=== PATIENT | male | born 1970 | race African-American/Black ===

== ENCOUNTER 2016-08-03 14:41 | Outpatient (RCR) | payer MEDICAID ==
--- OUTSIDE RECORDS SUMMARY | 2016-05-16 13:10 | XMS REPORT | Continuity of Care Document ---
Author Author [facility] Organization [facility] Address Unknown Phone Unavailable Care Team Providers Care Biztalk Software Developer Name Role Phone Veronica Holloway PCP [phone] Source Comments Some departments are not documenting in the electronic medical record. If you do not see the information that you expected, contact Release of Information in the Health Information Management department at [phone] for further assistance in locating additional records.[facility] Active Allergies and Adverse Reactions Allergen Noted Date Severity Reactions Comments Demerol 01/28/2015 Low SEE COMMENTS Patient states make him see things. Current Medications Prescription Sig. Disp. Refills Start End Date Status Date hydrochlorothiazide Take 25 mg by mouth Active (HYDRODIURIL) 25 mg daily. tablet albuterol (VENTOLIN HFA, Inhale 2 Puffs by mouth Active PROAIR HFA) 90 every 6 hours as needed mcg/actuation inhaler for Wheezing. sertraline (ZOLOFT) 50 mg Take 100 mg by mouth Active tablet daily. CYPROHEPTADINE HCL Take by mouth. Patient Active (CYPROHEPTADINE PO) states taking 8 mg daily. divalproex (DEPAKOTE) 500 Take 1 Tab by mouth twice 60 Tab 5 04/01/20 Active mg tablet daily. 15 traZODone (DESYREL) 100 Take 100 mg by mouth at Active mg tablet bedtime daily. pregabalin (LYRICA) 75 mg Take 1 Cap by mouth twice 60 Cap 2 02/24/20 Active capsule daily. 16 Active Problems Problem Noted Date Headache(784.0) 04/01/2015 Bipolar affective disorder, currently depressed, moderate (HCC) 04/01/2015 Most Recent Encounters Date Type Specialty Providers Description 05/01/2016 Telephone Neurology Amy Pulido MD Other - Adama BUSH 04/14/2016 Telephone Neurology Amy Pulido MD Other - [facility] 02/23/2016 Telephone Neurology Amy Pulido MD Medication Update - Lyrica Social History Tobacco Use Types Packs/Day Years Used Date Current Every Day Smoker Smokeless Tobacco: Former User Alcohol Use Drinks/Week oz/Week Comments No Last Filed Vital Signs Vital Sign Reading Time Taken Blood Pressure 111/76 11/29/2015 4:10 PM CDT Pulse 62 11/29/2015 4:10 PM CDT Temperature 36.3 C (97.4 F) 11/29/2015 4:10 PM CDT Respiratory Rate - - Height 1.702 m (5' 7.01") 11/29/2015 4:10 PM CDT Weight 80.287 kg (177 lb) 11/29/2015 4:10 PM CDT Body Mass Index 27.72 11/29/2015 4:10 PM CDT Oxygen Saturation 98% 11/29/2015 4:10 PM CDT Plan of Care Health Maintenance Due Date Last Done Comments Physical (Comprehensive) 09/22/1975 Exam Pertussis Vaccine 09/22/1979 Tetanus Vaccine 1985 Influenza Vaccine 03/09/2016 Results from Last 3 Months Not on file
[~2016-08-03 14:41] MED LIST: ACHD5005 PO; ALBU0.632 IH; ALBU8.5H2 IH; AMLO10TA4 PO; CEPH500C PO; CYCL10TA9 PO; HYDR25TA4 PO; IBP800T PO; IBUP-1773 PO; KETO10TA PO; METH4TAB PO; SIMV10TA3 PO
== END 2016-08-03 16:26 | disposition home or self-care (01) ==
PROVIDERS: ATTEND Family Medicine
DX: M54.5 Low back pain (principal)

== ENCOUNTER 2016-09-23 20:57 | Outpatient (CLI) | payer MEDICAID ==
--- OUTSIDE RECORDS SUMMARY | 2016-09-23 21:00 | XMS REPORT | Continuity of Care Document ---
Author Author [facility] Organization [facility] Address Unknown Phone Unavailable Care Team Providers Care Supply Chain Development Manager Name Role Phone Veronica Holloway PCP [phone] Source Comments Some departments are not documenting in the electronic medical record. If you do not see the information that you expected, contact Release of Information in the Health Information Management department at [phone] for further assistance in locating additional records.[facility] Active Allergies and Adverse Reactions Allergen Noted [...] affective disorder, currently depressed, moderate (HCC) 04/01/2015 Social History Tobacco Use Types Packs/Day Years [...]
== END 2016-09-24 06:35 | disposition home or self-care (01) ==
LOC: SLEEP 20:57
PROVIDERS: ATTEND Family Medicine
DX: R06.83 Snoring (principal); F51.3 Sleepwalking [somnambulism]
CPT/HCPCS: 95810

== ENCOUNTER 2016-11-22 20:40 | Outpatient (CLI) | payer MEDICAID | END 2016-11-23 06:25 | disposition home or self-care (01) | LOC: SLEEP 20:40 | PROVIDERS: ATTEND Family Medicine | DX: G47.33 Obstructive sleep apnea (adult) (pediatric) (principal); I10 Essential (primary) hypertension | CPT/HCPCS: 95811 ==

== ENCOUNTER 2017-08-08 14:43 | Emergency (ER) | payer MEDICAID ==
[~2017-08-08] VITALS: Ht 170.2 cm; Wt 81.6 kg
--- OUTSIDE RECORDS SUMMARY | 2017-08-08 14:48 | XMS REPORT | Clinical Summary ---
Author Author [facility] Organization [facility] Address Unknown Phone Unavailable Care Team Providers Care Keno Writer Name Role Phone Veronica Holloway MD PCP Amy Pulido MD Unavailable Source Comments Some departments are not documenting in the electronic medical record. If you do not see the information that you expected, contact Release of Information in the Health Information Management department at [phone] for further assistance in locating additional records.[facility] Allergies Active Allergy Reactions Severity Noted Date Comments Meperidine SEE COMMENTS Low 01/28/2015 Patient states make him see things. Current [...] twice 60 Tab 5 04/01/20 Active mg tabletIndications: daily. 15 Seizure (HCC), Postconcussive syndrome, Headache(784.0), Bipolar affective disorder, currently depressed, moderate (HCC) traZODone (DESYREL) 100 Take 100 mg by [...] User Alcohol Use Drinks/Week oz/Week Comments No Sex Assigned at Date Recorded Not on file Last Filed Vital Signs Vital Sign Reading Time Taken Blood Pressure 111/76 11/29/2015 4:10 PM CDT Pulse 62 11/29/2015 4:10 PM CDT Temperature 36.3 C (97.4 F) 11/29/2015 4:10 PM CDT Respiratory Rate - - Oxygen Saturation 98% 11/29/2015 4:10 PM CDT Inhaled Oxygen - - Concentration Weight 80.3 kg (177 lb) 11/29/2015 4:10 PM CDT Height 170.2 cm (5' 7.01") 11/29/2015 4:10 PM CDT Body Mass Index 27.72 11/29/2015 4:10 PM CDT Plan of Treatment Health Maintenance Due Date Last Done Comments PHYSICAL (COMPREHENSIVE) 09/22/1975 EXAM PERTUSSIS VACCINE 09/22/1979 TETANUS VACCINE 1985 INFLUENZA VACCINE 02/06/2017 Results Not on filefrom Last 3 Months
--- OUTSIDE RECORDS SUMMARY | 2017-08-08 14:49 | XMS REPORT ---
Author Author MYRA HARRINGTON [facility] Address Unknown Phone Unavailable Care Team Providers Care Heel Breaster Name Role Phone MYRA HARRINGTON CP Unavailable Allergies No Known Allergies Problems Problem Type Condition Code Onset Dates Condition Status Problem Post-traumatic stress disorder F43.10 Active Problem Neurocognitive deficits R29.818 Active Problem Bipolar disorder, current episode mixed, moderate F31.62 Active Medications No Known Medications Vital Signs Date/Time: Apr 28, 2015 Blood Pressure Diastolic 88 mmHg Blood Pressure Systolic 132 mmHg Height 66 in Results No Known Results Summary Purpose eClinicalWorks Submission
--- OUTSIDE RECORDS SUMMARY | 2017-08-08 14:49 | XMS REPORT ---
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 Problem Intractable chronic post-traumatic headache G44.321 Active Problem Chest pain, unspecified chest pain type R07.9 Active Problem Bipolar disorder, current episode depressed, moderate F31.32 Active Problem Essential hypertension I10 Active Problem Bipolar disorder, current episode depressed, mild F31.31 Active Problem Cervicalgia M54.2 Active Problem Seizure disorder G40.909 Active Problem Bilateral low back pain, with sciatica presence unspecified M54.5 Active Problem Uncomplicated asthma, unspecified asthma severity J45.909 Active Assessment Bilateral low back pain, with sciatica presence unspecified M54.5 Active Assessment Uncomplicated asthma, unspecified asthma severity J45.909 Active Assessment Jock itch B35.6 Active Problem Post-traumatic stress disorder F43.10 Active Problem Bipolar disorder, current episode mixed, moderate F31.62 Active Problem Tarsal tunnel syndrome of right side G57.51 Active Problem Generalized anxiety disorder F41.1 Active Problem Neurocognitive deficits R29.818 Active Problem Major depressive disorder, recurrent episode, unspecified severity F33.9 Active Medications Medication Code System Code Instructions Start Date End Date Status Dosage Trazodone HCl [facility] [address]-07 100 MG Orally Once a day at bedtime Jun 1 tablet at bedtime as needed Depakote ER [facility] [address]-37 500 MG Orally Once a day 2 capsule Hydrochlorothiazide [facility] [address]-64 25 MG TAKE ONE TABLET BY MOUTH DAILY Atorvastatin Calcium [facility] [address]-75 20 mg Orally Once a day September 17, 2015 1 tablet Flovent Diskus [facility] [address]-62 50 MCG/BLIST Inhalation Twice a day October 26, 2015 1 puff Prazosin HCl [facility] [address]-82 2 MG Orally Once a day Apr 08, 2015 1 capsule at bedtime Nebulizer [facility] 0 nebulizer October 26, 2015 and supplies as directed Naproxen [facility] [address]-16 500 MG Orally every 12 hrs Jul 21, 2015 1 tablet as needed with food Cymbalta [facility] [address]-94 60 MG Orally Once a day Aug 26, 2015 1 capsule Omeprazole [facility] [id number] 40 MG TAKE 1 CAPSULE BY MOUTH DAILY Proventil HFA [facility] [address]-67 108 (90 Base) MCG/ACT Inhalation every 4 hrs September 07, 2015 2 puffs as needed Albuterol Sulfate [facility] [address]-78 (2.5 MG/3ML) 0.083% Inhalation every 4 hrs as needed (do not use with proventil) October 26, 2015 3 ml Procedures Procedure Coding System Code Date Office Visit, Est Pt., Level 3 CPT-4 04958 October 26, 2015 MEASURE BLOOD OXYGEN LEVEL CPT-4 13041 October 26, 2015 Vital Signs Date/Time: October 26, 2015 Temperature 98.3 F Weight 182.0 lbs Height 66 in Oximetry 95 % Blood Pressure Diastolic 78 mmHg Blood Pressure Systolic 128 mmHg Cardiac Monitoring Heart Rate 78 bpm BMI 29.37 Index Results No Known Results Summary Purpose eClinicalWorks Submission
--- OUTSIDE RECORDS SUMMARY | 2017-08-08 14:49 | XMS REPORT ---
Author Author JUANY MYRA [facility] Address [address] [place] [address] Care Team Providers Care Technical Training Coordinator Name Role Phone ANASTASIYA HARRINGTONHANY Unavailable PROBLEMS Type Condition ICD9-CM Code [id number] Code Onset Dates Condition Status SNOMED Code Problem Bipolar disorder, current episode depressed, moderate F31.32 Active 030927935 Problem Pure hypercholesterolemia E78.0 Active 272957762 Problem Bipolar disorder, current episode depressed, mild F31.31 Active 906123516 Problem Subacromial bursitis of left shoulder joint M75.52 Active 26154880 Problem Post-traumatic stress disorder F43.10 Active 28523036 Problem Urinary hesitancy R39.11 Active 4944838 Problem Neurocognitive deficits R29.818 Active 539503394 Problem Tarsal tunnel syndrome of right side G57.51 Active 34313871 Problem Chronic post-traumatic stress disorder (PTSD) F43.12 Active 978188973 Problem Moderate persistent asthma without complication J45.40 Active 204219703 Problem Sleep walking and eating F51.3 Active 11461219 Problem Drug-induced erectile dysfunction N52.2 Active 224246470 Problem Major depressive disorder, recurrent episode, unspecified severity F33.9 Active 39539555 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 13736615 Problem Bipolar disorder, current episode mixed, moderate F31.62 Active 627626076 Problem Generalized anxiety disorder F41.1 Active 160445299 Problem Seizure disorder G40.909 Active 214078328 Problem Cervicalgia M54.2 Active 5949758286512 Problem Chest pain, unspecified chest pain type R07.9 Active 85289308 Problem Bilateral low back pain, with sciatica presence unspecified M54.5 Active 715033161 Problem Type 2 diabetes mellitus with hyperglycemia, without long-term current use of insulin E11.65 Active 44591164 Problem Intractable chronic post-traumatic headache G44.321 Active 737613249 Problem Essential hypertension I10 Active 06939927 ALLERGIES Unknown Allergies SOCIAL HISTORY No smoking Hx information available PLAN OF CARE VITAL SIGNS MEDICATIONS Unknown Medications RESULTS Name Result Date Reference Range A1C (IN HOUSE) 2016-06-27 A1C IN HOUSE 6.8 4.3 - 5.6 % Previous A1c Lot [id number] Exp date 03/2018 UA W/CULTURE IF INDICATED (IN HOUSE) 2016-06-27 Lot # [id number] Exp date 05/2017 Clarity Clear Color Yellow Odor No GLU Negative MADHU Negative KET Negative SG 1.020 BLO Trace-Intact pH 6.5 Protein Negative URO 0.2 NIT Negative TERESITA Trace Lot # [id number] Exp date 02/2018 PROCEDURES Procedure Date Ordered Related Diagnosis Body Site GLYCATED HEMOGLOBIN TEST Jun 27, 2016 URINALYSIS, AUTO, W/O SCOPE Jun 27, 2016 IMMUNIZATIONS No Known Immunizations
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
--- OUTSIDE RECORDS SUMMARY | 2017-08-08 14:49 | XMS REPORT ---
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 Problem Major depressive disorder, recurrent episode, unspecified severity F33.9 Active Problem Bilateral low back pain, with sciatica presence unspecified M54.5 Active Problem Uncomplicated asthma, unspecified asthma severity J45.909 Active Problem Essential hypertension I10 Active Problem Intractable chronic post-traumatic headache G44.321 Active Problem Chest pain, unspecified chest pain type R07.9 Active Problem Cervicalgia M54.2 Active Problem Seizure disorder G40.909 Active Assessment Neurocognitive deficits R29.818 Active Assessment Bipolar disorder, current episode mixed, moderate F31.62 Active Problem Neurocognitive deficits R29.818 Active Assessment Generalized anxiety disorder F41.1 Active Problem Post-traumatic stress disorder F43.10 Active Assessment Post-traumatic stress disorder F43.10 Active Problem Bipolar disorder, current episode mixed, moderate F31.62 Active Medications Medication Code System Code Instructions Start Date End Date Status Dosage Proventil HFA [facility] N[facility] [id number] 108 (90 Base) MCG/ACT INHALE TWO PUFFS BY MOUTH EVERY 4 HOURS NEEDED FOR COUGH OR WHEEZNG Omeprazole [facility] NAMED [facility] [address]-91 40 MG Orally Once a day January 28, 2015 1 capsule Prazosin HCl [facility] [address]-50 2 MG Orally Once a day Apr 08, 2015 1 capsule at bedtime Sertraline HCl [facility] [address]-84 100 MG Orally TAke 1.5 tablets each morning January 28, 2015 1 tablet Depakote ER [facility] [address]-17 500 MG Orally Once a day 2 capsule Hydrochlorothiazide [facility] 74583568797 25 MG TAKE ONE TABLET BY MOUTH DAILY Ibuprofen [facility] [address]-57 600 MG Orally 4 times a day 1 tablet as needed Procedures Procedure Coding System Code Date Office Visit, Est Pt., Level 4 CPT-4 24757 May 20, 2015 Vital Signs Date/Time: May 20, 2015 Cardiac Monitoring Heart Rate 78 bpm Weight 176.1 lbs Height 66 in BMI 28.42 Index Blood Pressure Diastolic 78 mmHg Blood Pressure Systolic 132 mmHg Results No Known Results Summary Purpose eClinicalWorks Submission
--- OUTSIDE RECORDS SUMMARY | 2017-08-08 14:49 | XMS REPORT ---
Author Author JUANY MYRA [facility] Address [address] [place] [address] Care Team Providers Care Sign Painter Apprentice Name Role Phone ANASTASIYA HARRINGTONHANY Unavailable PROBLEMS Type Condition ICD9-CM Code [id number] Code Onset Dates Condition Status SNOMED Code Problem Bipolar disorder, current episode depressed, moderate F31.32 Active 353292788 Problem Pure hypercholesterolemia E78.0 Active 266647672 Problem Bipolar disorder, current episode depressed, mild F31.31 Active 106083650 Problem Subacromial bursitis of left shoulder joint M75.52 Active 60498604 Problem Post-traumatic stress disorder F43.10 Active 01490967 Problem Urinary hesitancy R39.11 Active 0764387 Problem Neurocognitive deficits R29.818 Active 104598248 Problem Tarsal tunnel syndrome of right side G57.51 Active 39465539 Problem Chronic post-traumatic stress disorder (PTSD) F43.12 Active 393417266 Problem Moderate persistent asthma without complication J45.40 Active 605037085 Problem Sleep walking and eating F51.3 Active 56302622 Problem Drug-induced erectile dysfunction N52.2 Active 540261414 Problem Major depressive disorder, recurrent episode, unspecified severity F33.9 Active 49127963 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 72258452 Problem Bipolar disorder, current episode mixed, moderate F31.62 Active 788264936 Problem Generalized anxiety disorder F41.1 Active 989237796 Problem Seizure disorder G40.909 Active 288866185 Problem Cervicalgia M54.2 Active 6851709724587 Problem Chest pain, unspecified chest pain type R07.9 Active 88981668 Problem Bilateral low back pain, with sciatica presence unspecified M54.5 Active 591695188 Problem Type 2 diabetes mellitus with hyperglycemia, without long-term current use of insulin E11.65 Active 64381347 Problem Intractable chronic post-traumatic headache G44.321 Active 394873717 Problem Essential hypertension I10 Active 51871004 ALLERGIES Unknown Allergies SOCIAL HISTORY No smoking Hx information available PLAN OF CARE VITAL SIGNS MEDICATIONS Unknown Medications RESULTS No Results PROCEDURES No Known procedures IMMUNIZATIONS No Known Immunizations
--- OUTSIDE RECORDS SUMMARY | 2017-08-08 14:49 | XMS REPORT ---
Author Author JUANY MYRA Organization [facility] Address [address] [place] [address] Care Team Providers Care Nursing Program Director Name Role Phone ANASTASIYA HARRINGTONHANY Unavailable PROBLEMS Type Condition ICD9-CM Code PHQ78-MO Code Onset Dates Condition Status SNOMED Code Problem Bipolar disorder, current episode depressed, moderate F31.32 Active 593074969 Problem Moderate persistent asthma without complication J45.40 Active 692478726 Problem Bipolar disorder, current episode depressed, mild F31.31 Active 829486519 Problem Subacromial bursitis of left shoulder joint M75.52 Active 17928724 Problem Neurocognitive deficits R29.818 Active 463592382 Problem Urinary hesitancy R39.11 Active 0637658 Problem Bipolar disorder, current episode mixed, moderate F31.62 Active 925305637 Problem Type 2 diabetes mellitus with hyperglycemia, without long-term current use of insulin E11.65 Active 53097486 Problem Chronic post-traumatic stress disorder (PTSD) F43.12 Active 476336697 Problem Pure hypercholesterolemia E78.0 Active 968903551 Problem Sleep walking and eating F51.3 Active 04293805 Problem Drug-induced erectile dysfunction N52.2 Active 226575660 Problem Major depressive disorder, recurrent episode, unspecified severity F33.9 Active 61302017 Problem Chest pain, unspecified chest pain type R07.9 Active 28443836 Problem Post-traumatic stress disorder F43.10 Active 00742316 Problem Intractable chronic post-traumatic headache G44.321 Active 318760896 Problem Generalized anxiety disorder F41.1 Active 506767746 

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
--- OUTSIDE RECORDS SUMMARY | 2017-08-08 14:50 | XMS REPORT ---
Author Author MYRA HARRINGTON [facility] eClinicalWorks Address Unknown Phone Unavailable Care Team Providers Care Silk Washing Machine Operator Name Role Phone MYRA HARRINGTON CP Unavailable Allergies No Known Allergies Problems Problem Type Condition Code Onset Dates Condition Status Problem Intractable chronic post-traumatic headache G44.321 Active Problem Cervicalgia M54.2 Active Problem Seizure disorder G40.909 Active Problem Pure hypercholesterolemia E78.0 Active Problem Bipolar disorder, current episode depressed, mild F31.31 Active Problem Moderate persistent asthma without complication J45.40 Active Problem Bilateral low back pain, with sciatica presence unspecified M54.5 Active Problem Uncomplicated asthma, unspecified asthma severity J45.909 Active Problem Bipolar disorder, current episode depressed, moderate F31.32 Active Problem Essential hypertension I10 Active Problem Tarsal tunnel syndrome of right side G57.51 Active Problem Neurocognitive deficits R29.818 Active Problem Generalized anxiety disorder F41.1 Active Problem Major depressive disorder, recurrent episode, unspecified severity F33.9 Active Problem Post-traumatic stress disorder F43.10 Active 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
--- OUTSIDE RECORDS SUMMARY | 2017-08-08 14:50 | XMS REPORT ---
Author Author MYRA HARRINGTON eClinicalWorks Address Unknown Phone Unavailable Care Team Providers Care Math Instructor Name Role Phone MYRA HARRINGTON CP Unavailable [...] asthma, unspecified asthma severity J45.909 Active Assessment Uncomplicated asthma, unspecified asthma severity J45.909 Active Problem Post-traumatic stress disorder F43.10 Active Problem Bipolar disorder, current episode mixed, moderate F31.62 Active Problem Tarsal tunnel syndrome of right side G57.51 Active Problem Generalized anxiety disorder F41.1 Active Problem Neurocognitive deficits R29.818 Active Problem Major depressive disorder, recurrent episode, unspecified severity F33.9 Active Medications No Known Medications Procedures Procedure Coding System Code Date SPRIOMETRY CHALLENGE CPT-4 15024 November 04, 2015 NEB/MDI DEMO CPT-4 34523 November 04, 2015 RESPIRATORY FLOW VOLUME LOOP CPT-4 21440 November 04, 2015 SPIROMETRY CPT-4 78355 November 04, 2015 Results No Known Results Summary Purpose eClinicalWorks Submission
--- OUTSIDE RECORDS SUMMARY | 2017-08-08 14:50 | XMS REPORT ---
Author Author JUANY MYRA Organization [facility] Address [address] [place] [address] Care Team Providers Care Jig Box Operator Name Role Phone ANASTASIYA HARRINGTONHANY Unavailable PROBLEMS Type Condition ICD9-CM Code [id number] Code Onset Dates Condition Status SNOMED Code Problem Bipolar disorder, current episode depressed, moderate F31.32 Active 210002150 Problem Moderate persistent asthma without complication J45.40 Active 192232826 Problem Bipolar disorder, current episode depressed, mild F31.31 Active 288040899 Problem Subacromial bursitis of left shoulder joint M75.52 Active 91900060 Problem Neurocognitive deficits R29.818 Active 828679128 Problem Urinary hesitancy R39.11 Active 4813494 Problem Bipolar disorder, current episode mixed, moderate F31.62 Active 493523524 Problem Type 2 diabetes mellitus with hyperglycemia, without long-term current use of insulin E11.65 Active 35348135 Problem Chronic post-traumatic stress disorder (PTSD) F43.12 Active 839828192 Problem Pure hypercholesterolemia E78.0 Active 641141780 Problem Sleep walking and eating F51.3 Active 71760101 Problem Drug-induced erectile dysfunction N52.2 Active 116700596 Problem Major depressive disorder, recurrent episode, unspecified severity F33.9 Active 78281794 Problem Chest pain, unspecified chest pain type R07.9 Active 37759820 Problem Post-traumatic stress disorder F43.10 Active 94563569 Problem Intractable chronic post-traumatic headache G44.321 Active 294241444 Problem Generalized anxiety disorder F41.1 Active 508388929 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 90645821 Problem Bilateral low back pain, with sciatica presence unspecified M54.5 Active 512670496 Problem Seizure disorder G40.909 Active 946811985 Problem Tarsal tunnel syndrome of right side G57.51 Active 06262499 Problem Cervicalgia M54.2 Active 0500148800092 Problem Essential hypertension I10 Active 37824780 ALLERGIES No Information SOCIAL HISTORY Never Assessed PLAN OF CARE VITAL SIGNS MEDICATIONS Medication Instructions Dosage Frequency Start Date End Date Duration Status Hydrochlorothiazide 25 MG 1 tablet Daily Oral 30 30 Active Terbinafine HCl 250 MG Orally Once a day 1 tablet 24h November, Dec, 14 days Active Prazosin HCl 2 MG TAKE 1 CAPSULE BY MOUTH AT BEDTIME 30 Active Atorvastatin Calcium 20 MG TAKE ONE (1) TABLET BY MOUTH DAILY 90 Active Finasteride 5 mg Orally Once a day 1 tablet 24h November, Feb, 30 day(s) Active Duloxetine HCl 60 mg Orally Once a day along with 30 mg 1 capsule Active Proventil HFA 108 (90 Base) MCG/ACT Inhalation every 4 hrs 2 puffs as needed 4h Active Zyprexa 5 mg Orally Once at bedtime 1 tablet Active Omeprazole 40 MG TAKE ONE (1) CAPSULE BY MOUTH DAILY 90 Active Indomethacin 25 MG Orally 2 times a day 1 capsule 12h Active ChlorproMAZINE HCl 25 MG Orally in am and 2 tablets at bedtime 1 tablet Sep, Active BusPIRone HCl 15 MG Orally Twice a day 1 tablet 12h Jun, Active Topiramate 200 MG Orally Twice a day 1 tablet 12h Active Duloxetine HCl 30 mg 1 capsule Once a day with Duloxetine 60mg (full dose is 90mg) Orally Active Depakote ER 500 mg Orally 1 tab qam and 2 tabs qhs Active RESULTS No Results PROCEDURES No Known [...]
--- OUTSIDE RECORDS SUMMARY | 2017-08-08 14:50 | XMS REPORT ---
Author Author JUANY MYRA Organization [facility] Address [address] [place] [address] Care Team Providers Care Forklift Operator Name Role Phone ANASTASIYA HARRINGTONHANY Unavailable PROBLEMS Type Condition ICD9-CM Code [id number] Code Onset Dates Condition Status SNOMED Code Problem Bipolar disorder, current episode depressed, moderate F31.32 Active 446608014 Problem Moderate persistent asthma without complication J45.40 Active 319099555 Problem Bipolar disorder, current episode depressed, mild F31.31 Active 228915149 Problem Subacromial bursitis of left shoulder joint M75.52 Active 18031203 Problem Neurocognitive deficits R29.818 Active 279472415 Problem Urinary hesitancy R39.11 Active 9240286 Problem Bipolar disorder, current episode mixed, moderate F31.62 Active 122353094 Problem Type 2 diabetes mellitus with hyperglycemia, without long-term current use of insulin E11.65 Active 29205455 Problem Chronic post-traumatic stress disorder (PTSD) F43.12 Active 399740141 Problem Pure hypercholesterolemia E78.0 Active 607156145 Problem Sleep walking and eating F51.3 Active 74768459 Problem Drug-induced erectile dysfunction N52.2 Active 163542989 Problem Major depressive disorder, recurrent episode, unspecified severity F33.9 Active 77022561 Problem Chest pain, unspecified chest pain type R07.9 Active 76721177 Problem Post-traumatic stress disorder F43.10 Active 41648161 Problem Intractable chronic post-traumatic headache G44.321 Active 429553745 Problem Generalized anxiety disorder F41.1 Active 287171196 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
--- OUTSIDE RECORDS SUMMARY | 2017-08-08 14:50 | XMS REPORT ---
Author Author MYRA HARRINGTON eClinicalWorks Address Unknown Phone Unavailable Care Team Providers Care Inside Phone Sales Name Role Phone MYRA HARRINGTON CP Unavailable Allergies No Known Allergies Problems Problem Type Condition Code Onset Dates Condition Status Problem Seizure disorder G40.909 Active Problem Uncomplicated asthma, unspecified asthma severity J45.909 Active Problem Cervicalgia M54.2 Active Problem Moderate persistent asthma without complication J45.40 Active Problem Pure hypercholesterolemia E78.0 Active Problem Drug-induced erectile dysfunction N52.2 Active Problem Essential hypertension I10 Active Problem Bilateral low back pain, with sciatica presence unspecified M54.5 Active Problem Bipolar disorder, current episode depressed, mild F31.31 Active Problem Bipolar disorder, current episode depressed, moderate F31.32 Active Problem Neurocognitive deficits R29.818 Active Problem Post-traumatic stress disorder F43.10 Active Problem Tarsal tunnel syndrome of right side G57.51 Active Problem Major depressive disorder, recurrent episode, unspecified severity F33.9 Active 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
--- OUTSIDE RECORDS SUMMARY | 2017-08-08 14:50 | XMS REPORT ---
Author Author KHADRA GUTIERRES Organization [facility] Address [address] [place] [address] Care Team Providers Care Distribution Accounting Clerk Name Role Phone PREM GUTIERRESA Unavailable PROBLEMS Type Condition ICD9-CM Code [id number] Code Onset Dates Condition Status SNOMED Code Problem Bipolar disorder, current episode depressed, moderate F31.32 Active 508026059 Problem Moderate persistent asthma without complication J45.40 Active 807360589 Problem Bipolar disorder, current episode depressed, mild F31.31 Active 971175678 Problem Subacromial bursitis of left shoulder joint M75.52 Active 40461645 Problem Neurocognitive deficits R29.818 Active 609332158 Problem Urinary hesitancy R39.11 Active 6181260 Problem Bipolar disorder, current episode mixed, moderate F31.62 Active 832987660 Problem Type 2 diabetes mellitus with hyperglycemia, without long-term current use of insulin E11.65 Active 04849036 Problem Chronic post-traumatic stress disorder (PTSD) F43.12 Active 650242817 Problem Pure hypercholesterolemia E78.0 Active 793212908 Problem Sleep walking and eating F51.3 Active 64528698 Problem Drug-induced erectile dysfunction N52.2 Active 920691039 Problem Major depressive disorder, recurrent episode, unspecified severity F33.9 Active 58178435 Problem Chest pain, unspecified chest pain type R07.9 Active 40202861 Problem Post-traumatic stress disorder F43.10 Active 46360512 Problem Intractable chronic post-traumatic headache G44.321 Active 746286411 Problem Generalized anxiety disorder F41.1 Active 359913485 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 87198163 Problem Bilateral low back pain, with sciatica presence unspecified M54.5 Active 386125245 Problem Seizure disorder G40.909 Active 568966309 Problem Tarsal tunnel syndrome of right side G57.51 Active 79419653 Problem Cervicalgia M54.2 Active 3813147224963 Problem Essential hypertension I10 Active 28430397 ALLERGIES Substance Reaction Event Type Date Status Demerol hallucinations Drug Allergy Jun, Active SOCIAL HISTORY No smoking Hx information available PLAN OF CARE Activity Details Follow Up 3 Months Reason: VITAL SIGNS Height 66 in 2016-06-27 Weight 203.7 lbs 2016-06-27 Heart Rate 92 bpm 2016-06-27 Respiratory Rate 20 2016-06-27 BMI 32.87 kg/m2 2016-06-27 Blood pressure systolic 141 mmHg 2016-06-27 Blood pressure diastolic 91 mmHg 2016-06-27 MEDICATIONS Medication Instructions Dosage Frequency Start Date End Date Duration Status Doxepin HCl 10 mg Orally at bedtime for sleep 1 capsule Active Omeprazole 40 mg TAKE 1 CAPSULE BY MOUTH DAILY Active BusPIRone HCl 15 MG Orally Twice a day 1 tablet 12h Jun, Active Zyprexa 5 mg Orally Once at bedtime 1 tablet Mar, Active Hydrochlorothiazide 25 MG Oral Daily 1 tablet 24h 30 Active Depakote ER 500 MG Orally 1 tab qam and 2 tabs qhs 2 capsule Active Atorvastatin Calcium 20 mg TAKE ONE TABLET BY MOUTH DAILY Active Lyrica 150 MG Orally Twice a day 1 capsule 12h Active Proventil HFA 108 (90 Base) MCG/ACT Inhalation every 4 hrs 2 puffs as needed 4h Sep, Active Flovent HFA 110 MCG/ACT Inhalation Twice a day 2 puffs 12h Feb, 30 days Active Prazosin HCl 2 MG TAKE 1 CAPSULE BY MOUTH AT BEDTIME Active Tegretol 200 MG Orally Twice a day 1 tablet 12h Active Albuterol Sulfate (2.5 MG/3ML) 0.083% Inhalation every 4 hrs as needed (do not use with proventil) 3 ml Oct, Active Duloxetine HCl 60 MG TAKE 1 CAPSULE BY MOUTH DAILY Active Ketoconazole 2 % Externally Once a day apply thin layer to anterior chest wall and behind ear 24h Mar, Active Duloxetine HCl 30 MG Orally Once a day with Duloxetine 60mg (full dose is 90mg ) 1 capsule Mar, Active Omeprazole 40 mg TAKE 1 CAPSULE BY MOUTH DAILY Active RESULTS No Results PROCEDURES Procedure Date Ordered Related Diagnosis Body Site Office Visit, Est Pt., Level 4 Jun 27, 2016 IMMUNIZATIONS No Known Immunizations
--- OUTSIDE RECORDS SUMMARY | 2017-08-08 14:50 | XMS REPORT ---
Author Author JESU SARAH [facility] eClinicalWorks Address Unknown Phone Unavailable Care Team Providers Care Wet Machine Operator Name Role Phone JESU SARAH CP Unavailable Allergies, Adverse Reactions, Alerts Substance Reaction Event Type Demerol hallucinations Drug Allergy Problems Problem Type Condition Code Onset Dates Condition Status Problem Cervicalgia 723.1 Active Problem Lumbago 724.2 Active Problem Asthma, unspecified, unspecified status 493.90 Active Assessment Depression 311 Active Assessment Anxiety 300.00 Active Problem Latent tuberculosis 795.51 Active Problem Depression 311 Active Problem Chest pain 786.50 Active Problem Chronic headache 784.0 Active Problem Essential hypertension, benign 401.1 Active Problem Anxiety 300.00 Active Problem Seizure disorder 345.90 Active Medications No Known Medications Procedures Procedure Coding System Code Date Psychotherapy, patient &/family, 45 minutes, established patient CPT-4 34708 May 10, 2015 Results No Known Results Summary Purpose eClinicalWorks Submission
--- OUTSIDE RECORDS SUMMARY | 2017-08-08 14:50 | XMS REPORT ---
Author Author MYRA HARRINGTON eClinicalWorks Address Unknown Phone Unavailable Care Team Providers Care Meat Carrier Name Role Phone MYRA HARRINGTON CP Unavailable Allergies, Adverse Reactions, Alerts Substance Reaction Event Type Demerol hallucinations Drug Allergy Problems Problem Type Condition Code Onset Dates Condition Status Problem Intractable chronic post-traumatic headache G44.321 Active Problem Cervicalgia M54.2 Active Problem Seizure disorder G40.909 Active Problem Pure hypercholesterolemia E78.0 Active Assessment Pure hypercholesterolemia E78.0 Active Problem Bipolar disorder, current episode depressed, mild F31.31 Active Assessment Auditory hallucinations R44.0 Active Problem Moderate persistent asthma without complication J45.40 Active Problem Bilateral low back pain, with sciatica presence unspecified M54.5 Active Problem Uncomplicated asthma, unspecified asthma severity J45.909 Active Problem Bipolar disorder, current episode depressed, moderate F31.32 Active Problem Essential hypertension I10 Active Problem Tarsal tunnel syndrome of right side G57.51 Active Problem Neurocognitive deficits R29.818 Active Assessment Moderate persistent asthma without complication J45.40 Active Assessment Essential hypertension I10 Active Problem Generalized anxiety disorder F41.1 Active Problem Major depressive disorder, recurrent episode, unspecified severity F33.9 Active Problem Post-traumatic stress disorder F43.10 Active 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 Problem Bipolar disorder, current episode mixed, moderate F31.62 Active Problem Chest pain, unspecified chest pain type R07.9 Active Medications Medication Code System Code Instructions Start Date End Date Status Dosage Omeprazole [facility] [id number] 40 MG TAKE 1 CAPSULE BY MOUTH DAILY Proventil HFA [facility] [address]-99 108 (90 Base) MCG/ACT Inhalation every 4 hrs September 07, 2015 2 puffs as needed Albuterol Sulfate [facility] [address]-25 (2.5 MG/3ML) 0.083% Inhalation every 4 hrs as needed (do not use with proventil) October 26, 2015 3 ml Prazosin HCl [facility] 57598876498 2 MG Orally Once a day 1 capsule at bedtime Flovent Diskus [facility] [address]-36 250 MCG/BLIST Inhalation Twice a day October 26, 2015 1 puff Hydrochlorothiazide [facility] 57568229429 25 MG Oral Daily 1 tablet Depakote ER [facility] [address]-82 500 MG Orally Once a day 2 capsule Lyrica [facility] [address]-18 150 MG Orally Twice a day 1 capsule Doxepin HCl [facility] [address]-60 10 mg Orally at bedtime for sleep November 30, 2015 1 capsule Cymbalta [facility] [address]-28 60 MG Orally Once a day Aug 26, 2015 1 capsule Atorvastatin Calcium [facility] 90011060748 20 MG TAKE ONE TABLET BY MOUTH DAILY NEED AN APPOINTMENT AND LABS FOR FURTHER REFILLS Duloxetine HCl [facility] 93688346360 60 MG TAKE 1 CAPSULE BY MOUTH DAILY Procedures Procedure Coding System Code Date Office Visit, Est Pt., Level 3 CPT-4 45738 February 03, 2016 Vital Signs Date/Time: February 03, 2016 Cardiac Monitoring Heart Rate 76 bpm Weight 175.4 lbs Height 66 in BMI 28.31 Index Blood Pressure Diastolic 80 mmHg Blood Pressure Systolic 132 mmHg Results No Known Results Summary Purpose eClinicalWorks Submission
--- OUTSIDE RECORDS SUMMARY | 2017-08-08 14:50 | XMS REPORT ---
Author Author NENITA KHADRA Organization [facility] Address [address] [place] [address] Care Team Providers Care Charge Entry Name Role Phone PREM GUTIERRESA Unavailable PROBLEMS Type Condition ICD9-CM Code [id number] Code Onset Dates Condition Status SNOMED Code Problem Bipolar disorder, current episode depressed, moderate F31.32 Active 162712349 Problem Moderate persistent asthma without complication J45.40 Active 715700285 Problem Bipolar disorder, current episode depressed, mild F31.31 Active 252533589 Problem Subacromial bursitis of left shoulder joint M75.52 Active 05693691 Problem Neurocognitive deficits R29.818 Active 919287169 Problem Urinary hesitancy R39.11 Active 8876807 Problem Bipolar disorder, current episode mixed, moderate F31.62 Active 809900851 Problem Type 2 diabetes mellitus with hyperglycemia, without long-term current use of insulin E11.65 Active 76976935 Problem Chronic post-traumatic stress disorder (PTSD) F43.12 Active 383085964 Problem Pure hypercholesterolemia E78.0 Active 007740828 Problem Sleep walking and eating F51.3 Active 87804042 Problem Drug-induced erectile dysfunction N52.2 Active 059363659 Problem Major depressive disorder, recurrent episode, unspecified severity F33.9 Active 11121800 Problem Chest pain, unspecified chest pain type R07.9 Active 38321410 Problem Post-traumatic stress disorder F43.10 Active 27816840 Problem Intractable chronic post-traumatic headache G44.321 Active 144585610 Problem Generalized anxiety disorder F41.1 Active 745076114 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
--- OUTSIDE RECORDS SUMMARY | 2017-08-08 14:51 | XMS REPORT ---
Author Author MYRA HARRINGTON [facility] eClinicalWorks Address Unknown Phone Unavailable Care Team Providers Care Due Diligence Coordinator Name Role Phone MYRA HARRINGTON CP Unavailable [...] Instructions Start Date End Date Status Dosage Atorvastatin Calcium [facility] [address]-19 20 mg TAKE ONE TABLET BY MOUTH DAILY Results No Known Results Summary Purpose eClinicalWorks Submission
--- OUTSIDE RECORDS SUMMARY | 2017-08-08 14:51 | XMS REPORT ---
Author Author KHADRA GUTIERRES eClinicalWorks Address Unknown Phone Unavailable Care Team Providers Care Petroleum Blending Plant Operator Name Role Phone KHADRA GUTIERRES CP Unavailable Allergies No Known Allergies Problems Problem Type Condition Code Onset Dates Condition Status Problem Cervicalgia 723.1 Active Problem Lumbago 724.2 Active Problem Asthma, unspecified, unspecified status 493.90 Active Problem Latent tuberculosis 795.51 Active Problem Depression 311 Active Problem Chest pain 786.50 Active Problem Chronic headache 784.0 Active Problem Essential hypertension, benign 401.1 Active Problem Anxiety 300.00 Active Problem Seizure disorder 345.90 Active Medications No Known Medications Results No Known Results Summary Purpose eClinicalWorks Submission
--- OUTSIDE RECORDS SUMMARY | 2017-08-08 14:51 | XMS REPORT ---
Author Author MYRA HARRINGTON [facility] eClinicalWorks Address Unknown Phone Unavailable Care Team Providers Care Manager Video Games Name Role Phone MYRA HARRINGTON CP Unavailable [...]
--- OUTSIDE RECORDS SUMMARY | 2017-08-08 14:51 | XMS REPORT ---
Author Author SYLVIA VIERA [facility] eClinicalWorks Address Unknown Phone Unavailable Care Team Providers Care Sharemilker Name Role Phone SYLVIA VIERA CP Unavailable Allergies No Known Allergies Problems [...] Active Problem Seizure disorder G40.909 Active Assessment Metacarpophalangeal joint sprain S63.659A Active Problem Neurocognitive deficits R29.818 Active Problem Post-traumatic stress disorder F43.10 Active Problem Bipolar disorder, current episode mixed, moderate F31.62 Active Medications No Known Medications Procedures Procedure Coding System Code Date Office Visit, Est Pt., Level 2 CPT-4 27649 Jul 29, 2015 X-RAY EXAM OF HAND CPT-4 69305 Jul 29, 2015 Vital Signs Date/Time: Jul 29, 2015 Blood Pressure Diastolic 78 mmHg Blood Pressure Systolic 118 mmHg Height 66 in Results No Known Results Summary Purpose eClinicalWorks Submission
--- OUTSIDE RECORDS SUMMARY | 2017-08-08 14:51 | XMS REPORT ---
Author Author JUANY MYRA Organization [facility] Address [address] [place] [address] Care Team Providers Care E Tailer Name Role Phone ANASTASIYA HARRINGTONHANY Unavailable PROBLEMS Type Condition ICD9-CM Code [id number] Code Onset Dates Condition Status SNOMED Code Problem Bipolar disorder, current episode depressed, moderate F31.32 Active 797042429 Problem Moderate persistent asthma without complication J45.40 Active 663228844 Problem Bipolar disorder, current episode depressed, mild F31.31 Active 199773239 Problem Subacromial bursitis of left shoulder joint M75.52 Active 17271379 Problem Neurocognitive deficits R29.818 Active 614131233 Problem Urinary hesitancy R39.11 Active 6030826 Problem Bipolar disorder, current episode mixed, moderate F31.62 Active 652766043 Problem Type 2 diabetes mellitus with hyperglycemia, without long-term current use of insulin E11.65 Active 84972052 Problem Chronic post-traumatic stress disorder (PTSD) F43.12 Active 383103905 Problem Pure hypercholesterolemia E78.0 Active 251199028 Problem Sleep walking and eating F51.3 Active 22942458 Problem Drug-induced erectile dysfunction N52.2 Active 735070019 Problem Major depressive disorder, recurrent episode, unspecified severity F33.9 Active 37124831 Problem Chest pain, unspecified chest pain type R07.9 Active 72651061 Problem Post-traumatic stress disorder F43.10 Active 23004744 Problem Intractable chronic post-traumatic headache G44.321 Active 616535061 Problem Generalized anxiety disorder F41.1 Active 175408594 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
--- OUTSIDE RECORDS SUMMARY | 2017-08-08 14:51 | XMS REPORT ---
Author Author SABAS ZELAYA Organization [facility] Address [address] [place] [address] Care Team Providers Care Flight Operations Manager Name Role Phone SABAS ZELAYA Unavailable PROBLEMS Type Condition ICD9-CM Code [id number] Code Onset Dates Condition Status SNOMED Code Problem Seizure disorder G40.909 Active 972908725 Problem Uncomplicated asthma, unspecified asthma severity J45.909 Active 611161424 Problem Cervicalgia M54.2 Active 1628633109380 Problem Moderate persistent asthma without complication J45.40 Active 564073224 Assessment Encounter for immunization Z23 Mar, Active 440292852 Problem Pure hypercholesterolemia E78.0 Active 344313154 Problem Essential hypertension I10 Active 03397090 Problem Bilateral low back pain, with sciatica presence unspecified M54.5 Active 047531847 Problem Bipolar disorder, current episode depressed, mild F31.31 Active 109364807 Problem Bipolar disorder, current episode depressed, moderate F31.32 Active 145584368 Problem Neurocognitive deficits R29.818 Active 162418450 Problem Post-traumatic stress disorder F43.10 Active 47061994 Assessment Tinea versicolor B36.0 Mar, Active 00849082 Problem Tarsal tunnel syndrome of right side G57.51 Active 41794857 Problem Major depressive disorder, recurrent episode, unspecified severity F33.9 Active 57548829 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 98405735 Problem Bipolar disorder, current episode mixed, moderate F31.62 Active 074183432 Problem Chest pain, unspecified chest pain type R07.9 Active 84792100 Problem Generalized anxiety disorder F41.1 Active 164256804 Problem Intractable chronic post-traumatic headache G44.321 Active 930094163 ALLERGIES Substance Reaction Event Type Date Status Demerol hallucinations Drug Allergy Mar, Active SOCIAL HISTORY No smoking Hx information available PLAN OF CARE VITAL SIGNS Height 66 in 2016-03-30 Weight 176.8 lbs 2016-03-30 Heart Rate 78 bpm 2016-03-30 Respiratory Rate 18 2016-03-30 BMI 28.53 kg/m2 2016-03-30 Blood pressure systolic 110 mmHg 2016-03-30 Blood pressure diastolic 76 mmHg 2016-03-30 MEDICATIONS Medication Instructions Dosage Frequency Start Date End Date Duration Status Albuterol Sulfate (2.5 MG/3ML) 0.083% Inhalation every 4 hrs as needed (do not use with proventil) 3 ml Oct, Active Duloxetine HCl 60 MG TAKE 1 CAPSULE BY MOUTH DAILY Active Omeprazole 40 mg TAKE 1 CAPSULE BY MOUTH DAILY Active Lyrica 150 MG Orally Twice a day 1 capsule 12h Active Hydrochlorothiazide 25 MG Oral Daily 1 tablet 24h 30 Active Doxepin HCl 10 mg Orally at bedtime for sleep 1 capsule November, Active Duloxetine HCl 30 MG Orally Once a day with Duloxetine 60mg (full dose is 90mg ) 1 capsule Mar, Active Proventil HFA 108 (90 Base) MCG/ACT Inhalation every 4 hrs 2 puffs as needed 4h Sep, Active Depakote ER 500 MG Orally Once a day 2 capsule 24h 60 Active Prazosin HCl 2 MG Orally Once a day 1 capsule at bedtime 24h Active Ketoconazole 2 % Externally Once a day apply thin layer to anterior chest wall and behind ear 24h Mar, Active Atorvastatin Calcium 20 mg TAKE ONE TABLET BY MOUTH DAILY Active Flovent HFA 110 MCG/ACT Inhalation Twice a day 2 puffs 12h Feb, 30 days Active Zyprexa 5 mg Orally Once at bedtime 1 tablet Mar, Active RESULTS No Results PROCEDURES Procedure Date Ordered Related Diagnosis Body Site Office Visit, Est Pt., Level 3 Mar 30, 2016 FLUARIX QUAD P-FREE 3 AND UP .50 2015Mar 30, 2016 SINGLE IMMUNIZATION ADMIN Mar 30, 2016 IMMUNIZATIONS Vaccine Route Administration Date Status FLUARIX QUAD P-FREE 3 AND UP .50 2015 IM Intramuscular Mar 30, 2016 Administered
--- OUTSIDE RECORDS SUMMARY | 2017-08-08 14:51 | XMS REPORT ---
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
--- OUTSIDE RECORDS SUMMARY | 2017-08-08 14:51 | XMS REPORT ---
Author Author MYRA HARRINGTON eClinicalWorks Address Unknown Phone Unavailable Care Team Providers Care Reading Teacher Name Role Phone MYRA HARRINGTON CP Unavailable [...] Active Problem Seizure disorder G40.909 Active Assessment Flat foot [pes planus] (acquired), right foot M21.41 Active Assessment Urinary hesitancy R39.11 Active Assessment Pes planus of left foot M21.42 Active Assessment Right hand pain M79.641 Active Problem Neurocognitive deficits R29.818 Active Assessment Right ankle pain M25.571 Active Problem Post-traumatic stress disorder F43.10 Active Assessment Right foot pain M79.671 Active Problem Bipolar disorder, current episode mixed, moderate F31.62 Active Medications Medication Code System Code Instructions Start Date End Date Status Dosage Proventil HFA [facility] 82627653412 108 (90 Base) MCG/ACT INHALE TWO PUFFS BY MOUTH EVERY 4 HOURS NEEDED FOR COUGH OR WHEEZNG Depakote ER [facility] [address]-34 500 MG Orally Once a day 2 capsule Prazosin HCl [facility] [address]-46 2 MG Orally Once a day Apr 08, 2015 1 capsule at bedtime Omeprazole [facility] 03570114983 40 MG Orally Once a day 1 capsule Hydrochlorothiazide [facility] 00557053720 25 MG TAKE ONE TABLET BY MOUTH DAILY Sertraline HCl [facility] 77102499357 100 MG Orally Once a day 1 tablet Ibuprofen [facility] [address]-32 600 MG Orally 4 times a day 1 tablet as needed Procedures Procedure Coding System Code Date Office Visit, Est Pt., Level 3 CPT-4 92672 Jun 18, 2015 X-RAY EXAM OF ANKLE CPT-4 19033 Jun 18, 2015 Vital Signs Date/Time: Jun 18, 2015 Temperature 98.0 F Weight 180.9 lbs Height 66 in BMI 29.19 Index Blood Pressure Diastolic 80 mmHg Blood Pressure Systolic 126 mmHg Cardiac Monitoring Heart Rate 78 bpm Results Name Result Date Reference Range Unit Abnormality Flag Xray : Ankle, Right 2 views (IN HOUSE) Summary Purpose eClinicalWorks Submission
--- OUTSIDE RECORDS SUMMARY | 2017-08-08 14:51 | XMS REPORT ---
Author Author JUANY MYRA Organization [facility] Address [address] [place] [address] Care Team Providers Care Mechanical Technologist Name Role Phone ANASTASIYA HARRINGTONHANY Unavailable PROBLEMS Type Condition ICD9-CM Code KBR24-GB Code Onset Dates Condition Status SNOMED Code Problem Bipolar disorder, current episode depressed, moderate F31.32 Active 086825701 Problem Moderate persistent asthma without complication J45.40 Active 564966549 Problem Bipolar disorder, current episode depressed, mild F31.31 Active 524979788 Problem Subacromial bursitis of left shoulder joint M75.52 Active 11089722 Problem Neurocognitive deficits R29.818 Active 243103399 Problem Urinary hesitancy R39.11 Active 0512965 Problem Bipolar disorder, current episode mixed, moderate F31.62 Active 272108769 Problem Type 2 diabetes mellitus with hyperglycemia, without long-term current use of insulin E11.65 Active 68194832 Problem Chronic post-traumatic stress disorder (PTSD) F43.12 Active 160609805 Problem Pure hypercholesterolemia E78.0 Active 121088971 Problem Sleep walking and eating F51.3 Active 33383151 Problem Drug-induced erectile dysfunction N52.2 Active 555925277 Problem Major depressive disorder, recurrent episode, unspecified severity F33.9 Active 94936734 Problem Chest pain, unspecified chest pain type R07.9 Active 66316115 Problem Post-traumatic stress disorder F43.10 Active 36580984 Problem Intractable chronic post-traumatic headache G44.321 Active 033111550 Problem Generalized anxiety disorder F41.1 Active 230676851 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
--- OUTSIDE RECORDS SUMMARY | 2017-08-08 14:51 | XMS REPORT ---
Author Author MYRA HARRINGTON eClinicalWorks Address Unknown Phone Unavailable Care Team Providers Care Grinding Machine Operator Name Role Phone MYRA HARRINGTON Unavailable Allergies [...] Date End Date Status Dosage Proventil HFA [facility] [address]-47 108 (90 Base) MCG/ACT Inhalation every 4 hrs September 07, 2015 2 puffs as needed Results No Known Results Summary Purpose eClinicalWorks Submission
--- OUTSIDE RECORDS SUMMARY | 2017-08-08 14:51 | XMS REPORT ---
Author Author JUANYMYRA Organization [facility] Address [address] [place] [address] Care Team Providers Care Plastics Production Machine Operator Name Role Phone MYRA HARRINGTON Unavailable PROBLEMS Type Condition ICD9-CM Code PVO52-PU Code Onset Dates Condition Status SNOMED Code Problem Cervicalgia M54.2 Active 3398318211526 Problem Bilateral low back pain, with sciatica presence unspecified M54.5 Active 838759075 Problem Uncomplicated asthma, unspecified asthma severity J45.909 Active 916850880 Problem Drug-induced erectile dysfunction N52.2 Active 864500787 Problem Moderate persistent asthma without complication J45.40 Active 103152700 Problem Bipolar disorder, current episode depressed, moderate F31.32 Active 746070353 Problem Essential hypertension I10 Active 95553237 Problem Pure hypercholesterolemia E78.0 Active 819676009 Problem Bipolar disorder, current episode depressed, mild F31.31 Active 742679939 Problem Post-traumatic stress disorder F43.10 Active 47674594 Problem Bipolar disorder, current episode mixed, moderate F31.62 Active 316482112 Problem Tarsal tunnel syndrome of right side G57.51 Active 76437580 Problem Neurocognitive deficits R29.818 Active 052047484 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
--- OUTSIDE RECORDS SUMMARY | 2017-08-08 14:52 | XMS REPORT ---
Author Author JUANY MYRA Organization [facility] Address [address] [place] [address] Care Team Providers Care Dovetail Machine Operator Name Role Phone ANASTASIYA HARRINGTONHANY Unavailable PROBLEMS Type Condition ICD9-CM Code KYL51-GM Code Onset Dates Condition Status SNOMED Code Problem Bipolar disorder, current episode depressed, moderate F31.32 Active 542917096 Problem Moderate persistent asthma without complication J45.40 Active 126410745 Problem Bipolar disorder, current episode depressed, mild F31.31 Active 827857845 Problem Subacromial bursitis of left shoulder joint M75.52 Active 75546813 Problem Neurocognitive deficits R29.818 Active 712009364 Problem Urinary hesitancy R39.11 Active 4667845 Problem Bipolar disorder, current episode mixed, moderate F31.62 Active 764905868 Problem Type 2 diabetes mellitus with hyperglycemia, without long-term current use of insulin E11.65 Active 53486027 Problem Chronic post-traumatic stress disorder (PTSD) F43.12 Active 751816509 Problem Pure hypercholesterolemia E78.0 Active 408429065 Problem Sleep walking and eating F51.3 Active 64452307 Problem Drug-induced erectile dysfunction N52.2 Active 966073428 Problem Major depressive disorder, recurrent episode, unspecified severity F33.9 Active 12355934 Problem Chest pain, unspecified chest pain type R07.9 Active 88918417 Problem Post-traumatic stress disorder F43.10 Active 86899119 Problem Intractable chronic post-traumatic headache G44.321 Active 761931463 Problem Generalized anxiety disorder F41.1 Active 370917626 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
--- OUTSIDE RECORDS SUMMARY | 2017-08-08 14:52 | XMS REPORT ---
Author Author MYRA HARRINGTON [facility] eClinicalWorks Address Unknown Phone Unavailable Care Team Providers Care Reliability Technicians Name Role Phone MYRA HARRINGTON CP Unavailable [...] Instructions Start Date End Date Status Dosage Flovent HFA [facility] [address]-37 110 MCG/ACT Inhalation Twice a day Mar 03, 2016 2 puffs Results No Known Results Summary Purpose eClinicalWorks Submission
--- OUTSIDE RECORDS SUMMARY | 2017-08-08 14:52 | XMS REPORT ---
Author Author MYRA HARRINGTON eClinicalWorks Address Unknown Phone Unavailable Care Team Providers Care Flooring Helper Name Role Phone MYRA HARRINGTON CP Unavailable [...] Active Problem Seizure disorder G40.909 Active Assessment Right hand pain M79.641 Active Problem Neurocognitive deficits R29.818 Active Problem Post-traumatic stress disorder F43.10 Active Assessment Essential hypertension I10 Active Problem Bipolar disorder, current episode mixed, moderate F31.62 Active Medications Medication Code System Code Instructions Start Date End Date Status Dosage Sertraline HCl [facility] [address]-55 100 MG Orally Once a day January 28, 2015 1 tablet Depakote ER [facility] [address]-85 500 MG Orally Once a day 2 capsule Proventil HFA [facility] 71174947052 108 (90 Base) MCG/ACT INHALE TWO PUFFS BY MOUTH EVERY 4 HOURS NEEDED FOR COUGH OR WHEEZNG Hydrochlorothiazide [facility] 77881329362 25 MG TAKE ONE TABLET BY MOUTH DAILY Omeprazole [facility] [address]-54 40 MG Orally Once a day January 28, 2015 [address] [facility] [address]-79 600 MG Orally 4 times a day 1 tablet as needed Cyproheptadine HCl [facility] [address]-43 4 MG Orally Take during the day for appetite Feb 16, 2015 1 tablet Prazosin HCl [facility] [address]-77 2 MG Orally Once a day Apr 08, 2015 1 capsule at bedtime Procedures Procedure Coding System Code Date Office Visit, Est Pt., Level 3 CPT-4 79675 May 20, 2015 X-RAY EXAM OF HAND CPT-4 02681 May 20, 2015 Vital Signs Date/Time: May 20, 2015 Temperature 98.6 F Weight 176.3 lbs Height 66 in BMI 28.45 Index Blood Pressure Diastolic 80 mmHg Blood Pressure Systolic 122 mmHg Cardiac Monitoring Heart Rate 88 bpm Results No Known Results Summary Purpose eClinicalWorks Submission
--- OUTSIDE RECORDS SUMMARY | 2017-08-08 14:52 | XMS REPORT ---
Author KHADRA Drake eClinicalWorks Address Unknown Phone Unavailable Care Team Providers Care Veneer Gluer Name Role Phone KHADRA GUTIERRES CP Unavailable [...] Instructions Start Date End Date Status Dosage Ibuprofen [facility] [address]-83 600 MG Orally 4 times a day 1 tablet as needed Hydrochlorothiazide [facility] 00172391380 25 MG TAKE ONE TABLET BY MOUTH DAILY Prazosin HCl [facility] [address]-40 2 MG Orally Once a day Apr 08, 2015 1 capsule at bedtime Trazodone HCl [facility] [address]-14 50 MG Orally Take 1/2 - 1 tab at bedtime for sleep Jun 24, 2015 1 tablet at bedtime as needed Sertraline HCl [facility] [address]-03 100 MG Orally Once a day 1 tablet Depakote ER [facility] [address]-31 500 MG Orally Once a day 2 capsule Omeprazole [facility] 62806366554 40 MG Orally Once a day 1 capsule Proventil HFA [facility] 79216350769 108 (90 Base) MCG/ACT INHALE TWO PUFFS BY MOUTH EVERY 4 HOURS NEEDED FOR COUGH OR WHEEZNG Procedures Procedure Coding System Code Date Office Visit, Est Pt., Level 4 CPT-4 42190 Jun 24, 2015 Vital Signs Date/Time: Jun 24, 2015 Cardiac Monitoring Heart Rate 76 bpm Weight 183.5 lbs Height 66 in BMI 29.61 Index Blood Pressure Diastolic 78 mmHg Blood Pressure Systolic 142 mmHg Results No Known Results Summary Purpose eClinicalWorks Submission
--- OUTSIDE RECORDS SUMMARY | 2017-08-08 14:52 | XMS REPORT ---
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
--- OUTSIDE RECORDS SUMMARY | 2017-08-08 14:52 | XMS REPORT ---
Author Author NENITA KHADRA Organization [facility] Address [address] [place] [address] Care Team Providers Care Inking Machine Tender Name Role Phone PREM GUTIERRESA Unavailable PROBLEMS Type Condition ICD9-CM Code EED88-DE Code Onset Dates Condition Status SNOMED Code Problem Bipolar disorder, current episode depressed, moderate F31.32 Active 220752434 Problem Moderate persistent asthma without complication J45.40 Active 904858673 Problem Bipolar disorder, current episode depressed, mild F31.31 Active 115790036 Problem Subacromial bursitis of left shoulder joint M75.52 Active 31574322 Problem Neurocognitive deficits R29.818 Active 357368537 Problem Urinary hesitancy R39.11 Active 7813639 Problem Bipolar disorder, current episode mixed, moderate F31.62 Active 307032858 Problem Type 2 diabetes mellitus with hyperglycemia, without long-term current use of insulin E11.65 Active 17465362 Problem Chronic post-traumatic stress disorder (PTSD) F43.12 Active 589201965 Problem Pure hypercholesterolemia E78.0 Active 430620140 Problem Sleep walking and eating F51.3 Active 90636678 Problem Drug-induced erectile dysfunction N52.2 Active 389263562 Problem Major depressive disorder, recurrent episode, unspecified severity F33.9 Active 99580363 Problem Chest pain, unspecified chest pain type R07.9 Active 19282292 Problem Post-traumatic stress disorder F43.10 Active 28520206 Problem Intractable chronic post-traumatic headache G44.321 Active 651667542 Problem Generalized anxiety disorder F41.1 Active 065798085 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
--- OUTSIDE RECORDS SUMMARY | 2017-08-08 14:52 | XMS REPORT ---
Author Author MYRA HARRINGTON eClinicalWorks Address Unknown Phone Unavailable Care Team Providers Care Supervisor Stave Cutting Name Role Phone MYRA HARRINGTON CP Unavailable [...] Active Problem Neurocognitive deficits R29.818 Active Assessment Urinary hesitancy R39.11 Active Problem Post-traumatic stress disorder F43.10 Active Assessment Right foot pain M79.671 Active Problem Bipolar disorder, current episode mixed, moderate F31.62 Active Medications Medication Code System Code Instructions Start Date End Date Status Dosage Prazosin HCl [facility] [address]-34 2 MG Orally Once a day Apr 08, 2015 1 capsule at bedtime Omeprazole [facility] 34186962669 40 MG Orally Once a day 1 capsule Mobic [facility] [address]-25 15 MG Orally Once a day as needed for pain Jun 29, 2015 1 tablet Trazodone HCl [facility] [address]-25 50 MG Orally Take 1/2 - 1 tab at bedtime for sleep Jun 24, 2015 1 tablet at bedtime as needed Sertraline HCl [facility] [address]-45 100 MG Orally Once a day 1 tablet Proventil HFA [facility] 53718282840 108 (90 Base) MCG/ACT INHALE TWO PUFFS BY MOUTH EVERY 4 HOURS NEEDED FOR COUGH OR WHEEZNG Depakote ER [facility] [address]-02 500 MG Orally Once a day 2 capsule Hydrochlorothiazide [facility] 29950961324 25 MG TAKE ONE TABLET BY MOUTH DAILY Procedures Procedure Coding System Code Date Office Visit, Est Pt., Level 3 CPT-4 03147 Jun 29, 2015 Vital Signs Date/Time: Jun 29, 2015 Temperature 97.5 F Weight 181.5 lbs Height 66 in BMI 29.29 Index Blood Pressure Diastolic 88 mmHg Blood Pressure Systolic 130 mmHg Cardiac Monitoring Heart Rate 80 bpm Results No Known Results Summary Purpose eClinicalWorks Submission
--- OUTSIDE RECORDS SUMMARY | 2017-08-08 14:52 | XMS REPORT ---
Author Author JUANY MYRA Organization [facility] Address [address] [place] [address] Care Team Providers Care Outside Machinist Name Role Phone ANASTASIYA HARRINGTONHANY Unavailable PROBLEMS Type Condition ICD9-CM Code DUE73-IL Code Onset Dates Condition Status SNOMED Code Problem Bipolar disorder, current episode depressed, moderate F31.32 Active 384248294 Problem Moderate persistent asthma without complication J45.40 Active 405788253 Problem Bipolar disorder, current episode depressed, mild F31.31 Active 514748110 Problem Subacromial bursitis of left shoulder joint M75.52 Active 76287778 Problem Neurocognitive deficits R29.818 Active 138947591 Problem Urinary hesitancy R39.11 Active 0119999 Problem Bipolar disorder, current episode mixed, moderate F31.62 Active 434139454 Problem Type 2 diabetes mellitus with hyperglycemia, without long-term current use of insulin E11.65 Active 53388644 Problem Chronic post-traumatic stress disorder (PTSD) F43.12 Active 056466656 Problem Pure hypercholesterolemia E78.0 Active 963347362 Problem Sleep walking and eating F51.3 Active 96734899 Problem Drug-induced erectile dysfunction N52.2 Active 740696371 Problem Major depressive disorder, recurrent episode, unspecified severity F33.9 Active 78510240 Problem Chest pain, unspecified chest pain type R07.9 Active 16863715 Problem Post-traumatic stress disorder F43.10 Active 23417709 Problem Intractable chronic post-traumatic headache G44.321 Active 255614021 Problem Generalized anxiety disorder F41.1 Active 936719746 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
--- OUTSIDE RECORDS SUMMARY | 2017-08-08 14:52 | XMS REPORT ---
Author Author JUANY MYRA Organization [facility] Address [address] [place] [address] Care Team Providers Care Mechanical Cad Designer Name Role Phone ANASTASIYA HARRINGTONHANY Unavailable PROBLEMS Type Condition ICD9-CM Code AEO90-VN Code Onset Dates Condition Status SNOMED Code Problem Bipolar disorder, current episode depressed, moderate F31.32 Active 665507643 Problem Moderate persistent asthma without complication J45.40 Active 084477716 Problem Bipolar disorder, current episode depressed, mild F31.31 Active 646327756 Problem Subacromial bursitis of left shoulder joint M75.52 Active 86172251 Problem Neurocognitive deficits R29.818 Active 905410681 Problem Urinary hesitancy R39.11 Active 3706459 Problem Bipolar disorder, current episode mixed, moderate F31.62 Active 762636982 Problem Type 2 diabetes mellitus with hyperglycemia, without long-term current use of insulin E11.65 Active 99443363 Problem Chronic post-traumatic stress disorder (PTSD) F43.12 Active 418694742 Problem Pure hypercholesterolemia E78.0 Active 855786363 Problem Sleep walking and eating F51.3 Active 69805778 Problem Drug-induced erectile dysfunction N52.2 Active 179802088 Problem Major depressive disorder, recurrent episode, unspecified severity F33.9 Active 66876396 Problem Chest pain, unspecified chest pain type R07.9 Active 32008624 Problem Post-traumatic stress disorder F43.10 Active 10958774 Problem Intractable chronic post-traumatic headache G44.321 Active 371733771 Problem Generalized anxiety disorder F41.1 Active 707055825 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 35854232 Problem Bilateral low back pain, with sciatica presence unspecified M54.5 Active 386631528 Problem Seizure disorder G40.909 Active 272529580 Problem Tarsal tunnel syndrome of right side G57.51 Active 03522571 Problem Cervicalgia M54.2 Active 4356709993257 Problem Essential hypertension I10 Active 34111312 ALLERGIES Substance Reaction Event Type Date Status Demerol hallucinations Drug Allergy Jul, Active SOCIAL HISTORY No smoking Hx information available PLAN OF CARE Activity Details Follow Up 3 Months Reason:DMII VITAL SIGNS Height 66 in 2016-07-11 Weight 211.4 lbs 2016-07-11 Temperature 98.0 degrees Fahrenheit 2016-07-11 Heart Rate 77 bpm 2016-07-11 Respiratory Rate 18 2016-07-11 BMI 34.12 kg/m2 2016-07-11 Blood pressure systolic 124 mmHg 2016-07-11 Blood pressure diastolic 83 mmHg 2016-07-11 MEDICATIONS Medication Instructions Dosage Frequency Start Date End Date Duration Status Hydrochlorothiazide 25 MG Oral Daily 1 tablet 24h 30 Active Depakote ER 500 MG Orally 1 tab qam and 2 tabs qhs Active Albuterol Sulfate (2.5 MG/3ML) 0.083% Inhalation every 4 hrs as needed (do not use with proventil) 3 ml Oct, Active Omeprazole 40 mg TAKE 1 CAPSULE BY MOUTH DAILY Active Atorvastatin Calcium 20 mg TAKE ONE TABLET BY MOUTH DAILY Active Indomethacin 25 MG Orally for migraines 1 capsule as needed Active Prazosin HCl 2 MG TAKE 1 CAPSULE BY MOUTH AT BEDTIME Active Doxepin HCl 10 mg Orally at bedtime for sleep 1 capsule Active Ketoconazole 2 % Externally Once a day 1 application to affected area 24h Mar, Jul, 14 days Active Duloxetine HCl 30 MG Orally Once a day with Duloxetine 60mg (full dose is 90mg ) 1 capsule Mar, Active Duloxetine HCl 60 MG TAKE 1 CAPSULE BY MOUTH DAILY Active Lyrica 75 MG Orally Twice a day 1 capsule 12h Active Proventil HFA 108 (90 Base) MCG/ACT Inhalation every 4 hrs 2 puffs as needed 4h Sep, Active BusPIRone HCl 15 MG Orally Twice a day 1 tablet 12h Jun, Active Zyprexa 5 mg Orally Once at bedtime 1 tablet Mar, Active RESULTS Name Result Date Reference Range MICROALBUMIN, URINE (IN HOUSE) 2016-07-11 MICROALBUMIN Normal Lot # [id number] Exp date 05/2017 Clarity clear Color yellow ALB 10mg/L CRE 100mg/dL A:C (IN HOUSE) <30 mg/g Control + Control Lot # Exp date UA W/ MICROSCOPY 2016-07-11 Specific Snover 1.014 1.005-1.030 pH 7.0 5.0-7.5 Urine-Color Yellow Yellow Appearance Clear Clear WBC Esterase Negative Negative Protein Negative Negative/Trace Glucose Negative Negative Ketones Negative Negative Occult Blood Negative Negative Bilirubin Negative Negative Urobilinogen,Semi-Qn 0.2 0.2-1.0 Nitrite, Urine Negative Negative Microscopic Examination Microscopic Examination See below: WBC 0-5 0 - 5 RBC 0-2 0 - 2 Epithelial Cells (non renal) 0-10 0 - 10 Epithelial Cells (renal) Casts Cast Type Crystals Crystal Type Mucus Threads Present Not Estab. Bacteria Few None seen/Few Yeast Trichomonas Comment PROCEDURES Procedure Date Ordered Related Diagnosis Body Site [facility] 2016-07-11 Mild [facility] NOT BILLED BY [facility] Jul 11, 2016 Office Visit, Est Pt., Level 3 Jul 11, 2016 MICROALBUMIN, SEMIQUANT Jul 11, 2016 IMMUNIZATIONS No Known Immunizations
--- OUTSIDE RECORDS SUMMARY | 2017-08-08 14:52 | XMS REPORT ---
Author Author MYRA HARRINGTON eClinicalWorks Address Unknown Phone Unavailable Care Team Providers Care Dryerman/Woman Name Role Phone MYRA HARRINGTON CP Unavailable [...]
--- OUTSIDE RECORDS SUMMARY | 2017-08-08 14:53 | XMS REPORT ---
Author KHADRA Drake eClinicalWorks Address Unknown Phone Unavailable Care Team Providers Care Senior Information Security Analyst Name Role Phone KHADRA GUTIERRES CP Unavailable Allergies, Adverse Reactions, Alerts Substance Reaction Event Type Demerol hallucinations Drug Allergy Problems Problem Type Condition Code Onset Dates Condition Status Problem Intractable chronic post-traumatic headache G44.321 Active Problem Cervicalgia M54.2 Active Problem Seizure disorder G40.909 Active Problem Pure hypercholesterolemia E78.0 Active Assessment Generalized anxiety disorder F41.1 Active Problem Bipolar disorder, current episode depressed, mild F31.31 Active Assessment Neurocognitive deficits R29.818 Active Problem Moderate persistent asthma without complication J45.40 Active Problem Bilateral low back pain, with sciatica presence unspecified M54.5 Active Problem Uncomplicated asthma, unspecified asthma severity J45.909 Active Problem Bipolar disorder, current episode depressed, moderate F31.32 Active Problem Essential hypertension I10 Active Problem Tarsal tunnel syndrome of right side G57.51 Active Problem Neurocognitive deficits R29.818 Active Assessment Post-traumatic stress disorder F43.10 Active Assessment Bipolar 1 disorder, depressed, severe F31.4 Active Problem Generalized anxiety disorder F41.1 Active Problem Major depressive disorder, recurrent episode, unspecified severity F33.9 Active Problem Post-traumatic stress disorder F43.10 Active 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 86776028547 60 MG TAKE 1 CAPSULE BY MOUTH DAILY Prazosin HCl [facility] 40187303331 2 MG Orally Once a day 1 capsule at bedtime Omeprazole [facility] [address]-35 40 mg TAKE 1 CAPSULE BY MOUTH DAILY Duloxetine HCl [facility] [address]-13 30 MG Orally Once a day with Duloxetine 60mg (full dose is 90mg) Mar 30, 2016 1 capsule Flovent HFA [facility] [address]-23 110 MCG/ACT Inhalation Twice a day Mar 03, 2016 2 puffs Depakote ER [facility] 57567214403 500 MG Orally Once a day 2 capsule Zyprexa [facility] [address]-15 5 mg Orally Once at bedtime Mar 30, 2016 1 tablet Hydrochlorothiazide [facility] 54665505382 25 MG Oral Daily 1 tablet Albuterol Sulfate [facility] [address]-76 (2.5 MG/3ML) 0.083% Inhalation every 4 hrs as needed (do not use with proventil) October 26, 2015 3 ml Atorvastatin Calcium [facility] [address]-16 20 mg TAKE ONE TABLET BY MOUTH DAILY Lyrica [facility] [address]-27 150 MG Orally Twice a day 1 capsule Doxepin HCl [facility] [address]-00 10 mg Orally at bedtime for sleep November 30, 2015 1 capsule Proventil HFA [facility] [address]-11 108 (90 Base) MCG/ACT Inhalation every 4 hrs September 07, 2015 2 puffs as needed Procedures Procedure Coding System Code Date Office Visit, Est Pt., Level 4 CPT-4 54644 Mar 30, 2016 Vital Signs Date/Time: Mar 30, 2016 Cardiac Monitoring Heart Rate 72 bpm Weight 177.5 lbs Height 66 in BMI 28.65 Index Blood Pressure Diastolic 69 mmHg Blood Pressure Systolic 109 mmHg Results No Known Results Summary Purpose eClinicalWorks Submission
--- OUTSIDE RECORDS SUMMARY | 2017-08-08 14:53 | XMS REPORT ---
Author Author NENITA KHADRA Organization [facility] Address [address] [place] [address] Care Team Providers Care Tire Regrooving Machine Operator Name Role Phone PREM GUTIERRESA Unavailable PROBLEMS Type Condition ICD9-CM Code XMC86-QM Code Onset Dates Condition Status SNOMED Code Problem Bipolar disorder, current episode depressed, moderate F31.32 Active 586850603 Problem Moderate persistent asthma without complication J45.40 Active 848062012 Problem Bipolar disorder, current episode depressed, mild F31.31 Active 336370762 Problem Subacromial bursitis of left shoulder joint M75.52 Active 39478427 Problem Neurocognitive deficits R29.818 Active 377079252 Problem Urinary hesitancy R39.11 Active 4501857 Problem Bipolar disorder, current episode mixed, moderate F31.62 Active 875064865 Problem Type 2 diabetes mellitus with hyperglycemia, without long-term current use of insulin E11.65 Active 16653421 Problem Chronic post-traumatic stress disorder (PTSD) F43.12 Active 504786671 Problem Pure hypercholesterolemia E78.0 Active 585411256 Problem Sleep walking and eating F51.3 Active 34454014 Problem Drug-induced erectile dysfunction N52.2 Active 416368993 Problem Major depressive disorder, recurrent episode, unspecified severity F33.9 Active 49642010 Problem Chest pain, unspecified chest pain type R07.9 Active 56653230 Problem Post-traumatic stress disorder F43.10 Active 15547443 Problem Intractable chronic post-traumatic headache G44.321 Active 370187181 Problem Generalized anxiety disorder F41.1 Active 050696224 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
--- OUTSIDE RECORDS SUMMARY | 2017-08-08 14:53 | XMS REPORT ---
Author Author JUANY MYRA Organization [facility] Address [address] [place] [address] Care Team Providers Care Mill Set Up Name Role Phone ANASTASIYA HARRINGTONHANY Unavailable PROBLEMS Type Condition ICD9-CM Code KNT74-DG Code Onset Dates Condition Status SNOMED Code Problem Bipolar disorder, current episode depressed, moderate F31.32 Active 342275140 Problem Moderate persistent asthma without complication J45.40 Active 565594825 Problem Bipolar disorder, current episode depressed, mild F31.31 Active 186476686 Problem Subacromial bursitis of left shoulder joint M75.52 Active 09397661 Problem Neurocognitive deficits R29.818 Active 362194410 Problem Urinary hesitancy R39.11 Active 6805655 Problem Bipolar disorder, current episode mixed, moderate F31.62 Active 673419693 Problem Type 2 diabetes mellitus with hyperglycemia, without long-term current use of insulin E11.65 Active 98014321 Problem Chronic post-traumatic stress disorder (PTSD) F43.12 Active 842782614 Problem Pure hypercholesterolemia E78.0 Active 458866001 Problem Sleep walking and eating F51.3 Active 70736169 Problem Drug-induced erectile dysfunction N52.2 Active 053842003 Problem Major depressive disorder, recurrent episode, unspecified severity F33.9 Active 13044489 Problem Chest pain, unspecified chest pain type R07.9 Active 43823770 Problem Post-traumatic stress disorder F43.10 Active 73007508 Problem Intractable chronic post-traumatic headache G44.321 Active 460764856 Problem Generalized anxiety disorder F41.1 Active 070077241 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
--- OUTSIDE RECORDS SUMMARY | 2017-08-08 14:53 | XMS REPORT ---
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 Problem Depression 311 Active Problem Chest pain 786.50 Active Problem Chronic headache 784.0 Active Problem Essential hypertension, benign 401.1 Active Problem Anxiety 300.00 Active Problem Seizure disorder 345.90 Active Medications Medication Code System Code Instructions Start Date End Date Status Dosage Ibuprofen [facility] [address]-93 600 MG Orally 4 times a day 1 tablet as needed Hydrochlorothiazide [facility] [address]-40 25 MG Orally Once a day 1 tablet Sertraline HCl [facility] [address]-77 100 MG Orally Once a day January 28, 2015 1 tablet Omeprazole [facility] [address]-74 40 MG Orally Once a day January 28, 2015 1 capsule Cyproheptadine HCl [facility] [address]-36 4 MG Orally Once at bedtime for nightmares Feb 16, 2015 1 tablet Proventil HFA [facility] [address]-01 108 (90 Base) MCG/ACT Inhalation every 4 hrs 2 puffs as needed Depakote ER [facility] [address]-47 500 MG Orally Once a day 1 capsule Procedures Procedure Coding System Code Date Office Visit, Est Pt., Level 3 CPT-4 55977 Feb 25, 2015 Vital Signs Date/Time: Feb 25, 2015 Temperature 97.0 F Weight 150.1 lbs Height 66 in BMI 24.22 Index Blood Pressure Diastolic 72 mmHg Blood Pressure Systolic 114 mmHg Cardiac Monitoring Heart Rate 76 bpm Results No Known Results Summary Purpose eClinicalWorks Submission
--- OUTSIDE RECORDS SUMMARY | 2017-08-08 14:53 | XMS REPORT ---
Author Author JUANY MYRA Organization [facility] Address [address] [place] [address] Care Team Providers Care Youth Pastor Name Role Phone ANASTASIYA HARRINGTONHANY Unavailable PROBLEMS Type Condition ICD9-CM Code VOP77-GJ Code Onset Dates Condition Status SNOMED Code Problem Bipolar disorder, current episode depressed, moderate F31.32 Active 321050754 Problem Moderate persistent asthma without complication J45.40 Active 878763901 Problem Bipolar disorder, current episode depressed, mild F31.31 Active 815848064 Problem Subacromial bursitis of left shoulder joint M75.52 Active 08055982 Problem Neurocognitive deficits R29.818 Active 720665322 Problem Urinary hesitancy R39.11 Active 3787295 Problem Bipolar disorder, current episode mixed, moderate F31.62 Active 998126148 Problem Type 2 diabetes mellitus with hyperglycemia, without long-term current use of insulin E11.65 Active 01890554 Problem Chronic post-traumatic stress disorder (PTSD) F43.12 Active 275920564 Problem Pure hypercholesterolemia E78.0 Active 055415173 Problem Sleep walking and eating F51.3 Active 37879838 Problem Drug-induced erectile dysfunction N52.2 Active 491382239 Problem Major depressive disorder, recurrent episode, unspecified severity F33.9 Active 83745012 Problem Chest pain, unspecified chest pain type R07.9 Active 49579121 Problem Post-traumatic stress disorder F43.10 Active 46941031 Problem Intractable chronic post-traumatic headache G44.321 Active 318030058 Problem Generalized anxiety disorder F41.1 Active 445826329 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 66682756 Problem Bilateral low back pain, with sciatica presence unspecified M54.5 Active 137528327 Problem Seizure disorder G40.909 Active 519249556 Problem Tarsal tunnel syndrome of right side G57.51 Active 44130434 Problem Cervicalgia M54.2 Active 7057975346624 Problem Essential hypertension I10 Active 20257945 ALLERGIES Unknown Allergies SOCIAL HISTORY No smoking Hx information available PLAN OF CARE VITAL SIGNS MEDICATIONS Medication Instructions Dosage Frequency Start Date End Date Duration Status Glucometer as directed Jul, Active Test strips as directed Jul, Active RESULTS No Results PROCEDURES No Known procedures IMMUNIZATIONS No Known Immunizations
--- OUTSIDE RECORDS SUMMARY | 2017-08-08 14:53 | XMS REPORT ---
Author FEMI Hernandez [employer] Address Unknown Phone Unavailable Care Team Providers Care Supervisor Wet End Name Role Phone FEMI BERGERON CP Unavailable Allergies, Adverse Reactions, Alerts Substance [...] Start Date End Date Status Dosage Ibuprofen NDC 0 not defined Depakote ER [facility] [address]-22 500 MG Orally Once a day 2 capsule Sertraline HCl [facility] [address]-31 100 MG Orally Once a day 1 tablet Hydrochlorothiazide [facility] 02864285682 25 MG TAKE ONE TABLET BY MOUTH DAILY Naproxen [facility] [address]-74 500 MG Orally every 12 hrs Jul 21, 2015 September 19, 2015 1 tablet as needed with food Omeprazole [facility] 11443857761 40 MG Orally Once a day 1 capsule Prazosin HCl [facility] [address]-92 2 MG Orally Once a day Apr 08, 2015 1 capsule at bedtime Proventil HFA [facility] 38109784575 108 (90 Base) MCG/ACT INHALE TWO PUFFS BY MOUTH EVERY 4 HOURS NEEDED FOR COUGH OR WHEEZNG Trazodone HCl [facility] [address]-02 50 MG Orally Take 1/2 - 1 tab at bedtime for sleep Jun 24, 2015 1 tablet at bedtime as needed Procedures Procedure Coding System Code Date Office Visit, Est Pt., Level 3 CPT-4 39607 Jul 21, 2015 Vital Signs Date/Time: Jul 21, 2015 Temperature 99.8 F Weight 185 lbs Height 66 in BMI 29.86 Index Blood Pressure Diastolic 92 mmHg Blood Pressure Systolic 132 mmHg Cardiac Monitoring Heart Rate 84 bpm Results No Known Results Summary Purpose [employer]ClinicalWorks Submission
--- OUTSIDE RECORDS SUMMARY | 2017-08-08 14:54 | XMS REPORT | Continuity of Care Document ---
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 W/MICROSCOPY 02/05/2014 30157 XRAY CHEST 2 VIEW 02/06/2014 19933 EEG 02/10/2014 23666 US SOFT TISSUE (SPECIFY LOCATION) 03/04/2014 31524 EXERCISE STRESS TEST 06/18/2014 CARDIOLOG ANNE-MARIE MADRID 06/18/2014 53908 XRAY CERVICAL SPINE, 2 OR 3 VIEWS 07/24/2014 Results Test Result Range Complete blood count (CBC) with automated white blood cell (WBC) differential - 05/15/16 14:05 Blood leukocytes automated count (number/volume) 6.0 10*3/uL 4.3-11.0 Blood erythrocytes automated count (number/volume) 4.48 10*6/uL 4.35-5.85 Venous blood hemoglobin measurement (mass/volume) 13.7 g/dL 13.3-17.7 Blood hematocrit (volume fraction) 40 % 40-54 Automated erythrocyte mean corpuscular volume 89 [foz_us] 80-99 Automated erythrocyte mean corpuscular hemoglobin (mass per erythrocyte) 31 pg 25-34 Automated erythrocyte mean corpuscular hemoglobin concentration measurement ( mass/volume) 34 g/dL 32-36 Automated erythrocyte distribution width ratio 13.3 % 10.0-14.5 Automated blood platelet count (count/volume) 190 10*3/uL 130-400 Automated blood platelet mean volume measurement 10.9 [foz_us] 7.4-10.4 Automated blood neutrophils/100 leukocytes 43 % 42-75 Automated blood lymphocytes/100 leukocytes 44 % 12-44 Blood monocytes/100 leukocytes 7 % 0-12 Automated blood eosinophils/100 leukocytes 5 % 0-10 Automated blood basophils/100 leukocytes 0 % 0-10 Blood neutrophils automated count (number/volume) 2.6 10*3 1.8-7.8 Blood lymphocytes automated count (number/volume) 2.7 10*3 1.0-4.0 Blood monocytes automated count (number/volume) 0.4 10*3 0.0-1.0 Automated eosinophil count 0.3 10*3/uL 0.0-0.3 Automated blood basophil count (count/volume) 0.0 10*3/uL 0.0-0.1 PT panel in platelet poor plasma by coagulation assay - 05/15/16 14:05 Prothrombin time (PT) in platelet poor plasma by coagulation assay 11.5 s 12.2-14.7 INR in platelet poor plasma or blood by coagulation assay 0.9 0.8-1.4 Activated partial thromboplastin time (aPTT) in platelet poor plasma bycoagulation assay - 05/15/16 14:05 Activated partial thromboplastin time (aPTT) in platelet poor plasma bycoagulation assay 28 s 24-35 Comprehensive metabolic panel - 05/15/16 14:05 Serum or plasma sodium measurement (moles/volume) 145 mmol/L 135-145 Serum or plasma potassium measurement (moles/volume) 4.1 mmol/L 3.6-5.0 Serum or plasma chloride measurement (moles/volume) 107 mmol/L 98-107 Carbon dioxide 31 mmol/L 21-32 Serum or plasma anion gap determination (moles/volume) 7 mmol/L 5-14 Serum or plasma urea nitrogen measurement (mass/volume) 16 mg/dL 7-18 Serum or plasma creatinine measurement (mass/volume) 0.97 mg/dL 0.60-1.30 Serum or plasma urea nitrogen/creatinine mass ratio 16 NRG Serum or plasma creatinine measurement with calculation of estimated glomerular filtration rate > NRG Serum or plasma glucose measurement (mass/volume) 131 mg/dL 70-105 Serum or plasma calcium measurement (mass/volume) 9.7 mg/dL 8.5-10.1 Serum or plasma total bilirubin measurement (mass/volume) 0.3 mg/dL 0.1-1.0 Serum or plasma alkaline phosphatase measurement (enzymatic activity/volume) 78 U/L 40-136 Serum or plasma aspartate aminotransferase measurement (enzymatic activity/ volume) 22 U/L 5-34 Serum or plasma alanine aminotransferase measurement (enzymatic activity/volume ) 31 U/L 0-55 Serum or plasma protein measurement (mass/volume) 6.7 g/dL 6.4-8.2 Serum or plasma albumin measurement (mass/volume) 3.8 g/dL 3.2-4.5 Magnesium - 05/15/16 14:05 Magnesium 2.2 mg/dL 1.8-2.4 Serum or plasma troponin i.cardiac measurement (mass/volume) - 05/15/16 14:05 Serum or plasma troponin i.cardiac measurement (mass/volume) < ng/ mL <0.30 Myoglobin, serum - 05/15/16 14:05 Myoglobin, serum 33.3 ng/mL 10.0-92.0 Serum or plasma troponin i.cardiac measurement (mass/volume) - 05/15/16 15:30 Serum or plasma troponin i.cardiac measurement (mass/volume) < ng/ mL <0.30 Automated blood complete blood count (hemogram) panel - 06/14/16 12:21 Blood leukocytes automated count (number/volume) 5.2 10*3/uL 4.3-11.0 Blood erythrocytes automated count (number/volume) 4.49 10*6/uL 4.35-5.85 Venous blood hemoglobin measurement (mass/volume) 13.8 g/dL 13.3-17.7 Blood hematocrit (volume fraction) 40 % 40-54 Automated erythrocyte mean corpuscular volume 90 [foz_us] 80-99 Automated erythrocyte mean corpuscular hemoglobin (mass per erythrocyte) 31 pg 25-34 Automated erythrocyte mean corpuscular hemoglobin concentration measurement ( mass/volume) 34 g/dL 32-36 Automated erythrocyte distribution width ratio 13.6 % 10.0-14.5 Automated blood platelet count (count/volume) 167 10*3/uL 130-400 Automated blood platelet mean volume measurement 10.5 [foz_us] 7.4-10.4 Erythrocyte sedimentation rate by westergren method - 06/14/16 12:21 Erythrocyte sedimentation rate by westergren method 7 mm 0-15 Whole blood basic metabolic panel - 06/14/16 12:21 Serum or plasma sodium measurement (moles/volume) 143 mmol/L 135-145 Serum or plasma potassium measurement (moles/volume) 3.7 mmol/L 3.6-5.0 Serum or plasma chloride measurement (moles/volume) 105 mmol/L 98-107 Carbon dioxide 31 mmol/L 21-32 Serum or plasma anion gap determination (moles/volume) 7 mmol/L 5-14 Serum or plasma urea nitrogen measurement (mass/volume) 15 mg/dL 7-18 Serum or plasma creatinine measurement (mass/volume) 1.01 mg/dL 0.60-1.30 Serum or plasma urea nitrogen/creatinine mass ratio 15 NRG Serum or plasma creatinine measurement with calculation of estimated glomerular filtration rate > NRG Serum or plasma glucose measurement (mass/volume) 131 mg/dL 70-105 Serum or plasma calcium measurement (mass/volume) 9.0 mg/dL 8.5-10.1 Valproic acid - 06/14/16 12:21 Valproic acid 80.0 ug/mL 50.0-100.0 Encounters ACCT No. Visit Date/Time Discharge Status Pt. Type Provider Facility Loc./Unit Complaint [id number] 07/24/2014 13:52:00 07/24/2014 23:59:59 CLS Outpatient MYRA HARRINGTON MD [id number] 06/18/2014 08:41:00 06/18/2014 23:59:59 CLS Outpatient MYRA HARRINGTON MD [id number] 03/04/2014 16:21:00 03/04/2014 23:59:59 CLS Outpatient MYRA HARRINGTON MD [id number] 02/10/2014 15:18:00 02/10/2014 23:59:59 CLS Outpatient ART PETERSEN APRN [id number] 02/05/2014 13:45:00 02/05/2014 23:59:59 CLS Outpatient MYRA HARRINGTON MD [id number] 09/04/2013 08:22:00 09/04/2013 23:59:59 CLS Outpatient LULA MANNING MD [id number] 08/19/2013 14:53:00 08/19/2013 23:59:59 CLS Outpatient LULA MANNING MD [id number] 09/23/2012 11:00:00 09/23/2012 23:59:59 CLS Outpatient [id number] 08/21/2012 13:42:00 08/21/2012 23:59:59 CLS Outpatient [id number] 07/22/2012 10:10:00 07/22/2012 23:59:59 CLS Outpatient [id number] 07/10/2012 10:58:00 07/10/2012 23:59:59 CLS Outpatient DAVON RESENDEZ MD [id number] 06/28/2012 11:35:00 06/28/2012 23:59:59 CLS Outpatient DAVON RESENDEZ MD [id number] 10/09/2012 00:00:00 Document Registration [id number] 05/08/2017 13:00:00 05/08/2017 23:59:59 CLS Outpatient MYRA HARRINGTON MD [facility] RAD RT SIDED WEAKNESS R53.1 [id number] 11/22/2016 20:40:00 11/23/2016 06:25:00 DIS Outpatient MYRA HARRINGTON MD [facility] SLEEP LILLY,SNORING,HTN,MOOD DISORDER [id number] 09/23/2016 20:57:00 09/24/2016 06:35:00 DIS Outpatient MYRA HARRINGTON MD [facility] SLEEP OBSTRUCTIVE SLEEP APNEA [id number] 08/03/2016 14:41:00 08/03/2016 16:26:00 DIS Outpatient MYRA HARRINGTON MD [facility] REHAB LBP AND HIP PAIN [id number] 06/14/2016 12:11:00 06/14/2016 23:59:59 CLS Outpatient LATONYA KAT MD [facility] LAB HEADACHE [id number] 05/15/2016 13:46:00 05/15/2016 16:50:00 DIS Emergency FLY VILLAFANA MD [facility] ER CHEST PAIN [id number] 12/17/2014 09:47:00 12/17/2014 23:59:59 CLS Outpatient MYRA HARRINGTON MD [facility] RAD CERVICALGIA,LUMBAGO [id number] 07/09/2014 18:30:00 07/10/2014 18:45:00 DIS Inpatient MYRA HARRINGTON MD [facility] CSD CHEST PAIN [id number] 06/23/2014 10:25:00 06/23/2014 23:59:59 CLS Outpatient MYRA HARRINGTON MD [facility] CARD INTERMITTENT CHEST PAIN WITH HTN [id number] 03/12/2014 09:55:00 03/12/2014 23:59:59 CLS Outpatient MYRA HARRINGTON MD [facility] RAD SWELLING, NO PALPABLE MASS [id number] 02/16/2014 08:00:00 02/16/2014 23:59:59 CLS Outpatient ART PETERSEN APRN [facility] RT ALTERATION OF CONSCIENCE [id number] 12/30/2013 13:27:00 12/30/2013 23:59:59 CLS Outpatient ALLIE STONE MD [facility] RAD POST CONCUSSION SYNDROME [id number] 11/25/2013 14:15:00 12/04/2013 16:00:00 DIS Outpatient ALLIE STONE MD [facility] REHAB POST CONCUSSION SYNDROME [id number] 07/29/2013 17:38:00 07/29/2013 23:59:59 CLS Outpatient KEVON GARCIA DO [facility] RAD HEAD INJURY [id number] 07/26/2013 20:21:00 07/26/2013 21:10:00 DIS Emergency MONICA REES MD [facility] ER FACE LAC;WORK COMP [id number] 05/21/2012 07:56:00 Document Registration [id number] 04/18/2012 10:34:00 Document Registration [id number] 04/04/2012 12:56:00 Document Registration [id number] 03/24/2012 14:12:00 Document Registration [id number] 03/23/2012 19:37:00 Document Registration [id number] 01/23/2012 13:59:00 Document Registration
[2017-08-08] MEDS ORDERED: ASPIRIN 81 MG CHEW (CHILDREN'S ASA) PO STA (15:52)
[2017-08-08] MEDS ORDERED: NS IV 1000 ML 1,000 ML IV ONE (15:52)
[2017-08-08] MEDS ORDERED: HYDROcodone/APAP 5 MG/325 MG (LORTAB) TAB PO STA (15:52)
[2017-08-08] MEDS ORDERED: KETOROLAC 30 MG/ML VIAL IVP STA (15:52)
--- NOTE | 2017-08-08 16:35 | ED General ---
General Chief Complaint: General Problems/Pain Stated Complaint: ON GOING CHEST PAIN KNOT ON HEAD/NECK HEADACHE Nursing Triage Note: Pt c/o "knots" on head x2 days getting bigger in size and more painful. pt also reports feeling dizzy. Pt also c/o "burning" feeling across L chest x several months but stating pain continues to get worse. Nursing Sepsis Screen: No Definite Risk Source of Information: Patient Exam Limitations: No Limitations History of Present Illness Date Seen by Provider: Aug 08, 2017 Time Seen by Provider: 15:45 Initial Comments Here with report of knots on his head on the right side that are at the top and then a few more posterior on the right. States that these are getting bigger and more painful. Also reports a burning feeling in his chest on the left side that has been going on for several months but has been persistent since this morning at about 8 o'clock. Denies shortness of breath, nausea, weakness or sweating. Timing/Duration: 12 Hours Severity: Moderate Associated Systoms: Chest Pain, No Cough, Fever/Chills, No Nausea/Vomiting, No Shortness of Air, No Weakness Allergies and Home Medications Allergies Coded Allergies: meperidine HCl (Verified Adverse Reaction, Intermediate, PSYCH , 01/23/12) Home Medications Albuterol Sulfate 8.5 Gm Aer.w.adap, 2 PUFF IH Q4H PRN for SHORTNESS OF BREATH, (Reported) Hydrochlorothiazide 25 Mg Tablet, 25 MG PO DAILY, (Reported) Ibuprofen 800 Mg Tab, 800 MG PO TID PRN for PAIN, #90 Ref 0 Prescribed by: MYRA HARRINGTON on 07/10/14 1709 Ketorolac Tromethamine 10 Mg Tablet, 10 MG PO Q6H, #20 Prescribed by: FLY VILLAFANA MD on 05/15/16 1638 Simvastatin 10 Mg Tablet, 10 MG PO HS, #30 Ref 0 Prescribed by: MYRA HARRINGTON on 07/10/14 1709 Constitutional: see HPI, chills, fever EENTM: no symptoms reported Respiratory: no symptoms reported Cardiovascular: see HPI, chest pain, No edema, No palpitations Gastrointestinal: No abdominal pain, No nausea, No vomiting Genitourinary: no symptoms reported Musculoskeletal: no symptoms reported Skin: change in color, lesions, lumps Psychiatric/Neurological: No Symptoms Reported All Other Systems Reviewed Negative Unless Noted: Yes Past Nqmmzvu-Cnrerg-Fxkybv Hx Patient Social History Alcohol Use: Denies Use Recreational Drug Use: No Smoking Status: Former Smoker Recent Foreign Travel: No Contact w/Someone Who Travel: No Recent Infectious Disease Expo: No Recent Hopitalizations: No Immunizations Up To Date Tetanus Booster (TDap): Less than 5yrs Date of Influenza Vaccine: Jul 10, 2014 Seasonal Allergies Seasonal Allergies: No Surgeries History of Surgeries: No Respiratory History of Respiratory Disorde: Yes Respiratory Disorders: Tuberculosis Cardiovascular History of Cardiac Disorders: Yes Cardiac Disorders: Hypertension Neurological History of Neurological Disord: No Reproductive System Hx Reproductive Disorders: No Sexually Transmitted Disease: No HIV/AIDS: No Gastrointestinal History of Gastrointestinal Di: Yes Gastrointestinal Disorders: Gastroesophageal Reflux Reviewed Nursing Assessment Reviewed/Agree w Nursing PMH: Yes Family Medical History Significant Family History: No Pertinent Family Hx Physical Exam Vital Signs Vital Sign - Last 12Hours 08/08/17 15:26 Temp 99.0 Pulse 65 Resp 18 B/P (MAP) 147/100 (116) Pulse Ox 95 O2 Delivery Room Air Capillary Refill : Less Than 3 Seconds General Appearance: No Apparent Distress, WD/WN HEENT: PERRL/EOMI, Pharynx Normal Neck: Non Tender, Supple Respiratory: Lungs Clear, Normal Breath Sounds, Other (reproducible left anterior chest wall pain) Cardiovascular: Regular Rate, Rhythm, No Murmur Gastrointestinal: Non Tender, Soft Back: Normal Inspection, No CVA Tenderness, No Vertebral Tenderness Extremity: Normal Range of Motion, Non Tender Neurologic/Psychiatric: Alert, Oriented x3 Skin: Warm/Dry, Other (multiple small red nodules to the scalp on the right side that travels down the right behind the ear. Positive lymphadenopathy posterior scalp on the right. 2 small reddened areas on the left. Appears to be follicular type swelling.) Progress/Results/Core Measures Suspected Sepsis Recent Fever Within 48 Hours: No Infection Criteria Present: None New/Unexplained Altered Menta: No Sepsis Screen: No Definite Risk Sepsis Diagnosis: SIRS Temperature:99.0 Pulse: 65 Respiratory Rate: 18 Laboratory Tests 08/08/17 16:35: White Blood Count 6.8 Blood Pressure 147 /100 Mean: 116 Laboratory Tests 08/08/17 16:35: Creatinine 0.91, Platelet Count 206, Total Bilirubin 0.3 Results/Orders Lab Results Laboratory Tests Test 08/08/17 16:35 Range/Units White Blood Count 6.8 4.3-11.0 10^3/uL Red Blood Count 4.73 4.35-5.85 10^6/uL Hemoglobin 14.1 13.3-17.7 G/DL Hematocrit 40 40-54 % Mean Corpuscular Volume 85 80-99 FL Mean Corpuscular Hemoglobin 30 25-34 PG Mean Corpuscular Hemoglobin Concent 35 32-36 G/DL Red Cell Distribution Width 13.4 10.0-14.5 % Platelet Count 206 130-400 10^3/uL Mean Platelet Volume 10.2 7.4-10.4 FL Neutrophils (%) (Auto) 44 42-75 % Lymphocytes (%) (Auto) 43 12-44 % Monocytes (%) (Auto) 8 0-12 % Eosinophils (%) (Auto) 6 0-10 % Basophils (%) (Auto) 0 0-10 % Neutrophils # (Auto) 3.0 1.8-7.8 X 10^3 Lymphocytes # (Auto) 2.9 1.0-4.0 X 10^3 Monocytes # (Auto) 0.5 0.0-1.0 X 10^3 Eosinophils # (Auto) 0.4 H 0.0-0.3 10^3/uL Basophils # (Auto) 0.0 0.0-0.1 10^3/uL Sodium Level 142 135-145 MMOL/L Potassium Level 4.2 3.6-5.0 MMOL/L Chloride Level 105 98-107 MMOL/L Carbon Dioxide Level 27 21-32 MMOL/L Anion Gap 10 5-14 MMOL/L Blood Urea Nitrogen 11 7-18 MG/DL Creatinine 0.91 0.60-1.30 MG/DL Estimat Glomerular Filtration Rate > 60 BUN/Creatinine Ratio 12 Glucose Level 87 70-105 MG/DL Calcium Level 9.3 8.5-10.1 MG/DL Magnesium Level 2.4 1.8-2.4 MG/DL Total Bilirubin 0.3 0.1-1.0 MG/DL Aspartate Amino Transf (AST/SGOT) 15 5-34 U/L Alanine Aminotransferase (ALT/SGPT) 30 0-55 U/L Alkaline Phosphatase 89 40-136 U/L Troponin I < 0.30 <0.30 NG/ML C-Reactive Protein High Sensitivity 0.21 0.00-0.50 MG/DL Total Protein 7.2 6.4-8.2 GM/DL Albumin 3.9 3.2-4.5 GM/DL My Orders Orders - KUNAL ARGUETA MD Ekg Tracing (08/08/17 15:41) Cbc With Automated Diff (08/08/17 15:52) Comprehensive Metabolic Panel (08/08/17 15:52) Hs C Reactive Protein (08/08/17 15:52) Magnesium (08/08/17 15:52) Troponin I (08/08/17 15:52) Saline Lock/Iv-Start (08/08/17 15:52) Ns Iv 1000 Ml (Sodium Chloride 0.9%) (08/08/17 15:52) Chest 1 View, Ap/Pa Only (08/08/17 15:52) Aspirin Chewable Tablet (Baby Aspirin Ch (08/08/17 15:52) Hydrocodone/Apap 5/325 Tablet (Lortab 5 (08/08/17 15:52) Ketorolac Injection (Toradol Injection) (08/08/17 15:52) Bactrim Ds Po (08/08/17 18:27) Medications Given in ED Current Medications Medications Dose Ordered Sig/Rema Route Start Time Stop Time Status Last Admin Dose Admin Sodium Chloride 1,000 ml @ 0 mls/hr Q0M ONCE IV 08/08/17 15:52 08/08/17 15:59 DC 08/08/17 16:55 0 MLS/HR Vital Signs/I&O Vital Sign - Last 12Hours 08/08/17 08/08/17 08/08/17 08/08/17 15:26 16:25 16:26 16:27 Temp 99.0 99.0 99.0 99.0 Pulse 65 Resp 18 B/P (MAP) 147/100 (116) Pulse Ox 95 O2 Delivery Room Air Capillary Refill : Less Than 3 Seconds Blood Pressure Mean: 116 Progress Note : Progress Note Seen and evaluated. IV, labs, EKG and chest x-ray ordered. Toradol 30 mg IV and aspirin 324 mg by mouth ordered. Monitor patient. Hydrocodone 5/325 one tab by mouth given. 1820: Overall much improved. No significant findings on evaluation. EKG and chest x-ray are fine. Discussed with patient. Instructed to follow-up with his primary care doctor as well as cardiology for further evaluation for which he verbalized understanding. Discharged home with return precautions. Patient verbalize understanding instructions and agreement with plan. ECG Initial ECG Impression Date: Aug 08, 2017 Initial ECG Impression Time: 15:46 Initial ECG Rate: 55 Initial ECG Rhythm: Normal Sinus Comment Sinus rhythm with normal axis. No evidence of ST elevation [place]. Overall similar appearance to 15 May 2016. Interpreted by me. Diagnostic Imaging Diagonstic Imaging: Xray Plain Films/CT/US/NM/MRI: chest Comments NAME: ISRA [facility] REC#: [id number] PT STATUS: REG ER : 1970 PHYSICIAN: KUNAL ARGUETA MD ADMIT DATE: 08/08/17/ER Signed Date of Exam: 08/08/17 CHEST 1 VIEW, AP/PA ONLY INDICATION: Dizziness, burning across chest, and chest pain. TECHNIQUE: A PA chest was obtained at 4:48 PM. FINDINGS: The heart and mediastinal silhouette are normal in appearance. The lungs are clear. There is no pneumothorax or pleural fluid. IMPRESSION: Negative chest. Dictated by: Dictated on workstation # [id number] Dict: 08/08/17 1654 Trans: 08/08/171728 Interpreted by: JESU SANCHEZ MD Electronically signed by: JESU SANCHEZ MD 08/08/171728 Departure Impression Impression: Primary Impression: Folliculitis Additional Impression: Chest pain Qualified Codes: R07.9 - Chest pain, unspecified Disposition: HOME, SELF-CARE Condition: Improved Departure-Patient Inst. Decision time for Depature: 18:27 Referrals: MYRA HARRINGTON MD (PCP/Family) Primary Care Physician Adia OLIVAS MD Patient Instructions: Cellulitis (Skin Infection), Adult (DC), Chest Pain (DC) , Folliculitis (DC) Add. Discharge Instructions: All discharge instructions reviewed with patient and/or family. Voiced understanding. Take medications as directed. Follow-up with your DrEdwige in one to 2 days for recheck. Follow-up with a fruit harvester machine operator listed as one of your choice within the next week for recheck and further evaluation. Return for worse pain, fever, vomiting, weakness, breathing problems or other concerns as needed. Scripts Hydrocodone Bit/Acetaminophen (Hydrocodone/Acetaminophen 5/325mg Tablet) 1 Tab Tab 1 EACH PO Q6H Y for PAIN-MODERATE, #5 TAB 0 Refills Prov: KUNAL ARGUETA MD 08/08/17 Sulfamethoxazole/Trimethoprim (Sulfamethoxazole-Tmp Ds Tablet) 1 Each Tablet 1 EACH PO BID, #14 TAB 0 Refills Prov: KUNAL ARGUETA MD 08/08/17 KUNAL ARGUETA MD Aug 08, 2017 16:35
[2017-08-08 16:42] LABS: BASOPHILS % (AUTO) 0 % (0-10); EOSINOPHILS # (AUTO) 0.4 10^3/uL (0.0-0.3); EOSINOPHILS % (AUTO) 6 % (0-10); HEMATOCRIT 40 % (40-54); HEMOGLOBIN 14.1 G/DL (13.3-17.7); LYMPHOCYTES # (AUTO) 2.9 X 10^3 (1.0-4.0); LYMPHOCYTES % (AUTO) 43 % (12-44); MEAN CORPUSCULAR HEMOGLOBIN 30 PG (25-34); MEAN CORPUSCULAR HGB CONC 35 G/DL (32-36); MEAN CORPUSCULAR VOLUME 85 FL (80-99); MEAN PLATELET VOLUME 10.2 FL (7.4-10.4); MONOCYTES # (AUTO) 0.5 X 10^3 (0.0-1.0); MONOCYTES % (AUTO) 8 % (0-12); NEUTROPHILS % (AUTO) 44 % (42-75); PLATELET COUNT 206 10^3/uL (130-400); RED BLOOD COUNT 4.73 10^6/uL (4.35-5.85); RED CELL DISTRIBUTION WIDTH 13.4 % (10.0-14.5); WHITE BLOOD COUNT 6.8 10^3/uL (4.3-11.0)
--- NOTE | 2017-08-08 16:56 | Diagnostic Imaging Report ---
INDICATION: Dizziness, burning across chest, and chest pain. TECHNIQUE: A PA chest was obtained at 4:48 PM. FINDINGS: The heart and mediastinal silhouette are normal in appearance. The lungs are clear. There is no pneumothorax or pleural fluid. IMPRESSION: Negative chest. Dictated by: Dictated on workstation # [id number]
[2017-08-08 17:03] LABS: ALANINE AMINOTRANSFERASE 30 U/L (0-55); ALBUMIN 3.9 GM/DL (3.2-4.5); ALKALINE PHOSPHATASE 89 U/L (40-136); BILIRUBIN,TOTAL 0.3 MG/DL (0.1-1.0); BUN/CREATININE RATIO 12; CALCIUM 9.3 MG/DL (8.5-10.1); CARBON DIOXIDE 27 MMOL/L (21-32); CHLORIDE 105 MMOL/L (98-107); CREATININE SERUM 0.91 MG/DL (0.60-1.30); GFR ESTIMATED > 60; GLUCOSE 87 MG/DL (70-105); MAGNESIUM 2.4 MG/DL (1.8-2.4); POTASSIUM 4.2 MMOL/L (3.6-5.0); SODIUM 142 MMOL/L (135-145); TOTAL PROTEIN 7.2 GM/DL (6.4-8.2)
[2017-08-08] MEDS ORDERED: TRIM/SULFAMETH 160/800 (SEPTRA DS) TAB PO STA (18:27)
[2017-08-08] MEDS ORDERED: SULF-222 PO (18:32)
[2017-08-08] MEDS ORDERED: ACHD5005 PO (18:32)
[2017-08-08 18:40] VITALS: BP 138/92
== END 2017-08-08 18:40 | disposition home or self-care (01) ==
LOC: EDUNIT# 14:43 → ER 14:45
DX: L73.9 Follicular disorder, unspecified (principal); R07.9 Chest pain, unspecified; K21.9 Gastro-esophageal reflux disease without esophagitis; I10 Essential (primary) hypertension; Z87.891 Personal history of nicotine dependence
CPT/HCPCS: 36415; 71045; 80053; 83735; 84484; 85025; 86141; 93005; 96361; 96374

== ENCOUNTER 2019-05-06 18:51 | Emergency (ER) | payer MEDICARE, MEDICAID ==
[~2019-05-06] VITALS: Ht 170 cm; Wt 72.7 kg
[~2019-05-06 18:51] MED LIST changes: +SULF-222 PO
[2019-05-06] MEDS ORDERED: METF-397 (19:10)
[2019-05-06] MEDS ORDERED: LURA40TA3 (19:10)
[2019-05-06] MEDS ORDERED: HYDR25TA4 (19:10)
[2019-05-06] MEDS ORDERED: PREG225C (19:10)
[2019-05-06] MEDS ORDERED: ARIP2TAB11 (19:10)
--- NOTE | 2019-05-06 19:23 | Diagnostic Imaging Report ---
INDICATION: Injury to the right thumb. TIME OF EXAM: 7:16 p.m. Three views of the right thumb were obtained. FINDINGS: Alignment is normal. The first metacarpal is intact. The phalanges appear to be intact. No fractures are seen. The soft tissues are unremarkable. IMPRESSION: No acute bony abnormality is detected. Dictated by: Dictated on workstation # [id number]
--- NOTE | 2019-05-06 19:29 | ED Upper Extremity ---
General Chief Complaint: Upper Extremity Stated Complaint: R THUMB INJ Nursing Triage Note: right thumb pain after playing with dog 05/05/19 Nursing Sepsis Screen: No Definite Risk Source: patient Exam Limitations: no limitations History of Present Illness Date Seen by Provider: May 06, 2019 Time Seen by Provider: 19:00 Initial Comments 48-year-old male who presents to the emergency room with complaints of right miguel mb pain after playing with his dog yesterday. He reports that he had a jamming sensation of the thumb. No swelling or deformity noted. Onset: just prior to arrival Pain/Injury Location: right thumb Method of Injury: direct blow Allergies and Home Medications Allergies Coded Allergies: meperidine HCl (Verified Adverse Reaction, Intermediate, PSYCH , 01/23/12) Home Medications Albuterol Sulfate 8.5 Gm Aer.w.adap, 2 PUFF IH Q4H PRN for SHORTNESS OF BREATH, (Reported) Hydrochlorothiazide 25 Mg Tablet, 25 MG PO DAILY, (Reported) Simvastatin 10 Mg Tablet, 10 MG PO HS Prescribed by: MYRA HARRINGTON on 07/10/14 0096 Patient Home Medication List Home Medication List Reviewed: Yes Review of Systems Constitutional: see HPI; No chills, No fever Musculoskeletal: see HPI, joint pain (right thumb pain) All Other Systems Reviewed Negative Unless Noted: Yes Past Phfnldu-Bqxszz-Atqfjg Hx Past Med/Social Hx: Reviewed Nursing Past Med/Soc Hx Patient Social History Alcohol Use: Denies Use Recreational Drug Use: No Smoking Status: Current Everyday Smoker Type Used: Cigarettes 2nd Hand Smoke Exposure: Yes Recent Foreign Travel: No Contact w/Someone Who Travel: No Recent Infectious Disease Expo: No Recent Hopitalizations: No Physical Abuse: No Sexual Abuse: No Mistreated: No Immunizations Up To Date Tetanus Booster (TDap): Less than 5yrs Date of Influenza Vaccine: Jul 10, 2014 Seasonal Allergies Seasonal Allergies: No Past Medical History Surgeries: No Respiratory: Yes Asthma Cardiac: Yes High Cholesterol, Hypertension Neurological: No Reproductive Disorders: No Sexually Transmitted Disease: No HIV/AIDS: No Genitourinary: No Gastrointestinal: Yes Gastroesophageal Reflux Musculoskeletal: No Endocrine: No HEENT: No Cancer: No Psychosocial: No Integumentary: No Blood Disorders: No Family Medical History Reviewed Nursing Family Hx No Pertinent Family Hx Physical Exam Vital Signs Vital Signs - First Documented 05/06/19 19:00 Temp 35.9 Pulse 90 Resp 18 B/P (MAP) 119/92 (101) Pulse Ox 98 O2 Delivery Room Air Capillary Refill : Less Than 3 Seconds Height, Weight, BMI Height: 5'7.00" Weight: 180lbs. oz. 81.903645vo; 25.00 BMI Method:Stated General Appearance: WD/WN, no apparent distress Cardiovascular: normal peripheral pulses, regular rate, rhythm, no edema, no gallop, no JVD, no murmur Respiratory: chest non-tender, lungs clear, normal breath sounds, no respiratory distress, no accessory muscle use Hand: Right, soft tissue tenderness (tissue tenderness at the PIP joint. No swelling or deformity noted. Normal capillary refill.) Neurologic/Psychiatric: alert, normal mood/affect, oriented x 3 Skin: normal color, warm/dry Progress/Results/Core Measures Results/Orders My Orders Orders - CASSIDY GAYTAN(S) (05/06/19 19:07) Vital Signs/I&O 05/06/19 19:00 Temp 35.9 Pulse 90 Resp 18 B/P (MAP) 119/92 (101) Pulse Ox 98 O2 Delivery Room Air Blood Pressure Mean: 101 POS Departure Impression Primary Impression: Injury of right thumb Disposition: 01 HOME, SELF-CARE Condition: Stable/Unchanged Departure-Patient Inst. Decision time for Depature: 19:28 Referrals: [facility] (PCP/Family) Primary Care Physician Patient Instructions: Sanjay Green (DC) Add. Discharge Instructions: Ice to the sore areas at 20 minute intervals. Tylenol Motrin as needed for pain relief. Return back to the emergency room for worsening symptoms or concerns as needed. All discharge instructions reviewed with patient and/or family. Voiced understanding. CASSIDY GAYTAN May 06, 2019 19:28 POS
[2019-05-06 19:30] VITALS: BP 119/92
== END 2019-05-06 19:32 | disposition home or self-care (01) ==
LOC: EDUNIT# 18:51 → ER 18:52
DX: S69.91XA Unspecified injury of right wrist, hand and finger(s), initial encounter (principal); I10 Essential (primary) hypertension; E78.00 Pure hypercholesterolemia, unspecified; J45.909 Unspecified asthma, uncomplicated; K21.9 Gastro-esophageal reflux disease without esophagitis; F17.210 Nicotine dependence, cigarettes, uncomplicated; Z88.5 Allergy status to narcotic agent; X58.XXXA Exposure to other specified factors, initial encounter
CPT/HCPCS: 73140

== ENCOUNTER 2020-02-07 16:39 | Emergency (ER) | payer MEDICARE, MEDICAID ==
[~2020-02-07] VITALS: Ht 170 cm; Wt 79.3 kg
[~2020-02-07 16:39] MED LIST changes: +ARIP2TAB20; +HYDR25TA4; +LURA40TA3; +METF-397; +PREG225C
--- OUTSIDE RECORDS SUMMARY | 2020-02-07 16:48 | XMS REPORT | Clinical Summary ---
Author Author [facility] Organization [facility] Address Unknown Phone Unavailable Care Team Providers Care Absorption Operator Name Role Phone Veronica Holloway MD PCP Amy Pulido MD Unavailable Unavailable Source Comments Some departments are not documenting in the electronic medical record. If you d o not see the information that you expected, contact Release of Information in [facility] Information Management department at [phone] for further assistan ce in locating additional records.[facility] Allergies Comments Active Allergy Reactions Severity Noted Date Patient states make him see things. Meperidine SEE COMMENTS Low 01/28/2015 Medications End Date Status Medication Sig Dispensed Refills Start Date Active hydrochlorothiazide Take 25 mg by 0 (HYDRODIURIL) 25 mg mouth daily. tablet Active albuterol (VENTOLIN HFA, Inhale 2 0 PROAIR HFA) 90 Puffs by mcg/actuation inhaler mouth every 6 hours as needed for Wheezing. Active sertraline (ZOLOFT) 50 mg Take 100 mg 0 tablet by mouth daily. Active CYPROHEPTADINE HCL Take by 0 (CYPROHEPTADINE PO) mouth. Patient states taking 8 mg daily. Active divalproex (DEPAKOTE) 500 Take 1 Tab by 60 Tab 5 mg tabletIndications: mouth twice 5 Seizure (HCC), daily. Postconcussive syndrome, Headache(784.0), Bipolar affective disorder, currently depressed, moderate (HCC) Active traZODone (DESYREL) 100 Take 100 mg 0 mg tablet by mouth at bedtime daily. Active pregabalin (LYRICA) 75 mg Take 1 Cap by 60 Cap 2 capsule mouth twice 6 daily. Active Problems Problem Noted Date Headache(784.0) 04/01/2015 Bipolar affective disorder, currently depressed, mode rate 04/01/2015 Social History Date Tobacco Use Types Packs/Day Years Used Current Every Day Smoker Smokeless Tobacco: Former User Drinks/Week oz/Week Comments Alcohol Use No Sex Assigned at Date Recorded Not on file Industry Job Start Date Occupation Not on file Not on file Not on file Travel End Travel History Travel Start No recent travel history available. Last Filed Vital Signs Reading Time Taken Comments Vital Sign 111/76 11/29/2015 4:10 PM CDT Blood Pressure 62 11/29/2015 4:10 PM CDT Pulse 36.3 C (97.4 F) 11/29/2015 4:10 PM CDT Temperature - - Respiratory Rate 98% 11/29/2015 4:10 PM CDT Oxygen Saturation - - Inhaled Oxygen Concentration 80.3 kg (177 lb) 11/29/2015 4:10 PM CDT Weight 170.2 cm (5' 7.01") 11/29/2015 4:10 PM CDT Height 27.72 11/29/2015 4:10 PM CDT Body Mass Index Plan of Treatment Health Maintenance Due Date Last Done Comments HIV SCREENING 09/22/1983 DTAP/TDAP VACCINES (1 - 1986 Tdap) HEPATITIS C SCREENING 1986 PHYSICAL (COMPREHENSIVE) 1986 EXAM COLORECTAL CANCER 2018 SCREENING SHINGLES RECOMBINANT 2018 VACCINE (1 of 2) INFLUENZA VACCINE 04/08/2020 Results Not on filefrom Last 3 Months Insurance Type Payer Benefit Subscriber ID Effective Phone Address Plan / Dates Group [place] [employer] xxxxxxxxxxx 2010- STATE Present HEALTH [id number] Advance Directives Patient Press Secretary Explanation Type Date Recorded Advance 12/11/2014 8:56 AM Directive/DPOA
--- OUTSIDE RECORDS SUMMARY | 2020-02-07 16:49 | XMS REPORT ---
Author Author Dilan Mejía Doctor Organization [facility] Address Unknown Phone Unavailable Care Team Providers Care Clinical Scientist Name Role Phone Migration, Doctor Unavailable Unavailable PROBLEMS Type Condition ICD9-CM Code ZFD19-UG Code Onset Dates Condition S tatus SNOMED Code Problem Bilateral low back pain, with sciatica presence unspecifie d M54.5 Active 197416895 Problem Essential hypertension I10 Active 99780233 Problem Seizure disorder G40.909 Active 128 851023 Problem Generalized anxiety disorder F41.1 A ctive 092496298 Problem Cervicalgia M54.2 Active 98872027 66264 Problem Bipolar disorder, current episode depressed, mild F31.31 Active 071369357 Problem Bipolar disorder, current episode depressed, moderate F31.32 Active 458561231 Problem Post-traumatic stress disorder, unspecified F43.10 Active 45293950 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 02689826 Problem Major depressive disorder, recurrent sev ere without psychotic features F33.2 Active 97570401 Problem Intractable chronic post-traumatic headache G44.32 1 Active 224979630 Problem Chest pain, unspecified chest pain type R07.9 Active 75469530 Problem Major depressive disorder, recurrent episode, un specified severity F33.9 Active 42270449 Problem Sleep walking and eating F51.3 Activ e 38424475 Problem Drug-induced erectile dysfunction N52.2 Active 479942219 Problem Subacromial bursitis of left shoulder joint M75.52 Active 66761048 Problem Tarsal tunnel syndrome of right side G57.51 Active 71330407 Problem Urinary hesitancy R39.11 Active 59 91796 Problem Diabetic polyneuropathy associated with type 2 d iabetes mellitus E11.42 Active 66874718 Problem Bipolar disorder, current episode mixed, moderate F31.62 Active 383830705 Problem Obstructive sleep apnea syndrome G47.33 Active 36193300 Problem Type 2 diabetes mellitus wit h hyperglycemia, without long-term current use of insulin E11.65 Active 25295486 Problem Mixed hyperlipidemia E78.2 Active 356235327 Problem Post-traumatic stress disorder F43.10 Active 29871460 Problem Tarsal tunnel syndrome of both lower extremities G 57.53 Active 70461371322407739 Problem Neurocognitive deficits R29.818 Active 472237435 Problem Bipolar disorder, current ep isode depressed, severe, without psychotic features F31.4 Active 68740290 Problem Post traumatic stress disorder (PTSD) F43.10 Active 31549309 Problem Twitching R25.3 Active 649248095 Problem Cocaine use disorder, severe, dependence F14.20 Active 10205335 Problem Pure hypercholesterolemia E78.0 Acti ve 702146136 Problem Subacromial bursitis of right shoulder joint M75.5 1 Active 0461578305209813 Problem Moderate persistent asthma without complication J4 5.40 Active 334933516 Problem Chronic post-traumatic stress disorder (PTSD) F43. 12 Active 126873965 Problem Bipolar disorder F31.9 Active 137 66086 Problem Cocaine abuse F14.10 Active 613563 03 Problem Bipolar 1 disorder, depressed, severe F31.4 Active 549015961110 Problem Bursitis of left shoulder M75.52 Acti ve [id number] ALLERGIES No Information ENCOUNTERS Encounter Location Date Diagnosis [facility] [address] [facility] [id number] [address] [place] [address] Feb, [facility] [address] [facility] [id number] [address] [place] [address] Jan, [facility] [address] [facility] [id number] [address] [place] [phone] Dec, [facility] [address] [facility] [id number] [address] [place] [address] Dec, [facility] [address] [facility] [id number] [address] [place] [address] 04 Dec, 2019 [facility] [address] [facility] [id number] [place] [address] Dec, Cocaine use disorder, severe, dependence F14.20 [facility] [address] [facility] [id number] [address] [place] [address] 02 Dec, 2019 Bipolar disorder F31.9 ; [address] pain, unspecified chest pain type R07.9 and Cocaine abuse F14.10 [facility] [address] [facility] [id number] [address] [place] [address] Dec, Neuropathic pain M79.2 [facility] [address] [facility] [id number] [place] [address] 29 Nov, 2019 Cocaine use disorder, severe, dependence F14.20 [facility] [address] [facility] [id number] [place] [address] 27 Nov, 2019 Cocaine use disorder, severe, dependence F14.20 [facility] [address] [facility] [id number] [place] [address] November, Cocaine use disorder, severe, dependence F14.20 [facility] [address] [facility] [id number] [address] [place] [address] November, [facility] [address] [place] [id number] [place] [address] November, Cocaine use disorder, severe, dependence F14.20 [facility] [address] [id number] [place] [address] November, Cocaine use disorder, severe, dependence F14.20 [facility] [address] [place] [id number] [address] [place] [address] 15 Nov, 2019 [facility] [address] [id number] [place] [address] 15 Nov, 2019 Cocaine use disorder, severe, dependence F14.20 [facility] [address] [id number] [place] [address] 13 Nov, 2019 Cocaine use disorder, severe, dependence F14.20 [facility] [address] [id number] [place] [address] 11 Nov, 2019 Cocaine use disorder, severe, dependence F14.20 [facility] [address] [facility] [id number] [address] [place] [address] 06 Nov, 2019 Cocaine use disorder, severe , dependence F14.20 and Bipolar disorder F31.9 [facility] [address] [id number] [place] [address] November, Cocaine use disorder, severe, dependence F14.20 [facility] [address] [facility] [id number] [place] [address] November, Cocaine use disorder, severe, dependence F14.20 [facility] [address] [facility] [id number] [place] [address] November, Cocaine use disorder, severe, dependence F14.20 [facility] [address] [facility] [id number] [place] [address] Oct, Cocaine use disorder, severe, dependence F14.20 [facility] [address] [facility] [id number] [address] [place] [address] Oct, [facility] [address] [place] [id number] [address] [place] [address] Oct, [facility] [address] [place] [id number] [place] [address] Oct, [facility] [address] [place] [id number] [address] [place] [address] Sep, Neuropathic pain M79.2 [facility] [address] [place] [id number] [place] [address] Sep, Neuropathic pain M79.2 [facility] [address] [place] [id number] [address] [place] [address] Aug, Diabetic polyneuropathy asso ciated with type 2 diabetes mellitus E11.42 ; Subacromial bursitis of left shoulder joint M75.52 ; Subacromial bursitis of right shoulder joint M75.51 ; Type 2 diabetes mellitus with hyperglycemia, without long-term current use of insulin E11.65 and Encounter for immunization Z23 [facility] [address] [place] [id number] [address] [place] [address] Aug, [facility] [address] [place] [id number] [address] [place] [address] Aug, [facility] [address] [place] [id number] [address] [place] [address] Aug, Neuropathic pain M79.2 [facility] [address] [id number] [address] [place] [address] Jul, Neuropathic pain M79.2 [facility] [address] [id number] [address] [place] [address] Jun, Neuropathic pain M79.2 [facility] [address] [id number] [address] [place] [address] May, [facility] [address] [id number] [address] [place] [address] May, [facility] [address] [id number] [address] [place] [address] May, Neuropathic pain M79.2 [facility] [address] [id number] [address] [place] [address] Apr, [facility] [address] [id number] [address] [place] [address] Apr, Neuropathic pain M79.2 [facility] [address] [id number] [address] [place] [address] Apr, [facility] [address] [id number] [address] [place] [address] Apr, [facility] [address] [id number] [address] [place] [phone] Mar, [facility] [address] [id number] [address] [place] [address] Mar, [facility] [address] [id number] [address] [place] [address] Mar, Neuropathic pain M79.2 [facility] [address] [id number] [address] [place] [address] Mar, Bipolar 1 disorder, depresse d, severe F31.4 and Cocaine use disorder, severe, dependence F14.20 [facility] [address] [id number] [address] [place] [address] 24 Mar, 2019 Neuropathic pain M79.2 [facility] [address] [id number] [address] [place] [address] 18 Mar, 2019 Neuropathic pain M79.2 [facility] [address] [id number] [address] [place] [address] 17 Mar, 2019 [facility] [address] [id number] [address] [place] [address] 16 Mar, 2019 [facility] [address] [id number] [address] [place] [address] Feb, Bipolar 1 disorder, depresse d, severe F31.4 [place] [address] [facility] [id number] [address] [place] [address] Feb, [facility] [address] [facility] [id number] [address] [place] [address] Feb, [facility] [address] [id number] [address] [place] [address] Feb, Type 2 diabetes mellitus wit h hyperglycemia, without long-term current use of insulin E11.65 ; Bursitis of right shoulder M75.51 and Bursitis of left shoulder M75.52 [place] [address] [facility] [id number] [address] [place] [address] Feb, Subacromial bursitis of left shoulder joint M75.52 ; Tarsal tunnel syndrome of both lower extremities G57.53 and Subacromial bursitis of right shoulder joint M75.51 [place] [address] [facility] [id number] [address] [place] [address] Feb, Diabetic polyneuropathy asso ciated with type 2 diabetes mellitus E11.42 ; Mixed hyperlipidemia E78.2 ; Cocaine abuse F14.10 ; Subacromial bursitis of left shoulder joint M75.52 ; Acute pain of right shoulder M25.511 ; Moderate persistent asthma without complication J45.40 and Bipolar 1 disorder, depressed, severe F31.4 [place] [address] [facility] [id number] [address] [place] [address] Jan, [facility] [address] [facility] [id number] [address] [place] [address] Jan, Essential hypertension I10 ; Type 2 diabetes mellitus with hyperglycemia, without long-term current use of insulin E11.65 and Diabetic polyneuropathy associated with type 2 diabetes mellitus E11.42 [facility] [address] [facility] [id number] [address] [place] [address] Jan, [facility] [address] [facility] [id number] [address] [place] [address] Dec, Bipolar disorder, current ep isode mixed, moderate F31.62 ; Diabetic polyneuropathy associated with type 2 diabetes mellitus E11.42 ; Cocaine abuse F14.10 and Major depressive disorder, recurrent severe without psychotic features F33.2 [facility] [address] [facility] [id number] [address] [place] [address] Dec, Diabetic polyneuropathy asso ciated with type 2 diabetes mellitus E11.42 [facility] [address] [facility] [id number] [address] [place] [address] Dec, [id number] [place] [address] Dec, [facility] [address] [facility] [id number] [address] [place] [address] Dec, Major depressive disorder, r ecurrent severe without psychotic features F33.2 ; Diabetic polyneuropathy associated with type 2 diabetes mellitus E11.42 and Cocaine abuse F14.10 [facility] [address] [facility] [id number] [address] [place] [address] Dec, [place] [address] [facility] [id number] [address] [place] [address] November, Post-traumatic stress disord er F43.10 ; Bipolar disorder, current episode mixed, moderate F31.62 ; Cocaine abuse F14.10 ; Generalized anxiety disorder F41.1 and Neurocognitive deficits R29.818 [facility] [address] [facility] [id number] [address] [place] [address] November, Pure hypercholesterolemia E7 8.0 [facility] [address] [facility] [id number] [address] [place] [address] November, [facility] [address] [facility] [id number] [address] [place] [address] November, Type 2 diabetes mellitus wit h hyperglycemia, without long-term current use of insulin E11.65 ; Seizure disorder G40.909 ; Major depressive disorder, recurrent severe without psychotic features F33.2 and Cocaine abuse F14.10 [facility] [address] [facility] [id number] [address] [place] [address] Oct, Type 2 diabetes mellitus wit h hyperglycemia, without long-term current use of insulin E11.65 [place] [address] [facility] [id number] [address] [place] [address] Oct, Post-traumatic stress disord er F43.10 and Bipolar disorder F31.9 [facility] [address] [facility] [id number] [address] [place] [address] Oct, Subacromial bursitis of left shoulder joint M75.52 and Homicidal ideation R45.850 [facility] [address] [facility] [id number] [place] [address] Oct, [facility] [address] [facility] [id number] [address] [place] [address] Oct, [facility] [address] [facility] [id number] [address] [place] [address] Sep, Diabetic polyneuropathy asso ciated with type 2 diabetes mellitus E11.42 [facility] [address] [facility] [id number] [address] [place] [address] Aug, Type 2 diabetes mellitus wit h hyperglycemia, without long-term current use of insulin E11.65 [facility] [address] [facility] [id number] [address] [place] [address] Aug, Twitching R25.3 ; Pain of le ft foot M79.672 and Pain in right foot M79.671 [place] [address] [address] Aug, Diabetic polyneuropathy asso ciated with type 2 diabetes mellitus E11.42 and Essential hypertension I10 [address] [address] Aug, Type 2 diabetes mellitus wit h hyperglycemia, without long-term current use of insulin E11.65 ; Post-traumatic stress disorder F43.10 ; Bipolar disorder, current episode mixed, moderate F31.62 and Neurocognitive deficits R29.818 [place] [address] [address] Jul, Bipolar disorder, current ep isode depressed, severe, without psychotic features F31.4 and Post traumatic stress disorder (PTSD) F43.10 [place] [address] [address] Jul, Bipolar disorder, current ep isode depressed, severe, without psychotic features F31.4 and Post traumatic stress disorder (PTSD) F43.10 [place] [address] [address] Jul, [place] [address] [address] Jun, [place] [address] [address] Jun, Tarsal tunnel syndrome of kaly[place] th lower extremities G57.53 and Diabetic polyneuropathy associated with type 2 diabetes mellitus E11.42 [place] [address] [address] May, Bipolar disorder, current ep isode mixed, moderate F31.62 ; Generalized anxiety disorder F41.1 ; Post-traumatic stress disorder F43.10 and Neurocognitive deficits R29.818 [place] [address] [place] [address] May, [facility] [address] [place] [id number] [place] [address] May, Bipolar disorder, current ep isode depressed, severe, without psychotic features F31.4 and Post traumatic stress disorder (PTSD) F43.10 [place] [address] [address] May, Subacromial bursitis of left shoulder joint M75.52 [place] [address] [place] [id number] [address] [place] [address] May, Diabetic polyneuropathy asso ciated with type 2 diabetes mellitus E11.42 [place] [address] [address] May, [place] [address] [address] May, Medicare annual wellness vis it, initial Z00.00 ; Encounter for immunization Z23 ; Major depressive disorder, recurrent severe without psychotic features F33.2 ; Essential hypertension I10 ; Seizure disorder G40.909 ; Generalized anxiety disorder F41.1 ; Type 2 diabetes mellitus with hyperglycemia, without long-term current use of insulin E11.65 ; Diabetic polyneuropathy associated with type 2 diabetes mellitus E11.42 and Mixed hyperlipidemia E78.2 [place] [address] [address] May, [place] [address] [place] [id number] [address] [place] [address] May, Exercise counseling Z71.82 [place] [address] [place] [id number] [place] [address] May, Subacromial bursitis of left shoulder joint M75.52 [place] [address] [place] [id number] [address] [place] [address] May, [place] [address] [place] [id number] [place] [address] May, [place] [address] [facility] [id number] [address] [place] [address] Apr, [place] [address] [facility] [id number] [address] [place] [address] Apr, Diabetic polyneuropathy asso ciated with type 2 diabetes mellitus E11.42 [place] [address] [place] [id number] [address] [place] [address] Apr, Tarsal tunnel syndrome of kaly[place] th lower extremities G57.53 and Diabetic polyneuropathy associated with type 2 diabetes mellitus E11.42 [place] [address] [place] [id number] [address] [place] [address] Apr, [place] [address] [place] [id number] [address] [place] [address] Apr, Subacromial bursitis of left shoulder joint M75.52 [place] [address] [place] [id number] [address] [place] [address] Mar, Type 2 diabetes mellitus wit h hyperglycemia, without long-term current use of insulin E11.65 ; Diabetic polyneuropathy associated with type 2 diabetes mellitus E11.42 ; Bilateral low back pain, with sciatica presence unspecified M54.5 ; Tarsal tunnel syndrome of both lower extremities G57.53 ; Jock itch L29.8 ; Encounter for immunization Z23 and Weight gain R63.5 [place] [address] [place] [id number] [address] [place] [address] Mar, Jock itch L29.8 [place] [address] [facility] [id number] [address] [place] [address] Mar, Plantar fasciitis, bilateral M72.2 ; Tarsal tunnel syndrome of both lower extremities G57.53 ; Posterior tibial tendinitis of right lower extremity M76.821 and Posterior tibial tendinitis of left lower extremity M76.822 [place] [address] [place] [id number] [address] [place] [address] 17 Mar, 2018 Diabetic polyneuropathy asso ciated with type 2 diabetes mellitus E11.42 [facility] [address] [id number] [address] [place] [address] Mar, Subacromial bursitis of left shoulder joint M75.52 [facility] [address] [id number] [address] [place] [address] Jan, [facility] [address] [id number] [address] [place] [address] Jan, [facility] [address] [id number] [address] [place] [address] Jan, [facility] [address] [id number] [address] [place] [address] Jan, [facility] [address] [facility] [id number] [address] [place] [address] Jan, Drug-induced erectile dysfun ction N52.2 [facility] [address] [facility] [id number] [address] [place] [address] Dec, Subacromial bursitis of left shoulder joint M75.52 [facility] [address] [facility] [id number] [address] [place] [address] Dec, Type 2 diabetes mellitus wit h hyperglycemia, without long-term current use of insulin E11.65 ; Essential hypertension I10 ; Bilateral low back pain, with sciatica presence unspecified M54.5 ; Seizure disorder G40.909 ; Intractable chronic post-traumatic headache G44.321 ; Chest pain, unspecified chest pain type R07.9 ; Major depressive disorder, recurrent episode, unspecified severity F33.9 ; Drug-induced erectile dysfunction N52.2 ; Tarsal tunnel syndrome of right side G57.51 ; Diabetic polyneuropathy associated with type 2 diabetes mellitus E11.42 and Other infective acute otitis externa of righ t ear H60.391 [facility] [address] [id number] [address] [place] [address] November, [facility] [address] [facility] [id number] [address] [place] [address] November, Type 2 diabetes mellitus wit h hyperglycemia, without long-term current use of insulin E11.65 [place] [address] [address] November, Subacromial bursitis of left shoulder joint M75.52 [place] [address] [address] November, Bilateral low back pain, wit h sciatica presence unspecified M54.5 [place] [address] [address] Oct, Essential hypertension I10 ; Pure hypercholesterolemia E78.0 and At risk for cardiovascular event Z91.89 [place] [address] [address] Oct, Bilateral low back pain, wit h sciatica presence unspecified M54.5 and Subacromial bursitis of left shoulder joint M75.52 [place] [address] [address] Sep, Subacromial bursitis of left shoulder joint M75.52 [place] [address] [address] Aug, Subacromial bursitis of left shoulder joint M75.52 [place] [address] [address] [address] Aug, Essential hypertension I10 [place] [address] [address] Jul, Pure hypercholesterolemia E7 8.0 and Jock itch L29.8 [place] [address] [address] Jul, Type 2 diabetes mellitus wit h hyperglycemia, without long-term current use of insulin E11.65 [place] [address] [address] [place] [id number] [address] [place] [address] Jul, [place] [id number] [place] [address] Jul, [facility] [address] [facility] [id number] [address] [place] [address] Jul, [facility] [address] [facility] [id number] [address] [place] [address] Jun, Moderate persistent asthma w ithout complication J45.40 ; Subacromial bursitis of left shoulder joint M75.52 ; Episode of altered consciousness R40.4 and Obstructive sleep apnea syndrome G47.33 [facility] [address] [place] [id number] [address] [place] [address] Jun, Subacromial bursitis of left shoulder joint M75.52 [facility] [address] [place] [id number] [address] [place] [address] May, [place] [address] [address] [place] [id number] [address] [place] [address] May, [facility] [address] [place] [id number] [address] [place] [address] May, Subacromial bursitis of left shoulder joint M75.52 [place] [address] [address] [place] [id number] [address] [place] [address] May, [facility] [address] [place] [id number] [address] [place] [address] Apr, Subacromial bursitis of left shoulder joint M75.52 [facility] [address] [place] [id number] [address] [place] [address] Apr, Pure hypercholesterolemia E7 8.0 ; Right sided weakness R53.1 ; Episode of altered consciousness R40.4 ; Seizure disorder G40.909 ; Essential hypertension I10 and At risk for cardiovascular event Z91.89 [facility] [address] [place] [id number] [address] [place] [address] Apr, [facility] [address] [place] [id number] [address] [place] [address] Apr, [place] [address] [id number] [address] [place] [address] 14 Mar, 2017 [place] [address] [id number] [address] [place] [address] 14 Mar, 2017 [place] [address] [facility] [id number] [address] [place] [address] 13 Mar, 2017 Type 2 diabetes mellitus wit h hyperglycemia, without long-term current use of insulin E11.65 ; Encounter for immunization Z23 and Subacromial bursitis of left shoulder joint M75.52 [place] [address] [id number] [address] [place] [address] Feb, Subacromial bursitis of left shoulder joint M75.52 [place] [address] [address] [facility] [id number] [address] [place] [address] 18 Jan, 2017 Moderate persistent asthma w ithout complication J45.40 [place] [address] [address] [facility] [id number] [address] [place] [address] Jan, Bipolar disorder, current ep isode depressed, mild F31.31 ; Chronic post-traumatic stress disorder (PTSD) F43.12 and Generalized anxiety disorder F41.1 [place] [address] [address] [facility] [id number] [address] [place] [address] Dec, Type 2 diabetes mellitus wit h hyperglycemia, without long-term current use of insulin E11.65 [place] [address] [address] [facility] [id number] [address] [place] [address] November, [place] [address] [id number] [address] [place] [address] November, Bipolar disorder, current ep isode depressed, mild F31.31 ; Chronic post-traumatic stress disorder (PTSD) F43.12 and Generalized anxiety disorder F41.1 [place] [address] [address] [facility] [id number] [address] [place] [address] November, Type 2 diabetes mellitus wit h hyperglycemia, without long-term current use of insulin E11.65 ; Subacromial bursitis of left shoulder joint M75.52 ; Urinary hesitancy R39.11 ; Tinea cruris B35.6 ; Tinea pedis of both feet B35.3 and Moderate persistent asthma without complication J45.40 [facility] [address] [place] [id number] [address] [place] [address] November, [facility] [address] [place] [id number] [address] [place] [address] November, [facility] [address] [place] [id number] [address] [place] [address] Oct, [facility] [address] [place] [id number] [place] [address] Oct, [facility] [address] [place] [id number] [place] [address] Sep, [facility] [address] [place] [id number] [address] [place] [address] Sep, [facility] [address] [place] [id number] [address] [place] [address] Sep, [facility] [address] [address] Sep, Bipolar disorder, current ep isode mixed, moderate F31.62 ; Generalized anxiety disorder F41.1 and Chronic post-traumatic stress disorder (PTSD) F43.12 [place] [address] [address] [place] [id number] [address] [place] [address] Sep, Type 2 diabetes mellitus wit h hyperglycemia, without long-term current use of insulin E11.65 [place] [address] [address] [place] [id number] [address] [place] [address] Sep, [place] [address] [address] Aug, Moderate persistent asthma w ithout complication J45.40 [facility] [address] [place] [id number] [address] [place] [address] Aug, [place] [address] [address] Jul, [place] [address] [address] Jul, Type 2 diabetes mellitus wit h hyperglycemia, without long-term current use of insulin E11.65 [place] [address] [address] Jul, [place] [address] [address] Jul, [place] [address] [address] Jul, [place] [address] [address] Jul, Type 2 diabetes mellitus wit h hyperglycemia, without long-term current use of insulin E11.65 ; Hematuria R31.9 ; Snoring R06.83 ; Sleep walking and eating F51.3 ; Jock itch L29.8 ; Costochondritis M94.0 and Cervicalgia M54.[address] [address] Jun, Urinary hesitancy R39.[address] [address] Jun, Elevated serum glucose R73.9 and Urinary hesitancy R39.11 [place] [address] [address]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
--- OUTSIDE RECORDS SUMMARY | 2020-02-07 16:49 | XMS REPORT ---
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 HDL 38 mg/dL Low >40 mg/dL [Mass/Vol] Cholesterol in LDL 159 mg/dL High mg/dL [Mass/Vol] (calc) Cholesterol non HDL 187 mg/dL High <130 mg/dL [Mass/Vol] (calc) Cholesterol.total/Ch 5.9 {ratio} High <5.0 olesterol in HDL (calc) [Mass ratio] CO2 [Moles/Vol] 30 mmol/L Normal 20-31 Not mmol/L [facility] () Creatinine 1.08 mg/dL Normal 0.60-1.35 Not [Mass/Vol] mg/dL [facility] (87303) Eosinophils (Bld) 0.448 10*3/uL Normal 15-500 Not [#/Vol] cells/uL [facility] (80710) Eosinophils/100 WBC 6.4 % Normal % Not (Bld) [facility] (76997) Erythrocyte 13.7 % Normal 11.0-15.0 Not distribution width % Availab (RBC) [Ratio] le () GFR/1.73 sq 94 mL/min/{1.73_m2} Normal > OR = 60 Not M.predicted among mL/min/1.7 Availab blacks MDRD 3m2 le (S/P/Bld) [Vol (93237) rate/Area] GFR/1.73 sq 81 mL/min/{1.73_m2} Normal > OR = 60 Not M.predicted MDRD mL/min/1.7 Availab (S/P/Bld) [Vol 3m2 le rate/Area] (28138) Globulin (S) 2.9 g/dL Normal 1.9-3.7 Not [Mass/Vol] g/dL Avail[facility] (calc) le (36210) Glucose [Mass/Vol] 107 mg/dL High 65-99 Not mg/dL [facility] (98806) Hematocrit (Bld) 44.3 % Normal 38.5-50.0 Not [Volume fraction] % [facility] (46581) Hemoglobin (Bld) 14.6 g/dL Normal 13.2-17.1 Not [Mass/Vol] g/dL [facility] (61128) Lymphocytes (Bld) 3.269 10*3/uL Normal 850-3900 Not [#/Vol] cells/uL [facility] (33424) Lymphocytes/100 WBC 46.7 % Normal % Not (Bld) [facility] (64941) MCH (RBC) [Entitic 29.3 pg Normal 27.0-33.0 Not mass] pg [facility] (23647) MCHC (RBC) 33.0 g/dL Normal 32.0-36.0 Not [Mass/Vol] g/dL [facility] (54055) MCV (RBC) [Entitic 88.8 fL Normal 80.0-100.0 Not vol] fL [facility] (03590) Monocytes (Bld) 0.336 10*3/uL Normal 200-950 Not [#/Vol] cells/uL [facility] (07181) Monocytes/100 WBC 4.8 % Normal % Not (Bld) [facility] (77298) Neutrophils (Bld) 2.919 10*3/uL Normal 2618-1056 Not [#/Vol] cells/uL [facility] (98015) Neutrophils/100 WBC 41.7 % Normal % Not (Bld) [facility] (25926) Platelet mean volume 10.5 fL Normal 7.5-12.5 Not (Bld) [Entitic vol] fL [facility]ail[facility] le () Platelets (Bld) 227 10*3/uL Normal 140-400 Not [#/Vol] Thousand/u Availab L le () Potassium 3.9 mmol/L Normal 3.5-5.3 Not [Moles/Vol] mmol/L [facility] le () Protein [Mass/Vol] 7.0 g/dL Normal 6.1-8.1 Not g/dL [facility] () RBC (Bld) [#/Vol] 4.99 10*6/uL Normal 4.20-5.80 Not Million/uL [facility]ail[facility] le () Sodium [Moles/Vol] 143 mmol/L Normal 135-146 Not mmol/L [facility]ail[facility] le () Triglyceride 152 mg/dL High <150 mg/dL [Mass/Vol] Urea nitrogen 10 mg/dL Normal 7-25 mg/dL Not [Mass/Vol] Avail[facility] le () Urea NOT APPLICABLE Invalid 6- Not nitrogen/Creatinine Interpreta (calc) Availab [Mass ratio] tion Code le () WBC (Bld) [#/Vol] 7.0 10*3/uL Normal 3.8-10.8 Not Thousand/u Availab L le () laboratory on 2016-07-12 Appearance (U) Clear Invalid Clear Not Interpreta Availab 017 tion Code le 07:35-0 (38037) 500 Bacteria LM.HPF Few Invalid None Not (Urine sed) [#/Area] Interpreta seen/Few Avail[facility] 017 tion Code le 14:20-0 (84514) 500 Bilirubin Ql (U) Negative Invalid Negative Not Interpreta Availab 017 tion Code le 07:35-0 (28504) 500 Color (U) Yellow Invalid Yellow Not Interpreta Availab 017 tion Code le 07:35-0 (49488) 500 Epithelial cells 0-10 Invalid 0 - 10 Not LM.HPF (Urine sed) Interpreta /hpf Availab 017 [#/Area] tion Code le 14:20-0 (80439) 500 Glucose Ql (U) Negative Invalid Negative Not Interpreta Availab 017 tion Code le 07:35-0 (69599) 500 Hemoglobin Ql (U) Negative Invalid Negative Not 07-12 Interpreta Availab 017 tion Code le 07:35-0 (55151) 500 Ketones Ql (U) Negative Invalid Negative Not Interpreta Availab 017 tion Code le 07:35-0 (30947) 500 Leukocyte esterase Negative Invalid Negative Not 2 Test strip Ql (U) Interpreta Availab 017 tion Code le 07:35-0 (20537) 500 Microscopic Comment Invalid Not observation LM Nom Interpreta Availab 017 (Urine sed) tion Code le 07:35-0 (40711) 500 Microscopic See below: Invalid Not observation LM Nom Interpreta Availab 017 (Urine sed) tion Code le 07:35-0 (11633) 500 Mucus Ql (Urine sed) Present Invalid Not Estab. Not 0 Interpreta Availab 017 tion Code le 14:20-0 (01182) 500 Nitrite Ql (U) Negative Invalid Negative Not Interpreta Availab 017 tion Code le 07:35-0 (91187) 500 pH (U) 7.0 [pH] Invalid 5.0-7.5 Not Interpreta Availab 017 tion Code le 07:35-0 (70899) 500 Protein Ql (U) Negative Invalid Negative/T Not Interpreta race Availab 017 tion Code le 07:35-0 (79602) 500 RBC LM.HPF (Urine 0-2 Invalid 0 - 2 /hpf Not -2 sed) [#/Area] Interpreta Availab 017 tion Code le 14:20-0 (41474) 500 Specific gravity (U) 1.014 Invalid 1.005-1.03 Not 0 [Rel density] Interpreta 0 Availab 017 tion Code le 07:35-0 (76533) 500 Urobilinogen (U) 0.2 mg/dL Invalid 0.2-1.0 Not [Mass/Vol] Interpreta mg/dL Availab 017 tion Code le 07:35-0 (14054) 500 WBC LM.HPF (Urine 0-5 Invalid 0 - 5 /hpf Not 01-0 4-2 sed) [#/Area] Interpreta Availab 017 tion Code le 14:20-0 (64733) 500 Social History Date Type Detail Facility Start: Tobacco smoking status NHIS Smokes tobacco tito ly [facility] 05-06-2019 (finding) [facility] (04472) Start: No [facility] 05-06-2019 [facility] (02311) Start: Denies [facility] 05-06-2019 [facility] (31314) Start: Current Everyday Smoker [facility] 05-06-2019 [facility] (99342) Start: Cigarettes [facility] 05-06-2019 [facility] (68032) Start: Denies Use [facility] 07-09-2014 [facility] (46459) Start: N - SMOKES 1/2 PPD [facility] 07-09-2014 [facility] (89436) Start: Sex Assigned At Male [facility] 1970 [facility] (05923) Vital Signs Date Time Vital Sign Value Performing Clinician Facil ity 06-04-2018 Body height 167.64 cm [facility] 14:00-0500 Other Phone: [facility] [place] (85159) 06-04-2018 Body mass index 29.61 kg/m2 [facility] 14:00-0500 (BMI) [Ratio] Other Phone: [facility] [place] (65450) 06-04-2018 Body temperature 98 [degF] [facility] 14:00-0500 Other Phone: [facility] [place] (20701) 06-04-2018 Body weight 83.24 kg [facility] 14:000500 Other Phone: [facility] [place] (34298) 05-28-2018 Body height 167.64 cm [facility] 11:000500 Other Phone: [facility] [place] (33170) 05-28-2018 Body mass index 29.55 kg/m2 [facility] 11:00-0500 (BMI) [Ratio] Other Phone: [facility] [place] (70734) 05-28-2018 Body temperature 98.3 [degF] [facility]:000[facility] Other Phone: [facility] [place] (87698) 05-28-2018 [facility]:000500 Other Phone: [facility] [phone] [place] [address] ([id number]) 04-26-2018 Body height 167.64 cm [facility] 10:30-0400 Other Phone: [facility] [phone] [place] [address] (03545) 04-04-2018 Body height 167.64 cm [facility] 12:20-0400 Other Phone: [facility] [place] (36279) 04-04-2018 Body mass index 30.05 kg/m2 [facility] 12:20-0400 (BMI) [Ratio] Other Phone: [facility] [place] (50428) 04-04-2018 Body temperature 97.2 [degF] [facility] 12:20-0400 Other Phone: [facility] [place] (80648) 04-04-2018 [facility] 84.46 [facility] 12:20-0400 Other Phone: [facility] [phone] [place] [address] (83124) 03-29-2018 Body height 167.64 cm [facility] 11:000400 Other Phone: [facility] [place] (60784) 02-05-2014 Body height 167.64 cm [facility] 14:45-0400 Other Phone: [facility] [place] (20184) 02-05-2014 Body temperature 97.1 [degF] [facility] 14:45-0400 Other Phone: [facility] [place] (00210) 02-05-2014 Body weight 64.18 kg [facility] 14:39-7719 Other Phone: [facility] [place] (16843) Functional Status The data below is from unstructured sources Query Response Date Scar rded Comprehension Ability Understands Co ncepts July 10, 2014 8:00am Mental Status The data below is from unstructured sourcesNo Mental Status Information Available Evaluation note Note Date & Note Facility Type Evaluation No Assessments Information Available [facility] (85069) History general Narrative - Reported Note Date & Note Facility Type History [facility] Narrative - [place] ([id number]) Reported Summary Purpose eClinicalWorks SubmissioneClinicalWorks SubmissioneClinicalWorks SubmissioneClinicalWorks SubmissioneClinicalWorks SubmissioneClinicalWorks SubmissioneClinicalWorks SubmissioneClinicalWorks SubmissioneClinicalWorks SubmissioneClinicalWorks SubmissioneClinicalWorks SubmissioneClinicalWorks SubmissioneClinicalWorks SubmissioneClinicalWorks SubmissioneClinicalWorks SubmissioneClinicalWorks SubmissioneClinicalWorks SubmissioneClinicalWorks Submission Advance Directives Directive Response Recor ded Date/Time Advance Directives No 2:15pm Health Care Power of Promotional Marketing Agent No 05/15/16 2:15pm Organ Donor No 05/15/16 2:15pm Resuscitation Status Full Code 05/15/16 2:15pm Directive Response Recor ded Date/Time Advance Directives No 2:15pm Health Care Power of Promotional Marketing Agent No 05/15/16 2:15pm Organ Donor No 05/15/16 2:15pm Directive Response Recor ded Date/Time Advance Directives No 8:48pm Health Care Power of Promotional Marketing Agent No 07/09/14 8:48pm Organ Donor No 07/09/14 8:48pm Resuscitation Status Full Code 07/09/14 8:48pm Advance Directive Response Recorded Date/Time Advance Directives No Oc 2018 7:00pm Health Care Power of Promotional Marketing Agent No May 06, 2019 7:00pm Organ Donor No April 092018 7:00pm Resuscitation Status Full Code May 06, 2019 7:00pm Discharge Instructions No hospital discharge instructions.No hospital discharge instructions.No hospital discharge instruction information available. Patient Instructions Physician Instructions New, Converted or Re-Newed RX: Call to Patients Pharmacy Patient Instructions Start simvastatin for cholesterol. Do not take more than 800 mg of ibuprofen at one time. Goal/Follow Up Appt: Follow up with Dr. Harrington within 2 weeks of discharge from the hospital. Return to The Hospital For: Fever, shortness of breath, uncontrolled pain Discharge Diet: Regular Diet Chief Complaint and Reason for Visit Chief Complaint Upper Extremity Reason for Visit [id number] Additional Source Comments This clinical document has been generated using [employer] software that has been certified by the Office of the National Coordinator for Health Information Technology (ONC 15.99.04.3023.Diam.31.00.0.680564) and the National Committee for Washer [employer] (NCQA, as an eMeasure certified technology). FOR RECORDS PERTAINING TO PATIENTS WHO ARE OR HAVE BEEN ENROLLED IN A CHEMICAL D EPENDENCY/SUBSTANCE ABUSE PROGRAM, SOME INFORMATION MAY BE OMITTED. This clinica l summary was aggregated from multiple sources. Caution should be exercised in using it in the provision of clinical care. This summary normalizes information from multiple sources, and as a consequence, information in this document may ma terially change the coding, format and clinical context of patient data. In dayton tion, data may be omitted in some cases. CLINICAL DECISIONS SHOULD BE BASED ON T HE PRIMARY CLINICAL RECORDS. [employer] provides no warranty or guara ntee of the accuracy or completeness of information in this document.The jozef warner information is based on time limited clinical information UNRECOGNIZED CONTENT PROVIDED BELOW FOR UNRECOGNIZED SECTION REASON FOR VISIT Injection-shoulder injection-AHarrymanRNDiabetes--tcuppettRN, Having lower back pain and also bilateral feet pain. Having difficulty walking due to pain, -Needi ng to discuss depakote dosageMedication questionMedication refill requestRx PT f /uPT follow-upDiabetes--tcuppettRN, --Needing a note for HUD stating that he nee ds an apartment on bottom floor due to having difficulty walking up stairs becau se of pain, --Wanting to see if he can see our corporate wellness coordinator for training , --Pt is requesting oral antifungal for jock itch, --Having severe bilateral fo ot pain continued foot pain (last seen 09/24/15) - Leticia Kuhn Refill RequestT ransportationReferral continued foot pain (last seen 09/24/15) - Everton Kuhn t lossFYI onlyMedicare AWV , Requesting shoulder injectionControlled Med RefillS houlder injection, left., Consent signed.-awoods intakeTransportation EMR-MigE [id number] Medication RefillNew Refill RequestNew Refill Request
--- OUTSIDE RECORDS SUMMARY | 2020-02-07 16:50 | XMS REPORT ---
Author Author JUANY Dilan MYRA Organization [facility] Address [address] [place] [address] Care Team Providers Care Plant Pathology Teacher Name Role Phone JUANYMYRA RAO Unavailable PROBLEMS Type Condition ICD9-CM Code NRN85-FQ Code Onset Dates Condition S tatus SNOMED Code Problem Bilateral low back pain, with sciatica presence unspecifie d M54.5 Active 990920375 Problem Essential hypertension I10 Active 75804400 Problem Seizure disorder G40.909 Active 128 552110 Problem Generalized anxiety disorder F41.1 A ctive 027941592 Problem Cervicalgia M54.2 Active 97692437 41568 Problem Bipolar disorder, current episode depressed, mild F31.31 Active 279505383 Problem Bipolar disorder, current episode depressed, moderate F31.32 Active 020640635 Problem Post-traumatic stress disorder, unspecified F43.10 Active 95949579 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 39354691 Problem Major depressive disorder, recurrent sev ere without psychotic features F33.2 Active 70927836 Problem Intractable chronic post-traumatic headache G44.32 1 Active 241810215 Problem Chest pain, unspecified chest pain type R07.9 Active 23582089 Problem Major depressive disorder, recurrent episode, un specified severity F33.9 Active 45121816 Problem Sleep walking and eating F51.3 Activ e 65978089 Problem Drug-induced erectile dysfunction N52.2 Active 553498787 Problem Subacromial bursitis of left shoulder joint M75.52 Active 56458094 Problem Tarsal tunnel syndrome of right side G57.51 Active 10387546 Problem Urinary hesitancy R39.11 Active 59 46073 Problem Diabetic polyneuropathy associated with type 2 d iabetes mellitus E11.42 Active 82617147 Problem Bipolar disorder, current episode mixed, moderate F31.62 Active 267921528 Problem Obstructive sleep apnea syndrome G47.33 Active 07394975 Problem Type 2 diabetes mellitus wit h hyperglycemia, without long-term current use of insulin E11.65 Active 31808961 Problem Mixed hyperlipidemia E78.2 Active 032995856 Problem Post-traumatic stress disorder F43.10 Active 08561015 Problem Tarsal tunnel syndrome of both lower extremities G 57.53 Active 81290777985194000 Problem Neurocognitive deficits R29.818 Active 511831199 Problem Bipolar disorder, current ep isode depressed, severe, without psychotic features F31.4 Active 22722712 Problem Post traumatic stress disorder (PTSD) F43.10 Active 22570671 Problem Twitching R25.3 Active 256008284 Problem Cocaine use disorder, severe, dependence F14.20 Active 52760232 Problem Pure hypercholesterolemia E78.0 Acti ve 310703879 Problem Subacromial bursitis of right shoulder joint M75.5 1 Active 6953129296431833 Problem Moderate persistent asthma without complication J4 5.40 Active 500299271 Problem Chronic post-traumatic stress disorder (PTSD) F43. 12 Active 983506916 Problem Bipolar disorder F31.9 Active 137 42354 Problem Cocaine abuse F14.10 Active 664360 03 Problem Bipolar 1 disorder, depressed, severe F31.4 Active 558745877604 Problem Bursitis of left shoulder M75.52 Acti ve [id number] ALLERGIES No Information ENCOUNTERS Encounter Location Date Diagnosis [facility] [address] [facility] [id number] [place] [address] 29 Nov, 2019 [facility] [address] [place] [id number] [place] [address] 27 Nov, 2019 [facility] [address] [facility] [id number] [place] [address] November, [facility] [address] [facility] [id number] [place] [address] 18 Nov, 2019 [facility] [place] [facility] [address] [facility] [id number] 100KS [place] [address] November, [facility] [address] [facility] [id number] [place] [address] 15 Nov, 2019 [facility] [address] [facility] [id number] [place] [address] 13 Nov, 2019 [facility] [address] [facility] [id number] [place] [address] November, Cocaine use disorder, severe, dependence F14.20 [facility] [address] [place] [id number] [address] [place] [address] November, Cocaine use disorder, severe , dependence F14.20 and Bipolar disorder F31.9 [facility] [address] [facility] [id number] [place] [address] November, Cocaine use disorder, severe, dependence F14.20 [facility] [address] [facility] [id number] [place] [address] November, [facility] [address] [facility] [id number] [place] [address] November, [facility] [address] [facility] [id number] [place] [address] Oct, [facility] [address] [place] [id number] [address] [place] [address] Oct, [facility] [address] [id number] [address] [place] [address] Oct, [facility] [address] [place] [id number] [address] [place] [address] Oct, [facility] [address] [id number] [address] [place] [address] Sep, Neuropathic pain M79.2 [facility] [address] [place] [id number] [address] [place] [address] 09 Sep, 2019 Neuropathic pain M79.2 [facility] [address] [place] [id number] [address] [place] [address] 13 Aug, 2019 Diabetic polyneuropathy asso ciated with type 2 diabetes mellitus E11.42 ; Subacromial bursitis of left shoulder joint M75.52 ; Subacromial bursitis of right shoulder joint M75.51 ; Type 2 diabetes mellitus with hyperglycemia, without long-term current use of insulin E11.65 and Encounter for immunization Z23 [facility] [address] [id number] [address] [place] [address] Aug, [facility] [address] [id number] [address] [place] [address] Aug, [facility] [address] [id number] [address] [place] [address] Aug, Neuropathic pain M79.2 [facility] [address] [id number] [address] [place] [address] Jul, Neuropathic pain M79.2 [facility] [address] [id number] [address] [place] [address] Jun, Neuropathic pain M79.2 [facility] [address] [id number] [address] [place] [address] May, [facility] [address] [id number] [address] [place] [address] May, Neuropathic pain M79.2 [facility] [address] [id number] [address] [place] [address] May, [facility] [address] [id number] [address] [place] [address] Apr, [facility] [address] [id number] [address] [place] [address] Apr, Neuropathic pain M79.2 [facility] [address] [id number] [address] [place] [address] Apr, [facility] [address] [id number] [address] [place] [address] Apr, [facility] [address] [id number] [address] [place] [address] Mar, [facility] [address] [id number] [address] [place] [address] Mar, [facility] [address] [id number] [address] [place] [address] Mar, Neuropathic pain M79.2 [facility] [address] [id number] [address] [place] [address] 26 Mar, 2019 Bipolar 1 disorder, depresse d, severe F31.4 and Cocaine use disorder, severe, dependence F14.20 [facility] [address] [id number] [address] [place] [address] 24 Mar, 2019 Neuropathic pain M79.2 [facility] [address] [id number] [address] [place] [address] 18 Mar, 2019 Neuropathic pain M79.2 [facility] [address] [id number] [address] [place] [address] 17 Mar, 2019 [facility] [address] [id number] [address] [place] [address] 16 Mar, 2019 [facility] [address] [facility] [id number] [address] [place] [address] Feb, Bipolar 1 disorder, depresse d, severe F31.4 [facility] [address] [id number] [address] [place] [address] Feb, [facility] [address] [id number] [address] [place] [address] Feb, [facility] [address] [id number] [address] [place] [address] Feb, Type 2 diabetes mellitus wit h hyperglycemia, without long-term current use of insulin E11.65 ; Bursitis of right shoulder M75.51 and Bursitis of left shoulder M75.52 [facility] [address] [id number] [address] [place] [address] Feb, Subacromial bursitis of left shoulder joint M75.52 ; Tarsal tunnel syndrome of both lower extremities G57.53 and Subacromial bursitis of right shoulder joint M75.51 [facility] [address] [facility] [id number] [address] [place] [address] 14 Feb, 2019 Diabetic polyneuropathy asso ciated with type 2 diabetes mellitus E11.42 ; Mixed hyperlipidemia E78.2 ; Cocaine abuse F14.10 ; Subacromial bursitis of left shoulder joint M75.52 ; Acute pain of right shoulder M25.511 ; Moderate persistent asthma without complication J45.40 and Bipolar 1 disorder, depressed, severe F31.4 [facility] [address] [id number] [address] [place] [address] Jan, [facility] [address] [facility] [id number] [address] [place] [address] Jan, Essential hypertension I10 ; Type 2 diabetes mellitus with hyperglycemia, without long-term current use of insulin E11.65 and Diabetic polyneuropathy associated with type 2 diabetes mellitus E11.42 [facility] [address] [facility] [id number] [address] [place] [address] Jan, [facility] [address] [facility] [id number] [address] [place] [address] Dec, Bipolar disorder, current ep isode mixed, moderate F31.62 ; Diabetic polyneuropathy associated with type 2 diabetes mellitus E11.42 ; Cocaine abuse F14.10 and Major depressive disorder, recurrent severe without psychotic features F33.2 [facility] [address] [facility] [id number] [address] [place] [address] Dec, Diabetic polyneuropathy asso ciated with type 2 diabetes mellitus E11.42 [facility] [address] [facility] [id number] [address] [place] [address] Dec, [id number] [place] [address] Dec, [facility] [address] [facility] [id number] [address] [place] [address] Dec, Major depressive disorder, r ecurrent severe without psychotic features F33.2 ; Diabetic polyneuropathy associated with type 2 diabetes mellitus E11.42 and Cocaine abuse F14.10 [facility] [address] [facility] [id number] [address] [place] [address] Dec, [facility] [address] [facility] [id number] [address] [place] [address] November, Post-traumatic stress disord er F43.10 ; Bipolar disorder, current episode mixed, moderate F31.62 ; Cocaine abuse F14.10 ; Generalized anxiety disorder F41.1 and Neurocognitive deficits R29.818 [facility] [address] [facility] [id number] [address] [place] [address] November, Pure hypercholesterolemia E7 8.0 [facility] [address] [facility] [id number] [address] [place] [address] November, [place] [address] [facility] [id number] [address] [place] [address] November, Type 2 diabetes mellitus wit h hyperglycemia, without long-term current use of insulin E11.65 ; Seizure disorder G40.909 ; Major depressive disorder, recurrent severe without psychotic features F33.2 and Cocaine abuse F14.10 [place] [address] [facility] [id number] [address] [place] [address] Oct, Type 2 diabetes mellitus wit h hyperglycemia, without long-term current use of insulin E11.65 [place] [address] [facility] [id number] [address] [place] [address] Oct, Post-traumatic stress disord er F43.10 and Bipolar disorder F31.[address] [id number] [address] [place] [address] Oct, Subacromial bursitis of left shoulder joint M75.52 and Homicidal ideation R45.850 [facility] [address] [facility] [id number] [address] Oct, [facility] [address] [facility] [id number] [address] [place] [address] Oct, [place] [address] [facility] [id number] [address] [place] [address] Sep, Diabetic polyneuropathy asso ciated with type 2 diabetes mellitus E11.42 [facility] [address] [facility] [id number] [address] [place] [address] Aug, Type 2 diabetes mellitus wit h hyperglycemia, without long-term current use of insulin E11.65 [place] [address] [address] 13 Aug, 2018 Twitching R25.3 ; Pain of le ft foot M79.672 and Pain in right foot M79.[address] [address] Aug, Diabetic polyneuropathy asso ciated with type 2 diabetes mellitus E11.42 and Essential hypertension I10 [address] [address] Aug, Type 2 diabetes mellitus wit h hyperglycemia, without long-term current use of insulin E11.65 ; Post-traumatic stress disorder F43.10 ; Bipolar disorder, current episode mixed, moderate F31.62 and Neurocognitive deficits R29.[address] [address] Jul, Bipolar disorder, current ep isode depressed, severe, without psychotic features F31.4 and Post traumatic stress disorder (PTSD) F43.[address] [address] Jul, Bipolar disorder, current ep isode depressed, severe, without psychotic features F31.4 and Post traumatic stress disorder (PTSD) F43.10 [place] [address] [address] Jul, [place] [address] [address] Jun, [place] [address] [address] Jun, Tarsal tunnel syndrome of kalyan th lower extremities G57.53 and Diabetic polyneuropathy associated with type 2 diabetes mellitus E11.[address] [address] May, Bipolar disorder, current ep isode mixed, moderate F31.62 ; Generalized anxiety disorder F41.1 ; Post-traumatic stress disorder F43.10 and Neurocognitive deficits R29.818 [place] [address] [facility] [id number] [address] [place] [address] May, [place] [address] [facility] [id number] [address] [place] [address] May, Bipolar disorder, current ep isode depressed, severe, without psychotic features F31.4 and Post traumatic stress disorder (PTSD) F43.10 [place] [address] [facility] [id number] [address] [place] [address] May, Subacromial bursitis of left shoulder joint M75.52 [place] [address] [facility] [id number] [address] [place] [address] May, Diabetic polyneuropathy asso ciated with type 2 diabetes mellitus E11.42 [place] [address] [facility] [id number] [address] [place] [address] May, [place] [address] [place] [id number] [address] [place] [address] May, Medicare annual wellness vis it, initial [...] diabetes mellitus E11.42 and Mixed hyperlipidemia E78.2 [place] [address] [facility] [id number] [address] [place] [address] May, [address] [id number] [address] [place] [address] May, Exercise counseling Z71.82 [place] [address] [place] [id number] [address] [place] [address] May, Subacromial bursitis of left shoulder joint M75.52 [facility] [address] [facility] [id number] [address] [place] [address] May, [facility] [address] [facility] [id number] [address] [place] [address] May, [facility] [address] [facility] [id number] [address] [place] [address] Apr, [facility] [address] [facility] [id number] [address] [place] [address] Apr, Diabetic polyneuropathy asso ciated with type 2 diabetes mellitus E11.42 [facility] [address] [facility] [id number] [address] [place] [address] Apr, Tarsal tunnel syndrome of kalyan th lower extremities G57.53 and Diabetic polyneuropathy associated with type 2 diabetes mellitus E11.42 [facility] [address] [facility] [id number] [address] [place] [address] Apr, [facility] [address] [facility] [id number] [address] [place] [address] Apr, Subacromial bursitis of left shoulder joint M75.52 [facility] [address] [facility] [id number] [address] [place] [address] Mar, Type 2 diabetes mellitus wit h hyperglycemia, without long-term current use of insulin E11.65 ; Diabetic polyneuropathy associated with type 2 diabetes mellitus E11.42 ; Bilateral low back pain, with sciatica presence unspecified M54.5 ; Tarsal tunnel syndrome of both lower extremities G57.53 ; Jock itch L29.8 ; Encounter for immunization Z23 and Weight gain R63.5 [facility] [address] [facility] [id number] [address] [place] [address] Mar, Jock itch L29.8 [facility] [address] [facility] [id number] [address] [place] [address] Mar, Plantar fasciitis, bilateral M72.2 ; Tarsal tunnel syndrome of both lower extremities G57.53 ; Posterior tibial tendinitis of right lower extremity M76.821 and Posterior tibial tendinitis of left lower extremity M76.822 [facility] [address] [id number] [address] [place] [address] 17 Mar, 2018 Diabetic polyneuropathy asso ciated with type 2 diabetes mellitus E11.42 [facility] [address] [id number] [address] [place] [address] Mar, Subacromial bursitis of left shoulder joint M75.52 [facility] [address] [id number] [address] [place] [address] Jan, [facility] [address] [id number] [address] [place] [address] Jan, [facility] [address] [id number] [address] [place] [address] Jan, [facility] [address] [facility] [id number] [address] [place] [address] Jan, [facility] [address] [id number] [address] [place] [address] Jan, Drug-induced erectile dysfun ction N52.2 [facility] [address] [id number] [address] [place] [address] Dec, Subacromial bursitis of left shoulder joint M75.52 [facility] [address] [facility] [id number] [address] [place] [address] Dec, Type 2 diabetes mellitus wit h [...] otitis externa of righ t ear H60.391 [place] [address] [place] [id number] [address] [place] [address] November, [place] [address] [address] November, Type 2 diabetes mellitus wit h hyperglycemia, without long-term current use of insulin E11.65 [place] [address] [address] November, Subacromial bursitis of left shoulder joint M75.52 [place] [address] [address] November, Bilateral low back pain, wit h sciatica presence unspecified M54.5 [place] [address] [address] Oct, Essential hypertension I10 ; Pure hypercholesterolemia E78.0 and At risk for cardiovascular event Z91.89 [place] [address] [address] Oct, Bilateral low back pain, wit h sciatica presence unspecified M54.5 and Subacromial bursitis of left shoulder joint M75.52 [place] [address] [address] Sep, Subacromial bursitis of left shoulder joint M75.52 [place] [address] [address] Aug, Subacromial bursitis of left shoulder joint M75.52 [place] [address] [address] Aug, Essential hypertension I10 [place] [address] [address] Jul, Pure hypercholesterolemia E7 8.0 and Jock itch L29.8 [place] [address] [address] Jul, Type 2 diabetes mellitus wit h hyperglycemia, without long-term current use of insulin E11.65 [facility] [address] [facility] [id number] [address] [place] [address] Jul, [facility] [address] [facility] [id number] [address] [place] [address] Jul, [facility] [address] [place] [id number] [address] [place] [address] Jul, [place] [address] [place] [id number] [address] [place] [address] Jun, Moderate persistent asthma w ithout complication J45.40 ; Subacromial bursitis of left shoulder joint M75.52 ; Episode of altered consciousness R40.4 and Obstructive sleep apnea syndrome G47.33 [place] [address] [address] [place] [id number] [address] [place] [id number] Jun, Subacromial bursitis of left shoulder joint M75.52 [place] [address] [address] [place] [id number] [address] [place] [id number] May, [place] [address] [address] [facility] [id number] [address] [place] [id number] May, [place] [address] [address] [place] [id number] [address] [place] [phone] May, Subacromial bursitis of left shoulder joint M75.52 [place] [address] [address] [place] [id number] [address] [place] [id number] May, [place] [address] [address] [facility] [id number] [address] [place] [phone] Apr, Subacromial bursitis of left shoulder joint M75.52 [place] [address] [address] [facility] [id number] [address] [place] [id number] Apr, Pure hypercholesterolemia E7 8.0 ; Right sided weakness R53.1 ; Episode of altered consciousness R40.4 ; Seizure disorder G40.909 ; Essential hypertension I10 and At risk for cardiovascular event Z91.89 [place] [address] [id number] [address] [place] [address] Apr, [place] [address] [id number] [address] [place] [id number] 18 Apr, 2017 [place] [address] [id number] [address] [place] [id number] 14 Mar, 2017 [place] [address] [address] [facility] [id number] [address] [place] [address] 14 Mar, 2017 [place] [address] [id number] [address] [place] [id number] 13 Mar, 2017 Type 2 diabetes mellitus wit h hyperglycemia, without long-term current use of insulin E11.65 ; Encounter for immunization Z23 and Subacromial bursitis of left shoulder joint M75.52 [place] [address] [address] [facility] [id number] [address] [place] [id number] 16 Feb, 2017 Subacromial bursitis of left shoulder joint M75.52 [place] [address] [address] [facility] [id number] [address] [place] [address] 18 Jan, 2017 [facility] J[facility].40 [place] [address] [address] [facility] [id number] [address] [place] [address] Jan, Bipolar disorder, current ep isode depressed, mild F31.31 ; Chronic post-traumatic stress disorder (PTSD) F43.12 and Generalized anxiety disorder F41.1 [place] [address] [address] [facility] [id number] [address] [place] [address] Dec, Type 2 diabetes mellitus wit h hyperglycemia, without long-term current use of insulin E11.65 [place] [address] [address] [facility] [id number] [address] [place] [id number] November, [place] [address] [address] [facility] [id number] [address] [place] [address] November, Bipolar disorder, current ep isode depressed, mild F31.31 ; Chronic post-traumatic stress disorder (PTSD) F43.12 and Generalized anxiety disorder F41.1 [facility] [address] [facility] [id number] [address] [place] [address] November, Type 2 diabetes mellitus wit h hyperglycemia, without long-term current use of insulin E11.65 ; Subacromial bursitis of left shoulder joint M75.52 ; Urinary hesitancy R39.11 ; Tinea cruris B35.6 ; Tinea pedis of both feet B35.3 and Moderate persistent asthma without complication J45.40 [place] [address] [id number] [address] [place] [address] November, [facility] [address] [id number] [address] [place] [address] November, [place] [address] [address] [place] [id number] [address] [place] [address] Oct, [place] [address] [place] [id number] [address] [place] [address] Oct, [facility] [address] [place] [id number] [address] [place] [address] Sep, [place] [address] [place] [id number] [address] [place] [address] Sep, [facility] [address] [place] [id number] [address] [place] [address] Sep, [place] [address] [place] [id number] [address] [place] [address] Sep, Bipolar disorder, current ep isode mixed, moderate F31.62 ; Generalized anxiety disorder F41.1 and Chronic post-traumatic stress disorder (PTSD) F43.12 [place] [address] [address] [place] [id number] [address] [place] [address] Sep, Type 2 diabetes mellitus wit h hyperglycemia, without long-term current use of insulin E11.65 [place] [address] [address] [place] [id number] [address] [place] [address] Sep, [facility] [address] [address] Aug, Moderate persistent asthma w [place] complication J45.40 [place] [address] [address] Aug, [facility] [address] [address] Jul, [place] [address] [address] Jul, Type 2 diabetes mellitus wit h hyperglycemia, without long-term current use of insulin E11.65 [place] [address] [address] Jul, [place] [address] [address] Jul, [place] [address] [address] Jul, [place] [address] [address] Jul, Type 2 diabetes mellitus wit h hyperglycemia, without long-term current use of insulin E11.65 ; Hematuria R31.9 ; Snoring R06.83 ; Sleep walking and eating F51.3 ; Jock itch L29.8 ; Costochondritis M94.0 and Cervicalgia M54.[address] [address] Jun, Urinary hesitancy R39.11 [place] [address] [address] Jun, Elevated serum glucose R73.9 and Urinary hesitancy R39.11 [place] [address] [address] Jun, Bipolar disorder, current ep isode depressed, mild F31.31 ; Generalized anxiety disorder F41.1 ; Neurocognitive deficits R29.818 and Chronic post-traumatic stress disorder (PTSD) F43.12 [facility] [address] [id number] [address] [place] [address] Jun, Elevated serum glucose R73.9 [facility] [address] [facility] [id number] [address] [place] [address] Jun, [facility] [address] [facility] [id number] [address] [place] [address] Apr, [facility] [address] [id number] [address] [place] [address] Apr, [facility] [address] [facility] [id number] [address] [place] [address] Apr, Drug-induced erectile dysfun ction N52.2 and Bilateral low back pain, with sciatica presence unspecified M54.5 [facility] [address] [facility] [id number] [address] [place] [address] Mar, Tinea versicolor B36.0 and E ncounter for immunization Z23 [facility] [address] [facility] [id number] [address] [place] [address] Mar, Bipolar 1 disorder, depresse d, severe F31.4 ; Post-traumatic stress disorder F43.10 ; Generalized anxiety disorder F41.1 and Neurocognitive deficits R29.818 [facility] [address] [facility] [id number] [address] [place] [address] Feb, [facility] [address] [facility] [id number] [address] [place] [address] Feb, [facility] [address] [facility] [id number] [address] [place] [address] Feb, [facility] [address] [facility] [id number] [address] [place] [address] Feb, Hyperlipidemia E78.5 [facility] [address] [facility] [id number] [address] [place] [address] Feb, [facility] [address] [facility] [id number] [address] [place] [address] Jan, Essential hypertension I10 ; Moderate persistent asthma without complication J45.40 ; Pure hypercholesterolemia E78.0 and Auditory hallucinations R44.0 [place] [address] [address] [place] [id number] [address] [place] [address] Jan, [facility] [address] [place] [id number] [address] [place] [address] Dec, [place] [address] [place] [address] Dec, [place] [address] [place] [id number] [address] [place] [address] November, Bipolar disorder, current ep isode mixed, moderate F31.62 ; Post- traumatic stress disorder F43.10 and Generalized anxiety disorder F41.1 [facility] [address] [place] [id number] [address] [place] [id number]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
--- OUTSIDE RECORDS SUMMARY | 2020-02-07 16:50 | XMS REPORT ---
Author Author JUANY Dilan MYRA Organization [facility] Address [address] [place] [address] Care Team Providers Care Document Processor Name Role Phone JUANYMYRA RAO Unavailable PROBLEMS Type Condition ICD9-CM Code SST64-JK Code Onset Dates Condition S tatus SNOMED Code Problem Bilateral low back pain, with sciatica presence unspecifie d M54.5 Active 363578268 Problem Essential hypertension I10 Active 02077890 Problem Seizure disorder G40.909 Active 128 702275 Problem Generalized anxiety disorder F41.1 A ctive 428338751 Problem Cervicalgia M54.2 Active 13236494 63848 Problem Bipolar disorder, current episode depressed, mild F31.31 Active 587137794 Problem Bipolar disorder, current episode depressed, moderate F31.32 Active 161817195 Problem Post-traumatic stress disorder, unspecified F43.10 Active 72648447 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 86640002 Problem Major depressive disorder, recurrent sev ere without psychotic features F33.2 Active 40022572 Problem Intractable chronic post-traumatic headache G44.32 1 Active 288122855 Problem Chest pain, unspecified chest pain type R07.9 Active 87499573 Problem Major depressive disorder, recurrent episode, un specified severity F33.9 Active 68703832 Problem Sleep walking and eating F51.3 Activ e 13188653 Problem Drug-induced erectile dysfunction N52.2 Active 946495492 Problem Subacromial bursitis of left shoulder joint M75.52 Active 40708401 Problem Tarsal tunnel syndrome of right side G57.51 Active 54872746 Problem Urinary hesitancy R39.11 Active 59 48112 Problem Diabetic polyneuropathy associated with type 2 d iabetes mellitus E11.42 Active 70329883 Problem Bipolar disorder, current episode mixed, moderate F31.62 Active 201710381 Problem Obstructive sleep apnea syndrome G47.33 Active 24482167 Problem Type 2 diabetes mellitus wit h hyperglycemia, without long-term current use of insulin E11.65 Active 58349620 Problem Mixed hyperlipidemia E78.2 Active 454566813 Problem Post-traumatic stress disorder F43.10 Active 48655654 Problem Tarsal tunnel syndrome of both lower extremities G 57.53 Active 39051120534674396 Problem Neurocognitive deficits R29.818 Active 488302377 Problem Bipolar disorder, current ep isode depressed, severe, without psychotic features F31.4 Active 29841925 Problem Post traumatic stress disorder (PTSD) F43.10 Active 10581336 Problem Twitching R25.3 Active 873408883 Problem Cocaine use disorder, severe, dependence F14.20 Active 30010747 Problem Pure hypercholesterolemia E78.0 Acti ve 785328944 Problem Subacromial bursitis of right shoulder joint M75.5 1 Active 3762704427919684 Problem Moderate persistent asthma without complication J4 5.40 Active 474156165 Problem Chronic post-traumatic stress disorder (PTSD) F43. 12 Active 561847928 Problem Bipolar disorder F31.9 Active 137 38033 Problem Cocaine abuse F14.10 Active 346010 03 Problem Bipolar 1 disorder, depressed, severe F31.4 Active 688518174153 Problem Bursitis of left shoulder M75.52 Acti ve [id number] ALLERGIES No Information ENCOUNTERS Encounter Location Date Diagnosis [facility] [address] [facility] [id number] [place] [address] 15 Nov, 2019 [facility] [address] [place] [id number] [place] [address] 13 Nov, 2019 [facility] [address] [id number] [place] [address] November, [facility] [address] [id number] [place] [address] November, [facility] [place] [facility] [address] [facility] [id number] 100[address] [place] [address] November, [facility] [address] [facility] [id number] [place] [address] November, [facility] [address] [facility] [id number] [place] [address] November, [facility] [address] [facility] [id number] [place] [address] Oct, [facility] [address] [facility] [id number] [address] [place] [address] Oct, [facility] [address] [facility] [id number] [address] [place] [address] Oct, [facility] [address] [facility] [id number] [address] [place] [address] Oct, [facility] [address] [facility] [id number] [address] [place] [address] Sep, Neuropathic pain M79.2 [facility] [address] [facility] [id number] [address] [place] [address] Sep, Neuropathic pain M79.2 [facility] [address] [facility] [id number] [address] [place] [address] Aug, Diabetic polyneuropathy asso ciated with type 2 diabetes mellitus E11.42 ; Subacromial bursitis of left shoulder joint M75.52 ; Subacromial bursitis of right shoulder joint M75.51 ; Type 2 diabetes mellitus with hyperglycemia, without long-term current use of insulin E11.65 and Encounter for immunization Z23 [facility] [address] [facility] [id number] [address] [place] [address] Aug, [facility] [address] [facility] [id number] [address] [place] [address] Aug, [facility] [address] [facility] [id number] [address] [place] [address] Aug, Neuropathic pain M79.2 [facility] [address] [facility] [id number] [address] [place] [address] Jul, Neuropathic pain M79.2 [facility] [address] [facility] [id number] [address] [place] [address] Jun, Neuropathic pain M79.2 [facility] [address] [facility] [id number] [address] [place] [address] May, [facility] [address] [id number] [address] [place] [address] May, [facility] [address] [id number] [address] [place] [address] May, Neuropathic pain M79.2 [facility] [address] [id number] [address] [place] [address] Apr, [facility] [address] [id number] [address] [place] [address] Apr, Neuropathic pain M79.2 [facility] [address] [id number] [address] [place] [address] Apr, [facility] [address] [id number] [address] [place] [address] Apr, [facility] [address] [id number] [address] [place] [address] 27 Mar, 2019 [facility] [address] [id number] [address] [place] [address] Mar, [facility] [address] [id number] [address] [place] [address] 26 Mar, 2019 Neuropathic pain M79.2 [facility] [address] [id number] [address] [place] [address] 26 Mar, 2019 Bipolar 1 disorder, depresse d, severe F31.4 and Cocaine use disorder, severe, dependence F14.20 [facility] [address] [id number] [address] [place] [address] 24 Mar, 2019 Neuropathic pain M79.2 [facility] [address] [id number] [address] [place] [address] 18 Mar, 2019 Neuropathic pain M79.2 [facility] [address] [id number] [address] [place] [address] 17 Mar, 2019 [facility] [address] [id number] [address] [place] [address] Mar, [facility] [address] [facility] [id number] [address] [place] [address] Feb, Bipolar 1 disorder, depresse d, severe F31.4 [facility] [address] [facility] [id number] [address] [place] [address] Feb, [facility] [address] [facility] [id number] [address] [place] [address] Feb, [place] [address] [facility] [id number] [address] [place] [address] Feb, Type 2 diabetes mellitus wit h hyperglycemia, without long-term current use of insulin E11.65 ; Bursitis of right shoulder M75.51 and Bursitis of left shoulder M75.52 [place] [address] [facility] [id number] [address] [place] [address] Feb, Subacromial bursitis of left shoulder joint M75.52 ; Tarsal tunnel syndrome of both lower extremities G57.53 and Subacromial bursitis of right shoulder joint M75.51 [place] [address] [facility] [id number] [address] [place] [address] Feb, Diabetic polyneuropathy asso ciated with type 2 diabetes mellitus E11.42 ; Mixed hyperlipidemia E78.2 ; Cocaine abuse F14.10 ; Subacromial bursitis of left shoulder joint M75.52 ; Acute pain of right shoulder M25.511 ; Moderate persistent asthma without complication J45.40 and Bipolar 1 disorder, depressed, severe F31.4 [facility] [address] [facility] [id number] [address] [place] [address] Jan, [place] [address] [facility] [id number] [address] [place] [address] Jan, Essential hypertension I10 ; Type 2 diabetes mellitus with hyperglycemia, without long-term current use of insulin E11.65 and Diabetic polyneuropathy associated with type 2 diabetes mellitus E11.42 [facility] [address] [facility] [id number] [address] [place] [address] Jan, [place] [address] [facility] [id number] [address] [place] [address] Dec, Bipolar disorder, current ep isode mixed, moderate F31.62 ; Diabetic polyneuropathy associated with type 2 diabetes mellitus E11.42 ; Cocaine abuse F14.10 and Major depressive disorder, recurrent severe without psychotic features F33.2 [facility] [address] [facility] [id number] [address] [place] [address] Dec, Diabetic polyneuropathy asso ciated with type 2 diabetes mellitus E11.42 [facility] [address] [facility] [id number] [address] [place] [address] Dec, [address] [place] [address] Dec, [facility] [address] [facility] [id number] [address] [place] [address] Dec, Major depressive disorder, r ecurrent severe without psychotic features F33.2 ; Diabetic polyneuropathy associated with type 2 diabetes mellitus E11.42 and Cocaine abuse F14.10 [facility] [address] [facility] [id number] [address] [place] [address] Dec, [facility] [address] [facility] [id number] [address] [place] [address] November, Post-traumatic stress disord er F43.10 ; Bipolar disorder, current episode mixed, moderate F31.62 ; Cocaine abuse F14.10 ; Generalized anxiety disorder F41.1 and Neurocognitive deficits R29.818 [facility] [address] [facility] [id number] [address] [place] [address] November, Pure hypercholesterolemia E7 8.0 [facility] [address] [facility] [id number] [address] [place] [address] November, [facility] [address] [facility] [id number] [address] [place] [address] November, Type 2 diabetes mellitus wit h hyperglycemia, without long-term current use of insulin E11.65 ; Seizure disorder G40.909 ; Major depressive disorder, recurrent severe without psychotic features F33.2 and Cocaine abuse F14.10 [facility] [address] [facility] [id number] [address] [place] [address] Oct, Type 2 diabetes mellitus wit h hyperglycemia, without long-term current use of insulin E11.65 [facility] [address] [facility] [id number] [address] [place] [address] Oct, Subacromial bursitis of left shoulder joint M75.52 and Homicidal ideation R45.850 [facility] [address] [facility] [id number] [address] [place] [address] Oct, Post-traumatic stress disord er F43.10 and Bipolar disorder F31.9 [facility] [address] [facility] [id number] [place] [address] Oct, [place] [address] [facility] [id number] [address] [place] [address] Oct, [place] [address] [facility] [id number] [address] [place] [address] Sep, Diabetic polyneuropathy asso ciated with type 2 diabetes mellitus E11.42 [place] [address] [facility] [id number] [address] [place] [address] Aug, Type 2 diabetes mellitus wit h hyperglycemia, without long-term current use of insulin E11.65 [place] [address] [facility] [id number] [address] [place] [address] Aug, Twitching R25.3 ; Pain of le ft foot M79.672 and Pain in right foot M79.671 [place] [address] [facility] [id number] [address] [place] [address] Aug, Diabetic polyneuropathy asso ciated with type 2 diabetes mellitus E11.42 and Essential hypertension I10 [place] [address] [facility] [id number] [address] [place] [address] Aug, Type 2 diabetes mellitus wit h hyperglycemia, without long-term current use of insulin E11.65 ; Post-traumatic stress disorder F43.10 ; Bipolar disorder, current episode mixed, moderate F31.62 and Neurocognitive deficits R29.818 [facility] [address] [id number] [address] [place] [address] Jul, Bipolar disorder, current ep isode depressed, severe, without psychotic features F31.4 and Post traumatic stress disorder (PTSD) F43.10 [place] [address] [id number] [address] [place] [address] Jul, Bipolar disorder, current ep isode depressed, severe, without psychotic features F31.4 and Post traumatic stress disorder (PTSD) F43.10 [place] [address] [id number] [address] [place], [place] [address] Jul, [place] [address] [id number] [address] [place] [address] Jun, [place] [address] [facility] [id number] [address] [place] [address] Jun, Tarsal tunnel syndrome of kaly[place] th lower extremities G57.53 and Diabetic polyneuropathy associated with type 2 diabetes mellitus E11.42 [place] [address] [id number] [address] [place] [address] May, Bipolar disorder, current ep isode mixed, moderate F31.62 ; Generalized anxiety disorder F41.1 ; Post-traumatic stress disorder F43.10 and Neurocognitive deficits R29.818 [place] [address] [id number] [address] [place] [address] May, [place] [address] [id number] [address] [place] [address] May, Bipolar disorder, current ep isode depressed, severe, without psychotic features F31.4 and Post traumatic stress disorder (PTSD) F43.10 [place] [address] [id number] [address] [place] [address] May, Subacromial bursitis of left shoulder joint M75.52 [facility] [address] [facility] [id number] [address] [place] [address] May, Diabetic polyneuropathy asso ciated with type 2 diabetes mellitus E11.42 [facility] [address] [facility] [id number] [address] [place] [address] May, [place] [address] [facility] [id number] [address] [place] [address] May, Medicare annual wellness vis it, initial [...] diabetes mellitus E11.42 and Mixed hyperlipidemia E78.2 [place] [address] [facility] [id number] [address] [place] [address] 18 May, 2018 [place] [address] [facility] [id number] [address] [place] [address] 14 May, 2018 Exercise counseling Z71.82 [place] [address] [facility] [id number] [address] [place] [address] 14 May, 2018 Subacromial bursitis of left shoulder joint M75.52 [place] [address] [facility] [id number] [address] [place] [address] 06 May, 2018 [place] [address] [facility] [id number] [address] [place] [address] May, [place] [address] [id number] [address] [place] [address] Apr, [place] [address] [facility] [id number] [address] [place] [address] Apr, Diabetic polyneuropathy asso ciated with type 2 diabetes mellitus E11.42 [place] [address] [facility] [id number] [address] [place] [address] Apr, Tarsal tunnel syndrome of kaly[place] th lower extremities G57.53 and Diabetic polyneuropathy associated with type 2 diabetes mellitus E11.42 [facility] [address] [facility] [id number] [address] [place] [address] Apr, [place] [address] [facility] [id number] [address] [place] [address] Apr, Subacromial bursitis of left shoulder joint M75.52 [place] [address] [place] [id number] [address] [place] [address] Mar, Type 2 diabetes mellitus wit h hyperglycemia, without long-term current use of insulin E11.65 ; Diabetic polyneuropathy associated with type 2 diabetes mellitus E11.42 ; Bilateral low back pain, with sciatica presence unspecified M54.5 ; Tarsal tunnel syndrome of both lower extremities G57.53 ; Jock itch L29.8 ; Encounter for immunization Z23 and Weight gain R63.5 [place] [address] [place] [id number] [address] [place] [address] Mar, Jock itch L29.8 [place] [address] [facility] [id number] [address] [place] [address] Mar, Plantar fasciitis, bilateral M72.2 ; Tarsal tunnel syndrome of both lower extremities G57.53 ; Posterior tibial tendinitis of right lower extremity M76.821 and Posterior tibial tendinitis of left lower extremity M76.822 [place] [address] [place] [id number] [address] [place] [address] Mar, Diabetic polyneuropathy asso ciated with type 2 diabetes mellitus E11.42 [facility] [address] [facility] [id number] [address] [place] [address] Mar, Subacromial bursitis of left shoulder joint M75.52 [place] [address] [facility] [id number] [address] [place] [address] Jan, [place] [address] [place] [id number] [address] [place] [address] Jan, [place] [address] [place] [id number] [address] [place] [address] Jan, [facility] [address] [id number] [address] [place] [address] Jan, [place] [address] [facility] [id number] [address] [place] [address] Jan, Drug-induced erectile dysfun ction N52.2 [facility] [address] [facility] [id number] [address] [place] [address] Dec, Subacromial bursitis of left shoulder joint M75.52 [place] [address] [id number] [address] [place] [address] Dec, Type 2 diabetes mellitus wit h [...] otitis externa of righ t ear H60.391 [place] [address] [facility] [id number] [address] [place] [address] November, [place] [address] [facility] [id number] [address] [place] [address] November, Type 2 diabetes mellitus wit h hyperglycemia, without long-term current use of insulin E11.65 [place] [address] [id number] [address] [place] [address] November, Subacromial bursitis of left shoulder joint M75.52 [place] [address] [facility] [id number] [address] [place] [address] November, Bilateral low back pain, wit h sciatica presence unspecified M54.5 [place] [address] [address] Oct, Essential hypertension I10 ; Pure hypercholesterolemia E78.0 and At risk for cardiovascular event Z91.89 [place] [address] [address] Oct, Bilateral low back pain, wit h sciatica presence unspecified M54.5 and Subacromial bursitis of left shoulder joint M75.52 [place] [address] [address] Sep, Subacromial bursitis of left shoulder joint M75.52 [place] [address] [address] Aug, Subacromial bursitis of left shoulder joint M75.52 [place] [address] [address] Aug, Essential hypertension I10 [place] [address] [address] Jul, Pure hypercholesterolemia E7 8.0 and Jock itch L29.8 [place] [address] [address] Jul, Type 2 diabetes mellitus wit h hyperglycemia, without long-term current use of insulin E11.65 [place] [address] [address] Jul, [place] [address] [address] Jul, [place] [address] [address] Jul, [place] [address] [address] Jun, Moderate persistent asthma w ithout complication J45.40 ; Subacromial bursitis of left shoulder joint M75.52 ; Episode of altered consciousness R40.4 and Obstructive sleep apnea syndrome G47.33 [place] [address] [facility] [id number] [address] [place] [address] Jun, Subacromial bursitis of left shoulder joint M75.52 [facility] [address] [facility] [id number] [address] [place] [address] May, [facility] [address] [facility] [id number] [address] [place] [address] May, [facility] [address] [facility] [id number] [address] [place] [address] May, Subacromial bursitis of left shoulder joint M75.52 [facility] [address] [facility] [id number] [address] [place] [phone] May, [facility] [address] [place] [id number] [address] [place] [phone] Apr, Subacromial bursitis of left shoulder joint M75.52 [facility] [address] [place] [id number] [address] [place] [phone] Apr, Pure hypercholesterolemia E7 8.0 ; Right sided weakness R53.1 ; Episode of altered consciousness R40.4 ; Seizure disorder G40.909 ; Essential hypertension I10 and At risk for cardiovascular event Z91.89 [facility] [address] [place] [id number] [address] [place] [id number] Apr, [facility] [address] [place] [id number] [address] [place] [phone] 18 Apr, 2017 [facility] [address] [facility] [id number] [address] [place] [address] 14 Mar, 2017 [facility] [address] [place] [id number] [address] [place] [address] Mar, [facility] [address] [place] [id number] [address] [place] [address] 13 Mar, 2017 Type 2 diabetes mellitus wit h hyperglycemia, without long-term current use of insulin E11.65 ; Encounter for immunization Z23 and Subacromial bursitis of left shoulder joint M75.52 [place] [address] [facility] [id number] [address] [place] [address] Feb, Subacromial bursitis of left shoulder joint M75.52 [place] [address] [place] [id number] [address] [place] [address] Jan, Moderate persistent asthma w [facility] complication J45.40 [place] [address] [place] [id number] [place] [address] Jan, Bipolar disorder, current ep isode depressed, mild F31.31 ; Chronic post-traumatic stress disorder (PTSD) F43.12 and Generalized anxiety disorder F41.1 [place] [address] [place] [id number] [place] [address] Dec, Type 2 diabetes mellitus wit h hyperglycemia, without long-term current use of insulin E11.65 [place] [address] [address] November, [place] [address] [place] [id number] [place] [address] November, Bipolar disorder, current ep isode depressed, mild F31.31 ; Chronic post-traumatic stress disorder (PTSD) F43.12 and Generalized anxiety disorder F41.1 [place] [address] [address] November, Type 2 diabetes mellitus wit h hyperglycemia, without long-term current use of insulin E11.65 ; Subacromial bursitis of left shoulder joint M75.52 ; Urinary hesitancy R39.11 ; Tinea cruris B35.6 ; Tinea pedis of both feet B35.3 and Moderate persistent asthma without complication J45.40 [place] [address] [place] [id number] [address] [place] [address] November, [place] [address] [address] November, [place] [address] [address] Oct, [facility] [address] [id number] [address] [place] [address] Oct, [facility] [address] [facility] [id number] [address] [place] [address] Sep, [facility] [address] [facility] [id number] [address] [place] [address] Sep, [facility] [address] [facility] [id number] [address] [place] [address] Sep, [facility] [address] [facility] [id number] [address] [place] [address] Sep, Bipolar disorder, current ep isode mixed, moderate F31.62 ; Generalized anxiety disorder F41.1 and Chronic post-traumatic stress disorder (PTSD) F43.12 [place] [address] [place] [id number] [address] [place] [address] Sep, Type 2 diabetes mellitus wit h hyperglycemia, without long-term current use of insulin E11.65 [facility] [address] [facility] [id number] [address] [place] [address] Sep, [facility] [address] [facility] [id number] [address] [place] [address] Aug, Moderate persistent asthma w ithout complication J45.40 [facility] [address] [facility] [id number] [address] [place] [address] Aug, [facility] [address] [facility] [id number] [address] [place] [address] Jul, [facility] [address] [facility] [id number] [address] [place] [address] Jul, Type 2 diabetes mellitus wit h hyperglycemia, without long-term current use of insulin E11.65 [facility] [address] [facility] [id number] [address] [place] [address] Jul, [facility] [address] [address] Jul, [place] [address] [address] Jul, [place] [address] [address] Jul, Type 2 diabetes mellitus wit h hyperglycemia, without long-term current use of insulin E11.65 ; Hematuria R31.9 ; Snoring R06.83 ; Sleep walking and eating F51.3 ; Jock itch L29.8 ; Costochondritis M94.0 and Cervicalgia M54.2 [place] [address] [address] Jun, Urinary hesitancy R39.11 [place] [address] [address] Jun, Elevated serum glucose R73.9 and Urinary hesitancy R39.11 [place] [address] [address] Jun, Bipolar disorder, current ep isode depressed, mild F31.31 ; Generalized anxiety disorder F41.1 ; Neurocognitive deficits R29.818 and Chronic post-traumatic stress disorder (PTSD) F43.12 [place] [address] [address] Jun, Elevated serum glucose R73.9 [place] [address] [address] Jun, [place] [address] [address] Apr, [place] [address] [address] Apr, [place] [address] [address] Apr, Drug-induced erectile dysfun ction N52.2 and Bilateral low back pain, with sciatica presence unspecified M54.5 [facility] [address] [id number] [address] [place] [address] Mar, Tinea versicolor B36.0 and E ncounter for immunization Z23 [facility] [address] [facility] [id number] [address] [place] [address] Mar, Bipolar 1 disorder, depresse d, severe F31.4 ; Post-traumatic stress disorder F43.10 ; Generalized anxiety disorder F41.1 and Neurocognitive deficits R29.818 [facility] [address] [id number] [address] [place] [address] Feb, [facility] [address] [facility] [id number] [address] [place] [address] Feb, [facility] [address] [facility] [id number] [address] [place] [address] Feb, [facility] [address] [facility] [id number] [address] [place] [address] Feb, Hyperlipidemia E78.5 [facility] [address] [facility] [id number] [address] [place] [address] Feb, [facility] [address] [facility] [id number] [address] [place] [address] Jan, Essential hypertension I10 ; Moderate persistent asthma without complication J45.40 ; Pure hypercholesterolemia E78.0 and Auditory hallucinations R44.0 [facility] [address] [facility] [id number] [address] [place] [address] Jan, [facility] [address] [facility] [id number] [address] [place] [address] Dec, [facility] [address] [facility] [id number] [address] [place] [address] Dec, [facility] [address] [facility] [id number] [address] [place] [address] November, Bipolar disorder, current ep isode mixed, moderate F31.62 ; Post- traumatic stress disorder F43.10 and Generalized anxiety disorder F41.1 [facility] [address] [id number] [address] [place] [id number] November, Visit for dental examination Z01.20 [facility] [address] [facility] [id number] [address] [place] [address] Oct, Uncomplicated asthma, unspec ified asthma severity J45.909 [facility] [address] [facility] [id number] [address] [place] [address] Oct, Uncomplicated asthma, unspec ified asthma severity J45.909 ; Bilateral low back pain, with sciatica presence unspecified M54.5 and Jock itch B35.6 [facility] [address] [facility] [id number] [address] [place] [address] Oct, [facility] [address] [facility] [id number] [address] [place] [address] Sep, Post-traumatic stress disord er F43.10 ; Generalized anxiety disorder F41.1 ; Neurocognitive deficits R29.818 and Bipolar disorder, current episode depressed, mild F31.31 [facility] [address] [facility] [id number] [address] [place] [address] Sep, Plantar fasciitis M72.2 [facility] [address] [facility] [id number] [address] [place] [address] Sep, Hyperlipidemia E78.5 [facility] [address] [facility] [id number] [address] [place] [address] Sep, [facility] [address] [facility] [id number] [address] [place] [address] Sep, [facility] [address] [facility] [id number] [address] [place] [address] Sep, Essential hypertension I10 a nd Urinary hesitancy R39.11 [facility] [address] [facility] [id number] [address] [place] [address] Sep, [facility] [address] [address] 18 Aug, 2015 [place] [address] [address] Aug, Skin nodule R22.9 [place] [address] [address] 12 Aug, 2015 Plantar fasciitis M72.2 ; On ychomycosis B35.1 and Tinea pedis B35.3 [place] [address] [address] 09 Aug, 2015 Post-traumatic stress disord er F43.10 ; Generalized anxiety disorder F41.1 ; Neurocognitive deficits R29.818 and Bipolar disorder, current episode depressed, moderate F31.32 [place] [address] [address] Jul, Metacarpophalangeal joint sp rain S63.659A [facility] [address] [address] Jul, Right hand pain M79.641 [place] [address] [address] Jun, Right hand pain M79.641 ; Ri ght foot pain M79.671 and Urinary hesitancy R39.11 [place] [address] [address] Jun, Bipolar disorder, current ep isode mixed, moderate F31.62 ; Post- traumatic stress disorder F43.10 ; Generalized anxiety disorder F41.1 and Neurocognitive deficits R29.818 [place] [address] [address] Jun, Right hand pain M79.641 ; Ri ght foot pain M79.671 ; Right ankle pain M25.571 ; Urinary hesitancy R39.11 ; Flat foot [pes planus] (acquired), right foot M21.41 and Pes planus of left foot M21.42 [facility] [address] [facility] [id number] [address] [place] [address] May, Bipolar disorder, current ep isode mixed, moderate F31.62 ; Post- traumatic stress disorder F43.10 ; Generalized anxiety disorder F41.1 and Neurocognitive deficits R29.818 [facility] [address] [facility] [id number] [address] [place] [address] May, Right hand pain M79.641 and Essential hypertension I10 [facility] [address] [facility] [id number] [address] [place] [address] May, Anxiety 300.00 and Depressio n 311 [facility] [address] [facility] [id number] [address] [place] [address] Apr, [facility] [address] [place] [id number] [place] [address] Apr, [facility] [address] [place] [id number] [address] [place] [address] Apr, [facility] [address] [facility] [id number] [address] [place] [address] Apr, [facility] [address] [place] [id number] [address] [place] [address] Apr, Bipolar 1 disorder, mixed, m oderate F31.62 ; PTSD (post-traumatic stress disorder) F43.10 ; ROBERT (generalized anxiety disorder) F41.1 and Neurocognitive deficits R29.818 [facility] [address] [facility] [id number] [address] [place] [address] Apr, Anxiety, generalized F41.1 a nd Major depression, recurrent F33.9 [facility] [address] [facility] [id number] [address] [place] [address] Mar, Influenza vaccine administer ed V04.81 [facility] [address] [id number] [address] [place] [id number] 16 Mar, 2015 Dental examination V72.2 [place] [address] [address] Feb, [address] [address] Feb, Chronic headache 784.0 and N ightmares 307.[address] [address] Feb, [address] [address] Feb, Bipolar 1 disorder, depresse d, moderate 296.52 ; PTSD (post- traumatic stress disorder) 309.81 and ROBERT (generalized anxiety disorder) 300.02 [place] 6[address]052[address] Jan, Acid reflux 530.81 ; Depress ion 311 ; Anxiety 300.00 and Tinnitus 388.[address] [address] Jan, Major depression, recurrent 296.30 ; Social phobia 300.23 ; Anxiety, generalized 300.02 ; No condition on Orestes II V71.09 ; Post-concussional syndrome 310.2 and Memory difficulties 780.[address] [address] Dec, Essential hypertension, gio gn 401.[address] [address] Dec, Essential hypertension, gio gn 401.[address] [address] Dec, Cervicalgia 723.[address] [address] Dec, Essential hypertension, gio gn 401.1 ; Cervicalgia 723.1 ; Lumbago 724.2 ; Seizure disorder 345.90 ; Chronic headache 784.0 ; Tinnitus 388.30 and Anxiety 300.00 [facility] [address] [id number] [address] [place] [address], [place] [address] Dec, [facility] [address] [id number] [address] [place] [address], [place] [address] 14 Oct, 2014 [facility] [address] [id number] [address] [place] [address], [place] [address] Oct, [facility] [address] [id number] [address] [place] [address], [place] [address] Sep, [facility] [address] [id number] [address] [place] [address], [place] [address] Sep, [facility] [address] [id number] [address] [place] [address], [place] [address] Jul, [facility] [address] [id number] [address] [place] [address], [place] [address] Jul, [facility] [address] [id number] [address] [place] [address], [place] [address] Jul, [facility] [address] [id number] [address] [place] [address], [place] [address] Jul, [facility] [address] [id number] [address] [place] [address], [place] [address] Jul, [facility] [address] [id number] [address] [place] [address], [place] [address] Jul, [facility] [address] [id number] [address] [place] [address], [place] [address] Jun, [facility] [address] [id number] [address] [place] [address], [place] [address] Jun, [facility] [address] [id number] [address] [place] [address], [place] [address] Jun, [facility] [address] [id number] [address] [place] [address], [place] [address] Jun, [facility] [address] [id number] [address] [place] [address], [place] [address] Jun, [facility] [address] [id number] [address] [place] [address], [place] [address] Jun, [facility] [address] [id number] [address] [place] [address], [place] [address] Jun, [facility] [address] [id number] [address] [place] [address], [place] [address] Jun, [facility] [address] [id number] [address] [place] [address], [place] [address] Apr, [facility] [address] [id number] [address] [place] [address], [place] [address] Apr, [facility] [address] [id number] [address] [place] [address], [place] [address] Apr, [facility] [address] [id number] [address] [place] [address], [place] [address] Apr, [facility] [address] [id number] [address] [place] [address], [place] [address] Mar, [facility] [address] [id number] [address] [place] [address], [place] [address] Mar, [facility] [address] [id number] [address] [place] [address], [place] [address] Feb, [facility] [address] [id number] [address] [place] [address], [place] [address] Feb, [facility] [address] [id number] [address] [place] [address], [place] [address] Feb, [facility] [address] [id number] [address] [place] [address], [place] [address] Feb, [facility] [address] [id number] [address] [place] [address], [place] [address] Feb, [facility] [address] [id number] [address] [place] [address], [place] [address] Feb, [facility] [address] [id number] [address] [place] [address], [place] [address] Feb, [facility] [address] [id number] [address] [place] [address], [place] [address] Feb, [facility] [address] [id number] [address] [place] [address], [place] [address] Feb, [facility] [address] [id number] [address] [place] [address], [place] [address] Feb, [facility] [address] [id number] [address] [place] [address], [place] [address] Jan, [facility] [address] [id number] [address] [place] [address], [place] [address] Jan, [facility] [place] [address] [place] [address] Jan, [facility] [address] [id number] [address] [place] [address], [place] [address] Jan, [facility] [address] [id number] [address] [place] [address], [place] [address] Dec, [facility] [address] [id number] [address] [place] [address], [place] [address] Dec, [facility] [address] [id number] [address] [place] [address], [place] [address] Dec, [facility] [address] [id number] [address] [place] [address], [place] [address] Dec, [facility] [address] [id number] [address] [place] [address], [place] [address] Oct, [facility] [address] [id number] [address] [place] [address], [place] [address] Oct, [facility] [address] [id number] [address] [place] [address], [place] [address] Sep, [facility] [address] [id number] [address] [place] [address], [place] [address] Sep, [facility] [address] [id number] [address] [place] [address], [place] [address] Aug, [facility] [address] [id number] [address] [place] [address], [place] [address] Aug, [facility] [address] [id number] [address] [place] [address], [place] [address] Aug, [facility] [address] [id number] [address] [place] [address], [place] [address] Aug, [facility] [address] [id number] [address] [place] [address], [place] [address] Aug, [facility] [address] [id number] [address] [place] [address], [place] [address] Aug, [facility] [address] [id number] [address] [place] [address], [place] [address] Feb, [facility] [address] [id number] [address] [place] [address], [place] [address] Sep, [facility] [address] [id number] [address] [place] [address], [place] [address] Sep, [facility] [address] [id number] [address] [place] [address], [place] [address] Aug, [facility] [address] [id number] [address] [place] [address], [place] [address] Jul, [facility] [address] [id number] [address] [place] [address], [place] [address] Jul, [facility] [address] [id number] [address] [place] [address], [place] [address] Jul, [facility] [address] [id number] [address] [place] [address], [place] [address] Jun, [facility] [address] [id number] [address] [place] [address], [place] [address] Jun, [facility] [address] [id number] [address] [place] [id number] Jun, [facility] [address] [id number] [address] [place] [id number] Jun, [facility] [address] [id number] [address] [place] [id number] Jun, [facility] [address] [id number] [address] [place] [id number] Jun, [facility] [address] [id number] [address] [place] [id number] Jun, [facility] [address] [id number] [address] [place] [id number] Apr, [facility] [address] [id number] [address] [place] [id number] Apr, [facility] [address] [id number] [address] [place] [id number] Apr, [facility] [address] [id number] [address] [place] [id number] Apr, [facility] [address] [id number] [address] [place] [id number] Apr, [facility] [address] [id number] [address] [place] [id number] Apr, IMMUNIZATIONS No Known Immunizations SOCIAL HISTORY [...] Hospitalization History [facility] Hospitalization History [facility] ization
--- OUTSIDE RECORDS SUMMARY | 2020-02-07 16:50 | XMS REPORT ---
Author Author JUANY Dilan MYRA Organization [facility] Address [address] [place] [address] Care Team Providers Care Pipe Stem Aligner Name Role Phone JUANYMYRA RAO Unavailable PROBLEMS Type Condition ICD9-CM Code HDI36-BD Code Onset Dates Condition S tatus SNOMED Code Problem Bilateral low back pain, with sciatica presence unspecifie d M54.5 Active 895982019 Problem Essential hypertension I10 Active 33664807 Problem Seizure disorder G40.909 Active 128 353844 Problem Generalized anxiety disorder F41.1 A ctive 263201839 Problem Cervicalgia M54.2 Active 17309776 63594 Problem Bipolar disorder, current episode depressed, mild F31.31 Active 228560536 Problem Bipolar disorder, current episode depressed, moderate F31.32 Active 545914408 Problem Post-traumatic stress disorder, unspecified F43.10 Active 80863945 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 40932011 Problem Major depressive disorder, recurrent sev ere without psychotic features F33.2 Active 52277239 Problem Intractable chronic post-traumatic headache G44.32 1 Active 502368980 Problem Chest pain, unspecified chest pain type R07.9 Active 83934491 Problem Major depressive disorder, recurrent episode, un specified severity F33.9 Active 40676292 Problem Sleep walking and eating F51.3 Activ e 16152831 Problem Drug-induced erectile dysfunction N52.2 Active 775636898 Problem Subacromial bursitis of left shoulder joint M75.52 Active 44642489 Problem Tarsal tunnel syndrome of right side G57.51 Active 58153258 Problem Urinary hesitancy R39.11 Active 59 83578 Problem Diabetic polyneuropathy associated with type 2 d iabetes mellitus E11.42 Active 55432593 Problem Bipolar disorder, current episode mixed, moderate F31.62 Active 986728342 Problem Obstructive sleep apnea syndrome G47.33 Active 00722351 Problem Type 2 diabetes mellitus wit h hyperglycemia, without long-term current use of insulin E11.65 Active 94689078 Problem Mixed hyperlipidemia E78.2 Active 162110893 Problem Post-traumatic stress disorder F43.10 Active 74318998 Problem Tarsal tunnel syndrome of both lower extremities G 57.53 Active 17845720663866823 Problem Neurocognitive deficits R29.818 Active 020417164 Problem Bipolar disorder, current ep isode depressed, severe, without psychotic features F31.4 Active 24442031 Problem Post traumatic stress disorder (PTSD) F43.10 Active 52313384 Problem Twitching R25.3 Active 722483496 Problem Cocaine use disorder, severe, dependence F14.20 Active 93148292 Problem Pure hypercholesterolemia E78.0 Acti ve 100172518 Problem Subacromial bursitis of right shoulder joint M75.5 1 Active 2568423435116256 Problem Moderate persistent asthma without complication J4 5.40 Active 099388450 Problem Chronic post-traumatic stress disorder (PTSD) F43. 12 Active 138275865 Problem Bipolar disorder F31.9 Active 137 12643 Problem Cocaine abuse F14.10 Active 513350 03 Problem Bipolar 1 disorder, depressed, severe F31.4 Active 089194486071 Problem Bursitis of left shoulder M75.52 Acti ve [id number] ALLERGIES No Information ENCOUNTERS Encounter Location Date Diagnosis [facility] [address] [facility] [id number] [place] [address] 15 Nov, 2019 [facility] [address] [id number] [place] [address] 13 Nov, 2019 [facility] [address] [id number] [place] [address] November, [facility] [address] [id number] [place] [address] November, [facility] [place] [facility] [address] [facility] [id number] 100[address] [place] [address] November, [facility] [address] [facility] [id number] [place] [address] November, [facility] [address] [facility] [id number] [place] [address] November, [facility] [address] [facility] [id number] [place] [address] Oct, [facility] [address] [facility] [id number] [address] [place] [address] Oct, [facility] [address] [facility] [id number] [address] [place] [address] Oct, [facility] [address] [facility] [id number] [address] [place] [address] Oct, [facility] [address] [facility] [id number] [address] [place] [address] Sep, Neuropathic pain M79.2 [facility] [address] [facility] [id number] [address] [place] [address] Sep, Neuropathic pain M79.2 [facility] [address] [facility] [id number] [address] [place] [address] Aug, Diabetic polyneuropathy asso ciated with type 2 diabetes mellitus E11.42 ; Subacromial bursitis of left shoulder joint M75.52 ; Subacromial bursitis of right shoulder joint M75.51 ; Type 2 diabetes mellitus with hyperglycemia, without long-term current use of insulin E11.65 and Encounter for immunization Z23 [facility] [address] [facility] [id number] [address] [place] [address] Aug, [facility] [address] [facility] [id number] [address] [place] [address] Aug, [facility] [address] [facility] [id number] [address] [place] [address] Aug, Neuropathic pain M79.2 [facility] [address] [facility] [id number] [address] [place] [address] Jul, Neuropathic pain M79.2 [facility] [address] [facility] [id number] [address] [place] [address] Jun, Neuropathic pain M79.2 [facility] [address] [facility] [id number] [address] [place] [address] May, [facility] [address] [id number] [address] [place] [address] May, Neuropathic pain M79.2 [facility] [address] [id number] [address] [place] [address] May, [facility] [address] [id number] [address] [place] [address] Apr, [facility] [address] [id number] [address] [place] [address] Apr, Neuropathic pain M79.2 [facility] [address] [id number] [address] [place] [address] Apr, [facility] [address] [id number] [address] [place] [address] Apr, [facility] [address] [id number] [address] [place] [address] 27 Mar, 2019 [facility] [address] [id number] [address] [place] [address] Mar, [facility] [address] [id number] [address] [place] [address] 26 Mar, 2019 Neuropathic pain M79.2 [facility] [address] [id number] [address] [place] [address] 26 Mar, 2019 Bipolar 1 disorder, depresse d, severe F31.4 and Cocaine use disorder, severe, dependence F14.20 [facility] [address] [id number] [address] [place] [address] 24 Mar, 2019 Neuropathic pain M79.2 [facility] [address] [id number] [address] [place] [address] 18 Mar, 2019 Neuropathic pain M79.2 [facility] [address] [id number] [address] [place] [address] 17 Mar, 2019 [facility] [address] [id number] [address] [place] [phone] Mar, [facility] [address] [facility] [id number] [address] [place] [address] Feb, Bipolar 1 disorder, depresse d, severe F31.4 [facility] [address] [facility] [id number] [address] [place] [address] Feb, [facility] [address] [facility] [id number] [address] [place] [address] Feb, [place] [address] [facility] [id number] [address] [place] [address] Feb, Type 2 diabetes mellitus wit h hyperglycemia, without long-term current use of insulin E11.65 ; Bursitis of right shoulder M75.51 and Bursitis of left shoulder M75.52 [place] [address] [facility] [id number] [address] [place] [address] Feb, Subacromial bursitis of left shoulder joint M75.52 ; Tarsal tunnel syndrome of both lower extremities G57.53 and Subacromial bursitis of right shoulder joint M75.51 [place] [address] [facility] [id number] [address] [place] [address] Feb, Diabetic polyneuropathy asso ciated with type 2 diabetes mellitus E11.42 ; Mixed hyperlipidemia E78.2 ; Cocaine abuse F14.10 ; Subacromial bursitis of left shoulder joint M75.52 ; Acute pain of right shoulder M25.511 ; Moderate persistent asthma without complication J45.40 and Bipolar 1 disorder, depressed, severe F31.4 [facility] [address] [facility] [id number] [address] [place] [address] Jan, [place] [address] [facility] [id number] [address] [place] [address] Jan, Essential hypertension I10 ; Type 2 diabetes mellitus with hyperglycemia, without long-term current use of insulin E11.65 and Diabetic polyneuropathy associated with type 2 diabetes mellitus E11.42 [facility] [address] [facility] [id number] [address] [place] [address] Jan, [place] [address] [facility] [id number] [address] [place] [address] Dec, Bipolar disorder, current ep isode mixed, moderate F31.62 ; Diabetic polyneuropathy associated with type 2 diabetes mellitus E11.42 ; Cocaine abuse F14.10 and Major depressive disorder, recurrent severe without psychotic features F33.2 [facility] [address] [facility] [id number] [address] [place] [address] Dec, Diabetic polyneuropathy asso ciated with type 2 diabetes mellitus E11.42 [facility] [address] [facility] [id number] [address] [place] [address] Dec, [address] [id number] [address] Dec, [facility] [address] [facility] [id number] [address] [place] [address] Dec, Major depressive disorder, r ecurrent severe without psychotic features F33.2 ; Diabetic polyneuropathy associated with type 2 diabetes mellitus E11.42 and Cocaine abuse F14.10 [facility] [address] [facility] [id number] [address] [place] [address] Dec, [facility] [address] [facility] [id number] [address] [place] [address] November, Post-traumatic stress disord er F43.10 ; Bipolar disorder, current episode mixed, moderate F31.62 ; Cocaine abuse F14.10 ; Generalized anxiety disorder F41.1 and Neurocognitive deficits R29.818 [facility] [address] [facility] [id number] [address] [place] [address] November, Pure hypercholesterolemia E7 8.0 [facility] [address] [facility] [id number] [address] [place] [address] November, [facility] [address] [facility] [id number] [address] [place] [address] November, Type 2 diabetes mellitus wit h hyperglycemia, without long-term current use of insulin E11.65 ; Seizure disorder G40.909 ; Major depressive disorder, recurrent severe without psychotic features F33.2 and Cocaine abuse F14.10 [facility] [address] [facility] [id number] [address] [place] [address] Oct, Type 2 diabetes mellitus wit h hyperglycemia, without long-term current use of insulin E11.65 [place] [address] [facility] [id number] [address] [place] [address] Oct, Post-traumatic stress disord er F43.10 and Bipolar disorder F31.9 [place] [address] [facility] [id number] [address] [place] [address] Oct, Subacromial bursitis of left shoulder joint M75.52 and Homicidal ideation R45.850 [facility] [address] [facility] [id number] [place] [address] Oct, [address] [id number] [address] [place] [address] Oct, [place] [address] [facility] [id number] [address] [place] [address] Sep, Diabetic polyneuropathy asso ciated with type 2 diabetes mellitus E11.[address] [id number] [address] [place] [address] Aug, Type 2 diabetes mellitus wit h hyperglycemia, without long-term current use of insulin E11.65 [place] [address] [facility] [id number] [address] [place] [address] Aug, Twitching R25.3 ; Pain of le ft foot M79.672 and Pain in right foot M79.671 [place] [address] [facility] [id number] [address] [place] [address] Aug, Diabetic polyneuropathy asso ciated with type 2 diabetes mellitus E11.42 and Essential hypertension I10 [place] [address] [facility] [id number] [address] [place] [address] Aug, Type 2 diabetes mellitus wit h hyperglycemia, without long-term current use of insulin E11.65 ; Post-traumatic stress disorder F43.10 ; Bipolar disorder, current episode mixed, moderate F31.62 and Neurocognitive deficits R29.818 [facility] [address] [id number] [address] [place] [address] Jul, Bipolar disorder, current ep isode depressed, severe, without psychotic features F31.4 and Post traumatic stress disorder (PTSD) F43.10 [place] [address] [id number] [address] [place] [address] Jul, Bipolar disorder, current ep isode depressed, severe, without psychotic features F31.4 and Post traumatic stress disorder (PTSD) F43.10 [place] [address] [id number] [address] [place], [place] [address] Jul, [place] [address] [id number] [address] [place] [address] Jun, [place] [address] [facility] [id number] [address] [place] [address] Jun, Tarsal tunnel syndrome of [place] th lower extremities G57.53 and Diabetic polyneuropathy associated with type 2 diabetes mellitus E11.42 [place] [address] [id number] [address] [place] [address] May, Bipolar disorder, current ep isode mixed, moderate F31.62 ; Generalized anxiety disorder F41.1 ; Post-traumatic stress disorder F43.10 and Neurocognitive deficits R29.818 [place] [address] [id number] [address] [place] [address] May, [place] [address] [id number] [address] [place] [address] May, Bipolar disorder, current ep isode depressed, severe, without psychotic features F31.4 and Post traumatic stress disorder (PTSD) F43.10 [place] [address] [id number] [address] [place] [address] May, Subacromial bursitis of left shoulder joint M75.52 [facility] [address] [facility] [id number] [address] [place] [address] May, Diabetic polyneuropathy asso ciated with type 2 diabetes mellitus E11.42 [facility] [address] [facility] [id number] [address] [place] [address] May, [place] [address] [facility] [id number] [address] [place] [address] May, Medicare annual wellness vis it, initial [...] diabetes mellitus E11.42 and Mixed hyperlipidemia E78.2 [place] [address] [facility] [id number] [address] [place] [address] 18 May, 2018 [place] [address] [facility] [id number] [address] [place] [address] 14 May, 2018 Exercise counseling Z71.82 [place] [address] [facility] [id number] [address] [place] [address] 14 May, 2018 Subacromial bursitis of left shoulder joint M75.52 [place] [address] [facility] [id number] [address] [place] [address] 06 May, 2018 [place] [address] [facility] [id number] [address] [place] [address] May, [place] [address] [id number] [address] [place] [address] Apr, [place] [address] [facility] [id number] [address] [place] [address] Apr, Diabetic polyneuropathy asso ciated with type 2 diabetes mellitus E11.42 [place] [address] [facility] [id number] [address] [place] [address] Apr, Tarsal tunnel syndrome of [place] th lower extremities G57.53 and Diabetic polyneuropathy associated with type 2 diabetes mellitus E11.42 [facility] [address] [facility] [id number] [address] [place] [address] Apr, [place] [address] [facility] [id number] [address] [place] [address] Apr, Subacromial bursitis of left shoulder joint M75.52 [place] [address] [place] [id number] [address] [place] [address] Mar, Type 2 diabetes mellitus wit h hyperglycemia, without long-term current use of insulin E11.65 ; Diabetic polyneuropathy associated with type 2 diabetes mellitus E11.42 ; Bilateral low back pain, with sciatica presence unspecified M54.5 ; Tarsal tunnel syndrome of both lower extremities G57.53 ; Jock itch L29.8 ; Encounter for immunization Z23 and Weight gain R63.5 [place] [address] [place] [id number] [address] [place] [address] Mar, Jock itch L29.8 [place] [address] [facility] [id number] [address] [place] [address] Mar, Plantar fasciitis, bilateral M72.2 ; Tarsal tunnel syndrome of both lower extremities G57.53 ; Posterior tibial tendinitis of right lower extremity M76.821 and Posterior tibial tendinitis of left lower extremity M76.822 [place] [address] [place] [id number] [address] [place] [address] Mar, Diabetic polyneuropathy asso ciated with type 2 diabetes mellitus E11.42 [facility] [address] [facility] [id number] [address] [place] [address] Mar, Subacromial bursitis of left shoulder joint M75.52 [place] [address] [facility] [id number] [address] [place] [address] Jan, [place] [address] [place] [id number] [address] [place] [address] Jan, [place] [address] [place] [id number] [address] [place] [address] Jan, [facility] [address] [id number] [address] [place] [address] Jan, [place] [address] [facility] [id number] [address] [place] [address] Jan, Drug-induced erectile dysfun ction N52.2 [facility] [address] [facility] [id number] [address] [place] [address] Dec, Subacromial bursitis of left shoulder joint M75.52 [place] [address] [id number] [address] [place] [address] Dec, Type 2 diabetes mellitus wit h [...] otitis externa of righ t ear H60.391 [place] [address] [facility] [id number] [address] [place] [address] November, [place] [address] [facility] [id number] [address] [place] [address] November, Type 2 diabetes mellitus wit h hyperglycemia, without long-term current use of insulin E11.65 [place] [address] [id number] [address] [place] [address] November, Subacromial bursitis of left shoulder joint M75.52 [place] [address] [facility] [id number] [address] [place] [address] November, Bilateral low back pain, wit h sciatica presence unspecified M54.5 [place] [address] [address] Oct, Essential hypertension I10 ; Pure hypercholesterolemia E78.0 and At risk for cardiovascular event Z91.89 [place] [address] [address] Oct, Bilateral low back pain, wit h sciatica presence unspecified M54.5 and Subacromial bursitis of left shoulder joint M75.52 [place] [address] [address] Sep, Subacromial bursitis of left shoulder joint M75.52 [place] [address] [address] Aug, Subacromial bursitis of left shoulder joint M75.52 [place] [address] [address] Aug, Essential hypertension I10 [place] [address] [address] Jul, Pure hypercholesterolemia E7 8.0 and Jock itch L29.8 [place] [address] [address] Jul, Type 2 diabetes mellitus wit h hyperglycemia, without long-term current use of insulin E11.65 [place] [address] [address] Jul, [place] [address] [address] Jul, [place] [address] [address] Jul, [place] [address] [address] Jun, Moderate persistent asthma w ithout complication J45.40 ; Subacromial bursitis of left shoulder joint M75.52 ; Episode of altered consciousness R40.4 and Obstructive sleep apnea syndrome G47.33 [place] [address] [facility] [id number] [address] [place] [address] Jun, Subacromial bursitis of left shoulder joint M75.52 [facility] [address] [facility] [id number] [address] [place] [address] May, [facility] [address] [facility] [id number] [address] [place] [address] May, [facility] [address] [facility] [id number] [address] [place] [address] May, Subacromial bursitis of left shoulder joint M75.52 [facility] [address] [facility] [id number] [address] [place] [address] May, [facility] [address] [place] [id number] [address] [place] [address] Apr, Subacromial bursitis of left shoulder joint M75.52 [facility] [address] [place] [id number] [address] [place] [address] Apr, Pure hypercholesterolemia E7 8.0 ; Right sided weakness R53.1 ; Episode of altered consciousness R40.4 ; Seizure disorder G40.909 ; Essential hypertension I10 and At risk for cardiovascular event Z91.89 [facility] [id number] [place] [id number] Apr, [facility] [id number] [place] [phone] 18 Apr, 2017 [facility] [address] [facility] [id number] [address] [place] [id number] 14 Mar, 2017 [facility] [id number] [place] [phone] Mar, [facility] [id number] [place] [id number] 13 Mar, 2017 Type 2 diabetes mellitus wit h hyperglycemia, without long-term current use of insulin E11.65 ; Encounter for immunization Z23 and Subacromial bursitis of left shoulder joint M75.52 [place] [id number] [facility] [id number] [address] [place] [id number] Feb, Subacromial bursitis of left shoulder joint M75.52 [place] [address] [place] [address] [id number] [place] [phone] Jan, Moderate persistent asthma w [facility] complication J45.40 [place] [address] [place] [address] [id number] [place] [id number] Jan, Bipolar disorder, current ep isode depressed, mild F31.31 ; Chronic post-traumatic stress disorder (PTSD) F43.12 and Generalized anxiety disorder F41.1 [place] [address] [place] [id number] [place] [address] Dec, Type 2 diabetes mellitus wit h hyperglycemia, without long-term current use of insulin E11.65 [place] [address] [address] November, [place] [address] [place] [id number] [place] [address] November, Bipolar disorder, current ep isode depressed, mild F31.31 ; Chronic post-traumatic stress disorder (PTSD) F43.12 and Generalized anxiety disorder F41.1 [place] [address] [address] November, Type 2 diabetes mellitus wit h hyperglycemia, without long-term current use of insulin E11.65 ; Subacromial bursitis of left shoulder joint M75.52 ; Urinary hesitancy R39.11 ; Tinea cruris B35.6 ; Tinea pedis of both feet B35.3 and Moderate persistent asthma without complication J45.40 [place] [address] [place] [id number] [address] [place] [address] November, [place] [address] [address] November, [place] [address] [address] Oct, [facility] [address] [id number] [address] [place] [address] Oct, [facility] [address] [facility] [id number] [address] [place] [address] Sep, [facility] [address] [facility] [id number] [address] [place] [address] Sep, [facility] [address] [facility] [id number] [address] [place] [address] Sep, [facility] [address] [facility] [id number] [address] [place] [address] Sep, Bipolar disorder, current ep isode mixed, moderate F31.62 ; Generalized anxiety disorder F41.1 and Chronic post-traumatic stress disorder (PTSD) F43.12 [place] [address] [place] [id number] [address] [place] [address] Sep, Type 2 diabetes mellitus wit h hyperglycemia, without long-term current use of insulin E11.65 [facility] [address] [facility] [id number] [address] [place] [address] Sep, [facility] [address] [facility] [id number] [address] [place] [address] Aug, Moderate persistent asthma w ithout complication J45.40 [facility] [address] [facility] [id number] [address] [place] [address] Aug, [facility] [address] [facility] [id number] [address] [place] [address] Jul, [facility] [address] [facility] [id number] [address] [place] [address] Jul, Type 2 diabetes mellitus wit h hyperglycemia, without long-term current use of insulin E11.65 [facility] [address] [facility] [id number] [address] [place] [address] Jul, [facility] [address] [address] Jul, [place] [address] [address] Jul, [place] [address] [address] Jul, Type 2 diabetes mellitus wit h hyperglycemia, without long-term current use of insulin E11.65 ; Hematuria R31.9 ; Snoring R06.83 ; Sleep walking and eating F51.3 ; Jock itch L29.8 ; Costochondritis M94.0 and Cervicalgia M54.2 [place] [address] [address] Jun, Urinary hesitancy R39.11 [place] [address] [address] Jun, Elevated serum glucose R73.9 and Urinary hesitancy R39.11 [place] [address] [address] Jun, Bipolar disorder, current ep isode depressed, mild F31.31 ; Generalized anxiety disorder F41.1 ; Neurocognitive deficits R29.818 and Chronic post-traumatic stress disorder (PTSD) F43.12 [place] [address] [address] Jun, Elevated serum glucose R73.9 [place] [address] [address] Jun, [place] [address] [address] Apr, [place] [address] [address] Apr, [place] [address] [address] Apr, Drug-induced erectile dysfun ction N52.2 and Bilateral low back pain, with sciatica presence unspecified M54.5 [facility] [address] [id number] [address] [place] [address] Mar, Tinea versicolor B36.0 and E ncounter for immunization Z23 [facility] [address] [facility] [id number] [address] [place] [address] Mar, Bipolar 1 disorder, depresse d, severe F31.4 ; Post-traumatic stress disorder F43.10 ; Generalized anxiety disorder F41.1 and Neurocognitive deficits R29.818 [facility] [address] [id number] [address] [place] [address] Feb, [facility] [address] [facility] [id number] [address] [place] [address] Feb, [facility] [address] [facility] [id number] [address] [place] [address] Feb, [facility] [address] [facility] [id number] [address] [place] [address] Feb, Hyperlipidemia E78.5 [facility] [address] [facility] [id number] [address] [place] [address] Feb, [facility] [address] [facility] [id number] [address] [place] [address] Jan, Essential hypertension I10 ; Moderate persistent asthma without complication J45.40 ; Pure hypercholesterolemia E78.0 and Auditory hallucinations R44.0 [facility] [address] [facility] [id number] [address] [place] [address] Jan, [facility] [address] [facility] [id number] [address] [place] [address] Dec, [facility] [address] [facility] [id number] [address] [place] [address] Dec, [facility] [address] [facility] [id number] [address] [place] [address] November, Bipolar disorder, current ep isode mixed, moderate F31.62 ; Post- traumatic stress disorder F43.10 and Generalized anxiety disorder F41.1 [facility] [address] [id number] [address] [place] [id number] November, Visit for dental examination Z01.20 [facility] [address] [facility] [id number] [address] [place] [address] Oct, Uncomplicated asthma, unspec ified asthma severity J45.909 [facility] [address] [facility] [id number] [address] [place] [address] Oct, Uncomplicated asthma, unspec ified asthma severity J45.909 ; Bilateral low back pain, with sciatica presence unspecified M54.5 and Jock itch B35.6 [facility] [address] [facility] [id number] [address] [place] [address] Oct, [facility] [address] [facility] [id number] [address] [place] [address] Sep, Post-traumatic stress disord er F43.10 ; Generalized anxiety disorder F41.1 ; Neurocognitive deficits R29.818 and Bipolar disorder, current episode depressed, mild F31.31 [facility] [address] [facility] [id number] [address] [place] [address] Sep, Plantar fasciitis M72.2 [facility] [address] [facility] [id number] [address] [place] [address] Sep, Hyperlipidemia E78.5 [facility] [address] [facility] [id number] [address] [place] [address] Sep, [facility] [address] [facility] [id number] [address] [place] [address] Sep, [facility] [address] [facility] [id number] [address] [place] [address] Sep, Essential hypertension I10 a nd Urinary hesitancy R39.11 [facility] [address] [facility] [id number] [address] [place] [address] Sep, [facility] [address] [id number] 18 Aug, 2015 [place] [address] [address] Aug, Skin nodule R22.9 [place] [address] [address] 12 Aug, 2015 Plantar fasciitis M72.2 ; On ychomycosis B35.1 and Tinea pedis B35.3 [place] [address] [address] 09 Aug, 2015 Post-traumatic stress disord er F43.10 ; Generalized anxiety disorder F41.1 ; Neurocognitive deficits R29.818 and Bipolar disorder, current episode depressed, moderate F31.32 [place] [address] [address] Jul, Metacarpophalangeal joint sp rain S63.659A [facility] [address] [address] Jul, Right hand pain M79.641 [place] [address] [address] Jun, Right hand pain M79.641 ; Ri ght foot pain M79.671 and Urinary hesitancy R39.11 [place] [address] [address] Jun, Bipolar disorder, current ep isode mixed, moderate F31.62 ; Post- traumatic stress disorder F43.10 ; Generalized anxiety disorder F41.1 and Neurocognitive deficits R29.818 [place] [address] [address] Jun, Right hand pain M79.641 ; Ri ght foot pain M79.671 ; Right ankle pain M25.571 ; Urinary hesitancy R39.11 ; Flat foot [pes planus] (acquired), right foot M21.41 and Pes planus of left foot M21.42 [facility] [address] [facility] [id number] [address] [place] [address] May, Bipolar disorder, current ep isode mixed, moderate F31.62 ; Post- traumatic stress disorder F43.10 ; Generalized anxiety disorder F41.1 and Neurocognitive deficits R29.818 [facility] [address] [facility] [id number] [address] [place] [address] May, Right hand pain M79.641 and Essential hypertension I10 [facility] [address] [facility] [id number] [address] [place] [address] May, Anxiety 300.00 and Depressio n 311 [facility] [address] [facility] [id number] [address] [place] [address] Apr, [facility] [address] [place] [id number] [place] [address] Apr, [facility] [address] [place] [id number] [address] [place] [address] Apr, [facility] [address] [facility] [id number] [address] [place] [address] Apr, [facility] [address] [place] [id number] [address] [place] [address] Apr, Bipolar 1 disorder, mixed, m oderate F31.62 ; PTSD (post-traumatic stress disorder) F43.10 ; ROBERT (generalized anxiety disorder) F41.1 and Neurocognitive deficits R29.818 [facility] [address] [facility] [id number] [address] [place] [address] Apr, Anxiety, generalized F41.1 a nd Major depression, recurrent F33.9 [facility] [address] [facility] [id number] [address] [place] [address] Mar, Influenza vaccine administer ed V04.81 [facility] [address] [id number] [address] [place] [id number] Mar, 2015 Dental examination V72.2 [place] [address] [address] Feb, [address] [address] Feb, Chronic headache 784.0 and N ightmares 307.[address] [address] Feb, [address] [address] Feb, Bipolar 1 disorder, depresse d, moderate 296.52 ; PTSD (post- traumatic stress disorder) 309.81 and ROBERT (generalized anxiety disorder) 300.02 [place] 8[address]252[address] Jan, Acid reflux 530.81 ; Depress ion 311 ; Anxiety 300.00 and Tinnitus 388.[address] [address] Jan, Major depression, recurrent 296.30 ; Social phobia 300.23 ; Anxiety, generalized 300.02 ; No condition on [place] V71.09 ; Post-concussional syndrome 310.2 and Memory difficulties 780.[address] [address] Dec, Essential hypertension, gio gn 401.[address] [address] Dec, Essential hypertension, gio gn 401.[address] [address] Dec, Cervicalgia 723.[address] [address] Dec, Essential hypertension, gio gn 401.1 ; Cervicalgia 723.1 ; Lumbago 724.2 ; Seizure disorder 345.90 ; Chronic headache 784.0 ; Tinnitus 388.30 and Anxiety 300.00 [facility] [address] [id number] [address] [place] [address], [place] [address] Dec, [facility] [address] [id number] [address] [place] [address], [place] [address] 14 Oct, [address] [facility] [address] [id number] [address] [place] [address], [place] [address] Oct, [facility] [address] [id number] [address] [place] [address], [place] [address] Sep, [facility] [address] [id number] [address] [place] [address], [place] [address] Sep, [facility] [address] [id number] [address] [place] [address], [place] [address] Jul, [facility] [address] [id number] [address] [place] [address], [place] [address] Jul, [facility] [address] [id number] [address] [place] [address], [place] [address] Jul, [facility] [address] [id number] [address] [place] [address], [place] [address] Jul, [facility] [address] [id number] [address] [place] [address], [place] [address] Jul, [facility] [address] [id number] [address] [place] [address], [place] [address] Jul, [facility] [address] [id number] [address] [place] [address], [place] [address] Jun, [facility] [address] [id number] [address] [place] [address], [place] [address] Jun, [facility] [address] [id number] [address] [place] [address], [place] [address] Jun, [facility] [address] [id number] [address] [place] [address], [place] [address] Jun, [facility] [address] [id number] [address] [place] [address], [place] [address] Jun, [facility] [address] [id number] [address] [place] [address], [place] [address] Jun, [facility] [address] [id number] [address] [place] [address], [place] [address] Jun, [facility] [address] [id number] [address] [place] [address], [place] [address] Jun, [facility] [address] [id number] [address] [place] [address], [place] [address] Apr, [facility] [address] [id number] [address] [place] [address], [place] [address] Apr, [facility] [address] [id number] [address] [place] [address], [place] [address] Apr, [facility] [address] [id number] [address] [place] [address], [place] [address] Apr, [facility] [address] [id number] [address] [place] [address], [place] [address] Mar, [facility] [address] [id number] [address] [place] [address], [place] [address] Mar, [facility] [address] [id number] [address] [place] [address], [place] [address] Feb, [facility] [address] [id number] [address] [place] [address], [place] [address] Feb, [facility] [address] [id number] [address] [place] [address], [place] [address] Feb, [facility] [address] [id number] [address] [place] [address], [place] [address] Feb, [facility] [address] [id number] [address] [place] [address], [place] [address] Feb, [facility] [address] [id number] [address] [place] [address], [place] [address] Feb, [facility] [address] [id number] [address] [place] [address], [place] [address] Feb, [facility] [address] [id number] [address] [place] [address], [place] [address] Feb, [facility] [address] [id number] [address] [place] [address], [place] [address] Feb, [facility] [address] [id number] [address] [place] [address], [place] [address] Feb, [facility] [address] [id number] [address] [place] [address], [place] [address] Jan, [facility] [address] [id number] [address] [place] [address], [place] [address] Jan, [facility] [address] [place] [address] Jan, [facility] [address] [id number] [address] [place] [address], [place] [address] Jan, [facility] [address] [id number] [address] [place] [address], [place] [address] Dec, [facility] [address] [id number] [address] [place] [address], [place] [address] Dec, [facility] [address] [id number] [address] [place] [address], [place] [address] Dec, [facility] [address] [id number] [address] [place] [address], [place] [address] Dec, [facility] [address] [id number] [address] [place] [address], [place] [address] Oct, [facility] [address] [id number] [address] [place] [address], [place] [address] Oct, [facility] [address] [id number] [address] [place] [address], [place] [address] Sep, [facility] [address] [id number] [address] [place] [address], [place] [address] Sep, [facility] [address] [id number] [address] [place] [address], [place] [address] Aug, [facility] [address] [id number] [address] [place] [address], [place] [address] Aug, [facility] [address] [id number] [address] [place] [address], [place] [address] Aug, [facility] [address] [id number] [address] [place] [address], [place] [address] Aug, [facility] [address] [id number] [address] [place] [address], [place] [address] Aug, [facility] [address] [id number] [address] [place] [address], [place] [address] Aug, [facility] [address] [id number] [address] [place] [address], [place] [address] Feb, [facility] [address] [id number] [address] [place] [address], [place] [address] Sep, [facility] [address] [id number] [address] [place] [address], [place] [address] Sep, [facility] [address] [id number] [address] [place] [address], [place] [address] Aug, [facility] [address] [id number] [address] [place] [address], [place] [address] Jul, [facility] [address] [id number] [address] [place] [address], [place] [address] Jul, [facility] [address] [id number] [address] [place] [address], [place] [address] Jul, [facility] [address] [id number] [address] [place] [address], [place] [address] Jun, [facility] [address] [id number] [address] [place] [address], [place] [address] Jun, [facility] [address] [id number] [address] [place] [address] Jun, [facility] [address] [id number] [address] [place] [address] Jun, [facility] [address] [id number] [address] [place] [address] Jun, [facility] [address] [id number] [address] [place] [address] Jun, [facility] [address] [id number] [address] [place] [address] Jun, [facility] [address] [id number] [address] [place] [address] Apr, [facility] [address] [id number] [address] [place] [address] Apr, [facility] [address] [id number] [address] [place] [address] Apr, [facility] [address] [id number] [address] [place] [address] Apr, [facility] [address] [id number] [address] [place] [phone] Apr, [facility] [address] [id number] [address] [place] [phone] Apr, IMMUNIZATIONS No Known Immunizations SOCIAL HISTORY Never Assessed REASON FOR VISIT PLAN OF CARE VITAL SIGNS Height 66 in 2014-06-18 Weight 150.39 lbs 2014-06-18 Temperature 97.5 degrees Fahrenheit 2014-06-18 Heart Rate 86 bpm 2014-06-18 Respiratory Rate 16 2014-06-18 Blood pressure systolic 124 mmHg 2014-06-18 Blood pressure diastolic 84 mmHg 2014-06-18 MEDICATIONS Unknown Medications RESULTS No Results PROCEDURES Procedure Date Ordered Result Body Site CARDIOVASCULAR STRESS TEST Jun 18, 2014 INSTRUCTIONS MEDICATIONS ADMINISTERED No Known Medications MEDICAL [...] Hospitalization History [facility] Hospitalization History [facility]
--- OUTSIDE RECORDS SUMMARY | 2020-02-07 16:51 | XMS REPORT ---
Author Author JUANY Dilan MYRA Organization [facility] Address [address] [place] [address] Care Team Providers Care A P Supervisor Name Role Phone JUANYMYRA RAO Unavailable PROBLEMS Type Condition ICD9-CM Code OKT85-EM Code Onset Dates Condition S tatus SNOMED Code Problem Bilateral low back pain, with sciatica presence unspecifie d M54.5 Active 571887629 Problem Essential hypertension I10 Active 92640037 Problem Seizure disorder G40.909 Active 128 357422 Problem Generalized anxiety disorder F41.1 A ctive 304841468 Problem Cervicalgia M54.2 Active 83553363 01417 Problem Bipolar disorder, current episode depressed, mild F31.31 Active 996181485 Problem Bipolar disorder, current episode depressed, moderate F31.32 Active 647818969 Problem Post-traumatic stress disorder, unspecified F43.10 Active 36253307 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 48184593 Problem Major depressive disorder, recurrent sev ere without psychotic features F33.2 Active 56950472 Problem Intractable chronic post-traumatic headache G44.32 1 Active 039885867 Problem Chest pain, unspecified chest pain type R07.9 Active 21290641 Problem Major depressive disorder, recurrent episode, un specified severity F33.9 Active 00816983 Problem Sleep walking and eating F51.3 Activ e 21709364 Problem Drug-induced erectile dysfunction N52.2 Active 371519082 Problem Subacromial bursitis of left shoulder joint M75.52 Active 03580927 Problem Tarsal tunnel syndrome of right side G57.51 Active 45914570 Problem Urinary hesitancy R39.11 Active 59 46868 Problem Diabetic polyneuropathy associated with type 2 d iabetes mellitus E11.42 Active 68563726 Problem Bipolar disorder, current episode mixed, moderate F31.62 Active 364812662 Problem Obstructive sleep apnea syndrome G47.33 Active 31171139 Problem Type 2 diabetes mellitus wit h hyperglycemia, without long-term current use of insulin E11.65 Active 51569839 Problem Mixed hyperlipidemia E78.2 Active 108927253 Problem Post-traumatic stress disorder F43.10 Active 57514152 Problem Tarsal tunnel syndrome of both lower extremities G 57.53 Active 99510711197214416 Problem Neurocognitive deficits R29.818 Active 953903563 Problem Bipolar disorder, current ep isode depressed, severe, without psychotic features F31.4 Active 44711420 Problem Post traumatic stress disorder (PTSD) F43.10 Active 75092590 Problem Twitching R25.3 Active 080812211 Problem Cocaine use disorder, severe, dependence F14.20 Active 13613234 Problem Pure hypercholesterolemia E78.0 Acti ve 456486174 Problem Subacromial bursitis of right shoulder joint M75.5 1 Active 0236944244998897 Problem Moderate persistent asthma without complication J4 5.40 Active 054097639 Problem Chronic post-traumatic stress disorder (PTSD) F43. 12 Active 105558577 Problem Bipolar disorder F31.9 Active 137 92108 Problem Cocaine abuse F14.10 Active 235333 03 Problem Bipolar 1 disorder, depressed, severe F31.4 Active 166779701904 Problem Bursitis of left shoulder M75.52 Acti ve [id number] ALLERGIES No Information ENCOUNTERS Encounter Location Date Diagnosis [facility] [address] [facility] [id number] [address] [place] [phone] 06 Nov, 2019 [facility] [address] [facility] [id number] [address] [place] [address] 14 Oct, 2019 [facility] [address] [facility] [id number] [address] [place] [address] 12 Sep, 2019 Neuropathic pain M79.2 [facility] [address] [facility] [id number] [address] [place] [address] 09 Sep, 2019 Neuropathic pain M79.2 [facility] [address] [facility] [id number] [address] [place] [address] 13 Aug, 2019 Diabetic polyneuropathy asso ciated with type 2 diabetes mellitus E11.42 ; Subacromial bursitis of left shoulder joint M75.52 ; Subacromial bursitis of right shoulder joint M75.51 ; Type 2 diabetes mellitus with hyperglycemia, without long-term current use of insulin E11.65 and Encounter for immunization Z23 [facility] [address] [id number] [address] [place] [address] Aug, [facility] [address] [id number] [address] [place] [address] Aug, [facility] [address] [id number] [address] [place] [address] Aug, Neuropathic pain M79.2 [facility] [address] [id number] [address] [place] [phone] Jul, Neuropathic pain M79.2 [facility] [address] [id number] [address] [place] [address] Jun, Neuropathic pain M79.2 [facility] [address] [id number] [address] [place] [phone] May, [facility] [address] [id number] [address] [place] [address] May, Neuropathic pain M79.2 [facility] [address] [id number] [address] [place] [address] May, [facility] [address] [id number] [address] [place] [address] Apr, [facility] [address] [id number] [address] [place] [address] Apr, Neuropathic pain M79.2 [facility] [address] [id number] [address] [place] [address] Apr, [facility] [address] [id number] [address] [place] [address] Apr, [facility] [address] [id number] [address] [place] [address] Mar, [facility] [address] [facility] [id number] [address] [place] [phone] Mar, [facility] [address] [id number] [address] [place] [address] Mar, Neuropathic pain M79.2 [facility] [address] [id number] [address] [place] [address] Mar, Bipolar 1 disorder, depresse d, severe F31.4 and Cocaine use disorder, severe, dependence F14.20 [facility] [address] [id number] [address] [place] [address] 24 Mar, 2019 Neuropathic pain M79.2 [facility] [address] [id number] [address] [place] [address] 18 Mar, 2019 Neuropathic pain M79.2 [facility] [address] [id number] [address] [place] [address] 17 Mar, 2019 [facility] [address] [id number] [address] [place] [address] Mar, [facility] [address] [id number] [address] [place] [address] Feb, Bipolar 1 disorder, depresse d, severe F31.4 [facility] [address] [id number] [address] [place] [phone] Feb, [facility] [address] [id number] [address] [place] [address] Feb, [facility] [address] [id number] [address] [place] [address] Feb, Type 2 diabetes mellitus wit h hyperglycemia, without long-term current use of insulin E11.65 ; Bursitis of right shoulder M75.51 and Bursitis of left shoulder M75.52 [facility] [address] [id number] [address] [place] [address] Feb, Subacromial bursitis of left shoulder joint M75.52 ; Tarsal tunnel syndrome of both lower extremities G57.53 and Subacromial bursitis of right shoulder joint M75.51 [facility] [address] [id number] [address] [place] [address] Feb, Diabetic polyneuropathy asso ciated with type 2 diabetes mellitus E11.42 ; Mixed hyperlipidemia E78.2 ; Cocaine abuse F14.10 ; Subacromial bursitis of left shoulder joint M75.52 ; Acute pain of right shoulder M25.511 ; Moderate persistent asthma without complication J45.40 and Bipolar 1 disorder, depressed, severe F31.4 [place] [address] [place] [id number] [address] [place] [address] Jan, [place] [address] [place] [id number] [address] [place] [address] Jan, Essential hypertension I10 ; Type 2 diabetes mellitus with hyperglycemia, without long-term current use of insulin E11.65 and Diabetic polyneuropathy associated with type 2 diabetes mellitus E11.42 [place] [address] [place] [id number] [address] [place] [address] Jan, [place] [address] [place] [id number] [address] [place] [address] Dec, Bipolar disorder, current ep isode mixed, moderate F31.62 ; Diabetic polyneuropathy associated with type 2 diabetes mellitus E11.42 ; Cocaine abuse F14.10 and Major depressive disorder, recurrent severe without psychotic features F33.2 [place] [address] [place] [id number] [address] [place] [address] Dec, Diabetic polyneuropathy asso ciated with type 2 diabetes mellitus E11.42 [place] [address] [facility] [id number] [address] [place] [address] Dec, [id number] [place] [phone] Dec, [place] [address] [place] [id number] [address] [place] [address] Dec, Major depressive disorder, r ecurrent severe without psychotic features F33.2 ; Diabetic polyneuropathy associated with type 2 diabetes mellitus E11.42 and Cocaine abuse F14.10 [place] [address] [place] [id number] [address] [place] [address] Dec, [place] [address] [facility] [id number] [address] [place] [address] November, Post-traumatic stress disord er F43.10 ; Bipolar disorder, current episode mixed, moderate F31.62 ; Cocaine abuse F14.10 ; Generalized anxiety disorder F41.1 and Neurocognitive deficits R29.818 [place] [address] [place] [id number] [address] [place] [address] November, Pure hypercholesterolemia E7 8.0 [place] [address] [facility] [id number] [address] [place] [address] November, [place] [address] [facility] [id number] [address] [place] [address] November, Type 2 diabetes mellitus wit h hyperglycemia, without long-term current use of insulin E11.65 ; Seizure disorder G40.909 ; Major depressive disorder, recurrent severe without psychotic features F33.2 and Cocaine abuse F14.10 [place] [address] [facility] [id number] [address] [place] [address] Oct, Type 2 diabetes mellitus wit h hyperglycemia, without long-term current use of insulin E11.65 [place] [address] [facility] [id number] [address] [place] [address] Oct, Post-traumatic stress disord er F43.10 and Bipolar disorder F31.[address] [id number] [address] [place] [phone] Oct, Subacromial bursitis of left shoulder joint M75.52 and Homicidal ideation R45.850 [place] [address] [facility] [id number] [address] Oct, [facility] [address] [facility] [id number] [address] [place] [address] Oct, [place] [address] [facility] [id number] [address] [place] [address] Sep, Diabetic polyneuropathy asso ciated with type 2 diabetes mellitus E11.42 [facility] [address] [facility] [id number] [address] [place] [address] Aug, Type 2 diabetes mellitus wit h hyperglycemia, without long-term current use of insulin E11.65 [facility] [address] [facility] [id number] [address] [place] [address] 13 Aug, 2018 Twitching R25.3 ; Pain of le ft foot M79.672 and Pain in right foot M79.671 [facility] [address] [facility] [id number] [address] [place] [phone] Aug, Diabetic polyneuropathy asso ciated with type 2 diabetes mellitus E11.42 and Essential hypertension I10 [place] [address] [facility] [id number] [address] [place] [address] Aug, Type 2 diabetes mellitus wit h hyperglycemia, without long-term current use of insulin E11.65 ; Post-traumatic stress disorder F43.10 ; Bipolar disorder, current episode mixed, moderate F31.62 and Neurocognitive deficits R29.818 [place] [address] [facility] [id number] [address] [place] [address] Jul, Bipolar disorder, current ep isode depressed, severe, without psychotic features F31.4 and Post traumatic stress disorder (PTSD) F43.10 [place] [address] [place] [id number] [address] [place] [address] Jul, Bipolar disorder, current ep isode depressed, severe, without psychotic features F31.4 and Post traumatic stress disorder (PTSD) F43.10 [place] [address] [facility] [id number] [address] [place] [address] Jul, [place] [address] [facility] [id number] [address] [place] [address] Jun, [place] [address] [facility] [id number] [address] [place] [address] Jun, Tarsal tunnel syndrome of [place] th lower extremities G57.53 and Diabetic polyneuropathy associated with type 2 diabetes mellitus E11.42 [place] [address] [place] [id number] [address] [place] [address] May, Bipolar disorder, current ep isode mixed, moderate F31.62 ; Generalized anxiety disorder F41.1 ; Post-traumatic stress disorder F43.10 and Neurocognitive deficits R29.818 [place] [address] [place] [id number] [address] [place] [address] May, [place] [address] [address] May, Bipolar disorder, current ep isode depressed, severe, without psychotic features F31.4 and Post traumatic stress disorder (PTSD) F43.10 [place] [address] [address] May, Subacromial bursitis of left shoulder joint M75.52 [place] [address] [address] May, Diabetic polyneuropathy asso ciated with type 2 diabetes mellitus E11.42 [place] [address] [address] May, [place] [address] [address] May, Medicare annual wellness vis it, initial [...] diabetes mellitus E11.42 and Mixed hyperlipidemia E78.2 [place] [address] [place] [id number] [address] [place] [address] 18 May, 2018 [place] [address] [place] [id number] [address] [place] [address] May, Exercise counseling Z71.82 [place] [id number] [address] [place] [address] 14 May, 2018 Subacromial bursitis of left shoulder joint M75.52 [facility] [address] [facility] [id number] [address] [place] [address] May, [facility] [address] [facility] [id number] [address] [place] [address] May, [facility] [address] [facility] [id number] [address] [place] [address] Apr, [facility] [address] [facility] [id number] [address] [place] [address] Apr, Diabetic polyneuropathy asso ciated with type 2 diabetes mellitus E11.42 [facility] [address] [facility] [id number] [address] [place] [address] Apr, Tarsal tunnel syndrome of kaly[place] th lower extremities G57.53 and Diabetic polyneuropathy associated with type 2 diabetes mellitus E11.42 [facility] [address] [facility] [id number] [address] [place] [address] Apr, [facility] [address] [facility] [id number] [address] [place] [address] Apr, Subacromial bursitis of left shoulder joint M75.52 [facility] [address] [facility] [id number] [address] [place] [address] 27 Mar, 2018 Type 2 diabetes mellitus wit h hyperglycemia, without long-term current use of insulin E11.65 ; Diabetic polyneuropathy associated with type 2 diabetes mellitus E11.42 ; Bilateral low back pain, with sciatica presence unspecified M54.5 ; Tarsal tunnel syndrome of both lower extremities G57.53 ; Jock itch L29.8 ; Encounter for immunization Z23 and Weight gain R63.5 [facility] [address] [facility] [id number] [address] [place] [address] Mar, Jock itch L29.8 [facility] [address] [facility] [id number] [address] [place] [address] Mar, Plantar fasciitis, bilateral M72.2 ; Tarsal tunnel syndrome of both lower extremities G57.53 ; Posterior tibial tendinitis of right lower extremity M76.821 and Posterior tibial tendinitis of left lower extremity M76.822 [facility] [address] [id number] [address] [place] [address] 17 Mar, 2018 Diabetic polyneuropathy asso ciated with type 2 diabetes mellitus E11.42 [facility] [address] [id number] [address] [place] [address] Mar, Subacromial bursitis of left shoulder joint M75.52 [facility] [address] [id number] [address] [place] [address] Jan, [facility] [address] [id number] [address] [place] [address] Jan, [facility] [address] [id number] [address] [place] [phone] Jan, [facility] [address] [id number] [address] [place] [address] Jan, [facility] [address] [id number] [address] [place] [address] Jan, Drug-induced erectile dysfun ction N52.2 [facility] [address] [id number] [address] [place] [address] Dec, Subacromial bursitis of left shoulder joint M75.52 [facility] [address] [id number] [address] [place] [address] 13 Dec, 2017 Type 2 diabetes mellitus wit h [...] otitis externa of righ t ear H60.391 [place] [address] [place] [id number] [address] [place] [address] November, [place] [address] [place] [id number] [address] [place] [address] November, Type 2 diabetes mellitus wit h hyperglycemia, without long-term current use of insulin E11.65 [place] [address] [place] [id number] [address] [place] [address] November, Subacromial bursitis of left shoulder joint M75.52 [place] [address] [address] November, Bilateral low back pain, wit h sciatica presence unspecified M54.5 [place] [address] [address] Oct, Essential hypertension I10 ; Pure hypercholesterolemia E78.0 and At risk for cardiovascular event Z91.89 [place] [address] [address] Oct, Bilateral low back pain, wit h sciatica presence unspecified M54.5 and Subacromial bursitis of left shoulder joint M75.52 [place] [address] [place] [id number] [address] [place] [address] Sep, Subacromial bursitis of left shoulder joint M75.52 [place] [address] [place] [id number] [address] [place] [address] Aug, Subacromial bursitis of left shoulder joint M75.52 [place] [address] [place] [id number] [address] [place] [address] Aug, Essential hypertension I10 [place] [address] [place] [id number] [address] [place] [address] Jul, Pure hypercholesterolemia E7 8.0 and Jock itch L29.8 [facility] [address] [facility] [id number] [address] [place] [address] Jul, Type 2 diabetes mellitus wit h hyperglycemia, without long-term current use of insulin E11.65 [facility] [address] [facility] [id number] [address] [place] [address] Jul, [facility] [address] [facility] [id number] [address] [place] [address] Jul, [facility] [address] [facility] [id number] [address] [place] [address] Jul, [facility] [address] [place] [id number] [address] [place] [address] Jun, Moderate persistent asthma w ithout complication J45.40 ; Subacromial bursitis of left shoulder joint M75.52 ; Episode of altered consciousness R40.4 and Obstructive sleep apnea syndrome G47.33 [place] [address] [place] [id number] [address] [place] [address] Jun, Subacromial bursitis of left shoulder joint M75.52 [facility] [address] [facility] [id number] [address] [place] [address] May, [facility] [address] [place] [id number] [address] [place] [address] May, [facility] [address] [facility] [id number] [address] [place] [address] May, Subacromial bursitis of left shoulder joint M75.52 [facility] [address] [facility] [id number] [address] [place] [address] May, [facility] [address] [place] [id number] [address] [place] [address] Apr, Subacromial bursitis of left shoulder joint M75.52 [facility] [address] [facility] [id number] [address] [place] [address] Apr, Pure hypercholesterolemia E7 8.0 ; Right sided weakness R53.1 ; Episode of altered consciousness R40.4 ; Seizure disorder G40.909 ; Essential hypertension I10 and At risk for cardiovascular event Z91.89 [place] [address] [place] [id number] [place] [id number] Apr, [place] [address] [address] [facility] [id number] [address] [place] [phone] Apr, [place] [address] [place] [id number] [place] [phone] Mar, [place] [address] [address] [place] [id number] [address] [place] [id number] 14 Mar, 2017 [place] [address] [place] [id number] [place] [phone] 13 Mar, 2017 Type 2 diabetes mellitus wit h hyperglycemia, without long-term current use of insulin E11.65 ; Encounter for immunization Z23 and Subacromial bursitis of left shoulder joint M75.52 [place] [address] [id number] Feb, Subacromial bursitis of left shoulder joint M75.52 [place] [address] [id number] Jan, Moderate persistent asthma w [facility] complication J45.40 [place] [id number] [place] [phone] Jan, Bipolar disorder, current ep isode depressed, mild F31.31 ; Chronic post-traumatic stress disorder (PTSD) F43.12 and Generalized anxiety disorder F41.1 [place] [address] [address] [place] [id number] [address] [place] [address] Dec, Type 2 diabetes mellitus wit h hyperglycemia, without long-term current use of insulin E11.65 [place] [address] [place] [id number] [address] [place] [address] November, [place] [address] [place] [id number] [place] [address] November, Bipolar disorder, current ep isode depressed, mild F31.31 ; Chronic post-traumatic stress disorder (PTSD) F43.12 and Generalized anxiety disorder F41.1 [facility] [address] [id number] [address] [place] [address] November, Type 2 diabetes mellitus wit h hyperglycemia, without long-term current use of insulin E11.65 ; Subacromial bursitis of left shoulder joint M75.52 ; Urinary hesitancy R39.11 ; Tinea cruris B35.6 ; Tinea pedis of both feet B35.3 and Moderate persistent asthma without complication J45.40 [facility] [address] [id number] [address] [place] [address] November, [place] [address] [id number] [address] [place] [address] November, [facility] [address] [place] [id number] [address] [place] [address] Oct, [facility] [address] [id number] [address] [place] [address] Oct, [facility] [address] [facility] [id number] [address] [place] [address] Sep, [facility] [address] [id number] [address] [place] [address] Sep, [place] [address] [facility] [id number] [address] [place] [address] Sep, [facility] [address] [id number] [address] [place] [address] Sep, Bipolar disorder, current ep isode mixed, moderate F31.62 ; Generalized anxiety disorder F41.1 and Chronic post-traumatic stress disorder (PTSD) F43.12 [facility] [address] [id number] [address] [place] [address] Sep, Type 2 diabetes mellitus wit h hyperglycemia, without long-term current use of insulin E11.65 [facility] [address] [address] Sep, [place] [address] [address] Aug, Moderate persistent asthma w [facility] complication J45.40 [place] [address] [address] Aug, [place] [address] [address] Jul, [place] [address] [address] Jul, Type 2 diabetes mellitus wit h hyperglycemia, without long-term current use of insulin E11.65 [place] [address] [address] Jul, [place] [address] [address] Jul, [place] [address] [address] Jul, [place] [address] [address] Jul, Type 2 diabetes mellitus wit h hyperglycemia, without long-term current use of insulin E11.65 ; Hematuria R31.9 ; Snoring R06.83 ; Sleep walking and eating F51.3 ; Jock itch L29.8 ; Costochondritis M94.0 and Cervicalgia M54.2 [place] [address] [address] Jun, Urinary hesitancy R39.[address] [address] Jun, Elevated serum glucose R73.9 and Urinary hesitancy R39.11 [place] [address] [address] Jun, Bipolar disorder, current ep isode depressed, mild F31.31 ; Generalized anxiety disorder F41.1 ; Neurocognitive deficits R29.818 and Chronic post-traumatic stress disorder (PTSD) F43.12 [facility] [address] [place] [id number] [address] [place] [address] Jun, Elevated serum glucose R73.9 [facility] [address] [place] [id number] [address] [place] [address] Jun, [facility] [address] [place] [id number] [address] [place] [address] Apr, [facility] [address] [place] [id number] [address] [place] [address] Apr, [place] [address] [place] [id number] [address] [place] [address] Apr, Drug-induced erectile dysfun ction N52.2 and Bilateral low back pain, with sciatica presence unspecified M54.5 [place] [address] [place] [id number] [address] [place] [address] Mar, Tinea versicolor B36.0 and E ncounter for immunization Z23 [place] [address] [place] [id number] [place] [address] Mar, Bipolar 1 disorder, depresse d, severe F31.4 ; Post-traumatic stress disorder F43.10 ; Generalized anxiety disorder F41.1 and Neurocognitive deficits R29.818 [facility] [address] [place] [id number] [address] [place] [address] Feb, [facility] [address] [place] [id number] [address] [place] [address] Feb, [facility] [address] [place] [id number] [address] [place] [address] Feb, [facility] [address] [place] [id number] [address] [place] [address] Feb, Hyperlipidemia E78.5 [facility] [address] [place] [id number] [address] [place] [address] Feb, [facility] [address] [place] [id number] [place] [address] Jan, Essential hypertension I10 ; Moderate persistent asthma without complication J45.40 ; Pure hypercholesterolemia E78.0 and Auditory hallucinations R44.0 [place] [address] [address] Jan, [place] [address] [address] Dec, [place] [address] [place] [id number] [place] [address] Dec, [place] [address] [address] November, Bipolar disorder, current ep isode mixed, moderate F31.62 ; Post- traumatic stress disorder F43.10 and Generalized anxiety disorder F41.1 [facility] [address] [place] [id number] [address] [place] [id number] November, Visit for dental examination Z01.20 [place] [address] [address] Oct, Uncomplicated asthma, unspec ified asthma severity J45.909 [place] [address] [address] Oct, Uncomplicated asthma, unspec ified asthma severity J45.909 ; Bilateral low back pain, with sciatica presence unspecified M54.5 and Jock itch B35.6 [place] [address] [address] Oct, [place] [address] [address] Sep, Post-traumatic stress disord er F43.10 ; Generalized anxiety disorder F41.1 ; Neurocognitive deficits R29.818 and Bipolar disorder, current episode depressed, mild F31.31 [place] [address] [address] Sep, Plantar fasciitis M72.2 [facility] [address] [address] Sep, Hyperlipidemia E78.5 [facility] [address] [place] [id number] [address] [place] [address] Sep, [facility] [address] [address] Sep, [facility] [address] [address] Sep, Essential hypertension I10 a nd Urinary hesitancy R39.11 [facility] [address] [address] Sep, [place] [address] [address] Aug, [facility] [address] [address] Aug, Skin nodule R22.9 [facility] [address] [address] Aug, Plantar fasciitis M72.2 ; On ychomycosis B35.1 and Tinea pedis B35.3 [place] [address] [address] Aug, Post-traumatic stress disord er F43.10 ; Generalized anxiety disorder F41.1 ; Neurocognitive deficits R29.818 and Bipolar disorder, current episode depressed, moderate F31.32 [place] [address] [address] Jul, Metacarpophalangeal joint sp rain S63.659A [facility] [address] [place] [id number] [address] [place] [address] Jul, Right hand pain M79.641 [facility] [address] [facility] [id number] [address] [place] [address] Jun, Right hand pain M79.641 ; Ri ght foot pain M79.671 and Urinary hesitancy R39.11 [place] [address] [facility] [id number] [address] [place] [address] 17 Jun, 2015 Bipolar disorder, current ep isode mixed, moderate F31.62 ; Post- traumatic stress disorder F43.10 ; Generalized anxiety disorder F41.1 and Neurocognitive deficits R29.818 [place] [address] [facility] [id number] [address] [place] [address] Jun, Right hand pain M79.641 ; Ri ght foot pain M79.671 ; Right ankle pain M25.571 ; Urinary hesitancy R39.11 ; Flat foot [pes planus] (acquired), right foot M21.41 and Pes planus of left foot M21.42 [place] [address] [place] [id number] [address] [place] [address] May, Bipolar disorder, current ep isode mixed, moderate F31.62 ; Post- traumatic stress disorder F43.10 ; Generalized anxiety disorder F41.1 and Neurocognitive deficits R29.818 [place] [address] [facility] [id number] [address] [place] [address] May, Right hand pain M79.641 and Essential hypertension I10 [place] [address] [facility] [id number] [address] [place] [address] May, Anxiety 300.00 and Depressio n 311 [place] [address] [facility] [id number] [address] [place] [address] Apr, [place] [address] [place] [id number] [address] [place] [address] Apr, [place] [address] [place] [id number] [address] [place] [address] Apr, [place] [address] [place] [id number] [address] [place] [address] Apr, [facility] [address] [address] Apr, Bipolar 1 disorder, mixed, m oderate F31.62 ; PTSD (post-traumatic stress disorder) F43.10 ; ROBERT (generalized anxiety disorder) F41.1 and Neurocognitive deficits R29.818 [place] [address] [address] Apr, Anxiety, generalized F41.1 a nd Major depression, recurrent F33.9 [place] [address] [address] Mar, Influenza vaccine administer ed V04.81 [facility] [address] [place] [id number] [address] [place] [id number] Mar, Dental examination V72.2 [place] [address] [address] Feb, [place] [address] [address] Feb, Chronic headache 784.0 and N ightmares 307.47 [place] [address] [address] Feb, [place] [address] [address] Feb, Bipolar 1 disorder, depresse d, moderate 296.52 ; PTSD (post- traumatic stress disorder) 309.81 and ROBERT (generalized anxiety disorder) 300.02 [place] [address] [address] Jan, Acid reflux 530.81 ; Depress ion 311 ; Anxiety 300.00 and Tinnitus 388.30 [place] [address] [address] Jan, Major depression, recurrent 296.30 ; Social phobia 300.23 ; Anxiety, generalized 300.02 ; No condition on [place] V71.09 ; Post-concussional syndrome 310.2 and Memory difficulties 780.93 [facility] [address] [address] Dec, Essential hypertension, gio gn 401.1 [facility] [address] [address] Dec, Essential hypertension, gio gn 401.1 [facility] [address] [address] Dec, Cervicalgia 723.1 [facility] [address] [address] Dec, Essential hypertension, gio gn 401.1 ; Cervicalgia 723.1 ; Lumbago 724.2 ; Seizure disorder 345.90 ; Chronic headache 784.0 ; Tinnitus 388.30 and Anxiety 300.00 [facility] [address] [address] Dec, [facility] [address] [address] Oct, [facility] [address] [address] Oct, [facility] [address] [address] Sep, [facility] [address] [place] [id number] [address] [place] [address] Sep, [facility] [address] [place] [id number] [address] [place] [address] Jul, [facility] [address] [place] [id number] [place] [address] Jul, [facility] [address] [place] [id number] [address] [place] [address] Jul, [facility] [address] [address] Jul, [facility] [address] [id number] [address] [place] [address], [place] [address] Jul, [facility] [address] [id number] [address] [place] [address], [place] [address] Jul, [facility] [address] [id number] [address] [place] [address], [place] [address] Jun, [facility] [address] [id number] [address] [place] [address], [place] [address] Jun, [facility] [address] [id number] [address] [place] [address], [place] [address] Jun, [facility] [address] [id number] [address] [place] [address], [place] [address] Jun, [facility] [address] [id number] [address] [place] [address], [place] [address] Jun, [facility] [address] [id number] [address] [place] [address], [place] [address] Jun, [facility] [address] [id number] [address] [place] [address], [place] [address] Jun, [facility] [address] [id number] [address] [place] [address], [place] [address] Jun, [facility] [address] [id number] [address] [place] [address], [place] [address] Apr, [facility] [address] [id number] [address] [place] [address], [place] [address] Apr, [facility] [address] [id number] [address] [place] [address], [place] [address] Apr, [facility] [address] [id number] [address] [place] [address], [place] [address] Apr, [facility] [address] [id number] [address] [place] [address], [place] [address] Mar, [facility] [address] [id number] [address] [place] [address], [place] [address] Mar, [facility] [address] [id number] [address] [place] [address], [place] [address] Feb, [facility] [address] [id number] [address] [place] [address], [place] [address] Feb, [facility] [address] [id number] [address] [place] [address], [place] [address] Feb, [facility] [address] [id number] [address] [place] [address], [place] [address] Feb, [facility] [address] [id number] [address] [place] [address], [place] [address] Feb, [facility] [address] [id number] [address] [place] [address], [place] [address] Feb, [facility] [address] [id number] [address] [place] [address], [place] [address] Feb, [facility] [address] [id number] [address] [place] [address], [place] [address] Feb, [facility] [address] [id number] [address] [place] [address], [place] [address] Feb, [facility] [address] [id number] [address] [place] [address], [place] [address] Feb, [facility] [address] [id number] [address] [place] [address], [place] [address] Jan, [facility] [address] [id number] [address] [place] [address], [place] [address] Jan, [facility] [place] [address] [place] [address] Jan, [facility] [address] [id number] [address] [place] [address], [place] [address] Jan, [facility] [address] [id number] [address] [place] [address], [place] [address] Dec, [facility] [address] [id number] [address] [place] [address], [place] [address] Dec, [facility] [address] [id number] [address] [place] [address], [place] [address] Dec, [facility] [address] [id number] [address] [place] [address], [place] [address] Dec, [facility] [address] [id number] [address] [place] [address], [place] [address] Oct, [facility] [address] [id number] [address] [place] [address], [place] [address] Oct, [facility] [address] [id number] [address] [place] [address], [place] [address] Sep, [facility] [address] [id number] [address] [place] [address], [place] [address] Sep, [facility] [address] [id number] [address] [place] [address], [place] [address] Aug, [facility] [address] [id number] [address] [place] [address], [place] [address] Aug, [facility] [address] [id number] [address] [place] [address], [place] [address] Aug, [facility] [address] [id number] [address] [place] [address], [place] [address] Aug, [facility] [address] [id number] [address] [place] [address], [place] [address] Aug, [facility] [address] [id number] [address] [place] [address], [place] [address] Aug, [facility] [address] [id number] [address] [place] [address], [place] [address] Feb, [facility] [address] [id number] [address] [place] [address], [place] [address] Sep, [facility] [address] [id number] [address] [place] [address], [place] [address] Sep, [facility] [address] [id number] [address] [place] [address], [place] [address] 08 Aug, 2012 [facility] [address] [id number] [address] [place] [address], [place] [address] Jul, [facility] [address] [id number] [address] [place] [address], [place] [address] Jul, [facility] [address] [id number] [address] [place] [address], [place] [address] Jul, [facility] [address] [id number] [address] [place] [address], [place] [address] Jun, [facility] [address] [id number] [address] [place] [address], [place] [address] Jun, [facility] [address] [id number] [address] [place] [address], [place] [address] Jun, [facility] [address] [id number] [address] [place] [address], [place] [address] Jun, [facility] [address] [id number] [address] [place] [address], [place] [address] Jun, [facility] [address] [id number] [address] [place] [address], [place] [address] Jun, [facility] [address] [id number] [address] [place] [address], [place] [address] Jun, [facility] [address] [id number] [address] [place] [address], [place] [address] Apr, [facility] [address] [id number] [address] [place] [address], [place] [address] Apr, [facility] [address] [id number] [address] [place] [address], [place] [address] 22 Apr, 2012 [facility] [address] [id number] [address] [place] [address], [place] [address] Apr, [facility] [address] [facility] [id number] [address] [place] [id number] Apr, [facility] [address] [facility] [id number] [address] [place] [id number] Apr, IMMUNIZATIONS No Known Immunizations SOCIAL HISTORY [...] Hospitalization History [facility] psychiatric hospitalization Hospitalization History [facility] ization
--- OUTSIDE RECORDS SUMMARY | 2020-02-07 16:51 | XMS REPORT ---
Author Author JUANY Dilan MYRA Organization [facility] Address [address] [place] [address] Care Team Providers Care Die Maintenance Name Role Phone JUANYMYRA RAO Unavailable PROBLEMS Type Condition ICD9-CM Code UKZ74-KG Code Onset Dates Condition S tatus SNOMED Code Problem Bilateral low back pain, with sciatica presence unspecifie d M54.5 Active 655195626 Problem Essential hypertension I10 Active 78433837 Problem Seizure disorder G40.909 Active 128 871215 Problem Generalized anxiety disorder F41.1 A ctive 382050530 Problem Cervicalgia M54.2 Active 74942149 88413 Problem Bipolar disorder, current episode depressed, mild F31.31 Active 177148928 Problem Bipolar disorder, current episode depressed, moderate F31.32 Active 930168025 Problem Post-traumatic stress disorder, unspecified F43.10 Active 28960387 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 11515396 Problem Major depressive disorder, recurrent sev ere without psychotic features F33.2 Active 33163321 Problem Intractable chronic post-traumatic headache G44.32 1 Active 266868655 Problem Chest pain, unspecified chest pain type R07.9 Active 30544839 Problem Major depressive disorder, recurrent episode, un specified severity F33.9 Active 59125856 Problem Sleep walking and eating F51.3 Activ e 68963159 Problem Drug-induced erectile dysfunction N52.2 Active 904908275 Problem Subacromial bursitis of left shoulder joint M75.52 Active 87404924 Problem Tarsal tunnel syndrome of right side G57.51 Active 67294118 Problem Urinary hesitancy R39.11 Active 59 94672 Problem Diabetic polyneuropathy associated with type 2 d iabetes mellitus E11.42 Active 41293561 Problem Bipolar disorder, current episode mixed, moderate F31.62 Active 111354488 Problem Obstructive sleep apnea syndrome G47.33 Active 39095548 Problem Type 2 diabetes mellitus wit h hyperglycemia, without long-term current use of insulin E11.65 Active 09271518 Problem Mixed hyperlipidemia E78.2 Active 535887996 Problem Post-traumatic stress disorder F43.10 Active 78678322 Problem Tarsal tunnel syndrome of both lower extremities G 57.53 Active 51651940504047964 Problem Neurocognitive deficits R29.818 Active 102298747 Problem Bipolar disorder, current ep isode depressed, severe, without psychotic features F31.4 Active 40651407 Problem Post traumatic stress disorder (PTSD) F43.10 Active 33573713 Problem Twitching R25.3 Active 393682928 Problem Cocaine use disorder, severe, dependence F14.20 Active 39685987 Problem Pure hypercholesterolemia E78.0 Acti ve 649568045 Problem Subacromial bursitis of right shoulder joint M75.5 1 Active 6376526721318309 Problem Moderate persistent asthma without complication J4 5.40 Active 056516309 Problem Chronic post-traumatic stress disorder (PTSD) F43. 12 Active 952186278 Problem Bipolar disorder F31.9 Active 137 53122 Problem Cocaine abuse F14.10 Active 250135 03 Problem Bipolar 1 disorder, depressed, severe F31.4 Active 876086827790 Problem Bursitis of left shoulder M75.52 Acti ve [id number] ALLERGIES No Information ENCOUNTERS Encounter Location Date Diagnosis [place] [address] [place] [id number] [place] [address] 12 Sep, 2019 Neuropathic pain M79.2 [place] [address] [place] [id number] [place] [id number] 09 Sep, 2019 Neuropathic pain M79.2 [facility] [address] [place] [id number] [place] [address] 13 Aug, 2019 Diabetic polyneuropathy asso ciated with type 2 diabetes mellitus E11.42 ; Subacromial bursitis of left shoulder joint M75.52 ; Subacromial bursitis of right shoulder joint M75.51 ; Type 2 diabetes mellitus with hyperglycemia, without long-term current use of insulin E11.65 and Encounter for immunization Z23 [facility] [address] [place] [id number] [place] [phone] 10 Aug, 2019 [place] [address] [place] [id number] [place] [address] Aug, [facility] [address] [id number] [address] [place] [address] Aug, Neuropathic pain M79.2 [facility] [address] [id number] [address] [place] [address] Jul, Neuropathic pain M79.2 [facility] [address] [id number] [address] [place] [address] Jun, Neuropathic pain M79.2 [facility] [address] [id number] [address] [place] [address] May, [facility] [address] [id number] [address] [place] [id number] May, Neuropathic pain M79.2 [facility] [address] [id number] [address] [place] [address] May, [facility] [address] [id number] [address] [place] [address] Apr, [facility] [address] [id number] [address] [place] [address] Apr, Neuropathic pain M79.2 [facility] [address] [id number] [address] [place] [phone] Apr, [facility] [address] [id number] [address] [place] [phone] Apr, [facility] [address] [id number] [address] [place] [address] Mar, [facility] [address] [id number] [address] [place] [address] Mar, [facility] [address] [id number] [address] [place] [address] Mar, Neuropathic pain M79.2 [facility] [address] [id number] [address] [place] [address] Mar, Bipolar 1 disorder, depresse d, severe F31.4 and Cocaine use disorder, severe, dependence F14.20 [facility] [address] [id number] [address] [place] [address] 24 Mar, 2019 Neuropathic pain M79.2 [facility] [address] [id number] [address] [place] [id number] 18 Mar, 2019 Neuropathic pain M79.2 [facility] [address] [id number] [address] [place] [id number] 17 Mar, 2019 [facility] [address] [id number] [address] [place] [address] Mar, [facility] [address] [facility] [id number] [address] [place] [address] Feb, Bipolar 1 disorder, depresse d, severe F31.4 [facility] [address] [facility] [id number] [address] [place] [id number] Feb, [facility] [address] [id number] [address] [place] [address] Feb, [facility] [address] [facility] [id number] [address] [place] [address] Feb, Type 2 diabetes mellitus wit h hyperglycemia, without long-term current use of insulin E11.65 ; Bursitis of right shoulder M75.51 and Bursitis of left shoulder M75.52 [facility] [address] [facility] [id number] [address] [place] [address] Feb, Subacromial bursitis of left shoulder joint M75.52 ; Tarsal tunnel syndrome of both lower extremities G57.53 and Subacromial bursitis of right shoulder joint M75.51 [facility] [address] [facility] [id number] [address] [place] [address] Feb, Diabetic polyneuropathy asso ciated with type 2 diabetes mellitus E11.42 ; Mixed hyperlipidemia E78.2 ; Cocaine abuse F14.10 ; Subacromial bursitis of left shoulder joint M75.52 ; Acute pain of right shoulder M25.511 ; Moderate persistent asthma without complication J45.40 and Bipolar 1 disorder, depressed, severe F31.4 [facility] [address] [facility] [id number] [address] [place] [address] Jan, [facility] [address] [facility] [id number] [address] [place] [address] Jan, Essential hypertension I10 ; Type 2 diabetes mellitus with hyperglycemia, without long-term current use of insulin E11.65 and Diabetic polyneuropathy associated with type 2 diabetes mellitus E11.42 [facility] [address] [facility] [id number] [address] [place] [address] Jan, [facility] [address] [facility] [id number] [address] [place] [address] Dec, Bipolar disorder, current ep isode mixed, moderate F31.62 ; Diabetic polyneuropathy associated with type 2 diabetes mellitus E11.42 ; Cocaine abuse F14.10 and Major depressive disorder, recurrent severe without psychotic features F33.2 [facility] [address] [facility] [id number] [address] [place] [address] Dec, Diabetic polyneuropathy asso ciated with type 2 diabetes mellitus E11.42 [facility] [address] [facility] [id number] [address] [place] [address] Dec, [id number] [place] [id number] Dec, [facility] [address] [facility] [id number] [address] [place] [address] Dec, Major depressive disorder, r ecurrent severe without psychotic features F33.2 ; Diabetic polyneuropathy associated with type 2 diabetes mellitus E11.42 and Cocaine abuse F14.10 [facility] [address] [facility] [id number] [address] [place] [address] Dec, [facility] [address] [facility] [id number] [address] [place] [address] November, Post-traumatic stress disord er F43.10 ; Bipolar disorder, current episode mixed, moderate F31.62 ; Cocaine abuse F14.10 ; Generalized anxiety disorder F41.1 and Neurocognitive deficits R29.818 [place] [address] [facility] [id number] [address] [place] [address] November, Pure hypercholesterolemia E7 8.0 [facility] [address] [facility] [id number] [address] [place] [id number] November, [place] [address] [facility] [id number] [address] [place] [address] November, Type 2 diabetes mellitus wit h hyperglycemia, without long-term current use of insulin E11.65 ; Seizure disorder G40.909 ; Major depressive disorder, recurrent severe without psychotic features F33.2 and Cocaine abuse F14.10 [place] [address] [place] [id number] [place] [id number] Oct, Type 2 diabetes mellitus wit h hyperglycemia, without long-term current use of insulin E11.65 [place] [address] [place] [id number] [place] [address] Oct, Post-traumatic stress disord er F43.10 and Bipolar disorder F31.9 [place] [id number] [place] [address] Oct, Subacromial bursitis of left shoulder joint M75.52 and Homicidal ideation R45.850 [facility] [address] [facility] [id number] [place] [phone] Oct, [place] [address] [facility] [id number] [address] [place] [address] Oct, [place] [address] [facility] [id number] [address] [place] [address] Sep, Diabetic polyneuropathy asso ciated with type 2 diabetes mellitus E11.42 [place] [address] [facility] [id number] [address] [place] [address] Aug, Type 2 diabetes mellitus wit h hyperglycemia, without long-term current use of insulin E11.65 [place] [address] [facility] [id number] [address] [place] [address] 13 Aug, 2018 Twitching R25.3 ; Pain of le ft foot M79.672 and Pain in right foot M79.671 [place] [address] [place] [id number] [place] [address] Aug, Diabetic polyneuropathy asso ciated with type 2 diabetes mellitus E11.42 and Essential hypertension I10 [place] [address] [place] [id number] [place] [address] Aug, Type 2 diabetes mellitus wit h hyperglycemia, without long-term current use of insulin E11.65 ; Post-traumatic stress disorder F43.10 ; Bipolar disorder, current episode mixed, moderate F31.62 and Neurocognitive deficits R29.818 [place] [address] [place] [id number] [place] [address] Jul, Bipolar disorder, current ep isode depressed, severe, without psychotic features F31.4 and Post traumatic stress disorder (PTSD) F43.10 [place] [address] [place] [id number] [place] [id number] Jul, Bipolar disorder, current ep isode depressed, severe, without psychotic features F31.4 and Post traumatic stress disorder (PTSD) F43.10 [place] [address] [place] [id number] [place] [address] Jul, [place] [address] [place] [id number] [place] [id number] Jun, [place] [address] [place] [id number] [place] [address] Jun, Tarsal tunnel syndrome of kalyan th lower extremities G57.53 and Diabetic polyneuropathy associated with type 2 diabetes mellitus E11.42 [place] [address] [facility] [id number] [address] [place] [address] May, Bipolar disorder, current ep isode mixed, moderate F31.62 ; Generalized anxiety disorder F41.1 ; Post-traumatic stress disorder F43.10 and Neurocognitive deficits R29.818 [place] [address] [place] [id number] [place] [address] May, [place] [address] [address] May, Bipolar disorder, current ep isode depressed, severe, without psychotic features F31.4 and Post traumatic stress disorder (PTSD) F43.10 [place] [address] [address] May, Subacromial bursitis of left shoulder joint M75.52 [place] [address] [address] May, Diabetic polyneuropathy asso ciated with type 2 diabetes mellitus E11.42 [place] [address] [address] May, [place] [address] [address] May, Medicare annual wellness vis it, initial [...] diabetes mellitus E11.42 and Mixed hyperlipidemia E78.2 [place] [address] [place] [id number] [place] [address] May, [place] [address] [place] [id number] [place] [address] May, Exercise counseling Z71.82 [place] [address] [place] [id number] [place] [address] May, Subacromial bursitis of left shoulder joint M75.52 [place] [address] [place] [id number] [place] [address] May, [facility] [address] [facility] [id number] [address] [place] [address] May, [facility] [address] [facility] [id number] [address] [place] [address] Apr, [facility] [address] [facility] [id number] [address] [place] [address] Apr, Diabetic polyneuropathy asso ciated with type 2 diabetes mellitus E11.42 [facility] [address] [facility] [id number] [address] [place] [address] Apr, Tarsal tunnel syndrome of kalyan th lower extremities G57.53 and Diabetic polyneuropathy associated with type 2 diabetes mellitus E11.42 [place] [address] [place] [id number] [place] [address] Apr, [place] [address] [address] Apr, Subacromial bursitis of left shoulder joint M75.52 [place] [id number] [place] [address] Mar, Type 2 diabetes mellitus wit h hyperglycemia, without long-term current use of insulin E11.65 ; Diabetic polyneuropathy associated with type 2 diabetes mellitus E11.42 ; Bilateral low back pain, with sciatica presence unspecified M54.5 ; Tarsal tunnel syndrome of both lower extremities G57.53 ; Jock itch L29.8 ; Encounter for immunization Z23 and Weight gain R63.5 [place] [id number] [place] [address] Mar, Jock itch L29.8 [place] [address] [address] Mar, Plantar fasciitis, bilateral M72.2 ; Tarsal tunnel syndrome of both lower extremities G57.53 ; Posterior tibial tendinitis of right lower extremity M76.821 and Posterior tibial tendinitis of left lower extremity M76.822 [place] [address] [place] [id number] [place] [address] Mar, Diabetic polyneuropathy asso ciated with type 2 diabetes mellitus E11.42 [facility] [address] [facility] [id number] [address] [place] [address] Mar, Subacromial bursitis of left shoulder joint M75.52 [facility] [address] [facility] [id number] [address] [place] [address] Jan, [facility] [address] [facility] [id number] [address] [place] [address] Jan, [facility] [address] [facility] [id number] [address] [place] [id number] Jan, [facility] [address] [facility] [id number] [address] [place] [address] Jan, [facility] [address] [facility] [id number] [address] [place] [address] Jan, Drug-induced erectile dysfun ction N52.2 [facility] [address] [facility] [id number] [address] [place] [address] Dec, Subacromial bursitis of left shoulder joint M75.52 [facility] [address] [facility] [id number] [address] [place] [address] Dec, Type 2 diabetes mellitus wit h [...] otitis externa of righ t ear H60.391 [facility] [address] [place] [id number] [place] [address] November, [place] [address] [facility] [id number] [address] [place] [address] November, Type 2 diabetes mellitus wit h hyperglycemia, without long-term current use of insulin E11.65 [place] [address] [facility] [id number] [address] [place] [address] November, Subacromial bursitis of left shoulder joint M75.52 [place] [address] [place] [id number] [place] [address] November, Bilateral low back pain, wit h sciatica presence unspecified M54.5 [place] [address] [place] [id number] [place] [address] Oct, Essential hypertension I10 ; Pure hypercholesterolemia E78.0 and At risk for cardiovascular event Z91.89 [place] [address] [address] Oct, Bilateral low back pain, wit h sciatica presence unspecified M54.5 and Subacromial bursitis of left shoulder joint M75.52 [place] [address] [place] [id number] [place] [address] Sep, Subacromial bursitis of left shoulder joint M75.52 [place] [address] [place] [id number] [place] [address] Aug, Subacromial bursitis of left shoulder joint M75.52 [place] [address] [place] [id number] [place] [address] Aug, Essential hypertension I10 [place] [address] [facility] [id number] [address] [place] [address] Jul, Pure hypercholesterolemia E7 8.0 and Jock itch L29.8 [place] [address] [facility] [id number] [address] [place] [address] Jul, Type 2 diabetes mellitus wit h hyperglycemia, without long-term current use of insulin E11.65 [place] [address] [place] [id number] [place] [address] Jul, [facility] [address] [id number] [address] [place] [address] Jul, [facility] [address] [facility] [id number] [address] [place] [address] Jul, [facility] [address] [facility] [id number] [address] [place] [address] Jun, Moderate persistent asthma w ithout complication J45.40 ; Subacromial bursitis of left shoulder joint M75.52 ; Episode of altered consciousness R40.4 and Obstructive sleep apnea syndrome G47.33 [facility] [address] [place] [id number] [place] [address] Jun, Subacromial bursitis of left shoulder joint M75.52 [facility] [address] [place] [id number] [place] [address] May, [facility] [address] [facility] [id number] [address] [place] [address] May, [facility] [address] [facility] [id number] [address] [place] [address] May, Subacromial bursitis of left shoulder joint M75.52 [facility] [address] [place] [id number] [place] [address] May, [facility] [address] [facility] [id number] [address] [place] [id number] Apr, Subacromial bursitis of left shoulder joint M75.52 [facility] [address] [facility] [id number] [address] [place] [address] Apr, Pure hypercholesterolemia E7 8.0 ; Right sided weakness R53.1 ; Episode of altered consciousness R40.4 ; Seizure disorder G40.909 ; Essential hypertension I10 and At risk for cardiovascular event Z91.89 [facility] [place] [address] [place] [id number] [address] [place] [id number] Apr, [place] [id number] [id number] [address] [place] [id number] 18 Apr, 2017 [place] [address] [id number] [address] [place] [id number] 14 Mar, 2017 [place] [address] [id number] [address] [place] [phone] 14 Mar, 2017 [place] [address] [facility] [id number] [address] [place] [phone] 13 Mar, 2017 Type 2 diabetes mellitus wit h hyperglycemia, without long-term current use of insulin E11.65 ; Encounter for immunization Z23 and Subacromial bursitis of left shoulder joint M75.52 [facility] [place] [address] [facility] [id number] [address] [place] [id number] 16 Feb, 2017 Subacromial bursitis of left shoulder joint M75.52 [place] [address] [facility] [id number] [address] [place] [address] Jan, Moderate persistent asthma w [facility] hospital complication J45.40 [place] [address] [id number] [address] [place] [address] Jan, Bipolar disorder, current ep isode depressed, mild F31.31 ; Chronic post-traumatic stress disorder (PTSD) F43.12 and Generalized anxiety disorder F41.1 [place] [address] [facility] [id number] [address] [place] [address] Dec, Type 2 diabetes mellitus wit h hyperglycemia, without long-term current use of insulin E11.65 [place] [address] [id number] [address] [place] [address] November, [place] [address] [facility] [id number] [address] [place] [address] November, Bipolar disorder, current ep isode depressed, mild F31.31 ; Chronic post-traumatic stress disorder (PTSD) F43.12 and Generalized anxiety disorder F41.1 [place] [address] [facility] [id number] [address] [place] [address] November, Type 2 diabetes mellitus wit h hyperglycemia, without long-term current use of insulin E11.65 ; Subacromial bursitis of left shoulder joint M75.52 ; Urinary hesitancy R39.11 ; Tinea cruris B35.6 ; Tinea pedis of both feet B35.3 and Moderate persistent asthma without complication J45.40 [facility] [address] [facility] [id number] [address] [place] [id number] November, [facility] [address] [id number] [address] [place] [id number] November, [facility] [address] [id number] [address] [place] [id number] Oct, [facility] [address] [place] [id number] [address] [place] [id number] Oct, [facility] [address] [place] [id number] [address] [place] [id number] Sep, [facility] [address] [facility] [id number] [address] [place] [id number] Sep, [facility] [address] [facility] [id number] [address] [place] [phone] Sep, [facility] [address] [facility] [id number] [address] [place] [address] Sep, Bipolar disorder, current ep isode mixed, moderate F31.62 ; Generalized anxiety disorder F41.1 and Chronic post-traumatic stress disorder (PTSD) F43.12 [facility] [address] [id number] [address] [place] [id number] Sep, Type 2 diabetes mellitus wit h hyperglycemia, without long-term current use of insulin E11.65 [facility] [address] [facility] [id number] [address] [place] [id number] Sep, [facility] [address] [place] [id number] [address] [place] [address] Aug, Moderate persistent asthma w [facility] hospital complication J45.40 [place] [address] [place] [id number] [address] [place] [address] Aug, [place] [address] [place] [id number] Jul, [place] [address] [address] Jul, Type 2 diabetes mellitus wit h hyperglycemia, without long-term current use of insulin E11.65 [place] [address] [address] Jul, [place] [address] [address] Jul, [place] [address] [address] Jul, [place] [address] [address] Jul, Type 2 diabetes mellitus wit h hyperglycemia, without long-term current use of insulin E11.65 ; Hematuria R31.9 ; Snoring R06.83 ; Sleep walking and eating F51.3 ; Jock itch L29.8 ; Costochondritis M94.0 and Cervicalgia M54.[address] [address] Jun, Urinary hesitancy R39.[address] [address] Jun, Elevated serum glucose R73.9 and Urinary hesitancy R39.11 [place] [address] [address] Jun, Bipolar disorder, current ep isode depressed, mild F31.31 ; Generalized anxiety disorder F41.1 ; Neurocognitive deficits R29.818 and Chronic post-traumatic stress disorder (PTSD) F43.[address] [address] Jun, Elevated serum glucose R73.9 [facility] [address] [place] [id number] [address] [place] [address] Jun, [facility] [address] [place] [id number] [address] [place] [phone] Apr, [facility] [address] [place] [id number] [address] [place] [address] Apr, [facility] [address] [address] Apr, Drug-induced erectile dysfun ction N52.2 and Bilateral low back pain, with sciatica presence unspecified M54.5 [facility] [address] [address] Mar, Tinea versicolor B36.0 and E ncounter for immunization Z23 [facility] [address] [address] Mar, Bipolar 1 disorder, depresse d, severe F31.4 ; Post-traumatic stress disorder F43.10 ; Generalized anxiety disorder F41.1 and Neurocognitive deficits R29.818 [facility] [address] [place] [id number] [address] [place] [address] Feb, [facility] [address] [place] [id number] [address] [place] [address] Feb, [facility] [id number] [place] [address] Feb, [facility] [address] [place] [id number] [address] [place] [address] Feb, Hyperlipidemia E78.5 [facility] [address] [place] [id number] [address] [place] [id number] Feb, [facility] [place] [address] [place] [id number] [address] [place] [address] Jan, Essential hypertension I10 ; Moderate persistent asthma without complication J45.40 ; Pure hypercholesterolemia E78.0 and Auditory hallucinations R44.0 [facility] [address] [place] [id number] [address] [place] [id number] Jan, [facility] [address] [place] [id number] [address] [place] [id number] Dec, [facility] [address] [place] [id number] [place] [address] Dec, [facility] [address] [place] [id number] [place] [address] November, Bipolar disorder, current ep isode mixed, moderate F31.62 ; Post- traumatic stress disorder F43.10 and Generalized anxiety disorder F41.1 [facility] [address] [place] [id number] [address] [place] [id number] November, Visit for dental examination Z01.20 [place] [address] [address] Oct, Uncomplicated asthma, unspec ified asthma severity J45.909 [place] [address] [address] Oct, Uncomplicated asthma, unspec ified asthma severity J45.909 ; Bilateral low back pain, with sciatica presence unspecified M54.5 and Jock itch B35.6 [place] [address] [place] [id number] [address] [place] [address] Oct, [place] [address] [address] Sep, Post-traumatic stress disord er F43.10 ; Generalized anxiety disorder F41.1 ; Neurocognitive deficits R29.818 and Bipolar disorder, current episode depressed, mild F31.31 [facility] [address] [place] [id number] [address] [place] [id number] 18 Sep, 2015 Plantar fasciitis M72.2 [facility] [address] [place] [id number] [address] [place] [address] Sep, Hyperlipidemia E78.5 [facility] [address] [address] Sep, [facility] [address] [address] Sep, [facility] [address] [address] Sep, Essential hypertension I10 a nd Urinary hesitancy R39.11 [facility] [address] [address] Sep, [place] [address] [address] Aug, [place] [address] [address] Aug, Skin nodule R22.9 [place] [address] [address] Aug, Plantar fasciitis M72.2 ; On ychomycosis B35.1 and Tinea pedis B35.3 [place] [address] [address] Aug, Post-traumatic stress disord er F43.10 ; Generalized anxiety disorder F41.1 ; Neurocognitive deficits R29.818 and Bipolar disorder, current episode depressed, moderate F31.32 [facility] [address] [place] [id number] [address] [place] [address] Jul, Metacarpophalangeal joint sp rain S63.659A [facility] [address] [address] Jul, Right hand pain M79.641 [facility] [address] [address] Jun, Right hand pain M79.641 ; Ri ght foot pain M79.671 and Urinary hesitancy R39.11 [place] [address] [facility] [id number] [address] [place] [address] Jun, Bipolar disorder, current ep isode mixed, moderate F31.62 ; Post- traumatic stress disorder F43.10 ; Generalized anxiety disorder F41.1 and Neurocognitive deficits R29.818 [place] [address] [place] [id number] [address] [place] [address] Jun, Right hand pain M79.641 ; Ri ght foot pain M79.671 ; Right ankle pain M25.571 ; Urinary hesitancy R39.11 ; Flat foot [pes planus] (acquired), right foot M21.41 and Pes planus of left foot M21.42 [place] [address] [place] [id number] [place] [address] May, Bipolar disorder, current ep isode mixed, moderate F31.62 ; Post- traumatic stress disorder F43.10 ; Generalized anxiety disorder F41.1 and Neurocognitive deficits R29.818 [place] [address] [place] [id number] [place] [address] May, Right hand pain M79.641 and Essential hypertension I10 [place] [address] [place] [id number] [address] [place] [address] May, Anxiety 300.00 and Depressio n 311 [place] [address] [place] [id number] [address] [place] [address] Apr, [place] [address] [place] [id number] [address] [place] [address] Apr, [place] [address] [place] [id number] [address] [place] [address] Apr, [place] [address] [place] [id number] [address] [place] [address] Apr, [place] [address] [place] [id number] [address] [place] [address] Apr, Bipolar 1 disorder, mixed, m oderate F31.62 ; PTSD (post-traumatic stress disorder) F43.10 ; ROBERT (generalized anxiety disorder) F41.1 and Neurocognitive deficits R29.818 [place] [id number] [address] Apr, Anxiety, generalized F41.1 a nd Major depression, recurrent F33.9 [place] [address] [address] Mar, Influenza vaccine administer ed V04.81 [facility] [address] [place] [id number] [address] [place] [id number] 16 Mar, 2015 Dental examination V72.[address] [address] Feb, [place] [address] [address] Feb, Chronic headache 784.0 and N ightmares 307.47 [place] [address] [address] Feb, [place] [address] [address] Feb, Bipolar 1 disorder, depresse d, moderate 296.52 ; PTSD (post- traumatic stress disorder) 309.81 and ROBERT (generalized anxiety disorder) 300.02 [place] [address] [address] Jan, Acid reflux 530.81 ; Depress ion 311 ; Anxiety 300.00 and Tinnitus 388.30 [place] [address] [address] Jan, Major depression, recurrent 296.30 ; Social phobia 300.23 ; Anxiety, generalized 300.02 ; No condition on [place] II V71.09 ; Post-concussional syndrome 310.2 and Memory difficulties 780.93 [place] [address] [address] Dec, Essential hypertension, gio gn 401.1 [facility] [address] [id number] [address] [place] [address] Dec, Essential hypertension, gio gn 401.1 [facility] [address] [facility] [id number] [address] [place] [id number] 04 Dec, 2014 Cervicalgia 723.1 [facility] [address] [id number] [address] [place] [address] 04 Dec, 2014 Essential hypertension, gio gn 401.1 ; Cervicalgia 723.1 ; Lumbago 724.2 ; Seizure disorder 345.90 ; Chronic headache 784.0 ; Tinnitus 388.30 and Anxiety 300.00 [facility] [address] [id number] [address] [place] [phone] Dec, [facility] [address] [facility] [id number] [address] [place] [id number] Oct, [facility] [address] [id number] [address] [place] [id number] Oct, [facility] [address] [id number] [address] [place] [address] Sep, [facility] [address] [id number] [address] [place] [id number] Sep, [facility] [address] [id number] [address] [place] [id number] Jul, [facility] [address] [id number] [address] [place] [id number] Jul, [facility] [address] [id number] [address] [place] [address] Jul, [facility] [address] [id number] [address] [place] [address] Jul, [facility] [address] [id number] [address] [place] [address] Jul, [facility] [address] [id number] [address] [place] [id number] Jul, [facility] [address] [id number] [address] [place] [address], [place] [address] Jun, [facility] [address] [id number] [address] [place] [address], [place] [address] Jun, [facility] [address] [id number] [address] [place] [address], [place] [address] Jun, [facility] [address] [id number] [address] [place] [address], [place] [address] Jun, [facility] [address] [id number] [address] [place] [address], [place] [address] Jun, [facility] [address] [id number] [address] [place] [address], [place] [address] Jun, [facility] [address] [id number] [address] [place] [address], [place] [address] Jun, [facility] [address] [id number] [address] [place] [address], [place] [address] Jun, [facility] [address] [id number] [address] [place] [address], [place] [address] Apr, [facility] [address] [id number] [address] [place] [address], [place] [address] Apr, [facility] [address] [id number] [address] [place] [address], [place] [address] Apr, [facility] [address] [id number] [address] [place] [address] Apr, [facility] [address] [id number] [address] [place] [address], [place] [address] Mar, [facility] [address] [id number] [address] [place] [address], [place] [address] Mar, [facility] [address] [id number] [address] [place] [address], [place] [address] Feb, [facility] [address] [id number] [address] [place] [address], [place] [address] Feb, [facility] [address] [id number] [address] [place] [address], [place] [address] Feb, [facility] [address] [id number] [address] [place] [address], [place] [address] Feb, [facility] [address] [id number] [address] [place] [address], [place] [address] Feb, [facility] [address] [id number] [address] [place] [address], [place] [address] Feb, [facility] [address] [id number] [address] [place] [address], [place] [address] Feb, [facility] [address] [id number] [address] [place] [address], [place] [address] Feb, [facility] [address] [id number] [address] [place] [address], [place] [id number] Feb, [facility] [address] [id number] [address] [place] [address], [place] [address] Feb, [facility] [address] [id number] [address] [place] [address], [place] [address] Jan, [facility] [address] [id number] [address] [place] [address], [place] [address] Jan, [facility] [address] [place] [address] Jan, [facility] [address] [id number] [address] [place] [address], [place] [address] Jan, [facility] [address] [id number] [address] [place] [address], [place] [address] Dec, [facility] [address] [id number] [address] [place] [address], [place] [address] Dec, [facility] [address] [id number] [address] [place] [address], [place] [address] Dec, [facility] [address] [id number] [address] [place] [address], [place] [address] Dec, [facility] [address] [id number] [address] [place] [address], [place] [address] Oct, [facility] [address] [id number] [address] [place] [address], [place] [address] Oct, [facility] [address] [id number] [address] [place] [address], [place] [address] Sep, [facility] [address] [id number] [address] [place] [address], [place] [address] Sep, [facility] [address] [id number] [address] [place] [address], [place] [address] Aug, [facility] [address] [id number] [address] [place] [address], [place] [address] Aug, [facility] [address] [id number] [address] [place] [address], [place] [address] Aug, [facility] [address] [id number] [address] [place] [address], [place] [address] Aug, [facility] [address] [id number] [address] [place] [address], [place] [address] Aug, [facility] [address] [id number] [address] [place] [address], [place] [address] Aug, [facility] [address] [id number] [address] [place] [address], [place] [address] Feb, [facility] [address] [id number] [address] [place] [address], [place] [address] Sep, [facility] [address] [id number] [address] [place] [address], [place] [address] Sep, [facility] [address] [id number] [address] [place] [address], [place] [address] Aug, [facility] [address] [id number] [address] [place] [address], [place] [address] 14 Jul, 2012 [facility] [address] [id number] [address] [place] [address], [place] [address] Jul, [facility] [address] [id number] [address] [place] [address], [place] [id number] Jul, [facility] [address] [id number] [address] [place] [address], [place] [phone] Jun, [facility] [address] [id number] [address] [place] [address], [place] [id number] Jun, [facility] [address] [id number] [address] [place] [address], [place] [id number] Jun, [facility] [address] [id number] [address] [place] [address], [place] [id number] Jun, [facility] [address] [id number] [address] [place] [address], [place] [id number] Jun, [facility] [address] [id number] [address] [place] [address], [place] [id number] Jun, [facility] [address] [id number] [address] [place] [address], [place] [id number] Jun, [facility] [address] [id number] [address] [place] [address], [place] [id number] Apr, [facility] [address] [id number] [address] [place] [address], [place] [id number] Apr, [facility] [address] [id number] [address] [place] [id number] 22 Apr, 2012 [facility] [address] [id number] [address] [place] [address], [place] [id number] 16 Apr, 2012 [facility] [address] [id number] [address] [place] [id number] Apr, [facility] [address] [id number] [address] [place] [id number] Apr, IMMUNIZATIONS No Known Immunizations SOCIAL HISTORY Never Assessed REASON FOR VISIT Controlled Medication Refill PLAN OF CARE VITAL SIGNS MEDICATIONS Medication Instructions Dosage Frequency Start Date End Date Duration S nesha Lyrica 150 MG Orally Twice a day 1 capsule 12h 13 Dec, 2017 28 days Active RESULTS No Results PROCEDURES No Known [...] [facility] psychiatric hospitalization [facility]
--- OUTSIDE RECORDS SUMMARY | 2020-02-07 16:52 | XMS REPORT ---
Author Author Dilan Mejía Doctor Organization [facility] Address Unknown Phone Unavailable Care Team Providers Care Annual Giving Manager Name Role Phone Migration, Doctor Unavailable Unavailable PROBLEMS Type Condition ICD9-CM Code DTB23-AH Code Onset Dates Condition S tatus SNOMED Code Problem Bilateral low back pain, with sciatica presence unspecifie d M54.5 Active 185361831 Problem Essential hypertension I10 Active 25597425 Problem Seizure disorder G40.909 Active 128 202172 Problem Generalized anxiety disorder F41.1 A ctive 870547217 Problem Cervicalgia M54.2 Active 84439256 81658 Problem Bipolar disorder, current episode depressed, mild F31.31 Active 261053258 Problem Bipolar disorder, current episode depressed, moderate F31.32 Active 761661658 Problem Post-traumatic stress disorder, unspecified F43.10 Active 93894153 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 93860145 Problem Major depressive disorder, recurrent sev ere without psychotic features F33.2 Active 37602089 Problem Intractable chronic post-traumatic headache G44.32 1 Active 329152852 Problem Chest pain, unspecified chest pain type R07.9 Active 46422215 Problem Major depressive disorder, recurrent episode, un specified severity F33.9 Active 30314438 Problem Sleep walking and eating F51.3 Activ e 01704064 Problem Drug-induced erectile dysfunction N52.2 Active 388966756 Problem Subacromial bursitis of left shoulder joint M75.52 Active 06824837 Problem Tarsal tunnel syndrome of right side G57.51 Active 81242274 Problem Urinary hesitancy R39.11 Active 59 89469 Problem Diabetic polyneuropathy associated with type 2 d iabetes mellitus E11.42 Active 13624890 Problem Bipolar disorder, current episode mixed, moderate F31.62 Active 993030989 Problem Obstructive sleep apnea syndrome G47.33 Active 35047894 Problem Type 2 diabetes mellitus wit h hyperglycemia, without long-term current use of insulin E11.65 Active 31044762 Problem Mixed hyperlipidemia E78.2 Active 530557455 Problem Post-traumatic stress disorder F43.10 Active 78582015 Problem Tarsal tunnel syndrome of both lower extremities G 57.53 Active 43225993773092274 Problem Neurocognitive deficits R29.818 Active 055535198 Problem Bipolar disorder, current ep isode depressed, severe, without psychotic features F31.4 Active 23475060 Problem Post traumatic stress disorder (PTSD) F43.10 Active 56527466 Problem Twitching R25.3 Active 400391177 Problem Cocaine use disorder, severe, dependence F14.20 Active 25773558 Problem Pure hypercholesterolemia E78.0 Acti ve 866726461 Problem Subacromial bursitis of right shoulder joint M75.5 1 Active 3402904122616969 Problem Moderate persistent asthma without complication J4 5.40 Active 252660595 Problem Chronic post-traumatic stress disorder (PTSD) F43. 12 Active 186886529 Problem Bipolar disorder F31.9 Active 137 25993 Problem Cocaine abuse F14.10 Active 612433 03 Problem Bipolar 1 disorder, depressed, severe F31.4 Active 079098574502 Problem Bursitis of left shoulder M75.52 Acti ve [id number] ALLERGIES No Information ENCOUNTERS Encounter Location Date Diagnosis [place] [address] [address] Sep, [place] [address] [address] Sep, Neuropathic pain M79.2 [place] [address] [address] 13 Aug, 2019 Diabetic polyneuropathy associated with type 2 diabetes mellitus E11.42 ; Subacromial bursitis of left shoulder joint M75.52 ; Subacromial bursitis of right shoulder joint M75.51 ; Type 2 diabetes mellitus with hyperglycemia, without long-term current use of insulin E11.65 and Encounter for immunization Z23 [place] [address] [address] Aug, [place] [address] [address] Aug, [place] [address] [address] Aug, Neuropathic pain M79.2 [facility] [address] [address] Jul, Neuropathic pain M79.2 [facility] [address] [address] Jun, Neuropathic pain M79.2 [facility] [address] [address] May, [facility] [address] [address] May, Neuropathic pain M79.2 [facility] [address] [address] May, [facility] [address] [address] Apr, [facility] [address] [address] Apr, Neuropathic pain M79.2 [facility] [address] [address] Apr, [facility] [address] [address] Apr, [facility] [address] [address] Mar, [facility] [address] [address] Mar, [facility] [address] [address] Mar, Neuropathic pain M79.2 [facility] [address] [address] Mar, Bipolar 1 disorder, depressed, severe F3 1.4 and Cocaine use disorder, severe, dependence F14.20 [facility] [address] [address] 24 Mar, 2019 Neuropathic pain M79.2 [facility] [address] [address] 18 Mar, 2019 Neuropathic pain M79.2 [place] [address] [address] 17 Mar, 2019 [facility] [address] [address] Mar, [place] [address] [address] Feb, Bipolar 1 disorder, depressed, severe F3 1.4 [place] [address] [address] Feb, [place] [address] [address] Feb, [place] [address] [address] Feb, Type 2 diabetes mellitus with hyperglyce karthikeyan, without long-term current use of insulin E11.65 ; Bursitis of right shoulder M75.51 and Bursitis of left shoulder M75.52 [place] [address] [address] Feb, Subacromial bursitis of left shoulder sanket int M75.52 ; Tarsal tunnel syndrome of both lower extremities G57.53 and Subacromial bursitis of right shoulder joint M75.51 [place] [address] [address] Feb, Diabetic polyneuropathy associated with type 2 diabetes mellitus E11.42 ; Mixed hyperlipidemia E78.2 ; Cocaine abuse F14.10 ; Subacromial bursitis of left shoulder joint M75.52 ; Acute pain of right shoulder M25.511 ; Moderate persistent asthma without complication J45.40 and Bipolar 1 disorder, depressed, severe F31.4 [place] [address] [address] Jan, [place] [address] [address] Jan, Essential hypertension I10 ; Type 2 diab etes mellitus with hyperglycemia, without long-term current use of insulin E11.65 and Diabetic polyneuropathy associated with type 2 diabetes mellitus E11.42 [facility] [address] [address] Jan, [facility] [address] [address] Dec, Bipolar disorder, current episode mixed, moderate F31.62 ; Diabetic polyneuropathy associated with type 2 diabetes mellitus E11.42 ; Cocaine abuse F14.10 and Major depressive disorder, recurrent severe without psychotic features F33.2 [place] [address] [address] Dec, Diabetic polyneuropathy associated with type 2 diabetes mellitus E11.42 [facility] [address] [address] Dec, [address] [place] [address] Dec, [facility] [address] [address] Dec, Major depressive disorder, recurrent sev ere without psychotic features F33.2 ; Diabetic polyneuropathy associated with type 2 diabetes mellitus E11.42 and Cocaine abuse F14.10 [place] [address] [address] Dec, [address] [address] November, Post-traumatic stress disorder F43.10 ; Bipolar disorder, current episode mixed, moderate F31.62 ; Cocaine abuse F14.10 ; Generalized anxiety disorder F41.1 and Neurocognitive deficits R29.818 [place] [address] [address] November, Pure hypercholesterolemia E78.0 [facility] [address] [address] November, [facility] [address] [address] November, Type 2 diabetes mellitus with hyperglyce karthikeyan, without long-term current use of insulin E11.65 ; Seizure disorder G40.909 ; Major depressive disorder, recurrent severe without psychotic features F33.2 and Cocaine abuse F14.10 [place] [address] [address] Oct, Type 2 diabetes mellitus with hyperglyce karthikeyan, without long-term current use of insulin E11.65 [place] [address] [address] Oct, Post-traumatic stress disorder F43.10 an d Bipolar disorder F31.[address] [address] Oct, Subacromial bursitis of left shoulder sanket int M75.52 and Homicidal ideation R45.850 [facility] [address] [facility] [id number] [place] [address] Oct, [place] [address] [address] Oct, [place] [address] [address] Sep, Diabetic polyneuropathy associated with type 2 diabetes mellitus E11.42 [place] [address] [address] Aug, Type 2 diabetes mellitus with hyperglyce karthikeyan, without long-term current use of insulin E11.65 [place] [address] [address] Aug, Twitching R25.3 ; Pain of left foot M79. 672 and Pain in right foot M79.671 [place] [address] [address] Aug, Diabetic polyneuropathy associated with type 2 diabetes mellitus E11.42 and Essential hypertension I10 [place] [address] [address] Aug, Type 2 diabetes mellitus with hyperglyce karthikeyan, without long-term current use of insulin E11.65 ; Post-traumatic stress disorder F43.10 ; Bipolar disorder, current episode mixed, moderate F31.62 and Neurocognitive deficits R29.818 [place] [address] [address] Jul, Bipolar disorder, current episode depres sed, severe, without psychotic features F31.4 and Post traumatic stress disorder (PTSD) F43.10 [place] [address] [place] [id number] Jul, Bipolar disorder, current episode depres sed, severe, without psychotic features F31.4 and Post traumatic stress disorder (PTSD) F43.10 [place] [address] [address] Jul, [place] [address] [address] Jun, [place] [address] [place] [address] Jun, Tarsal tunnel syndrome of both lower ext remities G57.53 and Diabetic polyneuropathy associated with type 2 diabetes mellitus E11.42 [place] [address] [place] [id number] May, Bipolar disorder, current episode mixed, moderate F31.62 ; Generalized anxiety disorder F41.1 ; Post-traumatic stress disorder F43.10 and Neurocognitive deficits R29.818 [place] [address] [address] May, [place] [address] [address] May, Bipolar disorder, current episode depres sed, severe, without psychotic features F31.4 and Post traumatic stress disorder (PTSD) F43.10 [place] [address] [address] May, Subacromial bursitis of left shoulder sanket int M75.52 [place] [address] [address] May, Diabetic polyneuropathy associated with type 2 diabetes mellitus E11.42 [place] [address] [address] May, [place] [address] [address] May, Medicare annual wellness visit, initial Z00.00 ; Encounter for immunization Z23 ; Major depressive disorder, recurrent severe without psychotic features F33.2 ; Essential hypertension I10 ; Seizure disorder G40.909 ; Generalized anxiety disorder F41.1 ; Type 2 diabetes mellitus with hyperglycemia, without long-term current use of insulin E11.65 ; Diabetic polyneuropathy associated with type 2 diabetes mellitus E11.42 and Mixed hyperlipidemia E78.2 [place] [address] [address] May, [place] [address] [address] May, Exercise counseling Z71.82 [place] [address] [address] May, Subacromial bursitis of left shoulder sanket int M75.52 [place] [address] [address] May, [place] [address] [address] May, [place] [address] [address] Apr, [place] [address] [address] Apr, Diabetic polyneuropathy associated with type 2 diabetes mellitus E11.42 [place] [address] [address] Apr, Tarsal tunnel syndrome of both lower ext remities G57.53 and Diabetic polyneuropathy associated with type 2 diabetes mellitus E11.42 [place] [address] [address] Apr, [facility] [address] [address] Apr, Subacromial bursitis of left shoulder sanket int M75.52 [facility] [address] [address] Mar, Type 2 diabetes mellitus with hyperglyce karthikeyan, without long-term current use of insulin E11.65 ; Diabetic polyneuropathy associated with type 2 diabetes mellitus E11.42 ; Bilateral low back pain, with sciatica presence unspecified M54.5 ; Tarsal tunnel syndrome of both lower extremities G57.53 ; Jock itch L29.8 ; Encounter for immunization Z23 and Weight gain R63.5 [place] [address] [address] Mar, Jock itch L29.8 [place] [address] [address] Mar, Plantar fasciitis, bilateral M72.2 ; Tar gema tunnel syndrome of both lower extremities G57.53 ; Posterior tibial tendinitis of right lower extremity M76.821 and Posterior tibial tendinitis of left lower extremity M76.822 [place] [address] [address] Mar, Diabetic polyneuropathy associated with type 2 diabetes mellitus E11.42 [place] [address] [address] Mar, Subacromial bursitis of left shoulder sanket int M75.52 [facility] [address] [address] Jan, [place] [address] [address] Jan, [place] [address] [address] Jan, [place] [address] [address] Jan, [place] [address] [address] Jan, Drug-induced erectile dysfunction N52.2 [place] [address] [address] Dec, Subacromial bursitis of left shoulder sanket int M75.52 [place] [address] [address] Dec, Type 2 diabetes mellitus with hyperglyce karthikeyan, without long-term current use of insulin E11.65 [...] otitis externa of righ t ear H60.391 [place] [address] [address] November, [address] [address] November, Type 2 diabetes mellitus with hyperglyce karthikeyan, without long-term current use of insulin E11.65 [place] [address] [address] November, Subacromial bursitis of left shoulder sanket int M75.52 [place] [address] [address] November, Bilateral low back pain, with sciatica p resence unspecified M54.[address] [address] Oct, Essential hypertension I10 ; Pure hyperc holesterolemia E78.0 and At risk for cardiovascular event Z91.[address] [address] Oct, Bilateral low back pain, with sciatica p resence unspecified M54.5 and Subacromial bursitis of left shoulder joint M75.52 [place] [address] [address] Sep, Subacromial bursitis of left shoulder sanket int M75.52 [place] [address] [address] Aug, Subacromial bursitis of left shoulder sanket int M75.52 [place] [address] [address] Aug, Essential hypertension I10 [place] [address] [address] Jul, Pure hypercholesterolemia E78.0 and Jock itch L29.8 [place] [address] [address] Jul, Type 2 diabetes mellitus with hyperglyce karthikeyan, without long-term current use of insulin E11.65 [place] [address] [address] Jul, [place] [address] [address] Jul, [place] [address] [address] Jul, [place] [address] [address] Jun, Moderate persistent asthma without compl ication J45.40 ; Subacromial bursitis of left shoulder joint M75.52 ; Episode of altered consciousness R40.4 and Obstructive sleep apnea syndrome G47.33 [place] [address] [address] Jun, Subacromial bursitis of left shoulder sanket int M75.52 [place] [address] [address] May, [place] [address] [address] May, [facility] [address] [address] May, Subacromial bursitis of left shoulder sanket int M75.52 [facility] [address] [address] May, [facility] [address] [address] Apr, Subacromial bursitis of left shoulder sanket int M75.52 [facility] [address] [address] Apr, Pure hypercholesterolemia E78.0 ; Right sided weakness R53.1 ; Episode of altered consciousness R40.4 ; Seizure disorder G40.909 ; Essential hypertension I10 and At risk for cardiovascular event Z91.89 [place] [address] [address] Apr, [place] [address] [address] 18 Apr, 2017 [place] [address] [address] 14 Mar, 2017 [place] [address] [address] 14 Mar, 2017 [place] [address] [address] 13 Mar, 2017 Type 2 diabetes mellitus with hyperglyce karthikeyan, without long-term current use of insulin E11.65 ; Encounter for immunization Z23 and Subacromial bursitis of left shoulder joint M75.52 [place] [address] [address] Feb, Subacromial bursitis of left shoulder sanket int M75.52 [place] [address] [address] Jan, Moderate persistent asthma without compl ication J45.40 [place] [address] [address] Jan, Bipolar disorder, current episode depres sed, mild F31.31 ; Chronic post-traumatic stress disorder (PTSD) F43.12 and Generalized anxiety disorder F41.1 [place] [address] [address] Dec, Type 2 diabetes mellitus with hyperglyce karthikeyan, without long-term current use of insulin E11.65 [place] [address] [address] November, [place] [address] [address] November, Bipolar disorder, current episode depres sed, mild F31.31 ; Chronic post-traumatic stress disorder (PTSD) F43.12 and Generalized anxiety disorder F41.1 [place] [address] [address] November, Type 2 diabetes mellitus with hyperglyce karthikeyan, without long-term current use of insulin E11.65 ; Subacromial bursitis of left shoulder joint M75.52 ; Urinary hesitancy R39.11 ; Tinea cruris B35.6 ; Tinea pedis of both feet B35.3 and Moderate persistent asthma without complication J45.40 [place] [address] [address] November, [facility] [address] [address] November, [facility] [address] [address] Oct, [facility] [address] [address] Oct, [place] [address] [address] Sep, [facility] [address] [address] Sep, [facility] [address] [address] Sep, [place] [address] [address] Sep, Bipolar disorder, current episode mixed, moderate F31.62 ; Generalized anxiety disorder F41.1 and Chronic post-traumatic stress disorder (PTSD) F43.12 [place] [address] [address] Sep, Type 2 diabetes mellitus with hyperglyce karthikeyan, without long-term current use of insulin E11.65 [place] [address] [address] Sep, [address] [address] Aug, Moderate persistent asthma without compl ication J45.[address] [address] Aug, [place] [address] [address] Jul, [place] [address] [address] Jul, Type 2 diabetes mellitus with hyperglyce karthikeyan, without long-term current use of insulin E11.65 [place] [address] [address] Jul, [place] [address] [address] Jul, [place] [address] [address] Jul, [address] [address] Jul, Type 2 diabetes mellitus with hyperglyce karthikeyan, without long-term current use of insulin E11.65 ; Hematuria R31.9 ; Snoring R06.83 ; Sleep walking and eating F51.3 ; Jock itch L29.8 ; Costochondritis M94.0 and Cervicalgia M54.2 [place] [id number] [place] [address] Jun, Urinary hesitancy R39.11 [place] [address] [address] Jun, Elevated serum glucose R73.9 and Urinary hesitancy R39.11 [place] [address] [address] Jun, Bipolar disorder, current episode depres sed, mild F31.31 ; Generalized anxiety disorder F41.1 ; Neurocognitive deficits R29.818 and Chronic post- traumatic stress disorder (PTSD) F43.12 [place] [address] [address] Jun, Elevated serum glucose R73.9 [place] [address] [address] Jun, [place] [address] [address] Apr, [place] [address] [address] Apr, [place] [address] [address] Apr, Drug-induced erectile dysfunction N52.2 and Bilateral low back pain, with sciatica presence unspecified M54.5 [place] [address] [address] Mar, Tinea versicolor B36.0 and Encounter for immunization Z23 [place] [address] [address] Mar, Bipolar 1 disorder, depressed, severe F3 1.4 ; Post-traumatic stress disorder F43.10 ; Generalized anxiety disorder F41.1 and Neurocognitive deficits R29.818 [place] [address] [address] Feb, [place] [address] [address] Feb, [place] [address] [address] Feb, [facility] [address] [address] Feb, Hyperlipidemia E78.5 [place] [address] [address] Feb, [facility] [address] [address] Jan, Essential hypertension I10 ; Moderate pe rsistent asthma without complication J45.40 ; Pure hypercholesterolemia E78.0 and Auditory hallucinations R44.0 [place] [address] [address] Jan, [place] [address] [address] Dec, [place] [address] [address] Dec, [place] [address] [address] November, Bipolar disorder, current episode mixed, moderate F31.62 ; Post- traumatic stress disorder F43.10 and Generalized anxiety disorder F41.1 [facility] [address] [place] [id number] [place] [id number] November, Visit for dental examination Z01.20 [place] [address] [address] Oct, Uncomplicated asthma, unspecified asthma severity J45.909 [place] [address] [address] Oct, Uncomplicated asthma, unspecified asthma severity J45.909 ; Bilateral low back pain, with sciatica presence unspecified M54.5 and Jock itch B35.6 [place] [address] [address] Oct, [place] [address] [address] Sep, Post-traumatic stress disorder F43.10 ; Generalized anxiety disorder F41.1 ; Neurocognitive deficits R29.818 and Bipolar disorder, current episode depressed, mild F31.31 [place] [address] [address] Sep, Plantar fasciitis M72.2 [place] [address] [address] Sep, Hyperlipidemia E78.5 [place] [address] [address] Sep, [place] [address] [address] Sep, [place] [address] [address] Sep, Essential hypertension I10 and Urinary h esitancy R39.11 [place] [address] [address] Sep, [place] [address] [address] Aug, [place] [address] [address] Aug, Skin nodule R22.9 [place] [address] [address] Aug, Plantar fasciitis M72.2 ; Onychomycosis B35.1 and Tinea pedis B35.3 [place] [address] [address] Aug, Post-traumatic stress disorder F43.10 ; Generalized anxiety disorder F41.1 ; Neurocognitive deficits R29.818 and Bipolar disorder, current episode depressed, moderate F31.32 [place] [address] [address] Jul, Metacarpophalangeal joint sprain S63.659 [facility] [facility] [address] [facility] [id number] [place] [address] Jul, Right hand pain M79.641 [facility] [address] [address] Jun, Right hand pain M79.641 ; Right foot sandra n M79.671 and Urinary hesitancy R39.11 [facility] [address] [address] Jun, Bipolar disorder, current episode mixed, moderate F31.62 ; Post- traumatic stress disorder F43.10 ; Generalized anxiety disorder F41.1 and Neurocognitive deficits R29.818 [facility] [address] [address] Jun, Right hand pain M79.641 ; Right foot sandra n M79.671 ; Right ankle pain M25.571 ; Urinary hesitancy R39.11 ; Flat foot [pes planus] (acquired), right foot M21.41 and Pes planus of left foot M21.42 [place] [address] [address] May, Bipolar disorder, current episode mixed, moderate F31.62 ; Post- traumatic stress disorder F43.10 ; Generalized anxiety disorder F41.1 and Neurocognitive deficits R29.818 [place] [address] [address] May, Right hand pain M79.641 and Essential hy pertension I10 [place] [address] [address] May, Anxiety 300.00 and Depression 311 [place] [address] [address] Apr, [place] [address] [address] Apr, [place] [address] [address] Apr, [place] [address] [address] Apr, [place] [address] Apr, Bipolar 1 disorder, mixed, moderate F31. 62 ; PTSD (post-traumatic stress disorder) F43.10 ; ROBERT (generalized anxiety disorder) F41.1 and Neurocognitive deficits R29.[address] [address] Apr, Anxiety, generalized F41.1 and Major dep ression, recurrent F33.[address] [address] Mar, Influenza vaccine administered V04.81 [facility] [address] [id number] [place] [id number] Mar, Dental examination V72.[address] [address] Feb, [address] [address] Feb, Chronic headache 784.0 and Nightmares [address] [address] Feb, [address] [address] Feb, Bipolar 1 disorder, depressed, moderate 296.52 ; PTSD (post-traumatic stress disorder) 309.81 and ROBERT (generalized anxiety disorder) 300.[address] [address] Jan, Acid reflux 530.81 ; Depression 311 ; An xiety 300.00 and Tinnitus 388.[address] [address] Jan, Major depression, recurrent 296.30 ; Soc ial phobia 300.23 ; Anxiety, generalized 300.02 ; No condition on [place] II V71.09 ; Post-concussional syndrome 310.2 and Memory difficulties 780.93 [facility] [address] [address] 15 Dec, 2014 Essential hypertension, benign 401.1 [facility] [address] [address] 10 Dec, 2014 Essential hypertension, benign 401.1 [facility] [address] [address] Dec, Cervicalgia 723.1 [facility] [address] [address] Dec, Essential hypertension, benign 401.1 ; C ervicalgia 723.1 ; Lumbago 724.2 ; Seizure disorder 345.90 ; Chronic headache 784.0 ; Tinnitus 388.30 and Anxiety 300.00 [facility] [address] [address] Dec, [facility] [address] [address] Oct, [facility] [address] [address] Oct, [facility] [address] [address] Sep, [facility] [address] [address] Sep, [facility] [address] [address] Jul, [facility] [address] [address] Jul, [facility] [address] [address] Jul, [facility] [address] [address] Jul, [facility] [address] [address] Jul, [facility] [address] [id number] [place] [address] Jul, [facility] [address] [id number] [place] [address] Jun, [facility] [address] [id number] [place] [address] Jun, [facility] [address] [id number] [place] [address] Jun, [facility] [address] [id number] [place] [address] Jun, [facility] [address] [id number] [place] [address] Jun, [facility] [address] [id number] [place] [address] Jun, [facility] [address] [id number] [place] [address] Jun, [facility] [address] [id number] [place] [address] Jun, [facility] [address] [id number] [place] [address] Apr, [facility] [address] [id number] [place] [address] Apr, [facility] [address] [id number] [place] [address] Apr, [facility] [address] [id number] [place] [address] Apr, [facility] [address] [id number] [place] [address] Mar, [facility] [address] [id number] [place] [address] Mar, [facility] [address] [id number] [place] [address] Feb, [facility] [address] [id number] [place] [address] Feb, [facility] [address] [facility] [id number] [place] [address] Feb, [facility] [address] [id number] [facility] [place] [address] Feb, [facility] [address] [id number] [place] [address] Feb, [facility] [address] [id number] [place] [address] Feb, [facility] [address] [id number] [place] [address] Feb, [facility] [address] [id number] [place] [address] Feb, [facility] [address] [id number] [place] [address] Feb, [facility] [address] [id number] [place] [address] Feb, [facility] [address] [id number] [place] [address] Jan, [facility] [address] [id number] [place] [address] Jan, [facility] [address] [place] [address] Jan, [facility] [address] [id number] [place] [address] Jan, [facility] [address] [id number] [place] [address] Dec, [facility] [address] [id number] [place] [address] Dec, [facility] [address] [id number] [place] [address] Dec, [facility] [address] [id number] [place] [address] Dec, [facility] [address] [id number] [place] [address] Oct, [facility] [address] [facility] [id number] [place] [address] Oct, [facility] [address] [id number] [place] [address] Sep, [facility] [address] [id number] [place] [address] Sep, [facility] [address] [id number] [place] [address] Aug, [facility] [address] [id number] [place] [address] Aug, [facility] [address] [id number] [place] [address] Aug, [facility] [address] [id number] [place] [address] Aug, [facility] [address] [id number] [place] [address] Aug, [facility] [address] [id number] [place] [address] Aug, [facility] [address] [id number] [place] [address] Feb, [facility] [address] [id number] [place] [address] Sep, [facility] [address] [id number] [place] [address] Sep, [facility] [address] [id number] [place] [address] Aug, [facility] [address] [id number] [place] [address] Jul, [facility] [address] [id number] [place] [address] Jul, [facility] [address] [id number] [place] [address] Jul, [facility] [address] [id number] [place] [address] Jun, [facility] [address] [place] [id number] [place] [address] Jun, [facility] [address] [id number] [place] [address] Jun, [facility] [address] [place] [id number] [place] [address] Jun, [facility] [address] [place] [id number] [place] [address] Jun, [facility] [address] [place] [id number] [place] [address] Jun, [facility] [address] [place] [id number] [place] [address] Jun, [facility] [address] [place] [id number] [place] [address] Apr, [facility] [address] [place] [id number] [place] [address] Apr, [facility] [address] [place] [id number] [place] [address] Apr, [facility] [address] [place] [id number] [place] [address] Apr, [facility] [address] [place] [id number] [place] [address] Apr, [facility] [address] [place] [id number] [place] [address] Apr, IMMUNIZATIONS No Known Immunizations SOCIAL HISTORY [...] Hospitalization History Hospitalization for surgery Hospitalization History [facility] psychiatric hospitalization Hospitalization History [facility] ization
--- OUTSIDE RECORDS SUMMARY | 2020-02-07 16:52 | XMS REPORT ---
Author Author Dilan Mejía Doctor Organization [facility] Address Unknown Phone Unavailable Care Team Providers Care Director Of Elementary Education Name Role Phone Migration, Doctor Unavailable Unavailable PROBLEMS Type Condition ICD9-CM Code [id number] Code Onset Dates Condition S tatus SNOMED Code Problem Bilateral low back pain, with sciatica presence unspecifie d M54.5 Active 541041842 Problem Essential hypertension I10 Active 17605711 Problem Seizure disorder G40.909 Active 128 289963 Problem Generalized anxiety disorder F41.1 A ctive 028875786 Problem Cervicalgia M54.2 Active 38143925 79883 Problem Bipolar disorder, current episode depressed, mild F31.31 Active 525074932 Problem Bipolar disorder, current episode depressed, moderate F31.32 Active 390053966 Problem Post-traumatic stress disorder, unspecified F43.10 Active 13276971 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 25333624 Problem Major depressive disorder, recurrent sev ere without psychotic features F33.2 Active 29071971 Problem Intractable chronic post-traumatic headache G44.32 1 Active 352404985 Problem Chest pain, unspecified chest pain type R07.9 Active 23518489 Problem Major depressive disorder, recurrent episode, un specified severity F33.9 Active 36953963 Problem Sleep walking and eating F51.3 Activ e 28221817 Problem Drug-induced erectile dysfunction N52.2 Active 061563671 Problem Subacromial bursitis of left shoulder joint M75.52 Active 45248135 Problem Tarsal tunnel syndrome of right side G57.51 Active 88998096 Problem Urinary hesitancy R39.11 Active 59 75909 Problem Diabetic polyneuropathy associated with type 2 d iabetes mellitus E11.42 Active 00571553 Problem Bipolar disorder, current episode mixed, moderate F31.62 Active 000748925 Problem Obstructive sleep apnea syndrome G47.33 Active 36802241 Problem Type 2 diabetes mellitus wit h hyperglycemia, without long-term current use of insulin E11.65 Active 89258303 Problem Mixed hyperlipidemia E78.2 Active 596065001 Problem Post-traumatic stress disorder F43.10 Active 40017318 Problem Tarsal tunnel syndrome of both lower extremities G 57.53 Active 57044432917816643 Problem Neurocognitive deficits R29.818 Active 104550277 Problem Bipolar disorder, current ep isode depressed, severe, without psychotic features F31.4 Active 75530378 Problem Post traumatic stress disorder (PTSD) F43.10 Active 73991434 Problem Twitching R25.3 Active 292653058 Problem Cocaine use disorder, severe, dependence F14.20 Active 02149769 Problem Pure hypercholesterolemia E78.0 Acti ve 146931875 Problem Subacromial bursitis of right shoulder joint M75.5 1 Active 9875414071262206 Problem Moderate persistent asthma without complication J4 5.40 Active 685038261 Problem Chronic post-traumatic stress disorder (PTSD) F43. 12 Active 437041395 Problem Bipolar disorder F31.9 Active 137 23810 Problem Cocaine abuse F14.10 Active 975639 03 Problem Bipolar 1 disorder, depressed, severe F31.4 Active 286456953410 Problem Bursitis of left shoulder M75.52 Acti ve [id number] ALLERGIES No Information ENCOUNTERS Encounter Location Date Diagnosis [place] [address] [address] Sep, Neuropathic pain M79.2 [place] [address] [address] Sep, Neuropathic pain M79.2 [place] [address] [address] 13 Aug, 2019 Diabetic polyneuropathy associated with type 2 diabetes mellitus E11.42 ; Subacromial bursitis of left shoulder joint M75.52 ; Subacromial bursitis of right shoulder joint M75.51 ; Type 2 diabetes mellitus with hyperglycemia, without long-term current use of insulin E11.65 and Encounter for immunization Z23 [place] [address] [address] Aug, [place] [address] [address] Aug, [place] [address] [address] Aug, Neuropathic pain M79.2 [facility] [address] [place] [id number] [place] [address] Jul, Neuropathic pain M79.2 [facility] [address] [place] [address] [id number] [place] [address] Jun, Neuropathic pain M79.2 [facility] [id number] [place] [address] May, [facility] [address] [address] May, Neuropathic pain M79.2 [facility] [address] [address] May, [facility] [address] [address] Apr, [facility] [address] [address] Apr, Neuropathic pain M79.2 [facility] [address] [address] Apr, [facility] [address] [address] Apr, [facility] [address] [place] [id number] [place] [address] Mar, [facility] [address] [address] Mar, [facility] [address] [address] Mar, Neuropathic pain M79.2 [facility] [address] [place] [address] [id number] [place] [address] Mar, Bipolar 1 disorder, depressed, severe F3 1.4 and Cocaine use disorder, severe, dependence F14.20 [facility] [address] [place] [address] [id number] [place] [address] 24 Mar, 2019 Neuropathic pain M79.2 [facility] [address] [address] 18 Mar, 2019 Neuropathic pain M79.2 [place] [address] [address] 17 Mar, 2019 [facility] [address] [address] Mar, [place] [address] [address] Feb, Bipolar 1 disorder, depressed, severe F3 1.4 [place] [address] [address] Feb, [place] [address] [address] Feb, [place] [address] [address] Feb, Type 2 diabetes mellitus with hyperglyce karthikeyan, without long-term current use of insulin E11.65 ; Bursitis of right shoulder M75.51 and Bursitis of left shoulder M75.52 [place] [address] [address] Feb, Subacromial bursitis of left shoulder sanket int M75.52 ; Tarsal tunnel syndrome of both lower extremities G57.53 and Subacromial bursitis of right shoulder joint M75.51 [place] [address] [address] Feb, Diabetic polyneuropathy associated with type 2 diabetes mellitus E11.42 ; Mixed hyperlipidemia E78.2 ; Cocaine abuse F14.10 ; Subacromial bursitis of left shoulder joint M75.52 ; Acute pain of right shoulder M25.511 ; Moderate persistent asthma without complication J45.40 and Bipolar 1 disorder, depressed, severe F31.4 [place] [address] [address] Jan, [place] [address] [address] Jan, Essential hypertension I10 ; Type 2 diab etes mellitus with hyperglycemia, without long-term current use of insulin E11.65 and Diabetic polyneuropathy associated with type 2 diabetes mellitus E11.42 [place] [address] [address] Jan, [facility] [address] [address] Dec, Bipolar disorder, current episode mixed, moderate F31.62 ; Diabetic polyneuropathy associated with type 2 diabetes mellitus E11.42 ; Cocaine abuse F14.10 and Major depressive disorder, recurrent severe without psychotic features F33.2 [place] [address] [address] Dec, Diabetic polyneuropathy associated with type 2 diabetes mellitus E11.42 [place] [address] [address] Dec, [address] [place] [address] Dec, [place] [address] [address] Dec, Major depressive disorder, recurrent sev ere without psychotic features F33.2 ; Diabetic polyneuropathy associated with type 2 diabetes mellitus E11.42 and Cocaine abuse F14.10 [place] [address] [place] [id number] [place] [address] Dec, [place] [address] [address] November, Post-traumatic stress disorder F43.10 ; Bipolar disorder, current episode mixed, moderate F31.62 ; Cocaine abuse F14.10 ; Generalized anxiety disorder F41.1 and Neurocognitive deficits R29.818 [place] [address] [address] November, Pure hypercholesterolemia E78.0 [place] [address] [address] November, [place] [address] [address] November, Type 2 diabetes mellitus with hyperglyce karthikeyan, without long-term current use of insulin E11.65 ; Seizure disorder G40.909 ; Major depressive disorder, recurrent severe without psychotic features F33.2 and Cocaine abuse F14.10 [place] [address] [address] Oct, Type 2 diabetes mellitus with hyperglyce karthikeyan, without long-term current use of insulin E11.65 [place] [address] [address] Oct, Post-traumatic stress disorder F43.10 an d Bipolar disorder F31.[address] [address] Oct, Subacromial bursitis of left shoulder sanket int M75.52 and Homicidal ideation R45.850 [facility] [address] [facility] [id number] [place] [address] Oct, [place] [address] [address] Oct, [place] [address] [address] Sep, Diabetic polyneuropathy associated with type 2 diabetes mellitus E11.[address] [address] Aug, Type 2 diabetes mellitus with hyperglyce karthikeyan, without long-term current use of insulin E11.65 [place] [address] [address] Aug, Twitching R25.3 ; Pain of left foot M79. 672 and Pain in right foot M79.[address] [address] Aug, Diabetic polyneuropathy associated with type 2 diabetes mellitus E11.42 and Essential hypertension I10 [address] [address] Aug, Type 2 diabetes mellitus with hyperglyce karthikeyan, without long-term current use of insulin E11.65 ; Post-traumatic stress disorder F43.10 ; Bipolar disorder, current episode mixed, moderate F31.62 and Neurocognitive deficits R29.818 [place] [address] [place] [address] Jul, Bipolar disorder, current episode depres sed, severe, without psychotic features F31.4 and Post traumatic stress disorder (PTSD) F43.10 [place] [address] [place] [address] Jul, Bipolar disorder, current episode depres sed, severe, without psychotic features F31.4 and Post traumatic stress disorder (PTSD) F43.10 [place] [address] [place] [address] Jul, [place] [address] [place] [address] Jun, [address] Jun, Tarsal tunnel syndrome of both lower ext remities G57.53 and Diabetic polyneuropathy associated with type 2 diabetes mellitus E11.42 [place] [address] [address] May, Bipolar disorder, current episode mixed, moderate F31.62 ; Generalized anxiety disorder F41.1 ; Post-traumatic stress disorder F43.10 and Neurocognitive deficits R29.818 [place] [address] [address] May, [address] [address] May, Bipolar disorder, current episode depres sed, severe, without psychotic features F31.4 and Post traumatic stress disorder (PTSD) F43.10 [place] [address] [address] May, Subacromial bursitis of left shoulder sanket int M75.52 [place] [address] [address] May, Diabetic polyneuropathy associated with type 2 diabetes mellitus E11.42 [place] [address] [address] May, [place] [address] [address] May, Medicare annual wellness visit, initial Z00.00 ; Encounter for immunization Z23 ; Major depressive disorder, recurrent severe without psychotic features F33.2 ; Essential hypertension I10 ; Seizure disorder G40.909 ; Generalized anxiety disorder F41.1 ; Type 2 diabetes mellitus with hyperglycemia, without long-term current use of insulin E11.65 ; Diabetic polyneuropathy associated with type 2 diabetes mellitus E11.42 and Mixed hyperlipidemia E78.2 [place] [address] [address] 18 May, 2018 [place] [address] [address] May, Exercise counseling Z71.82 [place] [address] [address] 14 May, 2018 Subacromial bursitis of left shoulder sanket int M75.52 [place] [address] [address] 06 May, 2018 [place] [address] [address] May, [place] [address] [address] Apr, [place] [address] [address] Apr, Diabetic polyneuropathy associated with type 2 diabetes mellitus E11.42 [place] [address] [address] Apr, Tarsal tunnel syndrome of both lower ext remities G57.53 and Diabetic polyneuropathy associated with type 2 diabetes mellitus E11.42 [place] [address] [address] Apr, [facility] [address] [address] Apr, Subacromial bursitis of left shoulder sanket int M75.52 [facility] [address] [address] Mar, Type 2 diabetes mellitus with hyperglyce karthikeyan, without long-term current use of insulin E11.65 ; Diabetic polyneuropathy associated with type 2 diabetes mellitus E11.42 ; Bilateral low back pain, with sciatica presence unspecified M54.5 ; Tarsal tunnel syndrome of both lower extremities G57.53 ; Jock itch L29.8 ; Encounter for immunization Z23 and Weight gain R63.5 [place] [address] [address] Mar, Jock itch L29.8 [place] [address] [address] Mar, Plantar fasciitis, bilateral M72.2 ; Tar gema tunnel syndrome of both lower extremities G57.53 ; Posterior tibial tendinitis of right lower extremity M76.821 and Posterior tibial tendinitis of left lower extremity M76.822 [place] [address] [address] Mar, Diabetic polyneuropathy associated with type 2 diabetes mellitus E11.42 [place] [address] [address] Mar, Subacromial bursitis of left shoulder sanket int M75.52 [facility] [address] [address] Jan, [facility] [address] [address] Jan, [facility] [address] [address] Jan, [facility] [address] [address] Jan, [place] [address] [address] Jan, Drug-induced erectile dysfunction N52.2 [place] [address] [address] Dec, Subacromial bursitis of left shoulder sanket int M75.52 [place] [address] [address] Dec, Type 2 diabetes mellitus with hyperglyce [...] otitis externa of righ t ear H60.391 [place] [address] [address] November, [place] [address] [address] November, Type 2 diabetes mellitus with hyperglyce karthikeyan, without long-term current use of insulin E11.65 [place] [address] [address] November, Subacromial bursitis of left shoulder sanket int M75.52 [place] [address] [address] November, Bilateral low back pain, with sciatica p resence unspecified M54.5 [place] [address] [address] Oct, Essential hypertension I10 ; Pure hyperc holesterolemia E78.0 and At risk for cardiovascular event Z91.89 [place] [address] [address] Oct, Bilateral low back pain, with sciatica p resence unspecified M54.5 and Subacromial bursitis of left shoulder joint M75.52 [place] [address] [address] Sep, Subacromial bursitis of left shoulder sanket int M75.52 [place] [address] [address] Aug, Subacromial bursitis of left shoulder sanket int M75.52 [place] [address] [address] Aug, Essential hypertension I10 [place] [address] [address] Jul, Pure hypercholesterolemia E78.0 and Jock itch L29.8 [place] [address] [address] Jul, Type 2 diabetes mellitus with hyperglyce karthikeyan, without long-term current use of insulin E11.65 [place] [address] [address] Jul, [place] [address] [address] Jul, [place] [address] [address] Jul, [place] [address] [address] Jun, Moderate persistent asthma without compl ication J45.40 ; Subacromial bursitis of left shoulder joint M75.52 ; Episode of altered consciousness R40.4 and Obstructive sleep apnea syndrome G47.33 [place] [address] [address] Jun, Subacromial bursitis of left shoulder sanket int M75.52 [place] [address] [address] May, [place] [address] [address] May, [facility] [address] [address] May, Subacromial bursitis of left shoulder sanket int M75.52 [place] [address] [address] May, [place] [address] [address] Apr, Subacromial bursitis of left shoulder sanket int M75.52 [place] [address] [address] Apr, Pure hypercholesterolemia E78.0 ; Right sided weakness R53.1 ; Episode of altered consciousness R40.4 ; Seizure disorder G40.909 ; Essential hypertension I10 and At risk for cardiovascular event Z91.[address] [address] Apr, [place] [address] [address] 18 Apr, [address] [address] 14 Mar, 2017 [place] [address] [address] 14 Mar, [address] [address] 13 Mar, 2017 Type 2 diabetes mellitus with hyperglyce karthikeyan, without long-term current use of insulin E11.65 ; Encounter for immunization Z23 and Subacromial bursitis of left shoulder joint M75.[address] [address] Feb, Subacromial bursitis of left shoulder sanket int M75.52 [place] [address] [address] Jan, Moderate persistent asthma without compl ication J45.40 [address] [place] [address] Jan, Bipolar disorder, current episode depres sed, mild F31.31 ; Chronic post-traumatic stress disorder (PTSD) F43.12 and Generalized anxiety disorder F41.1 [facility] [address] [address] Dec, Type 2 diabetes mellitus with hyperglyce karthikeyan, without long-term current use of insulin E11.65 [place] [address] [address] November, [place] [address] [address] November, Bipolar disorder, current episode depres sed, mild F31.31 ; Chronic post-traumatic stress disorder (PTSD) F43.12 and Generalized anxiety disorder F41.1 [place] [address] [address] November, Type 2 diabetes mellitus with hyperglyce karthikeyan, without long-term current use of insulin E11.65 ; Subacromial bursitis of left shoulder joint M75.52 ; Urinary hesitancy R39.11 ; Tinea cruris B35.6 ; Tinea pedis of both feet B35.3 and Moderate persistent asthma without complication J45.40 [place] [address] [address] November, [place] [address] [address] November, [place] [address] [address] Oct, [place] [address] [address] Oct, [place] [address] [address] Sep, [place] [address] [address] Sep, [place] [address] [address] Sep, [place] [address] [address] Sep, Bipolar disorder, current episode mixed, moderate F31.62 ; Generalized anxiety disorder F41.1 and Chronic post-traumatic stress disorder (PTSD) F43.12 [place] [address] [address] Sep, Type 2 diabetes mellitus with hyperglyce karthikeyan, without long-term current use of insulin E11.65 [place] [address] [address] Sep, [place] [address] [address] Aug, Moderate persistent asthma without compl ication J45.40 [place] [address] [address] Aug, [place] [address] [address] Jul, [place] [address] [address] Jul, Type 2 diabetes mellitus with hyperglyce karthikeyan, without long-term current use of insulin E11.65 [place] [address] [address] Jul, [place] [address] [address] Jul, [place] [address] [address] Jul, [place] [address] [address] Jul, Type 2 diabetes mellitus with hyperglyce karthikeyan, without long-term current use of insulin E11.65 ; Hematuria R31.9 ; Snoring R06.83 ; Sleep walking and eating F51.3 ; Jock itch L29.8 ; Costochondritis M94.0 and Cervicalgia M54.2 [place] [address] [address] Jun, Urinary hesitancy R39.11 [place] [address] [address] Jun, Elevated serum glucose R73.9 and Urinary hesitancy R39.11 [place] [address] [address] Jun, Bipolar disorder, current episode depres sed, mild F31.31 ; Generalized anxiety disorder F41.1 ; Neurocognitive deficits R29.818 and Chronic post- traumatic stress disorder (PTSD) F43.12 [place] [address] [address] Jun, Elevated serum glucose R73.9 [place] [address] [address] Jun, [place] [address] [address] Apr, [place] [address] [address] Apr, [place] [address] [address] Apr, Drug-induced erectile dysfunction N52.2 and Bilateral low back pain, with sciatica presence unspecified M54.5 [place] [address] [address] Mar, Tinea versicolor B36.0 and Encounter for immunization Z23 [place] [address] [address] Mar, Bipolar 1 disorder, depressed, severe F3 1.4 ; Post-traumatic stress disorder F43.10 ; Generalized anxiety disorder F41.1 and Neurocognitive deficits R29.818 [place] [address] [address] Feb, [place] [address] [address] Feb, [facility] [address] [address] Feb, [facility] [address] [address] Feb, Hyperlipidemia E78.5 [place] [address] [address] Feb, [place] [address] [address] Jan, Essential hypertension I10 ; Moderate pe rsistent asthma without complication J45.40 ; Pure hypercholesterolemia E78.0 and Auditory hallucinations R44.0 [place] [address] [address] Jan, [place] [address] [address] Dec, [place] [address] [address] Dec, [place] [address] [address] November, Bipolar disorder, current episode mixed, moderate F31.62 ; Post- traumatic stress disorder F43.10 and Generalized anxiety disorder F41.1 [facility] [address] [id number] [place] [id number] November, Visit for dental examination Z01.20 [place] [address] [place] [id number] [place] [address] Oct, Uncomplicated asthma, unspecified asthma severity J45.909 [place] [address] [address] Oct, Uncomplicated asthma, unspecified asthma severity J45.909 ; Bilateral low back pain, with sciatica presence unspecified M54.5 and Jock itch B35.6 [place] [address] [address] Oct, [facility] [address] [address] Sep, Post-traumatic stress disorder F43.10 ; Generalized anxiety disorder F41.1 ; Neurocognitive deficits R29.818 and Bipolar disorder, current episode depressed, mild F31.31 [place] [address] [address] Sep, Plantar fasciitis M72.2 [place] [address] [address] Sep, Hyperlipidemia E78.5 [place] [address] [address] Sep, [place] [address] [address] Sep, [place] [address] [address] Sep, Essential hypertension I10 and Urinary h esitancy R39.11 [place] [address] [address] Sep, [place] [address] [address] Aug, [place] [address] [address] Aug, Skin nodule R22.9 [place] [address] [address] Aug, Plantar fasciitis M72.2 ; Onychomycosis B35.1 and Tinea pedis B35.3 [place] [address] [address] Aug, Post-traumatic stress disorder F43.10 ; Generalized anxiety disorder F41.1 ; Neurocognitive deficits R29.818 and Bipolar disorder, current episode depressed, moderate F31.32 [place] [address] [address] Jul, Metacarpophalangeal joint sprain S63.659 [facility] [address] [facility] [id number] [place] [address] Jul, Right hand pain M79.641 [facility] [address] [address] Jun, Right hand pain M79.641 ; Right foot sandra n M79.671 and Urinary hesitancy R39.11 [facility] [address] [address] Jun, Bipolar disorder, current episode mixed, moderate F31.62 ; Post- traumatic stress disorder F43.10 ; Generalized anxiety disorder F41.1 and Neurocognitive deficits R29.818 [place] [address] [address] Jun, Right hand pain M79.641 ; Right foot sandra n M79.671 ; Right ankle pain M25.571 ; Urinary hesitancy R39.11 ; Flat foot [pes planus] (acquired), right foot M21.41 and Pes planus of left foot M21.42 [place] [address] [address] May, Bipolar disorder, current episode mixed, moderate F31.62 ; Post- traumatic stress disorder F43.10 ; Generalized anxiety disorder F41.1 and Neurocognitive deficits R29.818 [place] [address] [address] May, Right hand pain M79.641 and Essential hy pertension I10 [place] [address] [address] May, Anxiety 300.00 and Depression 311 [place] [address] [address] Apr, [place] [address] [address] Apr, [place] [address] [address] Apr, [place] [address] [address] Apr, [place] [address] Apr, Bipolar 1 disorder, mixed, moderate F31. 62 ; PTSD (post-traumatic stress disorder) F43.10 ; ROBERT (generalized anxiety disorder) F41.1 and Neurocognitive deficits R29.[address] [address] Apr, Anxiety, generalized F41.1 and Major dep ression, recurrent F33.[address] [address] Mar, Influenza vaccine administered V04.81 [facility] [address] [id number] [place] [id number] 16 Mar, 2015 Dental examination V72.[address] [address] Feb, [address] [address] Feb, Chronic headache 784.0 and Nightmares [address] [address] Feb, [address] [address] Feb, Bipolar 1 disorder, depressed, moderate 296.52 ; PTSD (post-traumatic stress disorder) 309.81 and ROBERT (generalized anxiety disorder) 300.[address] [address] Jan, Acid reflux 530.81 ; Depression 311 ; An xiety 300.00 and Tinnitus 388.[address] [address] Jan, Major depression, recurrent 296.30 ; Soc ial phobia 300.23 ; Anxiety, generalized 300.02 ; No condition on Traer II V71.09 ; Post-concussional syndrome 310.2 and Memory difficulties 780.93 [facility] [address] [address] 15 Dec, 2014 Essential hypertension, benign 401.1 [facility] [address] [address] 10 Dec, 2014 Essential hypertension, benign 401.1 [facility] [address] [address] Dec, Cervicalgia 723.1 [facility] [address] [address] Dec, Essential hypertension, benign 401.1 ; C ervicalgia 723.1 ; Lumbago 724.2 ; Seizure disorder 345.90 ; Chronic headache 784.0 ; Tinnitus 388.30 and Anxiety 300.00 [facility] [address] [address] Dec, [facility] [address] [address] Oct, [facility] [address] [address] Oct, [facility] [address] [address] Sep, [facility] [address] [address] Sep, [facility] [address] [address] Jul, [facility] [address] [address] Jul, [facility] [address] [address] Jul, [facility] [address] [address] Jul, [facility] [address] [address] Jul, [facility] [address] [id number] [place] [address] Jul, [facility] [address] [id number] [place] [address] Jun, [facility] [address] [id number] [place] [address] Jun, [facility] [address] [id number] [place] [address] Jun, [facility] [address] [facility] [id number] [place] [address] Jun, [facility] [address] [id number] [place] [address] Jun, [facility] [address] [id number] [place] [address] Jun, [facility] [address] [id number] [place] [address] Jun, [facility] [address] [id number] [place] [address] Jun, [facility] [address] [id number] [place] [address] Apr, [facility] [address] [id number] [place] [address] Apr, [facility] [address] [id number] [place] [address] Apr, [facility] [address] [id number] [place] [address] Apr, [facility] [address] [id number] [place] [address] Mar, [facility] [address] [id number] [place] [address] Mar, [facility] [address] [id number] [place] [address] Feb, [facility] [address] [id number] [place] [address] Feb, [facility] [address] [id number] [place] [address] Feb, [facility] [address] [id number] [place] [address] Feb, [facility] [address] [id number] [place] [address] Feb, [facility] [address] [id number] [place] [address] Feb, [facility] [address] [id number] [place] [address] Feb, [facility] [address] [id number] [place] [address] Feb, [facility] [address] [id number] [place] [address] Feb, [facility] [address] [id number] [place] [address] Feb, [facility] [address] [id number] [place] [address] Jan, [facility] [address] [id number] [place] [address] Jan, [facility] [address] [place] [address] Jan, [facility] [address] [id number] [place] [address] Jan, [facility] [address] [id number] [place] [address] Dec, [facility] [address] [id number] [place] [address] Dec, [facility] [address] [id number] [place] [address] Dec, [facility] [address] [id number] [place] [address] Dec, [facility] [address] [id number] [facility] [place] [address] Oct, [facility] [address] [id number] [place] [address] Oct, [facility] [address] [id number] [place] [address] Sep, [facility] [address] [id number] [place] [address] Sep, [facility] [address] [id number] [place] [address] Aug, [facility] [address] [id number] [place] [address] Aug, [facility] [address] [id number] [place] [address] Aug, [facility] [address] [id number] [place] [address] Aug, [facility] [address] [id number] [place] [address] Aug, [facility] [address] [id number] [place] [address] Aug, [facility] [address] [id number] [place] [address] Feb, [facility] [address] [id number] [place] [address] Sep, [facility] [address] [id number] [place] [address] Sep, [facility] [address] [id number] [place] [address] Aug, [facility] [address] [id number] [place] [address] Jul, [facility] [address] [id number] [place] [address] Jul, [facility] [address] [id number] [place] [address] Jul, [facility] [address] [id number] [place] [address] Jun, [facility] [address] [id number] [place] [address] Jun, [facility] [address] [place] [id number] [place] [address] Jun, [facility] [address] [place] [id number] [place] [address] Jun, [facility] [address] [place] [id number] [place] [address] Jun, [facility] [address] [place] [id number] [place] [address] Jun, [facility] [address] [place] [id number] [place] [address] Jun, [facility] [address] [place] [id number] [place] [address] Apr, [facility] [address] [place] [id number] [place] [address] Apr, [facility] [address] [place] [id number] [place] [address] Apr, [facility] [address] [place] [id number] [place] [address] Apr, [facility] [address] [place] [id number] [place] [address] Apr, [facility] [address] [place] [id number] [place] [address] Apr, IMMUNIZATIONS No Known Immunizations SOCIAL HISTORY [...] Hospitalization History Hospitalization for surgery Hospitalization History [facility] psychiatric hospitalization Hospitalization History [facility] ization
--- OUTSIDE RECORDS SUMMARY | 2020-02-07 16:52 | XMS REPORT ---
Author Author Dilan Mejía Doctor Organization [facility] Address Unknown Phone Unavailable Care Team Providers Care Shank Faker Name Role Phone Migration, Doctor Unavailable Unavailable PROBLEMS Type Condition ICD9-CM Code YDL12-ZO Code Onset Dates Condition S tatus SNOMED Code Problem Bilateral low back pain, with sciatica presence unspecifie d M54.5 Active 176793481 Problem Essential hypertension I10 Active 53767855 Problem Seizure disorder G40.909 Active 128 125233 Problem Generalized anxiety disorder F41.1 A ctive 605342791 Problem Cervicalgia M54.2 Active 95353503 09471 Problem Bipolar disorder, current episode depressed, mild F31.31 Active 201064435 Problem Bipolar disorder, current episode depressed, moderate F31.32 Active 869184545 Problem Post-traumatic stress disorder, unspecified F43.10 Active 81316771 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 41433320 Problem Major depressive disorder, recurrent sev ere without psychotic features F33.2 Active 02239354 Problem Intractable chronic post-traumatic headache G44.32 1 Active 869779377 Problem Chest pain, unspecified chest pain type R07.9 Active 28664922 Problem Major depressive disorder, recurrent episode, un specified severity F33.9 Active 79867077 Problem Sleep walking and eating F51.3 Activ e 53885590 Problem Drug-induced erectile dysfunction N52.2 Active 033960506 Problem Subacromial bursitis of left shoulder joint M75.52 Active 74294343 Problem Tarsal tunnel syndrome of right side G57.51 Active 19315894 Problem Urinary hesitancy R39.11 Active 59 30944 Problem Diabetic polyneuropathy associated with type 2 d iabetes mellitus E11.42 Active 49156527 Problem Bipolar disorder, current episode mixed, moderate F31.62 Active 660170695 Problem Obstructive sleep apnea syndrome G47.33 Active 80933384 Problem Type 2 diabetes mellitus wit h hyperglycemia, without long-term current use of insulin E11.65 Active 22082950 Problem Mixed hyperlipidemia E78.2 Active 127150251 Problem Post-traumatic stress disorder F43.10 Active 19322005 Problem Tarsal tunnel syndrome of both lower extremities G 57.53 Active [id number] Problem Neurocognitive deficits R29.818 Active 478758756 Problem Bipolar disorder, current ep isode depressed, severe, without psychotic features F31.4 Active 01802156 Problem Post traumatic stress disorder (PTSD) F43.10 Active 07483636 Problem Twitching R25.3 Active 926758306 Problem Cocaine use disorder, severe, dependence F14.20 Active 96727015 Problem Pure hypercholesterolemia E78.0 Acti ve 758516580 Problem Subacromial bursitis of right shoulder joint M75.5 1 Active 3004448914649143 Problem Moderate persistent asthma without complication J4 5.40 Active 056904584 Problem Chronic post-traumatic stress disorder (PTSD) F43. 12 Active 828777199 Problem Bipolar disorder F31.9 Active 137 53888 Problem Cocaine abuse F14.10 Active 240786 03 Problem Bipolar 1 disorder, depressed, severe F31.4 Active 645933505931 Problem Bursitis of left shoulder M75.52 Acti ve [id number] ALLERGIES No Information ENCOUNTERS Encounter Location Date Diagnosis [place] [address] [address] Sep, [place] [address] [address] Sep, Neuropathic pain M79.2 [place] [address] [address] 09 Sep, 2019 Neuropathic pain M79.2 [place] [address] [address] 13 Aug, 2019 Diabetic polyneuropathy associated with type 2 diabetes mellitus E11.42 ; Subacromial bursitis of left shoulder joint M75.52 ; Subacromial bursitis of right shoulder joint M75.51 ; Type 2 diabetes mellitus with hyperglycemia, without long-term current use of insulin E11.65 and Encounter for immunization Z23 [place] [address] [address] 10 Aug, 2019 [place] [address] [address] Aug, [facility] [address] [address] Aug, Neuropathic pain M79.2 [facility] [address] [address] Jul, Neuropathic pain M79.2 [facility] [address] [address] Jun, Neuropathic pain M79.2 [facility] [address] [address] May, [facility] [address] [address] May, Neuropathic pain M79.2 [facility] [address] [address] May, [facility] [address] [address] Apr, [facility] [address] [address] Apr, Neuropathic pain M79.2 [facility] [address] [address] Apr, [facility] [address] [address] Apr, [facility] [address] [address] Mar, [facility] [address] [address] Mar, [facility] [address] [address] Mar, Neuropathic pain M79.2 [facility] [address] [address] Mar, Bipolar 1 disorder, depressed, severe F3 1.4 and Cocaine use disorder, severe, dependence F14.20 [facility] [address] [address] 24 Mar, 2019 Neuropathic pain M79.2 [place] [address] [address] 18 Mar, 2019 Neuropathic pain M79.2 [facility] [address] [address] 17 Mar, 2019 [facility] [address] [address] Mar, [place] [address] [address] Feb, Bipolar 1 disorder, depressed, severe F3 1.4 [place] [address] [address] Feb, [place] [address] [address] Feb, [place] [address] [address] Feb, Type 2 diabetes mellitus with hyperglyce karthikeyan, without long-term current use of insulin E11.65 ; Bursitis of right shoulder M75.51 and Bursitis of left shoulder M75.52 [place] [address] [address] Feb, Subacromial bursitis of left shoulder sanket int M75.52 ; Tarsal tunnel syndrome of both lower extremities G57.53 and Subacromial bursitis of right shoulder joint M75.51 [place] [address] [address] Feb, Diabetic polyneuropathy associated with type 2 diabetes mellitus E11.42 ; Mixed hyperlipidemia E78.2 ; Cocaine abuse F14.10 ; Subacromial bursitis of left shoulder joint M75.52 ; Acute pain of right shoulder M25.511 ; Moderate persistent asthma without complication J45.40 and Bipolar 1 disorder, depressed, severe F31.4 [place] [address] [address] Jan, [place] [address] [address] Jan, Essential hypertension I10 ; Type 2 diab etes mellitus with hyperglycemia, without long-term current use of insulin E11.65 and Diabetic polyneuropathy associated with type 2 diabetes mellitus E11.42 [place] [address] [address] Jan, [address] [address] Dec, Bipolar disorder, current episode mixed, moderate F31.62 ; Diabetic polyneuropathy associated with type 2 diabetes mellitus E11.42 ; Cocaine abuse F14.10 and Major depressive disorder, recurrent severe without psychotic features F33.[address] [address] Dec, Diabetic polyneuropathy associated with type 2 diabetes mellitus E11.[address] [address] Dec, [place] [address] [address] [place] [address] Dec, [address] [address] Dec, Major depressive disorder, recurrent sev ere without psychotic features F33.2 ; Diabetic polyneuropathy associated with type 2 diabetes mellitus E11.42 and Cocaine abuse F14.[address] [address] Dec, [address] [address] November, Post-traumatic stress disorder F43.10 ; Bipolar disorder, current episode mixed, moderate F31.62 ; Cocaine abuse F14.10 ; Generalized anxiety disorder F41.1 and Neurocognitive deficits R29.[address] [address] November, Pure hypercholesterolemia E78.[address] [address] November, [place] [address] [address] November, Type 2 diabetes mellitus with hyperglyce karthikeyan, without long-term current use of insulin E11.65 ; Seizure disorder G40.909 ; Major depressive disorder, recurrent severe without psychotic features F33.2 and Cocaine abuse F14.10 [place] [address] [address] Oct, Type 2 diabetes mellitus with hyperglyce karthikeyan, without long-term current use of insulin E11.65 [place] [address] [address] Oct, Post-traumatic stress disorder F43.10 an d Bipolar disorder F31.9 [place] [address] [address] Oct, Subacromial bursitis of left shoulder sanket int M75.52 and Homicidal ideation R45.850 [facility] [address] [facility] [id number] [place] [address] Oct, [place] [address] [address] Oct, [place] [address] [address] Sep, Diabetic polyneuropathy associated with type 2 diabetes mellitus E11.42 [place] [address] [address] Aug, Type 2 diabetes mellitus with hyperglyce karthikeyan, without long-term current use of insulin E11.65 [place] [address] [address] Aug, Twitching R25.3 ; Pain of left foot M79. 672 and Pain in right foot M79.671 [place] [address] [address] Aug, Diabetic polyneuropathy associated with type 2 diabetes mellitus E11.42 and Essential hypertension I10 [place] [address] [address] Aug, Type 2 diabetes mellitus with hyperglyce karthikeyan, without long-term current use of insulin E11.65 ; Post-traumatic stress disorder F43.10 ; Bipolar disorder, current episode mixed, moderate F31.62 and Neurocognitive deficits R29.818 [place] [address] [address] Jul, Bipolar disorder, current episode depres sed, severe, without psychotic features F31.4 and Post traumatic stress disorder (PTSD) F43.10 [place] [address] [address] Jul, Bipolar disorder, current episode depres sed, severe, without psychotic features F31.4 and Post traumatic stress disorder (PTSD) F43.10 [place] [address] [address] Jul, [place] [address] [address] Jun, [place] [address] [address] Jun, Tarsal tunnel syndrome of both lower ext remities G57.53 and Diabetic polyneuropathy associated with type 2 diabetes mellitus E11.42 [place] [address] [address] May, Bipolar disorder, current episode mixed, moderate F31.62 ; Generalized anxiety disorder F41.1 ; Post-traumatic stress disorder F43.10 and Neurocognitive deficits R29.818 [place] [address] [address] May, [address] [address] May, Bipolar disorder, current episode depres sed, severe, without psychotic features F31.4 and Post traumatic stress disorder (PTSD) F43.10 [place] [address] [address] May, Subacromial bursitis of left shoulder sanket int M75.52 [facility] [address] [address] May, Diabetic polyneuropathy associated with type 2 diabetes mellitus E11.42 [facility] [address] [address] May, [place] [address] [address] May, Medicare annual wellness visit, initial Z00.00 ; Encounter for immunization Z23 ; Major depressive disorder, recurrent severe without psychotic features F33.2 ; Essential hypertension I10 ; Seizure disorder G40.909 ; Generalized anxiety disorder F41.1 ; Type 2 diabetes mellitus with hyperglycemia, without long-term current use of insulin E11.65 ; Diabetic polyneuropathy associated with type 2 diabetes mellitus E11.42 and Mixed hyperlipidemia E78.2 [place] [address] [address] 18 May, 2018 [place] [address] [address] May, Exercise counseling Z71.82 [place] [address] [address] May, Subacromial bursitis of left shoulder sanket int M75.52 [place] [address] [address] May, [place] [address] [address] May, [place] [address] [address] Apr, [place] [address] [address] Apr, Diabetic polyneuropathy associated with type 2 diabetes mellitus E11.42 [facility] [address] [address] Apr, Tarsal tunnel syndrome of both lower ext remities G57.53 and Diabetic polyneuropathy associated with type 2 diabetes mellitus E11.42 [place] [address] [address] Apr, [place] [address] [address] Apr, Subacromial bursitis of left shoulder sanket int M75.52 [place] [address] [address] Mar, Type 2 diabetes mellitus with hyperglyce karthikeyan, without long-term current use of insulin E11.65 ; Diabetic polyneuropathy associated with type 2 diabetes mellitus E11.42 ; Bilateral low back pain, with sciatica presence unspecified M54.5 ; Tarsal tunnel syndrome of both lower extremities G57.53 ; Jock itch L29.8 ; Encounter for immunization Z23 and Weight gain R63.5 [place] [address] [address] Mar, Jock itch L29.8 [place] [address] [address] Mar, Plantar fasciitis, bilateral M72.2 ; Tar gema tunnel syndrome of both lower extremities G57.53 ; Posterior tibial tendinitis of right lower extremity M76.821 and Posterior tibial tendinitis of left lower extremity M76.822 [place] [address] [address] Mar, Diabetic polyneuropathy associated with type 2 diabetes mellitus E11.42 [place] [address] [address] Mar, Subacromial bursitis of left shoulder sanket int M75.52 [place] [address] [address] Jan, [place] [address] [address] Jan, [place] [address] [address] Jan, [place] [address] [address] Jan, [place] [address] [address] Jan, Drug-induced erectile dysfunction N52.2 [place] [address] [address] Dec, Subacromial bursitis of left shoulder sanket int M75.52 [place] [address] [address] Dec, Type 2 diabetes mellitus with hyperglyce [...] otitis externa of righ t ear H60.391 [place] [address] [address] November, [address] [address] November, Type 2 diabetes mellitus with hyperglyce karthikeyan, without long-term current use of insulin E11.65 [place] [address] [address] November, Subacromial bursitis of left shoulder sanket int M75.52 [place] [address] [address] November, Bilateral low back pain, with sciatica p resence unspecified M54.5 [place] [address] [address] Oct, Essential hypertension I10 ; Pure hyperc holesterolemia E78.0 and At risk for cardiovascular event Z91.89 [place] [address] [address] Oct, Bilateral low back pain, with sciatica p resence unspecified M54.5 and Subacromial bursitis of left shoulder joint M75.52 [place] [address] [address] Sep, Subacromial bursitis of left shoulder sanket int M75.52 [place] [address] [address] Aug, Subacromial bursitis of left shoulder sanket int M75.52 [place] [address] [address] Aug, Essential hypertension I10 [address] [address] Jul, Pure hypercholesterolemia E78.0 and Jock itch L29.[address] [address] Jul, Type 2 diabetes mellitus with hyperglyce karthikeyan, without long-term current use of insulin E11.[address] [address] Jul, [address] [address] Jul, [place] [address] [address] Jul, [address] [address] Jun, Moderate persistent asthma without compl ication J45.40 ; Subacromial bursitis of left shoulder joint M75.52 ; Episode of altered consciousness R40.4 and Obstructive sleep apnea syndrome G47.[address] [address] Jun, Subacromial bursitis of left shoulder sanket int M75.52 [place] [address] [address] May, [facility] [address] [address] May, [place] [address] [address] May, Subacromial bursitis of left shoulder sanket int M75.52 [place] [address] [address] May, [place] [address] [address] Apr, Subacromial bursitis of left shoulder sanket int M75.52 [place] [address] [address] Apr, Pure hypercholesterolemia E78.0 ; Right sided weakness R53.1 ; Episode of altered consciousness R40.4 ; Seizure disorder G40.909 ; Essential hypertension I10 and At risk for cardiovascular event Z91.89 [place] [address] [address] Apr, [address] [address] Apr, [place] [address] [address] 14 Mar, [address] [address] 14 Mar, [address] [address] 13 Mar, 2017 Type 2 diabetes mellitus with hyperglyce karthikeyan, without long-term current use of insulin E11.65 ; Encounter for immunization Z23 and Subacromial bursitis of left shoulder joint M75.52 [place] [address] [address] Feb, Subacromial bursitis of left shoulder sanket int M75.52 [place] [address] [address] Jan, Moderate persistent asthma without compl ication J45.40 [place] [address] [address] Jan, Bipolar disorder, current episode depres sed, mild F31.31 ; Chronic post-traumatic stress disorder (PTSD) F43.12 and Generalized anxiety disorder F41.1 [place] [address] [address] Dec, Type 2 diabetes mellitus with hyperglyce karthikeyan, without long-term current use of insulin E11.65 [place] [address] [address] November, [place] [address] [address] November, Bipolar disorder, current episode depres sed, mild F31.31 ; Chronic post-traumatic stress disorder (PTSD) F43.12 and Generalized anxiety disorder F41.1 [place] [address] [address] November, Type 2 diabetes mellitus with hyperglyce karthikeyan, without long-term current use of insulin E11.65 ; Subacromial bursitis of left shoulder joint M75.52 ; Urinary hesitancy R39.11 ; Tinea cruris B35.6 ; Tinea pedis of both feet B35.3 and Moderate persistent asthma without complication J45.40 [place] [address] [address] November, [place] [address] [address] November, [place] [address] [address] Oct, [place] [address] [address] Oct, [place] [address] [address] Sep, [place] [address] [address] Sep, [place] [address] [address] Sep, [place] [address] [address] [place] [address] Sep, Bipolar disorder, current episode mixed, moderate F31.62 ; Generalized anxiety disorder F41.1 and Chronic post-traumatic stress disorder (PTSD) F43.12 [place] [address] [address] Sep, Type 2 diabetes mellitus with hyperglyce karthikeyan, without long-term current use of insulin E11.65 [place] [address] [address] Sep, [place] [address] [address] Aug, Moderate persistent asthma without compl ication J45.40 [place] [address] [address] Aug, [place] [address] [address] Jul, [place] [address] [address] Jul, Type 2 diabetes mellitus with hyperglyce krathikeyan, without long-term current use of insulin E11.65 [place] [address] [address] Jul, [place] [address] [address] Jul, [place] [address] [address] Jul, [place] [address] Jul, Type 2 diabetes mellitus with hyperglyce karthikeyan, without long-term current use of insulin E11.65 ; Hematuria R31.9 ; Snoring R06.83 ; Sleep walking and eating F51.3 ; Jock itch L29.8 ; Costochondritis M94.0 and Cervicalgia M54.2 [place] [address] [place] [address] Jun, Urinary hesitancy R39.11 [place] [address] [place] [address] Jun, Elevated serum glucose R73.9 and Urinary hesitancy R39.11 [place] [address] [place] [address] Jun, Bipolar disorder, current episode depres sed, mild F31.31 ; Generalized anxiety disorder F41.1 ; Neurocognitive deficits R29.818 and Chronic post- traumatic stress disorder (PTSD) F43.12 [place] [address] [address] [place] [address] Jun, Elevated serum glucose R73.9 [place] [address] [address] Jun, [place] [address] [address] Apr, [address] [address] Apr, [address] [address] Apr, Drug-induced erectile dysfunction N52.2 and Bilateral low back pain, with sciatica presence unspecified M54.[address] [address] Mar, Tinea versicolor B36.0 and Encounter for immunization Z23 [address] [address] Mar, Bipolar 1 disorder, depressed, severe F3 1.4 ; Post-traumatic stress disorder F43.10 ; Generalized anxiety disorder F41.1 and Neurocognitive deficits R29.[address] [address] Feb, [place] [address] [address] Feb, [facility] [address] [address] Feb, [facility] [address] [address] Feb, Hyperlipidemia E78.5 [place] [address] [address] Feb, [place] [address] [address] Jan, Essential hypertension I10 ; Moderate pe rsistent asthma without complication J45.40 ; Pure hypercholesterolemia E78.0 and Auditory hallucinations R44.0 [place] [address] [address] Jan, [place] [address] [address] Dec, [place] [address] [address] Dec, [place] [address] [address] November, Bipolar disorder, current episode mixed, moderate F31.62 ; Post- traumatic stress disorder F43.10 and Generalized anxiety disorder F41.1 [facility] [address] [place] [id number] [place] [id number] November, Visit for dental examination Z01.20 [place] [address] [address] Oct, Uncomplicated asthma, unspecified asthma severity J45.909 [place] [address] [address] Oct, Uncomplicated asthma, unspecified asthma severity J45.909 ; Bilateral low back pain, with sciatica presence unspecified M54.5 and Jock itch B35.6 [place] [address] [address] Oct, [place] [address] [place] [address] Sep, Post-traumatic stress disorder F43.10 ; Generalized anxiety disorder F41.1 ; Neurocognitive deficits R29.818 and Bipolar disorder, current episode depressed, mild F31.31 [place] [address] [address] Sep, Plantar fasciitis M72.2 [place] [address] [address] Sep, Hyperlipidemia E78.5 [place] [address] [address] Sep, [place] [address] [address] Sep, [place] [address] [address] Sep, Essential hypertension I10 and Urinary h esitancy R39.11 [place] [address] [address] Sep, [place] [address] [address] Aug, [place] [address] [address] Aug, Skin nodule R22.9 [place] [address] [address] Aug, Plantar fasciitis M72.2 ; Onychomycosis B35.1 and Tinea pedis B35.3 [place] [address] [address] Aug, Post-traumatic stress disorder F43.10 ; Generalized anxiety disorder F41.1 ; Neurocognitive deficits R29.818 and Bipolar disorder, current episode depressed, moderate F31.32 [place] [address] [address] Jul, Metacarpophalangeal joint sprain S63.[address] [facility] [address] [facility] [id number] [place] [address] Jul, Right hand pain M79.641 [facility] [address] [address] Jun, Right hand pain M79.641 ; Right foot sandra n M79.671 and Urinary hesitancy R39.11 [place] [address] [address] Jun, Bipolar disorder, current episode mixed, moderate F31.62 ; Post- traumatic stress disorder F43.10 ; Generalized anxiety disorder F41.1 and Neurocognitive deficits R29.818 [place] [address] [address] Jun, Right hand pain M79.641 ; Right foot sandra n M79.671 ; Right ankle pain M25.571 ; Urinary hesitancy R39.11 ; Flat foot [pes planus] (acquired), right foot M21.41 and Pes planus of left foot M21.42 [place] [address] [address] May, Bipolar disorder, current episode mixed, moderate F31.62 ; Post- traumatic stress disorder F43.10 ; Generalized anxiety disorder F41.1 and Neurocognitive deficits R29.818 [place] [address] [address] May, Right hand pain M79.641 and Essential hy pertension I10 [place] [address] [address] May, Anxiety 300.00 and Depression [address] [place] [address] [address] Apr, [place] [address] [address] Apr, [place] [address] [address] Apr, [place] [address] [address] [place] [id number] Apr, [place] [address] [address] Apr, Bipolar 1 disorder, mixed, moderate F31. 62 ; PTSD (post-traumatic stress disorder) F43.10 ; ROBERT (generalized anxiety disorder) F41.1 and Neurocognitive deficits R29.[address] [address] Apr, Anxiety, generalized F41.1 and Major dep ression, recurrent F33.[address] [address] Mar, Influenza vaccine administered V04.81 [facility] [address] [id number] Mar, Dental examination V72.[address] [address] Feb, [address] [address] Feb, Chronic headache 784.0 and Nightmares [address] [address] Feb, [address] [address] Feb, Bipolar 1 disorder, depressed, moderate 296.52 ; PTSD (post-traumatic stress disorder) 309.81 and ROBERT (generalized anxiety disorder) 300.[address] [address] Jan, Acid reflux 530.81 ; Depression 311 ; An xiety 300.00 and Tinnitus 388.[address] [address] Jan, Major depression, recurrent 296.30 ; Soc ial phobia 300.23 ; Anxiety, generalized 300.02 ; No condition on Erick II V71.09 ; Post-concussional syndrome 310.2 and Memory difficulties 780.93 [facility] [address] [address] Dec, Essential hypertension, benign 401.1 [facility] [address] [address] Dec, Essential hypertension, benign 401.1 [facility] [address] [address] Dec, Cervicalgia 723.1 [place] [address] [address] Dec, Essential hypertension, benign 401.1 ; C ervicalgia 723.1 ; Lumbago 724.2 ; Seizure disorder 345.90 ; Chronic headache 784.0 ; Tinnitus 388.30 and Anxiety 300.00 [facility] [address] [address] Dec, [facility] [address] [address] Oct, [facility] [address] [address] Oct, [facility] [address] [address] Sep, [facility] [address] [address] Sep, [facility] [address] [address] Jul, [facility] [address] [address] Jul, [facility] [address] [address] Jul, [facility] [address] [address] Jul, [facility] [address] [facility] [id number] [place] [address] Jul, [facility] [address] [id number] [place] [address] Jul, [facility] [address] [id number] [place] [address] Jun, [facility] [address] [id number] [place] [address] Jun, [facility] [address] [facility] [id number] [place] [address] Jun, [facility] [address] [id number] [place] [address] Jun, [facility] [address] [id number] [place] [address] Jun, [facility] [address] [id number] [place] [address] Jun, [facility] [address] [id number] [place] [address] Jun, [facility] [address] [id number] [place] [address] Jun, [facility] [address] [id number] [place] [address] Apr, [facility] [address] [id number] [place] [address] Apr, [facility] [address] [id number] [place] [address] Apr, [facility] [address] [id number] [place] [address] Apr, [facility] [address] [id number] [place] [address] Mar, [facility] [address] [id number] [place] [address] Mar, [facility] [address] [id number] [place] [address] Feb, [facility] [address] [id number] [place] [address] Feb, [facility] [address] [id number] [place] [address] Feb, [facility] [address] [id number] [place] [address] Feb, [facility] [address] [id number] [place] [address] Feb, [facility] [address] [id number] [place] [address] Feb, [facility] [address] [id number] [place] [address] Feb, [facility] [address] [id number] [place] [address] Feb, [facility] [address] [id number] [place] [address] Feb, [facility] [address] [id number] [place] [address] Feb, [facility] [address] [id number] [place] [address] Jan, [facility] [address] [id number] [place] [address] Jan, [facility] [address] [place] [address] Jan, [facility] [address] [id number] [place] [address] Jan, [facility] [address] [id number] [place] [address] Dec, [facility] [address] [id number] [place] [address] Dec, [facility] [address] [id number] [place] [address] Dec, [facility] [address] [id number] [place] [address] Dec, [facility] [address] [id number] [place] [address] Oct, [facility] [address] [id number] [place] [address] Oct, [facility] [address] [id number] [place] [address] Sep, [facility] [address] [id number] [place] [address] Sep, [facility] [address] [id number] [place] [address] Aug, [facility] [address] [id number] [place] [address] Aug, [facility] [address] [id number] [place] [address] Aug, [facility] [address] [id number] [place] [address] Aug, [facility] [address] [id number] [place] [address] Aug, [facility] [address] [id number] [place] [address] Aug, [facility] [address] [id number] [place] [address] Feb, [facility] [address] [id number] [place] [address] Sep, [facility] [address] [id number] [place] [address] Sep, [facility] [address] [id number] [place] [address] 08 Aug, 2012 [facility] [address] [id number] [place] [address] Jul, [facility] [address] [id number] [place] [address] Jul, [facility] [address] [place] [id number] [place] [address] Jul, [facility] [address] [place] [id number] [place] [address] Jun, [facility] [address] [place] [id number] [place] [address] Jun, [facility] [address] [place] [id number] [place] [address] Jun, [facility] [address] [place] [id number] [place] [address] Jun, [facility] [address] [place] [id number] [place] [address] Jun, [facility] [address] [place] [id number] [place] [address] Jun, [facility] [address] [place] [id number] [place] [address] Jun, [facility] [address] [place] [id number] [place] [address] Apr, [facility] [address] [place] [id number] [place] [address] Apr, [facility] [address] [place] [id number] [place] [address] Apr, [facility] [address] [place] [id number] [place] [address] Apr, [facility] [address] [place] [id number] [place] [address] Apr, [facility] [address] [place] [id number] [place] [address] Apr, IMMUNIZATIONS No Known Immunizations SOCIAL HISTORY [...] Hospitalization History [facility]
--- OUTSIDE RECORDS SUMMARY | 2020-02-07 16:53 | XMS REPORT ---
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 Name Role Phone Migration, Doctor Unavailable Unavailable PROBLEMS Type Condition ICD9-CM Code SNH16-XO Code Onset Dates Condition S tatus SNOMED Code Problem Bilateral low back pain, with sciatica presence unspecifie d M54.5 Active 294707608 Problem Essential hypertension I10 Active 77657351 Problem Seizure disorder G40.909 Active 128 590752 Problem Generalized anxiety disorder F41.1 A ctive 033974087 Problem Cervicalgia M54.2 Active 35036378 19421 Problem Bipolar disorder, current episode depressed, mild F31.31 Active 088478300 Problem Bipolar disorder, current episode depressed, moderate F31.32 Active 800157556 Problem Post-traumatic stress disorder, unspecified F43.10 Active 06503725 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 77026521 Problem Major depressive disorder, recurrent sev ere without psychotic features F33.2 Active 53750992 Problem Intractable chronic post-traumatic headache G44.32 1 Active 414722246 Problem Chest pain, unspecified chest pain type R07.9 Active 74179898 Problem Major depressive disorder, recurrent episode, un specified severity F33.9 Active 61590405 Problem Sleep walking and eating F51.3 Activ e 10221610 Problem Drug-induced erectile dysfunction N52.2 Active 986056918 Problem Subacromial bursitis of left shoulder joint M75.52 Active 57756220 Problem Tarsal tunnel syndrome of right side G57.51 Active 59360628 Problem Urinary hesitancy R39.11 Active 59 10652 Problem Diabetic polyneuropathy associated with type 2 d iabetes mellitus E11.42 Active 62385220 Problem Bipolar disorder, current episode mixed, moderate F31.62 Active 963108520 Problem Obstructive sleep apnea syndrome G47.33 Active 57058988 Problem Type 2 diabetes mellitus wit h hyperglycemia, without long-term current use of insulin E11.65 Active 01737323 Problem Mixed hyperlipidemia E78.2 Active 508078725 Problem Post-traumatic stress disorder F43.10 Active 26028515 Problem Tarsal tunnel syndrome of both lower extremities G 57.53 Active 87370758028226395 Problem Neurocognitive deficits R29.818 Active 490718615 Problem Bipolar disorder, current ep isode depressed, severe, without psychotic features F31.4 Active 18985121 Problem Post traumatic stress disorder (PTSD) F43.10 Active 15157820 Problem Twitching R25.3 Active 923788096 Problem Cocaine use disorder, severe, dependence F14.20 Active 65085252 Problem Pure hypercholesterolemia E78.0 Acti ve 699419869 Problem Subacromial bursitis of right shoulder joint M75.5 1 Active 3292152068761707 Problem Moderate persistent asthma without complication J4 5.40 Active 913059314 Problem Chronic post-traumatic stress disorder (PTSD) F43. 12 Active 699056244 Problem Bipolar disorder F31.9 Active 137 90997 Problem Cocaine abuse F14.10 Active 844629 03 Problem Bipolar 1 disorder, depressed, severe F31.4 Active 424257495008 Problem Bursitis of left shoulder M75.52 Acti ve [id number] ALLERGIES No Information ENCOUNTERS Encounter Location Date Diagnosis [place] [address] [address] Sep, [address] [address] 13 Aug, 2019 Diabetic polyneuropathy associated with type 2 diabetes mellitus E11.42 ; Subacromial bursitis of left shoulder joint M75.52 ; Subacromial bursitis of right shoulder joint M75.51 ; Type 2 diabetes mellitus with hyperglycemia, without long-term current use of insulin E11.65 and Encounter for immunization Z23 [place] [address] [address] Aug, [place] [address] [address] Aug, [place] [address] [address] Aug, Neuropathic pain M79.2 [place] [address] [address] Jul, Neuropathic pain M79.2 [facility] [address] [address] Jun, Neuropathic pain M79.2 [facility] [address] [address] May, [facility] [address] [address] May, Neuropathic pain M79.2 [facility] [address] [address] May, [facility] [address] [address] Apr, [facility] [address] [address] Apr, Neuropathic pain M79.2 [facility] [address] [address] Apr, [facility] [address] [address] Apr, [facility] [address] [address] Mar[facility] [address] [address] Mar, [facility] [address] [address] Mar, Neuropathic pain M79.2 [facility] [address] [address] Mar, Bipolar 1 disorder, depressed, severe F3 1.4 and Cocaine use disorder, severe, dependence F14.20 [facility] [address] [address] 24 Mar, 2019 Neuropathic pain M79.2 [facility] [address] [address] 18 Mar, 2019 Neuropathic pain M79.2 [facility] [address] [address] Mar, [place] [address] [address] Mar, [place] [address] [address] Feb, Bipolar 1 disorder, depressed, severe F3 1.4 [place] [address] [address] Feb, [place] [address] [address] Feb, [place] [address] [address] Feb, Type 2 diabetes mellitus with hyperglyce karthikeyan, without long-term current use of insulin E11.65 ; Bursitis of right shoulder M75.51 and Bursitis of left shoulder M75.52 [place] [address] [address] Feb, Subacromial bursitis of left shoulder sanket int M75.52 ; Tarsal tunnel syndrome of both lower extremities G57.53 and Subacromial bursitis of right shoulder joint M75.51 [place] [address] [address] Feb, Diabetic polyneuropathy associated with type 2 diabetes mellitus E11.42 ; Mixed hyperlipidemia E78.2 ; Cocaine abuse F14.10 ; Subacromial bursitis of left shoulder joint M75.52 ; Acute pain of right shoulder M25.511 ; Moderate persistent asthma without complication J45.40 and Bipolar 1 disorder, depressed, severe F31.4 [place] [address] [address] Jan, [place] [address] [address] Jan, Essential hypertension I10 ; Type 2 diab etes mellitus with hyperglycemia, without long-term current use of insulin E11.65 and Diabetic polyneuropathy associated with type 2 diabetes mellitus E11.42 [place] [address] [place] [address] Jan, [facility] [address] [address] Dec, Bipolar disorder, current episode mixed, moderate F31.62 ; Diabetic polyneuropathy associated with type 2 diabetes mellitus E11.42 ; Cocaine abuse F14.10 and Major depressive disorder, recurrent severe without psychotic features F33.2 [facility] [address] [address] Dec, Diabetic polyneuropathy associated with type [address] [facility] [address] [address] Dec, [address] [place] [address] Dec, [facility] [address] [address] Dec, Major depressive disorder, recurrent sev ere without psychotic features F33.2 ; Diabetic polyneuropathy associated with type 2 diabetes mellitus E11.42 and Cocaine abuse F14.10 [place] [address] [address] Dec, [place] [address] [address] November, Post-traumatic stress disorder F43.10 ; Bipolar disorder, current episode mixed, moderate F31.62 ; Cocaine abuse F14.10 ; Generalized anxiety disorder F41.1 and Neurocognitive deficits R29.818 [facility] [address] [place] [id number] [place] [address] November, Pure hypercholesterolemia E78.0 [facility] [address] [address] November, [place] [address] [address] November, Type 2 diabetes mellitus with hyperglyce karthikeyan, without long-term current use of insulin E11.65 ; Seizure disorder G40.909 ; Major depressive disorder, recurrent severe without psychotic features F33.2 and Cocaine abuse F14.10 [place] [address] [address] Oct, Type 2 diabetes mellitus with hyperglyce karthikeyan, without long-term current use of insulin E11.65 [place] [address] [address] Oct, Post-traumatic stress disorder F43.10 an d Bipolar disorder F31.9 [place] [address] [address] Oct, Subacromial bursitis of left shoulder sanket int M75.52 and Homicidal ideation R45.850 [facility] [id number] [place] [address] Oct, [place] [address] [address] Oct, [place] [address] [address] Sep, Diabetic polyneuropathy associated with type 2 diabetes mellitus E11.42 [place] [address] [address] Aug, Type 2 diabetes mellitus with hyperglyce karthikeyan, without long-term current use of insulin E11.65 [place] [address] [address] 13 Aug, 2018 Twitching R25.3 ; Pain of left foot M79. 672 and Pain in right foot M79.671 [place] [address] [address] Aug, Diabetic polyneuropathy associated with type 2 diabetes mellitus E11.42 and Essential hypertension I10 [place] [address] [address] 05 Aug, 2018 Type 2 diabetes mellitus with hyperglyce karthikeyan, without long-term current use of insulin E11.65 ; Post-traumatic stress disorder F43.10 ; Bipolar disorder, current episode mixed, moderate F31.62 and Neurocognitive deficits R29.818 [facility] [address] [address] Jul, Bipolar disorder, current episode depres sed, severe, without psychotic features F31.4 and Post traumatic stress disorder (PTSD) F43.10 [facility] [address] [address] Jul, Bipolar disorder, current episode depres sed, severe, without psychotic features F31.4 and Post traumatic stress disorder (PTSD) F43.10 [place] [address] [address] Jul, [place] [address] [address] Jun, [place] [address] [address] Jun, Tarsal tunnel syndrome of both lower ext remities G57.53 and Diabetic polyneuropathy associated with type 2 diabetes mellitus E11.42 [place] [address] [address] May, Bipolar disorder, current episode mixed, moderate F31.62 ; Generalized anxiety disorder F41.1 ; Post-traumatic stress disorder F43.10 and Neurocognitive deficits R29.818 [place] [address] [address] May, [place] [address] [address] May, Bipolar disorder, current episode depres sed, severe, without psychotic features F31.4 and Post traumatic stress disorder (PTSD) F43.10 [place] [address] [address] May, Subacromial bursitis of left shoulder sanket int M75.52 [facility] [address] [address] May, Diabetic polyneuropathy associated with type 2 diabetes mellitus E11.42 [place] [address] [address] May, [facility] [address] [address] May, Medicare annual wellness visit, initial Z00.00 ; Encounter for immunization Z23 ; Major depressive disorder, recurrent severe without psychotic features F33.2 ; Essential hypertension I10 ; Seizure disorder G40.909 ; Generalized anxiety disorder F41.1 ; Type 2 diabetes mellitus with hyperglycemia, without long-term current use of insulin E11.65 ; Diabetic polyneuropathy associated with type 2 diabetes mellitus E11.42 and Mixed hyperlipidemia E78.2 [facility] [address] [address] May, [place] [address] [address] May, Exercise counseling Z71.82 [place] [address] [address] May, Subacromial bursitis of left shoulder sanket int M75.52 [facility] [address] [address] May, [facility] [address] [address] May, [facility] [address] [address] Apr, [facility] [address] [address] Apr, Diabetic polyneuropathy associated with type [address] [facility] [address] [address] Apr, Tarsal tunnel syndrome of both lower ext remities G57.53 and Diabetic polyneuropathy associated with type [address] [facility] [address] [address] Apr, [facility] [address] [address] Apr, Subacromial bursitis of left shoulder sanket int M75.52 [facility] [address] [address] Mar, Type 2 diabetes mellitus with hyperglyce karthikeyan, without long-term current use of insulin E11.65 ; Diabetic polyneuropathy associated with type 2 diabetes mellitus E11.42 ; Bilateral low back pain, with sciatica presence unspecified M54.5 ; Tarsal tunnel syndrome of both lower extremities G57.53 ; Jock itch L29.8 ; Encounter for immunization Z23 and Weight gain R63.5 [place] [address] [address] Mar, Jock itch L29.8 [place] [address] [address] Mar, Plantar fasciitis, bilateral M72.2 ; Tar gema tunnel syndrome of both lower extremities G57.53 ; Posterior tibial tendinitis of right lower extremity M76.821 and Posterior tibial tendinitis of left lower extremity M76.822 [place] [address] [address] Mar, Diabetic polyneuropathy associated with type 2 diabetes mellitus E11.42 [place] [address] [address] Mar, Subacromial bursitis of left shoulder sanket int M75.52 [place] [address] [address] Jan, [place] [address] [address] Jan, [place] [address] [address] Jan, [place] [address] [address] Jan, [place] [address] [address] Jan, Drug-induced erectile dysfunction N52.2 [place] [address] [address] Dec, Subacromial bursitis of left shoulder sanket int M75.[address] [address] Dec, Type 2 diabetes mellitus with hyperglyce [...] otitis externa of righ t ear H60.[address] [address] November, [address] [address] November, Type 2 diabetes mellitus with hyperglyce karthikeyan, without long-term current use of insulin E11.[address] [address] November, Subacromial bursitis of left shoulder sanket int M75.[address] [address] November, Bilateral low back pain, with sciatica p resence unspecified M54.[address] [address] Oct, Essential hypertension I10 ; Pure hyperc holesterolemia E78.0 and At risk for cardiovascular event Z91.[address] [address] Oct, Bilateral low back pain, with sciatica p resence unspecified M54.5 and Subacromial bursitis of left shoulder joint M75.52 [address] [place] [address] Sep, Subacromial bursitis of left shoulder sanket int M75.52 [place] [address] [address] Aug, Subacromial bursitis of left shoulder sanket int M75.52 [place] [address] [address] Aug, Essential hypertension I10 [place] [address] [address] Jul, Pure hypercholesterolemia E78.0 and Jock itch L29.[address] [address] Jul, Type 2 diabetes mellitus with hyperglyce karthikeyan, without long-term current use of insulin E11.[address] [address] Jul, [place] [address] [address] Jul, [place] [address] [address] Jul, [place] [address] [address] Jun, Moderate persistent asthma without compl ication J45.40 ; Subacromial bursitis of left shoulder joint M75.52 ; Episode of altered consciousness R40.4 and Obstructive sleep apnea syndrome G47.33 [place] [address] [address] Jun, Subacromial bursitis of left shoulder sanket int M75.52 [place] [address] [address] May, [address] [address] May, [place] [address] [address] May, Subacromial bursitis of left shoulder sanket int M75.52 [place] [address] [address] May, [place] [address] [address] Apr, Subacromial bursitis of left shoulder sanket int M75.[address] [address] Apr, Pure hypercholesterolemia E78.0 ; Right sided weakness R53.1 ; Episode of altered consciousness R40.4 ; Seizure disorder G40.909 ; Essential hypertension I10 and At risk for cardiovascular event Z91.[address] [address] Apr, [address] [address] Apr, [address] [address] 14 Mar, [address] [address] 14 Mar, [address] [address] 13 Mar, 2017 Type 2 diabetes mellitus with hyperglyce karthikeyan, without long-term current use of insulin E11.65 ; Encounter for immunization Z23 and Subacromial bursitis of left shoulder joint M75.[address] [address] Feb, Subacromial bursitis of left shoulder sanket int M75.[address] [address] Jan, Moderate persistent asthma without compl ication J45.[address] [address] Jan, Bipolar disorder, current episode depres sed, mild F31.31 ; Chronic post-traumatic stress disorder (PTSD) F43.12 and Generalized anxiety disorder F41.1 [facility] [address] [address] Dec, Type 2 diabetes mellitus with hyperglyce karthikeyan, without long-term current use of insulin E11.65 [facility] [address] [address] November, [place] [address] [address] November, Bipolar disorder, current episode depres sed, mild F31.31 ; Chronic post-traumatic stress disorder (PTSD) F43.12 and Generalized anxiety disorder F41.1 [place] [address] [address] November, Type 2 diabetes mellitus with hyperglyce karthikeyan, without long-term current use of insulin E11.65 ; Subacromial bursitis of left shoulder joint M75.52 ; Urinary hesitancy R39.11 ; Tinea cruris B35.6 ; Tinea pedis of both feet B35.3 and Moderate persistent asthma without complication J45.40 [place] [address] [address] November, [place] [address] [address] November, [facility] [address] [address] Oct, [place] [address] [address] Oct, [facility] [address] [address] Sep, [facility] [address] [address] Sep, [facility] [address] [address] Sep, [facility] [address] [address] Sep, Bipolar disorder, current episode mixed, moderate F31.62 ; Generalized anxiety disorder F41.1 and Chronic post-traumatic stress disorder (PTSD) F43.[address] [address] Sep, Type 2 diabetes mellitus with hyperglyce karthikeyan, without long-term current use of insulin E11.[address] [address] Sep, [place] [address] Aug, Moderate persistent asthma without compl ication J45.[address] [address] Aug, [address] [address] Jul, [place] [address] Jul, Type 2 diabetes mellitus with hyperglyce karthikeyan, without long-term current use of insulin E11.[address] [address] Jul, [address] [address] Jul, [address] [address] Jul, [address] [address] Jul, Type 2 diabetes mellitus with hyperglyce karthikeyan, without long-term current use of insulin E11.65 ; Hematuria R31.9 ; Snoring R06.83 ; Sleep walking and eating F51.3 ; Jock itch L29.8 ; Costochondritis M94.0 and Cervicalgia M54.[address] [address] Jun, Urinary hesitancy R39.[id number] [place] [address] Jun, Elevated serum glucose R73.9 and Urinary hesitancy R39.11 [place] [address] [address] Jun, Bipolar disorder, current episode depres sed, mild F31.31 ; Generalized anxiety disorder F41.1 ; Neurocognitive deficits R29.818 and Chronic post- traumatic stress disorder (PTSD) F43.12 [place] [address] [address] Jun, Elevated serum glucose R73.9 [place] [address] [address] Jun, [place] [address] [address] Apr, [place] [address] [address] Apr, [place] [address] [address] Apr, Drug-induced erectile dysfunction N52.2 and Bilateral low back pain, with sciatica presence unspecified M54.5 [place] [address] [address] Mar, Tinea versicolor B36.0 and Encounter for immunization Z23 [place] [address] [address] Mar, Bipolar 1 disorder, depressed, severe F3 1.4 ; Post-traumatic stress disorder F43.10 ; Generalized anxiety disorder F41.1 and Neurocognitive deficits R29.818 [place] [address] [address] Feb, [place] [address] [address] Feb, [place] [address] [address] Feb, [place] [address] [address] Feb, Hyperlipidemia E78.5 [place] [address] [address] Feb, [place] [address] [address] Jan, Essential hypertension I10 ; Moderate pe rsistent asthma without complication J45.40 ; Pure hypercholesterolemia E78.0 and Auditory hallucinations R44.0 [place] [address] [address] Jan, [place] [address] [address] Dec, [place] [address] [address] Dec, [place] [address] [address] November, Bipolar disorder, current episode mixed, moderate F31.62 ; Post- traumatic stress disorder F43.10 and Generalized anxiety disorder F41.1 [facility] [address] [place] [id number] [place] [id number] November, Visit for dental examination Z01.20 [place] [address] [address] Oct, Uncomplicated asthma, unspecified asthma severity J45.909 [place] [address] [address] Oct, Uncomplicated asthma, unspecified asthma severity J45.909 ; Bilateral low back pain, with sciatica presence unspecified M54.5 and Jock itch B35.6 [place] [address] [address] Oct, [place] [address] [address] Sep, Post-traumatic stress disorder F43.10 ; Generalized anxiety disorder F41.1 ; Neurocognitive deficits R29.818 and Bipolar disorder, current episode depressed, mild F31.31 [place] [address] [address] Sep, Plantar fasciitis M72.2 [facility] [address] [address] Sep, Hyperlipidemia E78.5 [facility] [address] [address] Sep, [facility] [address] [address] Sep, [place] [address] [address] Sep, Essential hypertension I10 and Urinary h esitancy R39.11 [place] [address] [address] Sep, [place] [address] [address] Aug, [place] [address] [address] Aug, Skin nodule R22.9 [place] [address] [address] Aug, Plantar fasciitis M72.2 ; Onychomycosis B35.1 and Tinea pedis B35.3 [place] [address] [address] Aug, Post-traumatic stress disorder F43.10 ; Generalized anxiety disorder F41.1 ; Neurocognitive deficits R29.818 and Bipolar disorder, current episode depressed, moderate F31.32 [place] [address] [address] Jul, Metacarpophalangeal joint sprain S63.659 [facility] [address] [facility] [id number] [place] [address] Jul, Right hand pain M79.641 [place] [address] [address] Jun, Right hand pain M79.641 ; Right foot sandra n M79.671 and Urinary hesitancy R39.11 [place] [address] [address] Jun, Bipolar disorder, current episode mixed, moderate F31.62 ; Post- traumatic stress disorder F43.10 ; Generalized anxiety disorder F41.1 and Neurocognitive deficits R29.818 [place] [address] [address] Jun, Right hand pain M79.641 ; Right foot sandra n M79.671 ; Right ankle pain M25.571 ; Urinary hesitancy R39.11 ; Flat foot [pes planus] (acquired), right foot M21.41 and Pes planus of left foot M21.42 [place] [address] [address] May, Bipolar disorder, current episode mixed, moderate F31.62 ; Post- traumatic stress disorder F43.10 ; Generalized anxiety disorder F41.1 and Neurocognitive deficits R29.818 [place] [address] [address] May, Right hand pain M79.641 and Essential hy pertension I10 [place] [address] [address] May, Anxiety 300.00 and Depression 311 [place] [address] [address] Apr, [place] [address] [address] Apr, [place] [address] [place] [address] Apr, [place] [address] [address] Apr, [facility] [address] [address] Apr, Bipolar 1 disorder, mixed, moderate F31. 62 ; PTSD (post-traumatic stress disorder) F43.10 ; ROBERT (generalized anxiety disorder) F41.1 and Neurocognitive deficits R29.[address] [address] Apr, Anxiety, generalized F41.1 and Major dep ression, recurrent F33.[address] [address] Mar, Influenza vaccine administered V04.81 [facility] [id number] [place] [id number] Mar, Dental examination V72.[address] [address] Feb, [address] [address] Feb, Chronic headache 784.0 and Nightmares [address] [address] Feb, [address] [address] Feb, Bipolar 1 disorder, depressed, moderate 296.52 ; PTSD (post-traumatic stress disorder) 309.81 and ROBERT (generalized anxiety disorder) 300.[address] [address] Jan, Acid reflux 530.81 ; Depression 311 ; An xiety 300.00 and Tinnitus 388.[address] [address] Jan, Major depression, recurrent 296.30 ; Soc ial phobia 300.23 ; Anxiety, generalized 300.02 ; No condition on Mica II V71.09 ; Post-concussional syndrome 310.2 and Memory difficulties 780.93 [place] [id number] Dec, Essential hypertension, benign 401.1 [facility] [address] [address] Dec, Essential hypertension, benign 401.1 [facility] [address] [address] Dec, Cervicalgia 723.1 [facility] [address] [address] Dec, Essential hypertension, benign 401.1 ; C ervicalgia 723.1 ; Lumbago 724.2 ; Seizure disorder 345.90 ; Chronic headache 784.0 ; Tinnitus 388.[address] [facility] [address] [address] Dec, [facility] [address] [address] Oct, [facility] [address] [address] Oct, [facility] [address] [address] Sep, [facility] [address] [address] Sep, [facility] [address] [address] Jul, [facility] [address] [address] Jul, [facility] [address] [address] Jul, [facility] [address] [address] Jul, [facility] [address] [address] Jul, [facility] [address] [address] Jul, [facility] [address] [id number] [place] [address] Jun, [facility] [address] [id number] [place] [address] Jun, [facility] [address] [id number] [place] [address] Jun, [facility] [address] [id number] [place] [address] Jun, [facility] [address] [id number] [place] [address] Jun, [facility] [address] [id number] [place] [address] Jun, [facility] [address] [id number] [place] [address] Jun, [facility] [address] [id number] [place] [address] Jun, [facility] [address] [id number] [place] [address] Apr, [facility] [address] [id number] [place] [address] Apr, [facility] [address] [id number] [place] [address] Apr, [facility] [address] [id number] [place] [address] Apr, [facility] [address] [id number] [place] [address] Mar, [facility] [address] [id number] [place] [address] Mar, [facility] [address] [id number] [place] [address] Feb, [facility] [address] [id number] [place] [address] Feb, [facility] [address] [id number] [place] [address] Feb, [facility] [address] [id number] [place] [address] Feb, [facility] [address] [id number] [place] [address] Feb, [facility] [address] [id number] [place] [address] Feb, [facility] [address] [id number] [place] [address] Feb, [facility] [address] [id number] [place] [address] Feb, [facility] [address] [id number] [place] [address] Feb, [facility] [address] [id number] [place] [address] Feb, [facility] [address] [id number] [place] [address] Jan, [facility] [address] [id number] [place] [address] Jan, [facility] [address] [place] [address] Jan, [facility] [address] [id number] [place] [address] Jan, [facility] [address] [id number] [place] [address] Dec, [facility] [address] [id number] [place] [address] Dec, [facility] [address] [id number] [place] [address] Dec, [facility] [address] [id number] [place] [address] Dec, [facility] [address] [id number] [place] [address] Oct, [facility] [address] [id number] [place] [address] Oct, [facility] [address] [id number] [place] [address] Sep, [facility] [address] [id number] [place] [address] Sep, [facility] [address] [id number] [place] [address] Aug, [facility] [address] [id number] [place] [address] Aug, [facility] [address] [id number] [place] [address] Aug, [facility] [address] [id number] [place] [address] Aug, [facility] [address] [id number] [place] [address] Aug, [facility] [address] [id number] [place] [address] Aug, [facility] [address] [id number] [place] [address] Feb, [facility] [address] [id number] [place] [address] Sep, [facility] [address] [id number] [place] [address] Sep, [facility] [address] [id number] [place] [address] 08 Aug, 2012 [facility] [address] [id number] [place] [address] Jul, [facility] [id number] [place] [address] Jul, [facility] [address] [id number] [place] [address] Jul, [facility] [address] [id number] [place] [address] Jun, [facility] [address] [id number] [place] [address] Jun, [facility] [address] [id number] [place] [address] Jun, [facility] [address] [id number] [place] [address] Jun, [facility] [address] [id number] [place] [address] Jun, [facility] [address] [id number] [place] [address] Jun, [facility] [id number] [place] [address] Jun, [facility] [address] [id number] [place] [address] Apr, [facility] [id number] [place] [address] Apr, [facility] [address] [id number] [place] [address] Apr, [facility] [address] [id number] [place] [address] Apr, [facility] [address] [id number] [place] [address] Apr, [facility] [address] [id number] [place] [address] Apr, IMMUNIZATIONS No Known Immunizations SOCIAL HISTORY [...] Hospitalization History [facility] psychiatric hospitalization Hospitalization History [facility] ization
--- OUTSIDE RECORDS SUMMARY | 2020-02-07 16:53 | XMS REPORT ---
Author Author Dilan Mejía Doctor Organization [facility] Address Unknown Phone Unavailable Care Team Providers Care Cotton Broker Name Role Phone Migration, Doctor Unavailable Unavailable PROBLEMS Type Condition ICD9-CM Code [id number] Code Onset Dates Condition S tatus SNOMED Code Problem Bilateral low back pain, with sciatica presence unspecifie d M54.5 Active 895749093 Problem Essential hypertension I10 Active 97999586 Problem Seizure disorder G40.909 Active 128 102095 Problem Generalized anxiety disorder F41.1 A ctive 441653532 Problem Cervicalgia M54.2 Active 13051206 30941 Problem Bipolar disorder, current episode depressed, mild F31.31 Active 552327632 Problem Bipolar disorder, current episode depressed, moderate F31.32 Active 802952663 Problem Post-traumatic stress disorder, unspecified F43.10 Active 36683358 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 76654787 Problem Major depressive disorder, recurrent sev ere without psychotic features F33.2 Active 69988779 Problem Intractable chronic post-traumatic headache G44.32 1 Active 217961541 Problem Chest pain, unspecified chest pain type R07.9 Active 38644734 Problem Major depressive disorder, recurrent episode, un specified severity F33.9 Active 93412752 Problem Sleep walking and eating F51.3 Activ e 71154175 Problem Drug-induced erectile dysfunction N52.2 Active 448484225 Problem Subacromial bursitis of left shoulder joint M75.52 Active 78267615 Problem Tarsal tunnel syndrome of right side G57.51 Active 54584523 Problem Urinary hesitancy R39.11 Active 59 15131 Problem Diabetic polyneuropathy associated with type 2 d iabetes mellitus E11.42 Active 84085859 Problem Bipolar disorder, current episode mixed, moderate F31.62 Active 621897365 Problem Obstructive sleep apnea syndrome G47.33 Active 47183293 Problem Type 2 diabetes mellitus wit h hyperglycemia, without long-term current use of insulin E11.65 Active 45991686 Problem Mixed hyperlipidemia E78.2 Active 454784264 Problem Post-traumatic stress disorder F43.10 Active 49416396 Problem Tarsal tunnel syndrome of both lower extremities G 57.53 Active 97179483653132515 Problem Neurocognitive deficits R29.818 Active 733067884 Problem Bipolar disorder, current ep isode depressed, severe, without psychotic features F31.4 Active 84397798 Problem Post traumatic stress disorder (PTSD) F43.10 Active 50712417 Problem Twitching R25.3 Active 572489640 Problem Cocaine use disorder, severe, dependence F14.20 Active 02904721 Problem Pure hypercholesterolemia E78.0 Acti ve 391026872 Problem Subacromial bursitis of right shoulder joint M75.5 1 Active 2057783919128691 Problem Moderate persistent asthma without complication J4 5.40 Active 475887058 Problem Chronic post-traumatic stress disorder (PTSD) F43. 12 Active 924241844 Problem Bipolar disorder F31.9 Active 137 74445 Problem Cocaine abuse F14.10 Active 198112 03 Problem Bipolar 1 disorder, depressed, severe F31.4 Active 406657491760 Problem Bursitis of left shoulder M75.52 Acti ve [id number] ALLERGIES No Information ENCOUNTERS Encounter Location Date Diagnosis [place] [address] [address] Sep, [address] [address] 13 Aug, 2019 Diabetic polyneuropathy associated with type 2 diabetes mellitus E11.42 ; Subacromial bursitis of left shoulder joint M75.52 ; Subacromial bursitis of right shoulder joint M75.51 ; Type 2 diabetes mellitus with hyperglycemia, without long-term current use of insulin E11.65 and Encounter for immunization Z23 [place] [address] [address] Aug, [place] [address] [address] Aug, [place] [address] [address] Aug, Neuropathic pain M79.2 [place] [address] [address] Jul, Neuropathic pain M79.2 [facility] [address] [address] Jun, Neuropathic pain M79.2 [facility] [address] [address] May, [facility] [address] [address] May, Neuropathic pain M79.2 [facility] [address] [address] May, [facility] [address] [address] Apr, [facility] [address] [address] Apr, Neuropathic pain M79.2 [facility] [address] [address] Apr, [facility] [address] [address] Apr[facility] [address] [address] Mar, [facility] [address] [address] Mar, [facility] [address] [address] Mar, Neuropathic pain M79.2 [facility] [address] [address] Mar, Bipolar 1 disorder, depressed, severe F3 1.4 and Cocaine use disorder, severe, dependence F14.20 [facility] [address] [address] 24 Mar, 2019 Neuropathic pain M79.2 [facility] [address] [address] 18 Mar, 2019 Neuropathic pain M79.2 [facility] [address] [address] Mar, [place] [address] [address] Mar, [place] [address] [address] Feb, Bipolar 1 disorder, depressed, severe F3 1.4 [place] [address] [address] Feb, [place] [address] [address] Feb, [place] [address] [address] Feb, Type 2 diabetes mellitus with hyperglyce karthikeyan, without long-term current use of insulin E11.65 ; Bursitis of right shoulder M75.51 and Bursitis of left shoulder M75.52 [place] [address] [address] Feb, Subacromial bursitis of left shoulder sanket int M75.52 ; Tarsal tunnel syndrome of both lower extremities G57.53 and Subacromial bursitis of right shoulder joint M75.51 [place] [address] [address] Feb, Diabetic polyneuropathy associated with type 2 diabetes mellitus E11.42 ; Mixed hyperlipidemia E78.2 ; Cocaine abuse F14.10 ; Subacromial bursitis of left shoulder joint M75.52 ; Acute pain of right shoulder M25.511 ; Moderate persistent asthma without complication J45.40 and Bipolar 1 disorder, depressed, severe F31.4 [place] [address] [address] Jan, [place] [address] [address] Jan, Essential hypertension I10 ; Type 2 diab etes mellitus with hyperglycemia, without long-term current use of insulin E11.65 and Diabetic polyneuropathy associated with type 2 diabetes mellitus E11.42 [place] [address] [address] [place] [address] Jan, [facility] [address] [address] Dec, Bipolar disorder, current episode mixed, moderate F31.62 ; Diabetic polyneuropathy associated with type 2 diabetes mellitus E11.42 ; Cocaine abuse F14.10 and Major depressive disorder, recurrent severe without psychotic features F33.2 [facility] [address] [address] Dec, Diabetic polyneuropathy associated with type 2 diabetes mellitus E11.42 [facility] [address] [address] Dec, [address] [place] [address] Dec, [facility] [address] [address] Dec, Major depressive disorder, recurrent sev ere without psychotic features F33.2 ; Diabetic polyneuropathy associated with type 2 diabetes mellitus E11.42 and Cocaine abuse F14.10 [place] [address] [address] Dec, [place] [address] [address] November, Post-traumatic stress disorder F43.10 ; Bipolar disorder, current episode mixed, moderate F31.62 ; Cocaine abuse F14.10 ; Generalized anxiety disorder F41.1 and Neurocognitive deficits R29.818 [facility] [address] [place] [id number] [place] [address] November, Pure hypercholesterolemia E78.0 [facility] [address] [address] November, [place] [address] [address] November, Type 2 diabetes mellitus with hyperglyce karthikeyan, without long-term current use of insulin E11.65 ; Seizure disorder G40.909 ; Major depressive disorder, recurrent severe without psychotic features F33.2 and Cocaine abuse F14.10 [place] [address] [address] Oct, Type 2 diabetes mellitus with hyperglyce karthikeyan, without long-term current use of insulin E11.65 [place] [address] [address] Oct, Post-traumatic stress disorder F43.10 an d Bipolar disorder F31.9 [place] [address] [address] Oct, Subacromial bursitis of left shoulder sanket int M75.52 and Homicidal ideation R45.[address] [facility] [id number] [place] [address] Oct, [place] [address] [address] Oct, [place] [address] [address] Sep, Diabetic polyneuropathy associated with type 2 diabetes mellitus E11.42 [place] [address] [address] Aug, Type 2 diabetes mellitus with hyperglyce karthikeyan, without long-term current use of insulin E11.65 [place] [address] [address] 13 Aug, 2018 Twitching R25.3 ; Pain of left foot M79. 672 and Pain in right foot M79.671 [place] [address] [address] Aug, Diabetic polyneuropathy associated with type 2 diabetes mellitus E11.42 and Essential hypertension I10 [place] [address] [address] 05 Aug, 2018 Type 2 diabetes mellitus with hyperglyce karthikeyan, without long-term current use of insulin E11.65 ; Post-traumatic stress disorder F43.10 ; Bipolar disorder, current episode mixed, moderate F31.62 and Neurocognitive deficits R29.818 [facility] [address] [address] Jul, Bipolar disorder, current episode depres sed, severe, without psychotic features F31.4 and Post traumatic stress disorder (PTSD) F43.10 [facility] [address] [address] Jul, Bipolar disorder, current episode depres sed, severe, without psychotic features F31.4 and Post traumatic stress disorder (PTSD) F43.10 [place] [address] [address] Jul, [place] [address] [address] Jun, [place] [address] [address] Jun, Tarsal tunnel syndrome of both lower ext remities G57.53 and Diabetic polyneuropathy associated with type 2 diabetes mellitus E11.42 [place] [address] [address] May, Bipolar disorder, current episode mixed, moderate F31.62 ; Generalized anxiety disorder F41.1 ; Post-traumatic stress disorder F43.10 and Neurocognitive deficits R29.818 [place] [address] [address] May, [place] [address] [address] May, Bipolar disorder, current episode depres sed, severe, without psychotic features F31.4 and Post traumatic stress disorder (PTSD) F43.10 [place] [address] [address] May, Subacromial bursitis of left shoulder sanket int M75.52 [facility] [address] [address] May, Diabetic polyneuropathy associated with type 2 diabetes mellitus E11.42 [place] [address] [address] May, [facility] [address] [address] May, Medicare annual wellness visit, initial Z00.00 ; Encounter for immunization Z23 ; Major depressive disorder, recurrent severe without psychotic features F33.2 ; Essential hypertension I10 ; Seizure disorder G40.909 ; Generalized anxiety disorder F41.1 ; Type 2 diabetes mellitus with hyperglycemia, without long-term current use of insulin E11.65 ; Diabetic polyneuropathy associated with type 2 diabetes mellitus E11.42 and Mixed hyperlipidemia E78.2 [facility] [address] [address] May, [place] [address] [address] May, Exercise counseling Z71.82 [place] [address] [address] May, Subacromial bursitis of left shoulder sanket int M75.52 [facility] [address] [address] May, [facility] [address] [address] May, [facility] [address] [address] Apr, [facility] [address] [address] Apr, Diabetic polyneuropathy associated with type 2 diabetes mellitus E11.42 [facility] [address] [address] Apr, Tarsal tunnel syndrome of both lower ext remities G57.53 and Diabetic polyneuropathy associated with type 2 diabetes mellitus E11.42 [facility] [address] [address] Apr, [facility] [address] [address] Apr, Subacromial bursitis of left shoulder sanket int M75.52 [facility] [address] [address] Mar, Type 2 diabetes mellitus with hyperglyce karthikeyan, without long-term current use of insulin E11.65 ; Diabetic polyneuropathy associated with type 2 diabetes mellitus E11.42 ; Bilateral low back pain, with sciatica presence unspecified M54.5 ; Tarsal tunnel syndrome of both lower extremities G57.53 ; Jock itch L29.8 ; Encounter for immunization Z23 and Weight gain R63.5 [place] [address] [address] Mar, Jock itch L29.8 [place] [address] [address] Mar, Plantar fasciitis, bilateral M72.2 ; Tar gema tunnel syndrome of both lower extremities G57.53 ; Posterior tibial tendinitis of right lower extremity M76.821 and Posterior tibial tendinitis of left lower extremity M76.822 [place] [address] [address] Mar, Diabetic polyneuropathy associated with type 2 diabetes mellitus E11.42 [place] [address] [address] Mar, Subacromial bursitis of left shoulder sanket int M75.52 [place] [address] [address] Jan, [place] [address] [address] Jan, [place] [address] [address] Jan, [place] [address] [address] Jan, [place] [address] [address] Jan, Drug-induced erectile dysfunction N52.2 [place] [address] [address] Dec, Subacromial bursitis of left shoulder sanket int M75.[address] [address] Dec, Type 2 diabetes mellitus with hyperglyce [...] otitis externa of righ t ear H60.[address] [address] November, [address] [address] November, Type 2 diabetes mellitus with hyperglyce karthikeyan, without long-term current use of insulin E11.[address] [address] November, Subacromial bursitis of left shoulder sanket int M75.[address] [address] November, Bilateral low back pain, with sciatica p resence unspecified M54.[address] [address] Oct, Essential hypertension I10 ; Pure hyperc holesterolemia E78.0 and At risk for cardiovascular event Z91.[address] [address] Oct, Bilateral low back pain, with sciatica p resence unspecified M54.5 and Subacromial bursitis of left shoulder joint M75.52 [address] [place] [address] Sep, Subacromial bursitis of left shoulder sanket int M75.52 [place] [address] [address] Aug, Subacromial bursitis of left shoulder sanket int M75.52 [place] [address] [address] Aug, Essential hypertension I10 [place] [address] [address] Jul, Pure hypercholesterolemia E78.0 and Jock itch L29.[address] [address] Jul, Type 2 diabetes mellitus with hyperglyce karthikeyan, without long-term current use of insulin E11.[address] [address] Jul, [place] [address] [address] Jul, [place] [address] [address] Jul, [place] [address] [address] Jun, Moderate persistent asthma without compl ication J45.40 ; Subacromial bursitis of left shoulder joint M75.52 ; Episode of altered consciousness R40.4 and Obstructive sleep apnea syndrome G47.33 [place] [address] [address] Jun, Subacromial bursitis of left shoulder sanket int M75.52 [place] [address] [address] May, [address] [address] May, [place] [address] [address] May, Subacromial bursitis of left shoulder sanket int M75.52 [place] [address] [address] May, [place] [address] [address] Apr, Subacromial bursitis of left shoulder sanket int M75.[address] [address] Apr, Pure hypercholesterolemia E78.0 ; Right sided weakness R53.1 ; Episode of altered consciousness R40.4 ; Seizure disorder G40.909 ; Essential hypertension I10 and At risk for cardiovascular event Z91.[address] [address] Apr, [address] [address] Apr, [address] [address] 14 Mar, [address] [address] 14 Mar, [address] [address] 13 Mar, 2017 Type 2 diabetes mellitus with hyperglyce karthikeyan, without long-term current use of insulin E11.65 ; Encounter for immunization Z23 and Subacromial bursitis of left shoulder joint M75.[address] [address] Feb, Subacromial bursitis of left shoulder sanket int M75.[address] [address] Jan, Moderate persistent asthma without compl ication J45.[address] [address] Jan, Bipolar disorder, current episode depres sed, mild F31.31 ; Chronic post-traumatic stress disorder (PTSD) F43.12 and Generalized anxiety disorder F41.1 [facility] [address] [address] Dec, Type 2 diabetes mellitus with hyperglyce karthikeyan, without long-term current use of insulin E11.65 [facility] [address] [address] November, [place] [address] [address] November, Bipolar disorder, current episode depres sed, mild F31.31 ; Chronic post-traumatic stress disorder (PTSD) F43.12 and Generalized anxiety disorder F41.1 [place] [address] [address] November, Type 2 diabetes mellitus with hyperglyce karthikeyan, without long-term current use of insulin E11.65 ; Subacromial bursitis of left shoulder joint M75.52 ; Urinary hesitancy R39.11 ; Tinea cruris B35.6 ; Tinea pedis of both feet B35.3 and Moderate persistent asthma without complication J45.40 [place] [address] [address] November, [place] [address] [address] November, [facility] [address] [address] Oct, [place] [address] [address] Oct, [facility] [address] [address] Sep, [facility] [address] [address] Sep, [facility] [address] [address] Sep, [facility] [address] [address] Sep, Bipolar disorder, current episode mixed, moderate F31.62 ; Generalized anxiety disorder F41.1 and Chronic post-traumatic stress disorder (PTSD) F43.[address] [address] Sep, Type 2 diabetes mellitus with hyperglyce karthikeyan, without long-term current use of insulin E11.[address] [address] Sep, [place] [address] Aug, Moderate persistent asthma without compl ication J45.[address] [address] Aug, [address] [address] Jul, [place] [address] Jul, Type 2 diabetes mellitus with hyperglyce karthikeyan, without long-term current use of insulin E11.[address] [address] Jul, [address] [address] Jul, [address] [address] Jul, [address] [address] Jul, Type 2 diabetes mellitus with hyperglyce karthikeyan, without long-term current use of insulin E11.65 ; Hematuria R31.9 ; Snoring R06.83 ; Sleep walking and eating F51.3 ; Jock itch L29.8 ; Costochondritis M94.0 and Cervicalgia M54.[address] [address] Jun, Urinary hesitancy R39.[id number] [place] [address] Jun, Elevated serum glucose R73.9 and Urinary hesitancy R39.11 [place] [address] [address] Jun, Bipolar disorder, current episode depres sed, mild F31.31 ; Generalized anxiety disorder F41.1 ; Neurocognitive deficits R29.818 and Chronic post- traumatic stress disorder (PTSD) F43.12 [place] [address] [address] Jun, Elevated serum glucose R73.9 [place] [address] [address] Jun, [place] [address] [address] Apr, [place] [address] [address] Apr, [place] [address] [address] Apr, Drug-induced erectile dysfunction N52.2 and Bilateral low back pain, with sciatica presence unspecified M54.5 [place] [address] [address] Mar, Tinea versicolor B36.0 and Encounter for immunization Z23 [place] [address] [address] Mar, Bipolar 1 disorder, depressed, severe F3 1.4 ; Post-traumatic stress disorder F43.10 ; Generalized anxiety disorder F41.1 and Neurocognitive deficits R29.818 [place] [address] [address] Feb, [place] [address] [address] Feb, [place] [address] [address] Feb, [place] [address] [address] Feb, Hyperlipidemia E78.5 [place] [address] [address] Feb, [place] [address] [address] Jan, Essential hypertension I10 ; Moderate pe rsistent asthma without complication J45.40 ; Pure hypercholesterolemia E78.0 and Auditory hallucinations R44.0 [place] [address] [address] Jan, [place] [address] [address] Dec, [place] [address] [address] Dec, [place] [address] [address] November, Bipolar disorder, current episode mixed, moderate F31.62 ; Post- traumatic stress disorder F43.10 and Generalized anxiety disorder F41.1 [facility] [address] [place] [id number] [place] [id number] November, Visit for dental examination Z01.20 [place] [address] [address] Oct, Uncomplicated asthma, unspecified asthma severity J45.909 [place] [address] [address] Oct, Uncomplicated asthma, unspecified asthma severity J45.909 ; Bilateral low back pain, with sciatica presence unspecified M54.5 and Jock itch B35.6 [place] [address] [address] Oct, [place] [address] [address] Sep, Post-traumatic stress disorder F43.10 ; Generalized anxiety disorder F41.1 ; Neurocognitive deficits R29.818 and Bipolar disorder, current episode depressed, mild F31.31 [place] [address] [address] Sep, Plantar fasciitis M72.2 [facility] [address] [address] Sep, Hyperlipidemia E78.5 [facility] [address] [address] Sep, [facility] [address] [address] Sep, [place] [address] [address] Sep, Essential hypertension I10 and Urinary h esitancy R39.11 [place] [address] [address] Sep, [place] [address] [address] Aug, [place] [address] [address] Aug, Skin nodule R22.9 [place] [address] [address] Aug, Plantar fasciitis M72.2 ; Onychomycosis B35.1 and Tinea pedis B35.3 [place] [address] [address] Aug, Post-traumatic stress disorder F43.10 ; Generalized anxiety disorder F41.1 ; Neurocognitive deficits R29.818 and Bipolar disorder, current episode depressed, moderate F31.32 [place] [address] [address] Jul, Metacarpophalangeal joint sprain S63.659 [facility] [address] [facility] [id number] [place] [address] Jul, Right hand pain M79.641 [place] [address] [address] Jun, Right hand pain M79.641 ; Right foot sandra n M79.671 and Urinary hesitancy R39.11 [place] [address] [address] Jun, Bipolar disorder, current episode mixed, moderate F31.62 ; Post- traumatic stress disorder F43.10 ; Generalized anxiety disorder F41.1 and Neurocognitive deficits R29.818 [place] [address] [address] Jun, Right hand pain M79.641 ; Right foot sandra n M79.671 ; Right ankle pain M25.571 ; Urinary hesitancy R39.11 ; Flat foot [pes planus] (acquired), right foot M21.41 and Pes planus of left foot M21.42 [place] [address] [address] May, Bipolar disorder, current episode mixed, moderate F31.62 ; Post- traumatic stress disorder F43.10 ; Generalized anxiety disorder F41.1 and Neurocognitive deficits R29.818 [place] [address] [address] May, Right hand pain M79.641 and Essential hy pertension I10 [place] [address] [address] May, Anxiety 300.00 and Depression 311 [place] [address] [address] Apr, [place] [address] [address] Apr, [place] [address] [place] [address] Apr, [place] [address] [address] Apr, [facility] [address] [address] Apr, Bipolar 1 disorder, mixed, moderate F31. 62 ; PTSD (post-traumatic stress disorder) F43.10 ; ROBERT (generalized anxiety disorder) F41.1 and Neurocognitive deficits R29.[address] [address] Apr, Anxiety, generalized F41.1 and Major dep ression, recurrent F33.[address] [address] Mar, Influenza vaccine administered V04.81 [facility] [id number] [place] [id number] Mar, Dental examination V72.[address] [address] Feb, [address] [address] Feb, Chronic headache 784.0 and Nightmares [address] [address] Feb, [address] [address] Feb, Bipolar 1 disorder, depressed, moderate 296.52 ; PTSD (post-traumatic stress disorder) 309.81 and ROBERT (generalized anxiety disorder) 300.[address] [address] Jan, Acid reflux 530.81 ; Depression 311 ; An xiety 300.00 and Tinnitus 388.[address] [address] Jan, Major depression, recurrent 296.30 ; Soc ial phobia 300.23 ; Anxiety, generalized 300.02 ; No condition on Smyer II V71.09 ; Post-concussional syndrome 310.2 and Memory difficulties 780.93 [place] [id number] Dec, Essential hypertension, benign 401.1 [facility] [address] [address] Dec, Essential hypertension, benign 401.1 [facility] [address] [address] Dec, Cervicalgia 723.1 [facility] [address] [address] Dec, Essential hypertension, benign 401.1 ; C ervicalgia 723.1 ; Lumbago 724.2 ; Seizure disorder 345.90 ; Chronic headache 784.0 ; Tinnitus 388.30 and Anxiety 300.00 [facility] [address] [address] Dec, [facility] [address] [address] Oct, [facility] [address] [address] Oct, [facility] [address] [address] Sep, [facility] [address] [address] Sep, [facility] [address] [address] Jul, [facility] [address] [address] Jul, [facility] [address] [address] Jul, [facility] [address] [address] Jul, [facility] [address] [address] Jul, [facility] [address] [address] Jul, [facility] [address] [id number] [place] [address] Jun, [facility] [address] [id number] [place] [address] Jun, [facility] [address] [id number] [place] [address] Jun, [facility] [address] [id number] [place] [address] Jun, [facility] [address] [id number] [place] [address] Jun, [facility] [address] [id number] [place] [address] Jun, [facility] [address] [id number] [place] [address] Jun, [facility] [address] [id number] [place] [address] Jun, [facility] [address] [id number] [place] [address] Apr, [facility] [address] [id number] [place] [address] Apr, [facility] [address] [id number] [place] [address] Apr, [facility] [address] [id number] [place] [address] Apr, [facility] [address] [id number] [place] [address] Mar, [facility] [address] [id number] [place] [address] Mar, [facility] [address] [id number] [place] [address] Feb, [facility] [address] [id number] [place] [address] Feb, [facility] [address] [id number] [place] [address] Feb, [facility] [address] [id number] [place] [address] Feb, [facility] [address] [id number] [place] [address] Feb, [facility] [address] [id number] [place] [address] Feb, [facility] [address] [id number] [place] [address] Feb, [facility] [address] [id number] [place] [address] Feb, [facility] [address] [id number] [place] [address] Feb, [facility] [address] [id number] [place] [address] Feb, [facility] [address] [id number] [place] [address] Jan, [facility] [address] [id number] [place] [address] Jan, [facility] [place] [address] [place] [address] Jan, [facility] [address] [id number] [place] [address] Jan, [facility] [address] [id number] [place] [address] Dec, [facility] [address] [id number] [place] [address] Dec, [facility] [address] [id number] [place] [address] Dec, [facility] [address] [id number] [place] [address] Dec, [facility] [address] [id number] [place] [address] Oct, [facility] [address] [id number] [place] [address] Oct, [facility] [address] [id number] [place] [address] Sep, [facility] [address] [id number] [place] [address] Sep, [facility] [address] [id number] [place] [address] Aug, [facility] [address] [id number] [place] [address] Aug, [facility] [address] [id number] [place] [address] Aug, [facility] [address] [id number] [place] [address] Aug, [facility] [address] [id number] [place] [address] Aug, [facility] [address] [id number] [place] [address] Aug, [facility] [address] [id number] [place] [address] Feb, [facility] [address] [id number] [place] [address] Sep, [facility] [address] [id number] [place] [address] Sep, [facility] [address] [id number] [place] [address] 08 Aug, 2012 [facility] [address] [id number] [place] [address] Jul, [facility] [address] [place] [id number] [place] [address] Jul, [facility] [address] [id number] [place] [address] Jul, [facility] [address] [id number] [place] [address] Jun, [facility] [address] [id number] [place] [address] Jun, [facility] [id number] [place] [address] Jun, [facility] [id number] [place] [address] Jun, [facility] [id number] [place] [address] Jun, [facility] [address] [id number] [place] [address] Jun, [facility] [id number] [place] [address] Jun, [facility] [id number] [place] [address] Apr, [facility] [id number] [place] [address] Apr, [facility] [id number] [place] [address] Apr, [facility] [id number] [place] [address] Apr, [facility] [id number] [place] [address] Apr, [facility] [id number] [place] [address] Apr, IMMUNIZATIONS No Known Immunizations SOCIAL HISTORY Never Assessed REASON FOR VISIT PLAN OF CARE VITAL SIGNS Height 66 in 2013-09-04 Weight 149 lbs 2013-09-04 Temperature 96.6 degrees Fahrenheit 2013-09-04 Heart Rate 76 bpm 2013-09-04 Respiratory Rate 20 2013-09-04 Blood pressure systolic 128 mmHg 2013-09-04 Blood pressure diastolic 76 mmHg 2013-09-04 MEDICATIONS Unknown Medications RESULTS No Results PROCEDURES [...] Hospitalization History [facility] Hospitalization History [facility]
--- OUTSIDE RECORDS SUMMARY | 2020-02-07 16:53 | XMS REPORT ---
Author Author Dilan Mejía Doctor Organization [facility] Address Unknown Phone Unavailable Care Team Providers Care Dust Sampler Name Role Phone Migration, Doctor Unavailable Unavailable PROBLEMS Type Condition ICD9-CM Code CVY67-MR Code Onset Dates Condition S tatus SNOMED Code Problem Bilateral low back pain, with sciatica presence unspecifie d M54.5 Active 012633887 Problem Essential hypertension I10 Active 01301749 Problem Seizure disorder G40.909 Active 128 958641 Problem Generalized anxiety disorder F41.1 A ctive 157316949 Problem Cervicalgia M54.2 Active 22070759 64340 Problem Bipolar disorder, current episode depressed, mild F31.31 Active 967445553 Problem Bipolar disorder, current episode depressed, moderate F31.32 Active 032370510 Problem Post-traumatic stress disorder, unspecified F43.10 Active 68417640 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 04833393 Problem Major depressive disorder, recurrent sev ere without psychotic features F33.2 Active 90247975 Problem Intractable chronic post-traumatic headache G44.32 1 Active 290144059 Problem Chest pain, unspecified chest pain type R07.9 Active 83133691 Problem Major depressive disorder, recurrent episode, un specified severity F33.9 Active 35459444 Problem Sleep walking and eating F51.3 Activ e 33265410 Problem Drug-induced erectile dysfunction N52.2 Active 943803552 Problem Subacromial bursitis of left shoulder joint M75.52 Active 33172912 Problem Tarsal tunnel syndrome of right side G57.51 Active 85872689 Problem Urinary hesitancy R39.11 Active 59 00612 Problem Diabetic polyneuropathy associated with type 2 d iabetes mellitus E11.42 Active 22023713 Problem Bipolar disorder, current episode mixed, moderate F31.62 Active 160347928 Problem Obstructive sleep apnea syndrome G47.33 Active 99810306 Problem Type 2 diabetes mellitus wit h hyperglycemia, without long-term current use of insulin E11.65 Active 26163898 Problem Mixed hyperlipidemia E78.2 Active 519911380 Problem Post-traumatic stress disorder F43.10 Active 70560854 Problem Tarsal tunnel syndrome of both lower extremities G 57.53 Active [id number] Problem Neurocognitive deficits R29.818 Active 380620579 Problem Bipolar disorder, current ep isode depressed, severe, without psychotic features F31.4 Active 33678987 Problem Post traumatic stress disorder (PTSD) F43.10 Active 73311672 Problem Twitching R25.3 Active 228049918 Problem Cocaine use disorder, severe, dependence F14.20 Active 66419417 Problem Pure hypercholesterolemia E78.0 Acti ve 658843173 Problem Subacromial bursitis of right shoulder joint M75.5 1 Active 7124196399323347 Problem Moderate persistent asthma without complication J4 5.40 Active 370330925 Problem Chronic post-traumatic stress disorder (PTSD) F43. 12 Active 100247336 Problem Bipolar disorder F31.9 Active 137 72634 Problem Cocaine abuse F14.10 Active 428259 03 Problem Bipolar 1 disorder, depressed, severe F31.4 Active 923653216939 Problem Bursitis of left shoulder M75.52 Acti ve [id number] ALLERGIES No Information ENCOUNTERS Encounter Location Date Diagnosis [place] [address] [address] Sep, [place] [address] [address] Sep, [place] [address] [address] 13 Aug, 2019 Diabetic polyneuropathy associated with type 2 diabetes mellitus E11.42 ; Subacromial bursitis of left shoulder joint M75.52 ; Subacromial bursitis of right shoulder joint M75.51 ; Type 2 diabetes mellitus with hyperglycemia, without long-term current use of insulin E11.65 and Encounter for immunization Z23 [place] [address] [address] Aug, [place] [address] [address] Aug, [place] [address] [address] Aug, Neuropathic pain M79.2 [facility] [place] [address] [address] Jul, Neuropathic pain M79.2 [facility] [place] [address] [address] Jun, Neuropathic pain M79.2 [facility] [place] [address] [address] May, [facility] [address] [address] May, Neuropathic pain M79.2 [facility] [place] [address] [address] May, [facility] [address] [address] Apr, [facility] [place] [address] [address] Apr, Neuropathic pain M79.2 [facility] [place] [address] [address] Apr, [facility] [place] [address] [address] Apr, [facility] [place] [address] [address] Mar, [facility] [place] [address] [address] Mar, [facility] [place] [address] [address] Mar, Neuropathic pain M79.2 [facility] [place] [address] [address] Mar, Bipolar 1 disorder, depressed, severe F3 1.4 and Cocaine use disorder, severe, dependence F14.20 [facility] [place] [address] [address] 24 Mar, 2019 Neuropathic pain M79.2 [facility] [place] [address] [address] 18 Mar, 2019 Neuropathic pain M79.2 [place] [address] [address] Mar, [place] [address] [address] Mar, [place] [address] [address] Feb, Bipolar 1 disorder, depressed, severe F3 1.4 [place] [address] [address] Feb, [place] [address] [address] Feb, [place] [address] [address] Feb, Type 2 diabetes mellitus with hyperglyce karthikeyan, without long-term current use of insulin E11.65 ; Bursitis of right shoulder M75.51 and Bursitis of left shoulder M75.52 [place] [address] [address] Feb, Subacromial bursitis of left shoulder sanket int M75.52 ; Tarsal tunnel syndrome of both lower extremities G57.53 and Subacromial bursitis of right shoulder joint M75.51 [place] [address] [address] Feb, Diabetic polyneuropathy associated with type 2 diabetes mellitus E11.42 ; Mixed hyperlipidemia E78.2 ; Cocaine abuse F14.10 ; Subacromial bursitis of left shoulder joint M75.52 ; Acute pain of right shoulder M25.511 ; Moderate persistent asthma without complication J45.40 and Bipolar 1 disorder, depressed, severe F31.4 [place] [address] [address] Jan, [place] [address] [address] Jan, Essential hypertension I10 ; Type 2 diab etes mellitus with hyperglycemia, without long-term current use of insulin E11.65 and Diabetic polyneuropathy associated with type 2 diabetes mellitus E11.42 [place] [address] [address] Jan, [place] [address] [address] Dec, Bipolar disorder, current episode mixed, moderate F31.62 ; Diabetic polyneuropathy associated with type 2 diabetes mellitus E11.42 ; Cocaine abuse F14.10 and Major depressive disorder, recurrent severe without psychotic features F33.2 [place] [address] [address] Dec, Diabetic polyneuropathy associated with type 2 diabetes mellitus E11.42 [place] [address] [address] Dec, [address] [place] [address] Dec, [place] [address] [address] Dec, Major depressive disorder, recurrent sev ere without psychotic features F33.2 ; Diabetic polyneuropathy associated with type 2 diabetes mellitus E11.42 and Cocaine abuse F14.10 [place] [address] [address] Dec, [place] [address] [address] November, Post-traumatic stress disorder F43.10 ; Bipolar disorder, current episode mixed, moderate F31.62 ; Cocaine abuse F14.10 ; Generalized anxiety disorder F41.1 and Neurocognitive deficits R29.818 [place] [address] [address] November, Pure hypercholesterolemia E78.0 [place] [address] [address] November, [place] [address] [address] November, Type 2 diabetes mellitus with hyperglyce karthikeyan, without long-term current use of insulin E11.65 ; Seizure disorder G40.909 ; Major depressive disorder, recurrent severe without psychotic features F33.2 and Cocaine abuse F14.10 [place] [address] [address] Oct, Type 2 diabetes mellitus with hyperglyce karthikeyan, without long-term current use of insulin E11.65 [place] [address] [address] Oct, Post-traumatic stress disorder F43.10 an d Bipolar disorder F31.[address] [address] Oct, Subacromial bursitis of left shoulder sanket int M75.52 and Homicidal ideation R45.850 [facility] [address] [facility] [id number] [place] [address] Oct, [place] [address] [address] Oct, [place] [address] [address] Sep, Diabetic polyneuropathy associated with type 2 diabetes mellitus E11.42 [place] [address] [address] Aug, Type 2 diabetes mellitus with hyperglyce karthikeyan, without long-term current use of insulin E11.65 [place] [address] [address] Aug, Twitching R25.3 ; Pain of left foot M79. 672 and Pain in right foot M79.671 [place] [address] [address] Aug, Diabetic polyneuropathy associated with type 2 diabetes mellitus E11.42 and Essential hypertension I10 [place] [address] [address] Aug, Type 2 diabetes mellitus with hyperglyce karthikeyan, without long-term current use of insulin E11.65 ; Post-traumatic stress disorder F43.10 ; Bipolar disorder, current episode mixed, moderate F31.62 and Neurocognitive deficits R29.818 [place] [address] [address] Jul, Bipolar disorder, current episode depres sed, severe, without psychotic features F31.4 and Post traumatic stress disorder (PTSD) F43.10 [place] [address] [place] [address] Jul, Bipolar disorder, current episode depres sed, severe, without psychotic features F31.4 and Post traumatic stress disorder (PTSD) F43.10 [place] [address] [place] [address] Jul, [place] [address] [address] Jun, [address] [address] Jun, Tarsal tunnel syndrome of both lower ext remities G57.53 and Diabetic polyneuropathy associated with type 2 diabetes mellitus E11.[address] [address] May, Bipolar disorder, current episode mixed, moderate F31.62 ; Generalized anxiety disorder F41.1 ; Post-traumatic stress disorder F43.10 and Neurocognitive deficits R29.818 [place] [address] [address] May, [place] [address] [address] May, Bipolar disorder, current episode depres sed, severe, without psychotic features F31.4 and Post traumatic stress disorder (PTSD) F43.10 [place] [address] [address] May, Subacromial bursitis of left shoulder sanket int M75.[address] [address] May, Diabetic polyneuropathy associated with type 2 diabetes mellitus E11.42 [place] [address] [address] May, [place] [address] [address] May, Medicare annual wellness visit, initial Z00.00 ; Encounter for immunization Z23 ; Major depressive disorder, recurrent severe without psychotic features F33.2 ; Essential hypertension I10 ; Seizure disorder G40.909 ; Generalized anxiety disorder F41.1 ; Type 2 diabetes mellitus with hyperglycemia, without long-term current use of insulin E11.65 ; Diabetic polyneuropathy associated with type 2 diabetes mellitus E11.42 and Mixed hyperlipidemia E78.2 [place] [address] [address] May, [place] [address] [address] May, Exercise counseling Z71.82 [place] [address] [address] May, Subacromial bursitis of left shoulder sanket int M75.52 [place] [address] [address] May, [place] [address] [address] May, [place] [address] [address] Apr, [place] [address] [address] Apr, Diabetic polyneuropathy associated with type 2 diabetes mellitus E11.42 [place] [address] [address] Apr, Tarsal tunnel syndrome of both lower ext remities G57.53 and Diabetic polyneuropathy associated with type 2 diabetes mellitus E11.42 [place] [address] [address] Apr, [place] [address] [address] Apr, Subacromial bursitis of left shoulder sanket int M75.52 [place] [address] [address] Mar, Type 2 diabetes mellitus with hyperglyce karthikeyan, without long-term current use of insulin E11.65 ; Diabetic polyneuropathy associated with type 2 diabetes mellitus E11.42 ; Bilateral low back pain, with sciatica presence unspecified M54.5 ; Tarsal tunnel syndrome of both lower extremities G57.53 ; Jock itch L29.8 ; Encounter for immunization Z23 and Weight gain R63.5 [place] [address] [address] Mar, Jock itch L29.8 [place] [address] [address] Mar, Plantar fasciitis, bilateral M72.2 ; Tar gema tunnel syndrome of both lower extremities G57.53 ; Posterior tibial tendinitis of right lower extremity M76.821 and Posterior tibial tendinitis of left lower extremity M76.822 [place] [address] [address] Mar, Diabetic polyneuropathy associated with type 2 diabetes mellitus E11.42 [place] [address] [address] Mar, Subacromial bursitis of left shoulder sanket int M75.52 [place] [address] [address] Jan, [place] [address] [address] Jan, [place] [address] [address] Jan, [place] [address] [address] Jan, [place] [address] [address] Jan, Drug-induced erectile dysfunction N52.2 [place] [address] [address] Dec, Subacromial bursitis of left shoulder sanket int M75.52 [place] [address] [address] Dec, Type 2 diabetes mellitus with hyperglyce [...] otitis externa of righ t ear H60.391 [place] [address] [address] November, [address] [address] November, Type 2 diabetes mellitus with hyperglyce karthikeyan, without long-term current use of insulin E11.65 [place] [address] [address] November, Subacromial bursitis of left shoulder sanket int M75.52 [place] [address] [address] November, Bilateral low back pain, with sciatica p resence unspecified M54.[address] [address] Oct, Essential hypertension I10 ; Pure hyperc holesterolemia E78.0 and At risk for cardiovascular event Z91.[address] [address] Oct, Bilateral low back pain, with sciatica p resence unspecified M54.5 and Subacromial bursitis of left shoulder joint M75.52 [place] [address] [address] Sep, Subacromial bursitis of left shoulder sanket int M75.52 [place] [address] [address] Aug, Subacromial bursitis of left shoulder sanket int M75.52 [place] [address] [address] Aug, Essential hypertension I10 [place] [address] [address] Jul, Pure hypercholesterolemia E78.0 and Jock itch L29.8 [place] [address] [address] Jul, Type 2 diabetes mellitus with hyperglyce karthikeyan, without long-term current use of insulin E11.65 [place] [address] [address] Jul, [place] [address] [address] Jul, [place] [address] [address] Jul, [place] [address] [address] Jun, Moderate persistent asthma without compl ication J45.40 ; Subacromial bursitis of left shoulder joint M75.52 ; Episode of altered consciousness R40.4 and Obstructive sleep apnea syndrome G47.33 [place] [address] [address] Jun, Subacromial bursitis of left shoulder sanket int M75.52 [place] [address] [address] May, [place] [address] [address] May, [facility] [place] [address] [address] May, Subacromial bursitis of left shoulder sanket int M75.52 [facility] [place] [address] [address] May, [place] [address] [address] Apr, Subacromial bursitis of left shoulder sanket int M75.52 [place] [address] [address] Apr, Pure hypercholesterolemia E78.0 ; Right sided weakness R53.1 ; Episode of altered consciousness R40.4 ; Seizure disorder G40.909 ; Essential hypertension I10 and At risk for cardiovascular event Z91.89 [place] [address] [address] Apr, [place] [address] [address] 18 Apr, 2017 [place] [address] [address] 14 Mar, 2017 [place] [address] [address] 14 Mar, 2017 [place] [address] [address] 13 Mar, 2017 Type 2 diabetes mellitus with hyperglyce karthikeyan, without long-term current use of insulin E11.65 ; Encounter for immunization Z23 and Subacromial bursitis of left shoulder joint M75.52 [place] [address] [address] Feb, Subacromial bursitis of left shoulder sanket int M75.52 [place] [address] [address] Jan, Moderate persistent asthma without compl ication J45.[address] [address] Jan, Bipolar disorder, current episode depres sed, mild F31.31 ; Chronic post-traumatic stress disorder (PTSD) F43.12 and Generalized anxiety disorder F41.1 [place] [address] [address] Dec, Type 2 diabetes mellitus with hyperglyce karthikeyan, without long-term current use of insulin E11.65 [place] [address] [address] November, [place] [address] [address] November, Bipolar disorder, current episode depres sed, mild F31.31 ; Chronic post-traumatic stress disorder (PTSD) F43.12 and Generalized anxiety disorder F41.1 [place] [address] [address] November, Type 2 diabetes mellitus with hyperglyce karthikeyan, without long-term current use of insulin E11.65 ; Subacromial bursitis of left shoulder joint M75.52 ; Urinary hesitancy R39.11 ; Tinea cruris B35.6 ; Tinea pedis of both feet B35.3 and Moderate persistent asthma without complication J45.40 [place] [address] [address] November, [place] [address] [address] November, [place] [address] [address] Oct, [place] [address] [address] Oct, [place] [address] [address] Sep, [facility] [place] [address] [address] Sep, [place] [address] [address] Sep, [place] [address] [address] Sep, Bipolar disorder, current episode mixed, moderate F31.62 ; Generalized anxiety disorder F41.1 and Chronic post-traumatic stress disorder (PTSD) F43.12 [place] [address] [address] Sep, Type 2 diabetes mellitus with hyperglyce karthikeyan, without long-term current use of insulin E11.65 [place] [address] [address] Sep, [place] [address] [address] Aug, Moderate persistent asthma without compl ication J45.40 [place] [address] [address] Aug, [place] [address] [address] Jul, [place] [address] [address] Jul, Type 2 diabetes mellitus with hyperglyce karthikeyan, without long-term current use of insulin E11.65 [place] [address] [address] Jul, [place] [address] [address] Jul, [place] [address] [address] Jul, [place] [address] [address] Jul, Type 2 diabetes mellitus with hyperglyce karthikeyan, without long-term current use of insulin E11.65 ; Hematuria R31.9 ; Snoring R06.83 ; Sleep walking and eating F51.3 ; Jock itch L29.8 ; Costochondritis M94.0 and Cervicalgia M54.2 [place] [address] [address] Jun, Urinary hesitancy R39.11 [place] [address] [address] Jun, Elevated serum glucose R73.9 and Urinary hesitancy R39.11 [place] [address] [address] Jun, Bipolar disorder, current episode depres sed, mild F31.31 ; Generalized anxiety disorder F41.1 ; Neurocognitive deficits R29.818 and Chronic post- traumatic stress disorder (PTSD) F43.12 [place] [address] [address] Jun, Elevated serum glucose R73.9 [place] [address] [address] Jun, [place] [address] [address] Apr, [place] [address] [address] Apr, [place] [address] [address] Apr, Drug-induced erectile dysfunction N52.2 and Bilateral low back pain, with sciatica presence unspecified M54.5 [place] [address] [address] Mar, Tinea versicolor B36.0 and Encounter for immunization Z23 [place] [address] [address] Mar, Bipolar 1 disorder, depressed, severe F3 1.4 ; Post-traumatic stress disorder F43.10 ; Generalized anxiety disorder F41.1 and Neurocognitive deficits R29.818 [place] [address] [address] Feb, [place] [address] [address] Feb, [place] [id number] [place] [id number] [place] [address] Feb, [facility] [place] [address] [address] Feb, Hyperlipidemia E78.5 [place] [address] [address] Feb, [facility] [place] [address] [address] Jan, Essential hypertension I10 ; Moderate pe rsistent asthma without complication J45.40 ; Pure hypercholesterolemia E78.0 and Auditory hallucinations R44.0 [place] [address] [address] Jan, [place] [address] [address] Dec, [place] [address] [address] Dec, [place] [address] [address] November, Bipolar disorder, current episode mixed, moderate F31.62 ; Post- traumatic stress disorder F43.10 and Generalized anxiety disorder F41.1 [facility] [address] [facility] [place] [id number] November, Visit for dental examination Z01.20 [place] [address] [address] Oct, Uncomplicated asthma, unspecified asthma severity J45.909 [place] [address] [address] Oct, Uncomplicated asthma, unspecified asthma severity J45.909 ; Bilateral low back pain, with sciatica presence unspecified M54.5 and Jock itch B35.6 [place] [address] [address] Oct, [facility] [place] [address] [address] Sep, Post-traumatic stress disorder F43.10 ; Generalized anxiety disorder F41.1 ; Neurocognitive deficits R29.818 and Bipolar disorder, current episode depressed, mild F31.31 [place] [address] [address] Sep, Plantar fasciitis M72.2 [place] [address] [address] Sep, Hyperlipidemia E78.5 [place] [address] [address] Sep, [place] [address] [address] Sep, [place] [address] [address] Sep, Essential hypertension I10 and Urinary h esitancy R39.11 [place] [address] [address] Sep, [place] [address] [address] Aug, [address] [address] Aug, Skin nodule R22.[address] [address] Aug, Plantar fasciitis M72.2 ; Onychomycosis B35.1 and Tinea pedis B35.3 [place] [address] [address] Aug, Post-traumatic stress disorder F43.10 ; Generalized anxiety disorder F41.1 ; Neurocognitive deficits R29.818 and Bipolar disorder, current episode depressed, moderate F31.32 [place] [address] [place] [id number] [place] [address] Jul, Metacarpophalangeal joint sprain S63.659 [facility] [address] [facility] [id number] [address] [place] [address] Jul, Right hand pain M79.641 [facility] [place] [address] [place] [address] Jun, Right hand pain M79.641 ; Right foot sandra n M79.671 and Urinary hesitancy R39.11 [place] [address] [address] Jun, Bipolar disorder, current episode mixed, moderate F31.62 ; Post- traumatic stress disorder F43.10 ; Generalized anxiety disorder F41.1 and Neurocognitive deficits R29.818 [place] [address] [address] Jun, Right hand pain M79.641 ; Right foot sandra n M79.671 ; Right ankle pain M25.571 ; Urinary hesitancy R39.11 ; Flat foot [pes planus] (acquired), right foot M21.41 and Pes planus of left foot M21.42 [place] [address] [address] May, Bipolar disorder, current episode mixed, moderate F31.62 ; Post- traumatic stress disorder F43.10 ; Generalized anxiety disorder F41.1 and Neurocognitive deficits R29.818 [place] [address] [address] May, Right hand pain M79.641 and Essential hy pertension I10 [place] [address] [address] May, Anxiety 300.00 and Depression 311 [place] [address] [address] Apr, [place] [address] [place] [address] Apr, [facility] [place] [address] [address] Apr, [facility] [place] [id number] [place] [address] Apr, [address] [address] Apr, Bipolar 1 disorder, mixed, moderate F31. 62 ; PTSD (post-traumatic stress disorder) F43.10 ; ROBERT (generalized anxiety disorder) F41.1 and Neurocognitive deficits R29.[address] [address] Apr, Anxiety, generalized F41.1 and Major dep ression, recurrent F33.[address] [address] Mar, Influenza vaccine administered V04.81 [facility] [address] [id number] [place] [id number] Mar, Dental examination V72.[address] [address] Feb, [address] [address] Feb, Chronic headache 784.0 and Nightmares [address] [address] Feb, [address] [address] Feb, Bipolar 1 disorder, depressed, moderate 296.52 ; PTSD (post-traumatic stress disorder) 309.81 and ROBERT (generalized anxiety disorder) 300.[address] [address] Jan, Acid reflux 530.81 ; Depression 311 ; An xiety 300.00 and Tinnitus 388.[address] [address] Jan, Major depression, recurrent 296.30 ; Soc ial phobia 300.23 ; Anxiety, generalized 300.02 ; No condition on [place] V71.09 ; Post-concussional syndrome 310.2 and Memory difficulties 780.93 [facility] [place] [address] [place] [id number] [place] [address] 15 Dec, 2014 Essential hypertension, benign 401.1 [facility] [place] [address] [address] Dec, Essential hypertension, benign 401.1 [facility] [place] [address] [address] Dec, Cervicalgia 723.1 [facility] [place] [address] [address] Dec, Essential hypertension, benign 401.1 ; C ervicalgia 723.1 ; Lumbago 724.2 ; Seizure disorder 345.90 ; Chronic headache 784.0 ; Tinnitus 388.30 and Anxiety 300.00 [facility] [place] [address] [address] Dec, [facility] [place] [address] [address] Oct, [facility] [place] [address] [address] Oct, [facility] [place] [address] [address] Sep, [facility] [place] [address] [address] Sep, [facility] [place] [address] [address] Jul, [facility] [place] [address] [address] Jul, [facility] [place] [address] [address] Jul, [facility] [place] [address] [address] Jul, [facility] [place] [address] [address] Jul, [facility] [address] [id number] [place] [address] Jul, [facility] [address] [id number] [place] [address] Jun, [facility] [address] [id number] [place] [address] Jun, [facility] [address] [id number] [place] [address] Jun, [facility] [address] [id number] [place] [address] Jun, [facility] [address] [id number] [place] [address] Jun, [facility] [address] [id number] [place] [address] Jun, [facility] [address] [id number] [place] [address] Jun, [facility] [address] [id number] [place] [address] Jun, [facility] [address] [id number] [place] [address] Apr, [facility] [address] [id number] [place] [address] Apr, [facility] [address] [id number] [place] [address] Apr, [facility] [address] [id number] [place] [address] Apr, [facility] [address] [id number] [place] [address] Mar, [facility] [address] [id number] [place] [address] Mar, [facility] [address] [id number] [place] [address] Feb, [facility] [address] [id number] [place] [address] Feb, [facility] [address] [id number] [place] [address] Feb, [facility] [address] [facility] [id number] [place] [address] Feb, [facility] [address] [id number] [place] [address] Feb, [facility] [address] [id number] [place] [address] Feb, [facility] [address] [facility] [id number] [place] [address] Feb, [facility] [address] [id number] [place] [address] Feb, [facility] [address] [id number] [place] [address] Feb, [facility] [address] [id number] [place] [address] Feb, [facility] [address] [id number] [place] [address] Jan, [facility] [address] [id number] [place] [address] Jan, Gerda [place] [address] [place] [address] Jan, 14 [facility] [address] [id number] [place] [address] Jan, [facility] [address] [id number] [place] [address] Dec, [facility] [address] [id number] [place] [address] Dec, [facility] [address] [id number] [place] [address] Dec, [facility] [address] [id number] [place] [address] Dec, [facility] [address] [id number] [place] [address] Oct, [facility] [address] [facility] [id number] [place] [address] Oct, [facility] [address] [id number] [place] [address] Sep, [facility] [address] [id number] [place] [address] Sep, [facility] [address] [id number] [place] [address] Aug, [facility] [address] [facility] [id number] [place] [address] Aug, [facility] [address] [id number] [place] [address] Aug, [facility] [address] [id number] [place] [address] Aug, [facility] [address] [id number] [place] [address] Aug, [facility] [address] [id number] [place] [address] Aug, [facility] [address] [id number] [place] [address] Feb, [facility] [address] [id number] [place] [address] Sep, [facility] [address] [id number] [place] [address] Sep, [facility] [address] [id number] [place] [address] Aug, [facility] [address] [id number] [place] [address] Jul, [facility] [address] [id number] [place] [address] Jul, [facility] [address] [id number] [place] [address] Jul, [facility] [place] [address] [id number] [place] [address] Jun, [facility] [place] [address] [place] [id number] [place] [address] Jun, [facility] [place] [address] [place] [id number] [place] [address] Jun, [facility] [place] [address] [place] [id number] [place] [address] Jun, [facility] [place] [address] [place] [id number] [place] [address] Jun, [facility] [place] [id number] [place] [address] Jun, [facility] [place] [address] [place] [id number] [place] [address] Jun, [facility] [place] [id number] [place] [address] Apr, [facility] [place] [id number] [place] [address] Apr, [facility] [place] [id number] [place] [address] Apr, [facility] [place] [id number] [place] [address] Apr, [facility] [place] [id number] [place] [address] Apr, [facility] [place] [address] [id number] [place] [address] Apr, IMMUNIZATIONS No Known Immunizations SOCIAL HISTORY Never Assessed REASON FOR VISIT PLAN OF CARE VITAL SIGNS Height 66 in 2013-08-19 Weight 144 lbs 2013-08-19 Temperature 98.6 degrees Fahrenheit 2013-08-19 Heart Rate 80 bpm 2013-08-19 Respiratory Rate 20 2013-08-19 Blood pressure systolic 140 mmHg 2013-08-19 Blood pressure diastolic 72 mmHg 2013-08-19 MEDICATIONS Unknown Medications RESULTS No Results PROCEDURES [...] Hospitalization History [facility]
--- OUTSIDE RECORDS SUMMARY | 2020-02-07 16:54 | XMS REPORT ---
Author Author Dilan BURGESS Organization 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 Name Role Phone UMANGCristi PATY Unavailable PROBLEMS Type Condition ICD9-CM Code CON01-FD Code Onset Dates Condition S tatus SNOMED Code Problem Chest pain, unspecified chest pain type R07.9 Active 90050532 Problem Seizure disorder G40.909 Active 128 078110 Problem Bilateral low back pain, with sciatica presence unspecifie d M54.5 Active 250849459 Problem Cervicalgia M54.2 Active 24457360 84446 Problem Essential hypertension I10 Active 47258913 Problem Bipolar disorder, current episode depressed, moderate F31.32 Active 094672556 Problem Generalized anxiety disorder F41.1 A ctive 440678259 Problem Major depressive disorder, recurrent sev ere without psychotic features F33.2 Active 84107081 Problem Intractable chronic post-traumatic headache G44.32 1 Active 513723372 Problem Mixed hyperlipidemia E78.2 Active 783615098 Problem Post-traumatic stress disorder F43.10 Active 94390497 Problem Major depressive disorder, recurrent episode, un specified severity F33.9 Active 85325558 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 12 Active 837952976 Problem Urinary hesitancy R39.11 Active 59 95243 Problem Sleep walking and eating F51.3 Activ e 47924337 Problem Obstructive sleep apnea syndrome G47.33 Active 64868238 Problem Type 2 diabetes mellitus wit h hyperglycemia, without long-term current use of insulin E11.65 Active 80836634 Problem Subacromial bursitis of left shoulder joint M75.52 Active 49169192 Problem Tarsal tunnel syndrome of right side G57.51 Active 16045540 Problem Tarsal tunnel syndrome of both lower extremities G 57.53 Active [id number] Problem Neurocognitive deficits R29.818 Active 625074079 Problem Diabetic polyneuropathy associated with type 2 d iabetes mellitus E11.42 Active 42866122 Problem Bipolar disorder, current episode mixed, moderate F31.62 Active 504235857 Problem Post-traumatic stress disorder, unspecified F43.10 Active 05866373 Problem Bipolar disorder, current ep isode depressed, severe, without psychotic features F31.4 Active 06467012 Problem Post traumatic stress disorder (PTSD) F43.10 Active 83505559 Problem Bursitis of left shoulder M75.52 Acti ve 975024203727859 Problem Moderate persistent asthma without complication J4 5.40 Active 926733786 Problem Cocaine use disorder, severe, dependence F14.20 Active 59624653 Problem Bipolar disorder, current episode depressed, mild F31.31 Active 775478920 Problem Pure hypercholesterolemia E78.0 Acti ve 608376795 Problem Twitching R25.3 Active 204072372 Problem Bipolar disorder F31.9 Active 137 62548 Problem Cocaine abuse F14.10 Active 645530 03 Problem Bipolar 1 disorder, depressed, severe F31.4 Active [id number] ALLERGIES No Information ENCOUNTERS Encounter Location Date Diagnosis [facility] [address] [address] Aug, [facility] [address] [address] Aug, [facility] [address] [address] Jul, Neuropathic pain M79.2 [facility] [address] [address] Jun, Neuropathic pain M79.2 [facility] [address] [address] May, [facility] [address] [address] May, Neuropathic pain M79.2 [facility] [address] [address] May, [facility] [address] [address] Apr, [facility] [id number] [place] [address] Apr, Neuropathic pain M79.2 [facility] [id number] [place] [address] Apr, [facility] [address] [address] Apr, [facility] [address] [address] Mar, [facility] [address] [address] Mar, [facility] [address] [address] Mar, Neuropathic pain M79.2 [facility] [address] [address] Mar, Bipolar 1 disorder, depressed, severe F3 1.4 and Cocaine use disorder, severe, dependence F14.20 [facility] [address] [address] 24 Mar, 2019 Neuropathic pain M79.2 [facility] [address] [address] 18 Mar, [address] [facility] [address] [address] 17 Mar, 2019 [facility] [address] [address] Mar, [facility] [address] [address] Feb, Bipolar 1 disorder, depressed, severe F3 1.4 [facility] [id number] [place] [address] Feb, [facility] [address] [address] Feb, [facility] [address] [address] Feb, Type 2 diabetes mellitus with hyperglyce karthikeyan, without long-term current use of insulin E11.65 ; Bursitis of right shoulder M75.51 and Bursitis of left shoulder M75.52 [place] [address] [address] Feb, Subacromial bursitis of left shoulder sanket int M75.52 ; Tarsal tunnel syndrome of both lower extremities G57.53 and Subacromial bursitis of right shoulder joint M75.51 [place] [address] [address] Feb, Diabetic polyneuropathy associated with type 2 diabetes mellitus E11.42 ; Mixed hyperlipidemia E78.2 ; Cocaine abuse F14.10 ; Subacromial bursitis of left shoulder joint M75.52 ; Acute pain of right shoulder M25.511 ; Moderate persistent asthma without complication J45.40 and Bipolar 1 disorder, depressed, severe F31.[address] [address] Jan, [address] [address] Jan, Essential hypertension I10 ; Type 2 diab etes mellitus with hyperglycemia, without long-term current use of insulin E11.65 and Diabetic polyneuropathy associated with type 2 diabetes mellitus E11.42 [place] [address] [address] Jan, [address] [address] Dec, Bipolar disorder, current episode mixed, moderate F31.62 ; Diabetic polyneuropathy associated with type 2 diabetes mellitus E11.42 ; Cocaine abuse F14.10 and Major depressive disorder, recurrent severe without psychotic features F33.[address] [address] Dec, Diabetic polyneuropathy associated with type 2 diabetes mellitus E11.42 [place] [address] [address] Dec, [facility] [address] [place] [address] Dec, [place] [address] [address] Dec, Major depressive disorder, recurrent sev ere without psychotic features F33.2 ; Diabetic polyneuropathy associated with type 2 diabetes mellitus E11.42 and Cocaine abuse F14.10 [place] [address] [address] Dec, [place] [address] [address] November, Post-traumatic stress disorder F43.10 ; Bipolar disorder, current episode mixed, moderate F31.62 ; Cocaine abuse F14.10 ; Generalized anxiety disorder F41.1 and Neurocognitive deficits R29.[address] [address] November, Pure hypercholesterolemia E78.0 [place] [address] [address] November, [address] [address] November, Type 2 diabetes mellitus with hyperglyce karthikeyan, without long-term current use of insulin E11.65 ; Seizure disorder G40.909 ; Major depressive disorder, recurrent severe without psychotic features F33.2 and Cocaine abuse F14.10 [place] [address] [address] Oct, Type 2 diabetes mellitus with hyperglyce karthikeyan, without long-term current use of insulin E11.65 [place] [address] [address] Oct, Post-traumatic stress disorder F43.10 an d Bipolar disorder F31.[address] [address] Oct, Subacromial bursitis of left shoulder sanket int M75.52 and Homicidal ideation R45.850 [facility] [id number] [place] [address] Oct, [place] [address] [address] Oct, [place] [address] [address] Sep, Diabetic polyneuropathy associated with type 2 diabetes mellitus E11.42 [place] [address] [address] Aug, Type 2 diabetes mellitus with hyperglyce karthikeyan, without long-term current use of insulin E11.65 [place] [address] [address] 13 Aug, 2018 Twitching R25.3 ; Pain of left foot M79. 672 and Pain in right foot M79.671 [place] [address] [address] Aug, Diabetic polyneuropathy associated with type 2 diabetes mellitus E11.42 and Essential hypertension I10 [place] [address] [address] Aug, Type 2 diabetes mellitus with hyperglyce karthikeyan, without long-term current use of insulin E11.65 ; Post-traumatic stress disorder F43.10 ; Bipolar disorder, current episode mixed, moderate F31.62 and Neurocognitive deficits R29.818 [place] [address] [address] Jul, Bipolar disorder, current episode depres sed, severe, without psychotic features F31.4 and Post traumatic stress disorder (PTSD) F43.10 [place] [address] [address] Jul, Bipolar disorder, current episode depres sed, severe, without psychotic features F31.4 and Post traumatic stress disorder (PTSD) F43.10 [place] [address] [address] Jul, [place] [address] [address] Jun, [place] [address] [address] Jun, Tarsal tunnel syndrome of both lower ext remities G57.53 and Diabetic polyneuropathy associated with type 2 diabetes mellitus E11.42 [place] [address] [address] May, Bipolar disorder, current episode mixed, moderate F31.62 ; Generalized anxiety disorder F41.1 ; Post-traumatic stress disorder F43.10 and Neurocognitive deficits R29.818 [place] [address] [address] May, [place] [address] [address] May, Bipolar disorder, current episode depres sed, severe, without psychotic features F31.4 and Post traumatic stress disorder (PTSD) F43.10 [place] [address] [address] May, Subacromial bursitis of left shoulder sanket int M75.[address] [address] May, Diabetic polyneuropathy associated with type 2 diabetes mellitus E11.42 [place] [address] [address] May, [address] [address] May, Medicare annual wellness visit, initial Z00.00 ; Encounter for immunization Z23 ; Major depressive disorder, recurrent severe without psychotic features F33.2 ; Essential hypertension I10 ; Seizure disorder G40.909 ; Generalized anxiety disorder F41.1 ; Type 2 diabetes mellitus with hyperglycemia, without long-term current use of insulin E11.65 ; Diabetic polyneuropathy associated with type 2 diabetes mellitus E11.42 and Mixed hyperlipidemia E78.[address] [address] May, [place] [address] [address] May, Exercise counseling Z71.82 [place] [address] [address] May, Subacromial bursitis of left shoulder sanket int M75.52 [place] [address] [address] May, [place] [address] [address] May, [place] [address] [address] Apr, [place] [address] [address] Apr, Diabetic polyneuropathy associated with type 2 diabetes mellitus E11.42 [place] [address] [address] Apr, Tarsal tunnel syndrome of both lower ext remities G57.53 and Diabetic polyneuropathy associated with type 2 diabetes mellitus E11.42 [place] [address] [address] Apr, [place] [address] [address] Apr, Subacromial bursitis of left shoulder sanket int M75.52 [place] [address] [address] Mar, Type 2 diabetes mellitus with hyperglyce karthikeyan, without long-term current use of insulin E11.65 ; Diabetic polyneuropathy associated with type 2 diabetes mellitus E11.42 ; Bilateral low back pain, with sciatica presence unspecified M54.5 ; Tarsal tunnel syndrome of both lower extremities G57.53 ; Jock itch L29.8 ; Encounter for immunization Z23 and Weight gain R63.5 [place] [address] [address] Mar, Jock itch L29.8 [place] [address] [address] Mar, Plantar fasciitis, bilateral M72.2 ; Tar gema tunnel syndrome of both lower extremities G57.53 ; Posterior tibial tendinitis of right lower extremity M76.821 and Posterior tibial tendinitis of left lower extremity M76.822 [place] [address] [address] Mar, Diabetic polyneuropathy associated with type 2 diabetes mellitus E11.42 [place] [address] [address] Mar, Subacromial bursitis of left shoulder sanket int M75.52 [place] [address] [address] Jan, [place] [address] [address] Jan, [place] [address] [address] Jan, [place] [address] [address] Jan, [place] [address] [address] Jan, Drug-induced erectile dysfunction N52.2 [place] [address] [address] Dec, Subacromial bursitis of left shoulder sanket int M75.52 [place] [address] [address] 13 Dec, 2017 Type 2 diabetes mellitus with hyperglyce [...] otitis externa of righ t ear H60.391 [place] [address] [address] November, [place] [address] [address] November, Type 2 diabetes mellitus with hyperglyce karthikeyan, without long-term current use of insulin E11.65 [place] [address] [address] November, Subacromial bursitis of left shoulder sanket int M75.52 [place] [address] [address] November, Bilateral low back pain, with sciatica p resence unspecified M54.5 [place] [address] [address] Oct, Essential hypertension I10 ; Pure hyperc holesterolemia E78.0 and At risk for cardiovascular event Z91.89 [place] [address] [address] Oct, Bilateral low back pain, with sciatica p resence unspecified M54.5 and Subacromial bursitis of left shoulder joint M75.52 [place] [address] [address] Sep, Subacromial bursitis of left shoulder sanket int M75.52 [place] [address] [address] Aug, Subacromial bursitis of left shoulder sanket int M75.52 [place] [address] [address] Aug, Essential hypertension I10 [place] [address] [address] Jul, Pure hypercholesterolemia E78.0 and Jock itch L29.8 [place] [address] [address] Jul, Type 2 diabetes mellitus with hyperglyce karthikeyan, without long-term current use of insulin E11.65 [place] [address] [address] Jul, [place] [address] [address] Jul, [place] [address] [address] Jul, [place] [address] [address] Jun, Moderate persistent asthma without compl ication J45.40 ; Subacromial bursitis of left shoulder joint M75.52 ; Episode of altered consciousness R40.4 and Obstructive sleep apnea syndrome G47.[address] [address] Jun, Subacromial bursitis of left shoulder sanket int M75.52 [place] [address] [address] May, [place] [address] [address] May, [place] [address] [address] May, Subacromial bursitis of left shoulder sanket int M75.52 [place] [address] [address] May, [address] [address] Apr, Subacromial bursitis of left shoulder sanket int M75.52 [place] [address] [address] Apr, Pure hypercholesterolemia E78.0 ; Right sided weakness R53.1 ; Episode of altered consciousness R40.4 ; Seizure disorder G40.909 ; Essential hypertension I10 and At risk for cardiovascular event Z91.89 [place] [address] [address] Apr, [place] [address] [address] 18 Apr, 2017 [place] [address] [address] 14 Mar, 2017 [place] [address] [address] 14 Mar, 2017 [place] [address] [address] 13 Mar, 2017 Type 2 diabetes mellitus with hyperglyce karthikeyan, without long-term current use of insulin E11.65 ; Encounter for immunization Z23 and Subacromial bursitis of left shoulder joint M75.52 [place] [address] [address] 16 Feb, 2017 Subacromial bursitis of left shoulder sanket int M75.52 [place] [address] [address] 18 Jan, 2017 Moderate persistent asthma without compl ication J45.40 [place] [address] [address] Jan, Bipolar disorder, current episode depres sed, mild F31.31 ; Chronic post-traumatic stress disorder (PTSD) F43.12 and Generalized anxiety disorder F41.1 [place] [address] [address] Dec, Type 2 diabetes mellitus with hyperglyce karthikeyan, without long-term current use of insulin E11.65 [place] [address] [address] November, [address] [address] November, Bipolar disorder, current episode depres sed, mild F31.31 ; Chronic post-traumatic stress disorder (PTSD) F43.12 and Generalized anxiety disorder F41.1 [place] [address] [address] November, Type 2 diabetes mellitus with hyperglyce karthikeyan, without long-term current use of insulin E11.65 ; Subacromial bursitis of left shoulder joint M75.52 ; Urinary hesitancy R39.11 ; Tinea cruris B35.6 ; Tinea pedis of both feet B35.3 and Moderate persistent asthma without complication J45.40 [place] [address] [address] November, [place] [address] [address] November, [place] [address] [address] Oct, [place] [address] [address] Oct, [place] [address] [address] Sep, [place] [address] [address] Sep, [place] [address] [address] Sep, [place] [address] [address] Sep, Bipolar disorder, current episode mixed, moderate F31.62 ; Generalized anxiety disorder F41.1 and Chronic post-traumatic stress disorder (PTSD) F43.12 [place] [address] [address] Sep, Type 2 diabetes mellitus with hyperglyce karthikeyan, without long-term current use of insulin E11.65 [place] [address] [address] Sep, [place] [address] [address] Aug, Moderate persistent asthma without compl ication J45.40 [place] [address] [address] Aug, [place] [address] [address] Jul, [place] [address] [address] Jul, Type 2 diabetes mellitus with hyperglyce karthikeyan, without long-term current use of insulin E11.65 [place] [address] [address] Jul, [place] [address] [address] Jul, [place] [address] [id number] Jul, [place] [address] [address] Jul, Type 2 diabetes mellitus with hyperglyce karthikeyan, without long-term current use of insulin E11.65 ; Hematuria R31.9 ; Snoring R06.83 ; Sleep walking and eating F51.3 ; Jock itch L29.8 ; Costochondritis M94.0 and Cervicalgia M54.[address] [address] Jun, Urinary hesitancy R39.[address] [address] Jun, Elevated serum glucose R73.9 and Urinary hesitancy R39.[address] [address] Jun, Bipolar disorder, current episode depres sed, mild F31.31 ; Generalized anxiety disorder F41.1 ; Neurocognitive deficits R29.818 and Chronic post- traumatic stress disorder (PTSD) F43.[address] [address] Jun, Elevated serum glucose R73.[id number] [place] [address] Jun, [facility] [address] [address] Apr, [facility] [address] [address] Apr, [facility] [address] [address] Apr, Drug-induced erectile dysfunction N52.2 and Bilateral low back pain, with sciatica presence unspecified M54.5 [facility] [address] [address] Mar, Tinea versicolor B36.0 and Encounter for immunization Z23 [place] [address] [address] Mar, Bipolar 1 disorder, depressed, severe F3 1.4 ; Post-traumatic stress disorder F43.10 ; Generalized anxiety disorder F41.1 and Neurocognitive deficits R29.818 [place] [address] [address] Feb, [place] [address] [address] Feb, [place] [address] [address] Feb, [place] [address] [address] Feb, Hyperlipidemia E78.5 [place] [address] [address] Feb, [facility] [address] [address] Jan, Essential hypertension I10 ; Moderate pe rsistent asthma without complication J45.40 ; Pure hypercholesterolemia E78.0 and Auditory hallucinations R44.0 [place] [address] [address] Jan, [place] [id number] [place] [address] Dec, [facility] [address] [place] [address] Dec, [facility] [address] [address] November, Bipolar disorder, current episode mixed, moderate F31.62 ; Post- traumatic stress disorder F43.10 and Generalized anxiety disorder F41.1 [facility] [address] [id number] [place] [id number] November, Visit for dental examination Z01.20 [facility] [address] [address] Oct, Uncomplicated asthma, unspecified asthma severity J45.909 [facility] [id number] [place] [address] Oct, Uncomplicated asthma, unspecified asthma severity J45.909 ; Bilateral low back pain, with sciatica presence unspecified M54.5 and Jock itch B35.6 [facility] [id number] [place] [address] Oct, [facility] [address] [place] [address] Sep, Post-traumatic stress disorder F43.10 ; Generalized anxiety disorder F41.1 ; Neurocognitive deficits R29.818 and Bipolar disorder, current episode depressed, mild F31.31 [facility] [address] [place] [address] Sep, Plantar fasciitis M72.2 [facility] [address] [address] Sep, Hyperlipidemia E78.5 [facility] [address] [place] [address] Sep, [facility] [address] [place] [address] Sep, [facility] [address] [address] Sep, Essential hypertension I10 and Urinary h esitancy R39.11 [place] [address] [address] Sep, [place] [address] [address] Aug, [place] [address] [address] Aug, Skin nodule R22.9 [place] [address] [address] Aug, Plantar fasciitis M72.2 ; Onychomycosis B35.1 and Tinea pedis B35.3 [place] [address] [address] Aug, Post-traumatic stress disorder F43.10 ; Generalized anxiety disorder F41.1 ; Neurocognitive deficits R29.818 and Bipolar disorder, current episode depressed, moderate F31.32 [place] [address] [address] Jul, Metacarpophalangeal joint sprain S63.659 [facility] [address] [facility] [id number] [place] [address] Jul, Right hand pain M79.641 [place] [address] [address] Jun, Right hand pain M79.641 ; Right foot sandra n M79.671 and Urinary hesitancy R39.11 [place] [address] [address] Jun, Bipolar disorder, current episode mixed, moderate F31.62 ; Post- traumatic stress disorder F43.10 ; Generalized anxiety disorder F41.1 and Neurocognitive deficits R29.818 [place] [address] [address] Jun, Right hand pain M79.641 ; Right foot sandra n M79.671 ; Right ankle pain M25.571 ; Urinary hesitancy R39.11 ; Flat foot [pes planus] (acquired), right foot M21.41 and Pes planus of left foot M21.42 [facility] [address] [address] May, Bipolar disorder, current episode mixed, moderate F31.62 ; Post- traumatic stress disorder F43.10 ; Generalized anxiety disorder F41.1 and Neurocognitive deficits R29.818 [place] [address] [address] May, Right hand pain M79.641 and Essential hy pertension I10 [place] [address] [address] May, Anxiety 300.00 and Depression [address] [address] Apr, [place] [address] [address] Apr, [address] [address] Apr, [place] [address] [address] Apr, [address] [address] Apr, Bipolar 1 disorder, mixed, moderate F31. 62 ; PTSD (post-traumatic stress disorder) F43.10 ; ROBERT (generalized anxiety disorder) F41.1 and Neurocognitive deficits R29.[address] [address] Apr, Anxiety, generalized F41.1 and Major dep ression, recurrent F33.9 [facility] [address] [place] [address] Mar, Influenza vaccine administered V04.81 [facility] [address] [id number] [place] [id number] 16 Mar, 2015 Dental examination V72.2 [place] [address] [address] Feb, [place] [address] [address] Feb, Chronic headache 784.0 and Nightmares 30 7.47 [place] [address] [address] Feb, [place] [address] [address] Feb, Bipolar 1 disorder, depressed, moderate 296.52 ; PTSD (post-traumatic stress disorder) 309.81 and ROBERT (generalized anxiety disorder) 300.[address] [address] Jan, Acid reflux 530.81 ; Depression 311 ; An xiety 300.00 and Tinnitus 388.[address] [address] Jan, Major depression, recurrent 296.30 ; Soc ial phobia 300.23 ; Anxiety, generalized 300.02 ; No condition on [place] V71.09 ; Post-concussional syndrome 310.2 and Memory difficulties 780.[address] [address] Dec, Essential hypertension, benign 401.1 [place] [address] [address] Dec, Essential hypertension, benign 401.[address] [address] Dec, Cervicalgia 723.[address] [address] Dec, Essential hypertension, benign 401.1 ; C ervicalgia 723.1 ; Lumbago 724.2 ; Seizure disorder 345.90 ; Chronic headache 784.0 ; Tinnitus 388.30 and Anxiety 300.00 [facility] [address] [id number] [place] [address] Dec, [facility] [address] [id number] [place] [address] 14 Oct, 2014 [facility] [address] [id number] [place] [address] Oct, [facility] [address] [place] [id number] [place] [address] Sep[facility] [address] [id number] [place] [address] Sep, [facility] [address] [place] [id number] [place] [address] Jul, [facility] [address] [place] [id number] [place] [address] Jul, [facility] [address] [place] [id number] [place] [address] Jul, [facility] [address] [id number] [place] [address] Jul, [facility] [address] [place] [id number] [place] [address] Jul, [facility] [address] [id number] [place] [address] Jul, [facility] [address] [place] [id number] [place] [address] Jun, [facility] [address] [id number] [place] [address] Jun, [facility] [address] [place] [id number] [place] [address] Jun, [facility] [address] [id number] [place] [address] Jun, [facility] [address] [id number] [place] [address] Jun, [facility] [address] [place] [id number] [place] [address] Jun, [facility] [address] [facility] [id number] [place] [address] Jun, [facility] [address] [id number] [place] [address] Jun, [facility] [address] [id number] [place] [address] Apr, [facility] [address] [id number] [place] [address] Apr, [facility] [address] [id number] [place] [address] Apr, [facility] [address] [id number] [place] [address] Apr, [facility] [address] [id number] [place] [address] Mar, [facility] [address] [id number] [place] [address] Mar, [facility] [address] [id number] [place] [address] Feb, [facility] [address] [id number] [place] [address] Feb, [facility] [address] [id number] [place] [address] Feb, [facility] [address] [id number] [place] [address] Feb, [facility] [address] [id number] [place] [address] Feb, [facility] [address] [id number] [place] [address] Feb, [facility] [address] [id number] [place] [address] Feb, [facility] [address] [id number] [place] [address] Feb, [facility] [address] [id number] [place] [address] Feb, [facility] [address] [id number] [place] [address] Feb, [facility] [address] [id number] [place] [address] Jan, [facility] [address] [id number] [place] [address] Jan, davidzJESS[facility] NICOLEA [address] [place] [address] Jan, [facility] [address] [id number] [place] [address] Jan, [facility] [address] [id number] [place] [address] Dec, [facility] [address] [id number] [place] [address] Dec, [facility] [address] [id number] [place] [address] Dec, [facility] [address] [id number] [place] [address] Dec, [facility] [address] [id number] [place] [address] Oct, [facility] [address] [id number] [place] [address] Oct, [facility] [address] [id number] [place] [address] Sep, [facility] [address] [id number] [place] [address] Sep, [facility] [address] [id number] [place] [address] Aug, [facility] [address] [id number] [place] [address] Aug, [facility] [address] [id number] [place] [address] Aug, [facility] [address] [id number] [place] [address] Aug, [facility] [address] [id number] [place] [address] Aug, [facility] [address] [id number] [place] [address] Aug, [facility] [address] [id number] [place] [address] Feb, [facility] [address] [id number] [place] [address] Sep, [facility] [address] [id number] [place] [address] Sep, [facility] [address] [id number] [place] [address] Aug, [facility] [address] [id number] [place] [address] Jul, [facility] [address] [id number] [place] [address] Jul, [facility] [address] [id number] [place] [address] Jul, [facility] [address] [id number] [place] [address] Jun, [facility] [address] [id number] [place] [address] Jun, [facility] [address] [id number] [place] [address] Jun, [facility] [address] [id number] [place] [address] Jun, [facility] [address] [id number] [place] [address] Jun, [facility] [address] [id number] [place] [address] Jun, [facility] [address] [id number] [place] [address] Jun, [facility] [address] [id number] [place] [address] Apr, [facility] [address] [id number] [place] [address] Apr, [facility] [address] [id number] [place] [address] Apr, [facility] [address] [id number] [place] [address] Apr, [facility] [address] [id number] [place] [address] Apr, [facility] [address] [id number] [place] [address] Apr, IMMUNIZATIONS No Known Immunizations SOCIAL HISTORY [...] Hospitalization History Hospitalization for surgery Hospitalization History [facility] psychiatric hospitalization Hospitalization History [facility] ization
--- OUTSIDE RECORDS SUMMARY | 2020-02-07 16:54 | XMS REPORT ---
Author Author Dilan BURGESS Organization [facility] Address [address] [place] [address] Care Team Providers Care Principal Android Developer Name Role Phone UMANGCristi PATY Unavailable PROBLEMS Type Condition ICD9-CM Code [id number] Code Onset Dates Condition S tatus SNOMED Code Problem Chest pain, unspecified chest pain type R07.9 Active 52033222 Problem Seizure disorder G40.909 Active 128 982364 Problem Bilateral low back pain, with sciatica presence unspecifie d M54.5 Active 215917243 Problem Cervicalgia M54.2 Active 57707851 57021 Problem Essential hypertension I10 Active 56623209 Problem Bipolar disorder, current episode depressed, moderate F31.32 Active 256112967 Problem Generalized anxiety disorder F41.1 A ctive 077040288 Problem Major depressive disorder, recurrent sev ere without psychotic features F33.2 Active 48239245 Problem Intractable chronic post-traumatic headache G44.32 1 Active 076869187 Problem Mixed hyperlipidemia E78.2 Active 554227819 Problem Post-traumatic stress disorder F43.10 Active 72526458 Problem Major depressive disorder, recurrent episode, un specified severity F33.9 Active 13260693 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 12 Active 464149550 Problem Urinary hesitancy R39.11 Active 59 33284 Problem Sleep walking and eating F51.3 Activ e 23567692 Problem Obstructive sleep apnea syndrome G47.33 Active 35391828 Problem Type 2 diabetes mellitus wit h hyperglycemia, without long-term current use of insulin E11.65 Active 98632848 Problem Subacromial bursitis of left shoulder joint M75.52 Active 42979106 Problem Tarsal tunnel syndrome of right side G57.51 Active 83438598 Problem Tarsal tunnel syndrome of both lower extremities G 57.53 Active 60452631439755477 Problem Neurocognitive deficits R29.818 Active 116514878 Problem Diabetic polyneuropathy associated with type 2 d iabetes mellitus E11.42 Active 02346285 Problem Bipolar disorder, current episode mixed, moderate F31.62 Active 212941362 Problem Post-traumatic stress disorder, unspecified F43.10 Active 63175625 Problem Bipolar disorder, current ep isode depressed, severe, without psychotic features F31.4 Active 80696456 Problem Post traumatic stress disorder (PTSD) F43.10 Active 46182978 Problem Bursitis of left shoulder M75.52 Acti ve 552431051952056 Problem Moderate persistent asthma without complication J4 5.40 Active 021843705 Problem Cocaine use disorder, severe, dependence F14.20 Active 48355594 Problem Bipolar disorder, current episode depressed, mild F31.31 Active 356300436 Problem Pure hypercholesterolemia E78.0 Acti ve 455852355 Problem Twitching R25.3 Active 873827948 Problem Bipolar disorder F31.9 Active 137 94892 Problem Cocaine abuse F14.10 Active 447290 03 Problem Bipolar 1 disorder, depressed, severe F31.4 Active [id number] ALLERGIES No Information ENCOUNTERS Encounter Location Date Diagnosis [facility] [address] [address] Aug, [facility] [address] [address] Aug, [facility] [address] [address] Jul, Neuropathic pain M79.2 [facility] [address] [address] Jun, Neuropathic pain M79.2 [facility] [address] [address] May, [facility] [address] [address] May, Neuropathic pain M79.2 [facility] [address] [address] May, [facility] [address] [address] Apr, [facility] [id number] [place] [address] Apr, Neuropathic pain M79.2 [facility] [id number] [place] [address] Apr, [facility] [address] [address] Apr, [facility] [address] [address] Mar, [facility] [address] [address] Mar, [facility] [address] [address] Mar, Neuropathic pain M79.2 [facility] [address] [address] Mar, Bipolar 1 disorder, depressed, severe F3 1.4 and Cocaine use disorder, severe, dependence F14.20 [facility] [address] [address] 24 Mar, 2019 Neuropathic pain M79.2 [facility] [address] [address] 18 Mar, 2019 Neuropathic pain M79.2 [facility] [address] [address] 17 Mar, 2019 [facility] [address] [address] Mar, [facility] [address] [address] Feb, Bipolar 1 disorder, depressed, severe F3 1.4 [facility] [id number] [place] [address] Feb, [facility] [address] [address] Feb, [facility] [address] [address] Feb, Type 2 diabetes mellitus with hyperglyce karthikeyan, without long-term current use of insulin E11.65 ; Bursitis of right shoulder M75.51 and Bursitis of left shoulder M75.52 [place] [address] [address] Feb, Subacromial bursitis of left shoulder sanket int M75.52 ; Tarsal tunnel syndrome of both lower extremities G57.53 and Subacromial bursitis of right shoulder joint M75.51 [place] [address] [address] Feb, Diabetic polyneuropathy associated with type 2 diabetes mellitus E11.42 ; Mixed hyperlipidemia E78.2 ; Cocaine abuse F14.10 ; Subacromial bursitis of left shoulder joint M75.52 ; Acute pain of right shoulder M25.511 ; Moderate persistent asthma without complication J45.40 and Bipolar 1 disorder, depressed, severe F31.[address] [address] Jan, [address] [address] Jan, Essential hypertension I10 ; Type 2 diab etes mellitus with hyperglycemia, without long-term current use of insulin E11.65 and Diabetic polyneuropathy associated with type 2 diabetes mellitus E11.42 [place] [address] [address] Jan, [address] [address] Dec, Bipolar disorder, current episode mixed, moderate F31.62 ; Diabetic polyneuropathy associated with type 2 diabetes mellitus E11.42 ; Cocaine abuse F14.10 and Major depressive disorder, recurrent severe without psychotic features F33.[address] [address] Dec, Diabetic polyneuropathy associated with type 2 diabetes mellitus E11.42 [place] [address] [address] Dec, [facility] [address] [place] [address] Dec, [place] [address] [address] Dec, Major depressive disorder, recurrent sev ere without psychotic features F33.2 ; Diabetic polyneuropathy associated with type 2 diabetes mellitus E11.42 and Cocaine abuse F14.10 [place] [address] [address] Dec, [place] [address] [address] November, Post-traumatic stress disorder F43.10 ; Bipolar disorder, current episode mixed, moderate F31.62 ; Cocaine abuse F14.10 ; Generalized anxiety disorder F41.1 and Neurocognitive deficits R29.[address] [address] November, Pure hypercholesterolemia E78.0 [place] [address] [address] November, [address] [address] November, Type 2 diabetes mellitus with hyperglyce karthikeyan, without long-term current use of insulin E11.65 ; Seizure disorder G40.909 ; Major depressive disorder, recurrent severe without psychotic features F33.2 and Cocaine abuse F14.10 [place] [address] [address] Oct, Type 2 diabetes mellitus with hyperglyce karthikeyan, without long-term current use of insulin E11.65 [place] [address] [address] Oct, Post-traumatic stress disorder F43.10 an d Bipolar disorder F31.[address] [address] Oct, Subacromial bursitis of left shoulder sanket int M75.52 and Homicidal ideation R45.850 [facility] [id number] [place] [address] Oct, [place] [address] [address] Oct, [place] [address] [address] Sep, Diabetic polyneuropathy associated with type 2 diabetes mellitus E11.42 [place] [address] [address] Aug, Type 2 diabetes mellitus with hyperglyce karthikeyan, without long-term current use of insulin E11.65 [place] [address] [address] 13 Aug, 2018 Twitching R25.3 ; Pain of left foot M79. 672 and Pain in right foot M79.671 [place] [address] [address] Aug, Diabetic polyneuropathy associated with type 2 diabetes mellitus E11.42 and Essential hypertension I10 [place] [address] [address] Aug, Type 2 diabetes mellitus with hyperglyce karthikeyan, without long-term current use of insulin E11.65 ; Post-traumatic stress disorder F43.10 ; Bipolar disorder, current episode mixed, moderate F31.62 and Neurocognitive deficits R29.818 [place] [address] [address] Jul, Bipolar disorder, current episode depres sed, severe, without psychotic features F31.4 and Post traumatic stress disorder (PTSD) F43.10 [place] [address] [address] Jul, Bipolar disorder, current episode depres sed, severe, without psychotic features F31.4 and Post traumatic stress disorder (PTSD) F43.10 [place] [address] [address] Jul, [place] [address] [address] Jun, [place] [address] [address] Jun, Tarsal tunnel syndrome of both lower ext remities G57.53 and Diabetic polyneuropathy associated with type 2 diabetes mellitus E11.42 [place] [address] [address] May, Bipolar disorder, current episode mixed, moderate F31.62 ; Generalized anxiety disorder F41.1 ; Post-traumatic stress disorder F43.10 and Neurocognitive deficits R29.818 [place] [address] [address] May, [place] [address] [address] May, Bipolar disorder, current episode depres sed, severe, without psychotic features F31.4 and Post traumatic stress disorder (PTSD) F43.10 [place] [address] [address] May, Subacromial bursitis of left shoulder sanket int M75.[address] [address] May, Diabetic polyneuropathy associated with type 2 diabetes mellitus E11.42 [place] [address] [address] May, [address] [address] May, Medicare annual wellness visit, initial Z00.00 ; Encounter for immunization Z23 ; Major depressive disorder, recurrent severe without psychotic features F33.2 ; Essential hypertension I10 ; Seizure disorder G40.909 ; Generalized anxiety disorder F41.1 ; Type 2 diabetes mellitus with hyperglycemia, without long-term current use of insulin E11.65 ; Diabetic polyneuropathy associated with type 2 diabetes mellitus E11.42 and Mixed hyperlipidemia E78.[address] [address] May, [place] [address] [address] May, Exercise counseling Z71.82 [place] [address] [address] May, Subacromial bursitis of left shoulder sanket int M75.52 [place] [address] [address] May, [place] [address] [address] May, [place] [address] [address] Apr, [place] [address] [address] Apr, Diabetic polyneuropathy associated with type 2 diabetes mellitus E11.42 [place] [address] [address] Apr, Tarsal tunnel syndrome of both lower ext remities G57.53 and Diabetic polyneuropathy associated with type 2 diabetes mellitus E11.42 [place] [address] [address] Apr, [place] [address] [address] Apr, Subacromial bursitis of left shoulder sanket int M75.52 [place] [address] [address] Mar, Type 2 diabetes mellitus with hyperglyce karthikeyan, without long-term current use of insulin E11.65 ; Diabetic polyneuropathy associated with type 2 diabetes mellitus E11.42 ; Bilateral low back pain, with sciatica presence unspecified M54.5 ; Tarsal tunnel syndrome of both lower extremities G57.53 ; Jock itch L29.8 ; Encounter for immunization Z23 and Weight gain R63.5 [place] [address] [address] Mar, Jock itch L29.8 [place] [address] [address] Mar, Plantar fasciitis, bilateral M72.2 ; Tar gema tunnel syndrome of both lower extremities G57.53 ; Posterior tibial tendinitis of right lower extremity M76.821 and Posterior tibial tendinitis of left lower extremity M76.822 [place] [address] [address] Mar, Diabetic polyneuropathy associated with type 2 diabetes mellitus E11.42 [place] [address] [address] Mar, Subacromial bursitis of left shoulder sanket int M75.52 [place] [address] [address] Jan, [place] [address] [address] Jan, [place] [address] [address] Jan, [place] [address] [address] Jan, [place] [address] [address] Jan, Drug-induced erectile dysfunction N52.2 [place] [address] [address] Dec, Subacromial bursitis of left shoulder sanket int M75.52 [place] [address] [address] 13 Dec, 2017 Type 2 diabetes mellitus [...] otitis externa of righ t ear H60.391 [place] [address] [address] November, [place] [address] [address] November, Type 2 diabetes mellitus with hyperglyce karthikeyan, without long-term current use of insulin E11.65 [place] [address] [address] November, Subacromial bursitis of left shoulder sanket int M75.52 [place] [address] [address] November, Bilateral low back pain, with sciatica p resence unspecified M54.5 [place] [address] [address] Oct, Essential hypertension I10 ; Pure hyperc holesterolemia E78.0 and At risk for cardiovascular event Z91.89 [place] [address] [address] Oct, Bilateral low back pain, with sciatica p resence unspecified M54.5 and Subacromial bursitis of left shoulder joint M75.52 [place] [address] [address] Sep, Subacromial bursitis of left shoulder sanket int M75.52 [place] [address] [address] Aug, Subacromial bursitis of left shoulder sanket int M75.52 [place] [address] [address] Aug, Essential hypertension I10 [place] [address] [address] Jul, Pure hypercholesterolemia E78.0 and Jock itch L29.8 [place] [address] [address] Jul, Type 2 diabetes mellitus with hyperglyce karthikeyan, without long-term current use of insulin E11.65 [place] [address] [address] Jul, [place] [address] [address] Jul, [place] [address] [address] Jul, [place] [address] [address] Jun, Moderate persistent asthma without compl ication J45.40 ; Subacromial bursitis of left shoulder joint M75.52 ; Episode of altered consciousness R40.4 and Obstructive sleep apnea syndrome G47.[address] [address] Jun, Subacromial bursitis of left shoulder sanket int M75.52 [place] [address] [address] May, [place] [address] [address] May, [place] [address] [address] May, Subacromial bursitis of left shoulder sanket int M75.52 [place] [address] [address] May, [address] [address] Apr, Subacromial bursitis of left shoulder sanket int M75.52 [place] [address] [address] Apr, Pure hypercholesterolemia E78.0 ; Right sided weakness R53.1 ; Episode of altered consciousness R40.4 ; Seizure disorder G40.909 ; Essential hypertension I10 and At risk for cardiovascular event Z91.89 [place] [address] [address] Apr, [place] [address] [address] 18 Apr, 2017 [place] [address] [address] 14 Mar, 2017 [place] [address] [address] 14 Mar, 2017 [place] [address] [address] 13 Mar, 2017 Type 2 diabetes mellitus with hyperglyce karthikeyan, without long-term current use of insulin E11.65 ; Encounter for immunization Z23 and Subacromial bursitis of left shoulder joint M75.52 [place] [address] [address] 16 Feb, 2017 Subacromial bursitis of left shoulder sanket int M75.52 [place] [address] [address] 18 Jan, 2017 Moderate persistent asthma without compl ication J45.40 [place] [address] [address] Jan, Bipolar disorder, current episode depres sed, mild F31.31 ; Chronic post-traumatic stress disorder (PTSD) F43.12 and Generalized anxiety disorder F41.1 [place] [address] [address] Dec, Type 2 diabetes mellitus with hyperglyce karthikeyan, without long-term current use of insulin E11.65 [place] [address] [address] November, [address] [address] November, Bipolar disorder, current episode depres sed, mild F31.31 ; Chronic post-traumatic stress disorder (PTSD) F43.12 and Generalized anxiety disorder F41.1 [place] [address] [address] November, Type 2 diabetes mellitus with hyperglyce karthikeyan, without long-term current use of insulin E11.65 ; Subacromial bursitis of left shoulder joint M75.52 ; Urinary hesitancy R39.11 ; Tinea cruris B35.6 ; Tinea pedis of both feet B35.3 and Moderate persistent asthma without complication J45.40 [place] [address] [address] November, [place] [address] [address] November, [place] [address] [address] Oct, [place] [address] [address] Oct, [place] [address] [address] Sep, [place] [address] [address] Sep, [place] [address] [address] Sep, [place] [address] [address] Sep, Bipolar disorder, current episode mixed, moderate F31.62 ; Generalized anxiety disorder F41.1 and Chronic post-traumatic stress disorder (PTSD) F43.12 [place] [address] [address] Sep, Type 2 diabetes mellitus with hyperglyce karthikeyan, without long-term current use of insulin E11.65 [place] [address] [address] Sep, [place] [address] [address] Aug, Moderate persistent asthma without compl ication J45.40 [place] [address] [address] Aug, [place] [address] [place] Jul, [place] [address] [address] Jul, Type 2 diabetes mellitus with hyperglyce karthikeyan, without long-term current use of insulin E11.65 [place] [address] [address] Jul, [place] [address] [place] [address] Jul, [place] [address] [address] Jul, [place] [address] [address] Jul, Type 2 diabetes mellitus with hyperglyce karthikeyan, without long-term current use of insulin E11.65 ; Hematuria R31.9 ; Snoring R06.83 ; Sleep walking and eating F51.3 ; Jock itch L29.8 ; Costochondritis M94.0 and Cervicalgia M54.[address] [address] Jun, Urinary hesitancy R39.[address] [address] Jun, Elevated serum glucose R73.9 and Urinary hesitancy R39.[address] [address] Jun, Bipolar disorder, current episode depres sed, mild F31.31 ; Generalized anxiety disorder F41.1 ; Neurocognitive deficits R29.818 and Chronic post- traumatic stress disorder (PTSD) F43.[address] [address] Jun, Elevated serum glucose R73.[id number] [place] [address] Jun, [facility] [address] [address] Apr, [facility] [address] [address] Apr, [facility] [address] [address] Apr, Drug-induced erectile dysfunction N52.2 and Bilateral low back pain, with sciatica presence unspecified M54.5 [facility] [address] [address] Mar, Tinea versicolor B36.0 and Encounter for immunization Z23 [place] [address] [address] Mar, Bipolar 1 disorder, depressed, severe F3 1.4 ; Post-traumatic stress disorder F43.10 ; Generalized anxiety disorder F41.1 and Neurocognitive deficits R29.818 [place] [address] [address] Feb, [place] [address] [address] Feb, [place] [address] [address] Feb, [place] [address] [address] Feb, Hyperlipidemia E78.5 [place] [address] [address] Feb, [facility] [address] [address] Jan, Essential hypertension I10 ; Moderate pe rsistent asthma without complication J45.40 ; Pure hypercholesterolemia E78.0 and Auditory hallucinations R44.0 [place] [address] [address] Jan, [place] [id number] [place] [address] Dec, [facility] [id number] [place] [address] Dec, [facility] [address] [address] November, Bipolar disorder, current episode mixed, moderate F31.62 ; Post- traumatic stress disorder F43.10 and Generalized anxiety disorder F41.1 [facility] [address] [id number] [place] [id number] November, Visit for dental examination Z01.20 [facility] [address] [address] Oct, Uncomplicated asthma, unspecified asthma severity J45.909 [facility] [id number] [place] [address] Oct, Uncomplicated asthma, unspecified asthma severity J45.909 ; Bilateral low back pain, with sciatica presence unspecified M54.5 and Jock itch B35.6 [facility] [id number] [place] [address] Oct, [facility] [id number] [place] [address] Sep, Post-traumatic stress disorder F43.10 ; Generalized anxiety disorder F41.1 ; Neurocognitive deficits R29.818 and Bipolar disorder, current episode depressed, mild F31.31 [facility] [id number] [place] [address] Sep, Plantar fasciitis M72.2 [facility] [address] [address] Sep, Hyperlipidemia E78.5 [facility] [id number] [place] [address] Sep, [facility] [id number] [place] [address] Sep, [facility] [address] [address] Sep, Essential hypertension I10 and Urinary h esitancy R39.11 [place] [address] [address] Sep, [place] [address] [address] Aug, [place] [address] [address] Aug, Skin nodule R22.9 [place] [address] [address] Aug, Plantar fasciitis M72.2 ; Onychomycosis B35.1 and Tinea pedis B35.3 [place] [address] [address] Aug, Post-traumatic stress disorder F43.10 ; Generalized anxiety disorder F41.1 ; Neurocognitive deficits R29.818 and Bipolar disorder, current episode depressed, moderate F31.32 [place] [address] [address] Jul, Metacarpophalangeal joint sprain S63.659 [facility] [address] [facility] [id number] [place] [address] Jul, Right hand pain M79.641 [place] [address] [address] Jun, Right hand pain M79.641 ; Right foot sandra n M79.671 and Urinary hesitancy R39.11 [place] [address] [address] Jun, Bipolar disorder, current episode mixed, moderate F31.62 ; Post- traumatic stress disorder F43.10 ; Generalized anxiety disorder F41.1 and Neurocognitive deficits R29.818 [place] [address] [address] Jun, Right hand pain M79.641 ; Right foot sandra n M79.671 ; Right ankle pain M25.571 ; Urinary hesitancy R39.11 ; Flat foot [pes planus] (acquired), right foot M21.41 and Pes planus of left foot M21.42 [facility] [address] [address] May, Bipolar disorder, current episode mixed, moderate F31.62 ; Post- traumatic stress disorder F43.10 ; Generalized anxiety disorder F41.1 and Neurocognitive deficits R29.818 [place] [address] [address] May, Right hand pain M79.641 and Essential hy pertension I10 [place] [address] [address] May, Anxiety 300.00 and Depression [address] [address] Apr, [place] [address] [address] Apr, [address] [address] Apr, [place] [address] [address] Apr, [address] [address] Apr, Bipolar 1 disorder, mixed, moderate F31. 62 ; PTSD (post-traumatic stress disorder) F43.10 ; ROBERT (generalized anxiety disorder) F41.1 and Neurocognitive deficits R29.[address] [address] Apr, Anxiety, generalized F41.1 and Major dep ression, recurrent F33.9 [facility] [address] [place] [address] Mar, Influenza vaccine administered V04.81 [facility] [address] [id number] [place] [id number] 16 Mar, 2015 Dental examination V72.2 [place] [address] [address] Feb, [place] [address] [address] Feb, Chronic headache 784.0 and Nightmares 30 7.47 [place] [address] [address] Feb, [place] [address] [address] Feb, Bipolar 1 disorder, depressed, moderate 296.52 ; PTSD (post-traumatic stress disorder) 309.81 and ORBERT (generalized anxiety disorder) 300.[address] [address] Jan, Acid reflux 530.81 ; Depression 311 ; An xiety 300.00 and Tinnitus 388.[address] [address] Jan, Major depression, recurrent 296.30 ; Soc ial phobia 300.23 ; Anxiety, generalized 300.02 ; No condition on [place] II V71.09 ; Post-concussional syndrome 310.2 and Memory difficulties 780.[address] [address] Dec, Essential hypertension, benign 401.1 [place] [address] [address] Dec, Essential hypertension, benign 401.[address] [address] Dec, Cervicalgia 723.[address] [address] Dec, Essential hypertension, benign 401.1 ; C ervicalgia 723.1 ; Lumbago 724.2 ; Seizure disorder 345.90 ; Chronic headache 784.0 ; Tinnitus 388.30 and Anxiety 300.00 [facility] [address] [id number] [place] [address] Dec, [facility] [address] [id number] [place] [address] 14 Oct, 2014 [facility] [address] [id number] [place] [address] Oct, [facility] [address] [place] [id number] [place] [address] Sep, [facility] [address] [id number] [place] [address] Sep, [facility] [address] [place] [id number] [place] [address] Jul, [facility] [address] [place] [id number] [place] [address] Jul, [facility] [address] [place] [id number] [place] [address] Jul, [facility] [address] [id number] [place] [address] Jul, [facility] [address] [place] [id number] [place] [address] Jul, [facility] [address] [id number] [place] [address] Jul, [facility] [address] [place] [id number] [place] [address] Jun, [facility] [address] [id number] [place] [address] Jun, [facility] [address] [place] [id number] [place] [address] Jun, [facility] [address] [id number] [place] [address] Jun, [facility] [address] [id number] [place] [address] Jun, [facility] [address] [place] [id number] [place] [address] Jun, [facility] [address] [facility] [id number] [place] [address] Jun, [facility] [address] [id number] [place] [address] Jun, [facility] [address] [id number] [place] [address] Apr, [facility] [address] [id number] [place] [address] Apr, [facility] [address] [id number] [place] [address] Apr, [facility] [address] [id number] [place] [address] Apr, [facility] [address] [id number] [place] [address] Mar, [facility] [address] [id number] [place] [address] Mar, [facility] [address] [id number] [place] [address] Feb, [facility] [address] [id number] [place] [address] Feb, [facility] [address] [id number] [place] [address] Feb, [facility] [address] [id number] [place] [address] Feb, [facility] [address] [id number] [place] [address] Feb, [facility] [address] [id number] [place] [address] Feb, [facility] [address] [id number] [place] [address] Feb, [facility] [address] [id number] [place] [address] Feb, [facility] [address] [id number] [place] [address] Feb, [facility] [address] [id number] [place] [address] Feb, [facility] [address] [id number] [place] [address] Jan, [facility] [address] [id number] [place] [address] Jan, davidzJESSICA NICOLEA [address] [facility] [place] [address] Jan, [facility] [address] [id number] [place] [address] Jan, [facility] [address] [id number] [place] [address] Dec, [facility] [address] [id number] [place] [address] Dec, [facility] [address] [id number] [place] [address] Dec, [facility] [address] [id number] [place] [address] Dec, [facility] [address] [id number] [place] [address] Oct, [facility] [address] [id number] [place] [address] Oct, [facility] [address] [id number] [place] [address] Sep, [facility] [address] [id number] [place] [address] Sep, [facility] [address] [id number] [place] [address] Aug, [facility] [address] [id number] [place] [address] Aug, [facility] [address] [id number] [place] [address] Aug, [facility] [address] [id number] [facility] [place] [address] Aug, [facility] [address] [id number] [facility] [place] [address] Aug, [facility] [address] [id number] [place] [address] Aug, [facility] [address] [id number] [place] [address] Feb, [facility] [address] [id number] [facility] [place] [address] Sep, [facility] [address] [id number] [place] [address] Sep, [facility] [address] [id number] [place] [address] Aug, [facility] [address] [id number] [place] [address] Jul, [facility] [address] [id number] [place] [address] Jul, [facility] [address] [id number] [place] [address] Jul, [facility] [address] [id number] [place] [address] Jun, [facility] [address] [id number] [place] [address] Jun, [facility] [address] [id number] [place] [address] Jun, [facility] [address] [id number] [place] [address] Jun, [facility] [address] [id number] [place] [address] Jun, [facility] [address] [id number] [place] [address] Jun, [facility] [address] [id number] [place] [address] Jun, [facility] [address] [id number] [place] [address] Apr, [facility] [address] [id number] [place] [address] Apr, [facility] [address] [id number] [place] [address] Apr, [facility] [address] [id number] [place] [address] Apr, [facility] [address] [id number] [place] [address] Apr, [facility] [address] [id number] [place] [address] Apr, IMMUNIZATIONS No Known Immunizations SOCIAL HISTORY [...] Hospitalization History Hospitalization for surgery Hospitalization History [facility] psychiatric hospitalization Hospitalization History [facility] ization
[2020-02-07] MEDS ORDERED: ASPIRIN 81 MG CHEW (CHILDREN'S ASA) PO ONE (17:00)
[2020-02-07] MEDS ORDERED: PREGABALIN 75 MG (LYRICA) CAP PO ONE (17:00)
--- OUTSIDE RECORDS SUMMARY | 2020-02-07 17:05 | XMS REPORT | Continuity of Care Document ---
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 Ot R07.9 CHEST PAIN, UNSPECIFIED 08/10/2017 KUNAL ARGUETA MD Ot Z87.891 PERSONAL HISTORY OF NICOTINE DEPENDENCE 08/14/2017 KUNAL ARGUETA MD Ot I10 ESSENTIAL (PRIMARY) HYPERTENSION 08/14/2017 KUNAL ARGUETA MD Ot K21.9 GASTRO-ESOPHAGEAL REFLUX DISEASE WITHOUT 08/14/2017 KUNAL ARGUETA MD Ot L73.9 FOLLICULAR DISORDER, UNSPECIFIED 08/14/2017 KUNAL ARGUETA MD Ot R07.89 OTHER CHEST PAIN 08/14/2017 KUNAL ARGUETA MD, Ot R07.9 CHEST PAIN, UNSPECIFIED 08/14/2017 KUNAL ARGUETA MD, Ot Z87.891 PERSONAL HISTORY OF NICOTINE DEPENDENCE 05/27/2018 ART PETERSEN [employer]ER Ot 780.09 OTHER ALTERATION OF CONSCIOUSNESS 05/27/2018 MYRA HARRINGTON MD Ot 782 .2 LOCAL SUPRFICIAL SWELLNG 05/27/2018 MYRA HARRINGTON MD Ot 784 .2 SWELLING IN HEAD NECK 05/27/2018 MYRA HARRINGTON MD Ot 346.90 MIGRAINE UNSPECIFIED W/O INTRACT MGRN W/ 05/27/2018 MYRA HARRINGTON MD Ot 401 .1 BENIGN HYPERTENSION 05/27/2018 MYRA HARRINGTON MD Ot 493.90 ASTHMA, UNSPECIFIED 05/27/2018 MYRA HARRINGTON MD Ot 723 .1 CERVICALGIA 05/27/2018 MYRA HARRINGTON MD Ot 724 .2 LUMBAGO 05/27/2018 LATONYA KAT MD Ot R51 HEADACHE 05/27/2018 LATONYA KAT MD Ot Z79.899 OTHER [employer] (CURRENT) DRUG THERAPY 05/27/2018 MYRA HARRINTGON MD Ot R40 .4 TRANSIENT ALTERATION OF AWARENESS 05/27/2018 MYRA HARRINGTON MD Ot R53 .1 WEAKNESS 06/10/2018 ART PETERSEN [employer] Ot 780.09 OTHER ALTERATION OF CONSCIOUSNESS 06/10/2018 MYRA HARRINGTON MD Ot 782 .2 LOCAL SUPRFICIAL SWELLNG 06/10/2018 MYRA HARRINGTON MD Ot 784 .2 SWELLING IN HEAD NECK 06/10/2018 MYRA HARRINGTON MD Ot 346.90 MIGRAINE UNSPECIFIED W/O INTRACT MGRN W/ 06/10/2018 MYRA HARRINGTON MD Ot 401 .1 BENIGN HYPERTENSION 06/10/2018 MYRA HARRINGTON MD Ot 493.90 ASTHMA, UNSPECIFIED 06/10/2018 MYRA HARRINGTON MD Ot 723 .1 CERVICALGIA 06/10/2018 MYRA HARRINGTON MD Ot 724 .2 LUMBAGO 06/10/2018 LATONYA KAT MD Ot R51 HEADACHE 06/10/2018 LATONYA KAT MD Ot Z79.899 OTHER SNF (CURRENT) DRUG THERAPY 06/10/2018 MYRA HARRINGTON MD Ot R40 .4 TRANSIENT ALTERATION OF AWARENESS 06/10/2018 MYRA HARRINGTON MD Ot R53 .1 WEAKNESS 05/06/2019 CASSIDY GAYTAN Ot E78.00 PURE HYPERCHOLESTEROLEMIA, UNSPECIFIED 05/06/2019 BERNDESTINY CASSIDY Ot F17.210 NICOTINE DEPENDENCE, CIGARETTES, UNCOMPL 05/06/2019 LUKAS CASSIDY Ot I10 ESSENTIAL (PRIMARY) HYPERTENSION 05/06/2019 RAMIN GATYANIS Ot J45.909 UNSPECIFIED ASTHMA, UNCOMPLICATED 05/06/2019 BERNDESTINY CASSIDY Ot K21.9 GASTRO-ESOPHAGEAL REFLUX DISEASE WITHOUT 05/06/2019 BERNDESTINY CASSIDY Ot M79.644 PAIN IN RIGHT FINGER(S) 05/06/2019 LUKAS CASSIDY Ot S69.91XA UNSP INJURY OF RIGHT WRIST, HAND AND FIN 05/06/2019 LUKAS CASSIDY Ot X58.XXXA EXPOSURE TO OTHER SPECIFIED FACTORS, INI 05/06/2019 RAMIN GAYTANIS Ot Z88.5 ALLERGY STATUS TO NARCOTIC AGENT STATUS 05/06/2019 ART PETERSEN [employer] Ot 780.09 OTHER ALTERATION OF CONSCIOUSNESS 05/06/2019 MYRA HARRINGTON MD Ot 782 .2 LOCAL SUPRFICIAL SWELLNG 05/06/2019 MYRA HARRINGTON MD Ot 784 .2 SWELLING IN HEAD NECK 05/06/2019 MYRA HARRINGTON MD Ot 346.90 MIGRAINE UNSPECIFIED W/O INTRACT MGRN W/ 05/06/2019 MYRA HARRINGTON MD Ot 401 .1 BENIGN HYPERTENSION 05/06/2019 MYRA HARRINGTON MD Ot 493.90 ASTHMA, UNSPECIFIED 05/06/2019 MYRA HARRINGTON MD Ot 723 .1 CERVICALGIA 05/06/2019 MYRA HARRINGTON MD Ot 724 .2 LUMBAGO 05/06/2019 LATONYA KAT MD Ot R51 HEADACHE 05/06/2019 LATONYA KAT MD Ot Z79.899 OTHER SNF (CURRENT) DRUG THERAPY 05/06/2019 MYRA HARRINGTON MD Ot R40 .4 TRANSIENT ALTERATION OF AWARENESS 05/06/2019 MYRA HARRINGTON MD Ot R53 .1 WEAKNESS 05/22/2019 MYRA HARRINGTON MD Ot R40 .4 TRANSIENT ALTERATION OF AWARENESS 05/22/2019 MYRA HARRINGTON MD Ot R53 .1 WEAKNESS Procedures Code [place] [address] ROUT INE VENIPUNCTURE 06/25/2012 12351 TB T EST INTRADERMAL 06/25/2012 88844 CMP 06/25/2012 8744365 GF R CALC (RESULT ONLY) 06/25/2012 93660 TSH 06/26/2012 7237253 CO MPLETE BLOOD COUNT NO DIFF (CBC Result) 06/26/2012 78749 DIFF ERENTIAL WBC COUNT (CBC DIFF RESULT) 06/26/2012 40000 HEPA TITIS PROFILE 06/26/2012 76322 XRAY CHEST 3 VIEW 06/28/2012 09733 XRAY CHEST 3 VIEW 06/28/2012 40918 CBC W/MANUAL DIF (order) 07/03/2012 14693 HIV- [facility] 07/03/2012 78998 TUBE RCULOSIS - [facility] 07/23/2012 90679 ROUT INE VENIPUNCTURE 02/05/2014 36553 CBC 02/05/2014 [id number] GF R CALC (RESULT ONLY) 02/05/2014 20175 CMP 02/05/2014 04266 TSH 02/05/2014 66816 UA W /MICROSCOPY 02/05/2014 29941 XRAY CHEST 2 VIEW 02/06/2014 67927 EEG 02/10/2014 22893 US S OFT TISSUE (SPECIFY LOCATION) 03/04/2014 27219 EXER CISE STRESS TEST 06/18/2014 CARDIOLOG ANNE-MARIE MADRID 06/18/2014 77655 XRAY CERVICAL SPINE, 2 OR 3 VIEWS 07/24/2014 Results Test Result Range Complete blood count (CBC) with automate d white blood cell (WBC) differential - 05/15/16 14:05 Blood leukocytes automated count (number/volume) 6.0 10*3/uL 4.3-11.0 Blood erythrocytes automated count (number/volume) 4.48 10*6/uL 4.35-5.85 Venous blood hemoglobin measurement (mass/volume) 13.7 g/dL 13.3-17.7 Blood hematocrit (volume fraction) 40 % 40-54 Automated erythrocyte mean corpuscular volume 89 [ foz_us] 80-99 Automated erythrocyte mean corpuscular h emoglobin (mass per erythrocyte) 31 pg 25-34 Automated erythrocyte mean corpuscular h emoglobin concentration measurement (mass/volume) 34 g/dL 32-36 Automated erythrocyte distribution width ratio 13. 3 % 10.0- 14.5 Automated blood platelet count (count/volume) 190 10*3/uL [...] 10*3 1.0-4.0 Blood monocytes automated count (number/volume) 0. 4 10*3 0.0-1.0 Automated eosinophil count 0.3 10*3/uL 0 .0-0.3 Automated blood basophil count (count/volume) 0.0 10*3/uL 0.0-0.1 PT panel in platelet poor plasma by coag ulation assay - 05/15/16 14:05 Prothrombin time (PT) in platelet poor plasma by coagu lation assay 11.5 s 12.2-14.7 INR in platelet poor plasma or blood by coagulation as say 0.9 0.8-1.4 Activated partial thromboplastin time (a PTT) in platelet poor plasma bycoagulation assay - 05/15/16 14:05 Activated partial thromboplastin time (a PTT) in platelet poor plasma bycoagulation assay 28 s 24-35 Comprehensive metabolic panel - 05/15/16 14:05 Serum or plasma sodium measurement (moles/volume) 145 mmol/L 135-145 Serum or plasma potassium measurement (moles/volume) 4.1 mmol/L 3.6-5.0 Serum or plasma chloride measurement (moles/volume) 107 mmol/L 98-107 Carbon dioxide 31 mmol/L 21-32 Serum or plasma anion gap determination (moles/volume) 7 mmol/L 5-14 Serum or plasma urea nitrogen measurement (mass/volume ) 16 mg/dL 7-18 Serum or plasma creatinine measurement (mass/volume) 0.97 mg/dL 0.60-1.30 Serum or plasma urea nitrogen/creatinine mass ratio 16 NRG Serum or plasma creatinine measurement w ith calculation of estimated glomerular filtration rate > NRG Serum or plasma glucose measurement (mass/volume) 131 mg/dL 70-105 Serum or plasma calcium measurement (mass/volume) 9.7 mg/dL 8.5-10.1 Serum or plasma total bilirubin measurement (mass/volu me) 0.3 mg/dL 0.1-1.0 Serum or plasma alkaline phosphatase magali surement (enzymatic activity/volume) 78 U/L 40-136 Serum or plasma aspartate aminotransfera se measurement (enzymatic activity/volume) 22 U/L 5-34 Serum or plasma alanine aminotransferase measurement (enzymatic activity/volume) 31 U/L 0-55 Serum or plasma protein measurement (mass/volume) 6.7 g/dL 6.4-8.2 Serum or plasma albumin measurement (mass/volume) 3.8 g/dL 3.2-4.5 Magnesium - 05/15/16 14:05 Magnesium 2.2 mg/dL 1.8-2.4 Serum or plasma troponin i.cardiac measu rement (mass/volume) - 05/15/16 14:05 Serum or plasma troponin i.cardiac measurement (mass/v olume) < ng/mL <0.30 Myoglobin, serum - 05/15/16 14:05 Myoglobin, serum 33.3 ng/mL 10.0-92.0 Serum or plasma troponin i.cardiac measu rement (mass/volume) - 05/15/16 15:30 Serum or plasma troponin i.cardiac measurement (mass/v olume) < ng/mL <0.30 Automated blood complete blood count (he mogram) panel - 06/14/16 12:21 Blood leukocytes automated count (number/volume) 5.2 10*3/uL 4.3-11.0 Blood erythrocytes automated count (number/volume) 4.49 10*6/uL 4.35-5.85 Venous blood hemoglobin measurement (mass/volume) 13.8 g/dL 13.3-17.7 Blood hematocrit (volume fraction) 40 % 40-54 Automated erythrocyte mean corpuscular volume 90 [ foz_us] 80-99 Automated erythrocyte mean corpuscular h emoglobin (mass per erythrocyte) 31 pg 25-34 Automated erythrocyte mean corpuscular h emoglobin concentration measurement (mass/volume) 34 g/dL 32-36 Automated erythrocyte distribution width ratio 13. 6 % 10.0- 14.5 Automated blood platelet count (count/volume) 167 10*3/uL 130-400 Automated blood platelet mean volume measurement 10.5 [foz_us] 7.4-10.4 Erythrocyte sedimentation rate by gerardo gren method - 06/14/16 12:21 Erythrocyte sedimentation rate by westergren method 7 mm 0- 15 Whole blood basic metabolic panel - 01/21 12:21 Serum or plasma sodium measurement (moles/volume) 143 mmol/L 135-145 Serum or plasma potassium measurement (moles/volume) 3.7 mmol/L 3.6-5.0 Serum or plasma chloride measurement (moles/volume) 105 mmol/L 98-107 Carbon dioxide 31 mmol/L 21-32 Serum or plasma anion gap determination (moles/volume) 7 mmol/L 5-14 Serum or plasma urea nitrogen measurement (mass/volume ) 15 mg/dL 7-18 Serum or plasma creatinine measurement (mass/volume) 1.01 mg/dL 0.60-1.30 Serum or plasma urea nitrogen/creatinine mass ratio 15 NRG Serum or plasma creatinine measurement w ith calculation of estimated glomerular filtration rate > NRG Serum or plasma glucose measurement (mass/volume) 131 mg/dL 70-105 Serum or plasma calcium measurement (mass/volume) 9.0 mg/dL 8.5-10.1 Valproic acid - 06/14/16 12:21 Valproic acid 80.0 ug/mL 50.0-100.0 Urinalysis, Complete - 07/11/16 16:46 Specific Ideal 1.014 1.005-1.030 pH 7.0 5.0-7.5 Urine-Color Yellow Yellow Appearance Clear Clear WBC Esterase Negative Negative Protein Negative Negative/Trace Glucose Negative Negative Ketones Negative Negative Occult Blood Negative Negative Bilirubin Negative Negative Urobilinogen,Semi-Qn 0.2 mg/dL 0.2-1.0 Nitrite, Urine Negative Negative Microscopic Examination Comment Microscopic Examination See below: Microscopic Examination - 07/11/16 16:46 WBC 0-5 /hpf 0 - 5 RBC 0-2 /hpf 0 - 2 Epithelial Cells (non renal) 0-10 /hpf 0 - 10 Mucus Threads Present Not Estab. Bacteria Few None seen/Few LIPID PANEL - 08/03/17 09:45 CHOLESTEROL, TOTAL 225 mg/dL <200 HDL CHOLESTEROL 38 mg/dL >40 TRIGLYCERIDES 152 mg/dL <150 LDL-CHOLESTEROL 159 mg/dL (calc) NRG CHOL/HDLC RATIO 5.9 (calc) <5.0 NON HDL CHOLESTEROL 187 mg/dL (calc) <13 0 CMP - 08/03/17 09:45 GLUCOSE 107 mg/dL 65-99 UREA NITROGEN (BUN) 10 mg/dL 7-25 CREATININE 1.08 mg/dL 0.60-1.35 eGFR NON-AFR. KOSOVAN 81 mL/min/1.73m2 > OR = 60 eGFR 94 mL/min/1.73m2 > OR = 60 BUN/CREATININE RATIO NOT APPLICABLE (calc) 6-22 SODIUM 143 mmol/L 135-146 POTASSIUM 3.9 mmol/L 3.5-5.3 CHLORIDE 107 mmol/L 98-110 CARBON DIOXIDE 30 mmol/L 20-31 CALCIUM 9.7 mg/dL 8.6-10.3 PROTEIN, TOTAL 7.0 g/dL 6.1-8.1 ALBUMIN 4.1 g/dL 3.6-5.1 GLOBULIN 2.9 g/dL (calc) 1.9-3.7 ALBUMIN/GLOBULIN RATIO 1.4 (calc) 1.0-2. 5 BILIRUBIN, TOTAL 0.7 mg/dL 0.2-1.2 ALKALINE PHOSPHATASE 84 U/L 40-115 AST 15 U/L 10-40 ALT 24 U/L 9-46 CBC - 08/03/17 09:45 WHITE BLOOD CELL COUNT 7.0 Thousand/uL 3 .8-10.8 RED BLOOD CELL COUNT 4.99 Million/uL 4.2 0-5.80 HEMOGLOBIN 14.6 g/dL 13.2-17.1 HEMATOCRIT 44.3 % 38.5-50.0 MCV 88.8 fL 80.0-100.0 MCH 29.3 pg 27.0-33.0 MCHC 33.0 g/dL 32.0-36.0 RDW 13.7 % 11.0-15.0 PLATELET COUNT 227 Thousand/uL 140-400 MPV 10.5 fL 7.5-12.5 ABSOLUTE NEUTROPHILS 2919 cells/uL 1500- 7800 ABSOLUTE LYMPHOCYTES 3269 cells/uL 850-3 900 ABSOLUTE MONOCYTES 336 cells/uL 200-950 ABSOLUTE EOSINOPHILS 448 cells/uL 15-500 ABSOLUTE BASOPHILS 28 cells/uL 0-200 NEUTROPHILS 41.7 % NRG LYMPHOCYTES 46.7 % NRG MONOCYTES 4.8 % NRG EOSINOPHILS 6.4 % NRG BASOPHILS 0.4 % NRG Complete blood count (CBC) with automate d white blood cell (WBC) differential - 08/08/17 16:35 Blood leukocytes automated count (number/volume) 6.8 10*3/uL 4.3-11.0 Blood erythrocytes automated count (number/volume) 4.73 10*6/uL 4.35-5.85 Venous blood hemoglobin measurement (mass/volume) 14.1 g/dL 13.3-17.7 Blood hematocrit (volume fraction) 40 % 40-54 Automated erythrocyte mean corpuscular volume 85 [ foz_us] 80-99 Automated erythrocyte mean corpuscular h emoglobin (mass per erythrocyte) 30 pg 25-34 Automated erythrocyte mean corpuscular h emoglobin concentration measurement (mass/volume) 35 g/dL 32-36 Automated erythrocyte distribution width ratio 13. 4 % 10.0- 14.5 Automated blood platelet count (count/volume) 206 10*3/uL 130-400 Automated blood platelet mean volume measurement 10.2 [foz_us] 7.4-10.4 Automated blood neutrophils/100 leukocytes 44 % 42-75 Automated blood lymphocytes/100 leukocytes 43 % 12-44 Blood monocytes/100 leukocytes 8 % 0-12 Automated blood eosinophils/100 leukocytes 6 % 0-10 Automated blood basophils/100 leukocytes 0 % 0-10 Blood neutrophils automated count (number/volume) 3.0 10*3 1.8-7.8 Blood lymphocytes automated count (number/volume) 2.9 10*3 1.0-4.0 Blood monocytes automated count (number/volume) 0. 5 10*3 0.0-1.0 Automated eosinophil count 0.4 10*3/uL 0 .0-0.3 Automated blood basophil count (count/volume) 0.0 10*3/uL 0.0-0.1 Comprehensive metabolic panel - 08/08/17 16:35 Serum or plasma sodium measurement (moles/volume) 142 mmol/L 135-145 Serum or plasma potassium measurement (moles/volume) 4.2 mmol/L 3.6-5.0 Serum or plasma chloride measurement (moles/volume) 105 mmol/L 98-107 Carbon dioxide 27 mmol/L 21-32 Serum or plasma anion gap determination (moles/volume) 10 mmol/L 5-14 Serum or plasma urea nitrogen measurement (mass/volume ) 11 mg/dL 7-18 Serum or plasma creatinine measurement (mass/volume) 0.91 mg/dL 0.60-1.30 Serum or plasma urea nitrogen/creatinine mass ratio 12 NRG Serum or plasma creatinine measurement w ith calculation of estimated glomerular filtration rate > NRG Serum or plasma glucose measurement (mass/volume) 87 mg/dL 70-105 Serum or plasma calcium measurement (mass/volume) 9.3 mg/dL 8.5-10.1 Serum or plasma total bilirubin measurement (mass/volu me) 0.3 mg/dL 0.1-1.0 Serum or plasma alkaline phosphatase magali surement (enzymatic activity/volume) 89 U/L 40-136 Serum or plasma aspartate aminotransfera se measurement (enzymatic activity/volume) 15 U/L 5-34 Serum or plasma alanine aminotransferase measurement (enzymatic activity/volume) 30 U/L 0-55 Serum or plasma protein measurement (mass/volume) 7.2 g/dL 6.4-8.2 Serum or plasma albumin measurement (mass/volume) 3.9 g/dL 3.2-4.5 Magnesium - 08/08/17 16:35 Magnesium 2.4 mg/dL 1.8-2.4 Serum or plasma troponin i.cardiac measu rement (mass/volume) - 08/08/17 16:35 Serum or plasma troponin i.cardiac measurement (mass/v olume) < ng/mL <0.30 Serum or plasma C reactive protein measu rement (mass/volume) - 08/08/17 16:35 Serum or plasma C reactive protein measurement (mass/v olume) 0.21 mg/dL 0.00-0.50 LIPID PANEL - 11/28/18 10:45 CHOLESTEROL, TOTAL 234 mg/dL <200 HDL CHOLESTEROL 40 mg/dL >40 TRIGLYCERIDES 100 mg/dL <150 LDL-CHOLESTEROL 172 mg/dL (calc) NRG CHOL/HDLC RATIO 5.9 (calc) <5.0 NON HDL CHOLESTEROL 194 mg/dL (calc) <13 0 TSH - 03/26/19 15:03 TSH 1.50 mIU/L 0.40-4.50 VITAMIN B12/FOLATE, SERUM PANEL - 15:14 VITAMIN B12 366 pg/mL 200-1100 FOLATE, SERUM 15.0 ng/mL NRG HOMOCYSTINE - 04/03/19 14:34 HOMOCYSTEINE 6.7 umol/L <11.4 METHYLMALONIC - 04/03/19 14:34 METHYLMALONIC ACID 164 nmol/L 87-318 Encounters ACCT No. Visit Date/Time Discharge Status Pt. Type Provider Facility Loc./Unit Complaint [id number] 07/12/2016 18:05:00 Document Registration [id number] 01/27/2020 13:00:00 01/27/2020 23:59:5 9 CLS Outpatient MYRA HARRINGTON MD [facility] [id number] 04/03/2019 14:40:00 Document Registration [id number] 03/26/2019 13:40:00 Document Registration [id number] 11/28/2018 10:20:00 Document Registration [id number] 08/03/2017 10:40:00 Document Registration [id number] 07/24/2014 13:52:00 07/24/2014 23:59: 59 CLS Outpatient MYRA HARRINGTON MD [id number] 06/18/2014 08:41:00 06/18/2014 23:59: 59 CLS Outpatient MYRA HARRINGTON MD [id number] 03/04/2014 16:21:00 03/04/2014 23:59: 59 CLS Outpatient MYRA HARRINGTON MD [id number] 02/10/2014 15:18:00 02/10/2014 23:59: 59 CLS Outpatient ART PETERSEN APRN [id number] 02/05/2014 13:45:00 02/05/2014 23:59: 59 CLS Outpatient MYRA HARRINGTON MD [id number] 09/04/2013 08:22:00 09/04/2013 23:59: 59 CLS Outpatient LULA MANNING MD [id number] 08/19/2013 14:53:00 08/19/2013 23:59: 59 CLS Outpatient LULA MANNING MD [id number] 09/23/2012 11:00:00 09/23/2012 23:59: 59 CLS Outpatient [id number] 08/21/2012 13:42:00 08/21/2012 23:59: 59 CLS Outpatient [id number] 07/22/2012 10:10:00 07/22/2012 23:59: 59 CLS Outpatient [id number] 07/10/2012 10:58:00 07/10/2012 23:59: 59 CLS Outpatient DAVON RESENDEZ MD [id number] 06/28/2012 11:35:00 06/28/2012 23:59: 59 CLS Outpatient DAVON RESENDEZ MD [id number] 10/09/2012 00:00:00 Document Registration [id number] 05/06/2019 18:52:00 19:32:00 DIS Emergency CASSIDY GAYTAN [facility] ER R THUMB INJ [id number] 06/18/2018 10:09:00 018 23:59:59 CLS Preadmit MYRA HARRINGTON MD [facility] REHAB L SHOULDER BURSITIS [id number] 08/08/2017 14:45:00 018 18:40:00 DIS Emergency KUNAL ARGUETA MD [facility] ER ON GOING CHEST PAIN KNOT ON HEAD/NECK HEADACHE [id number] 05/08/2017 13:00:00 017 23:59:59 CLS Outpatient MYRA HARRINGTON MD [facility] RAD RT SIDED WEAKNESS R53.1 [id number] 11/22/2016 20:40:00 017 06:25:00 DIS Outpatient MYRA HARRINGTON MD [facility] SLEEP LILLY,SNORING,HTN,MOOD DI SORDER [id number] 09/23/2016 20:57:00 017 06:35:00 DIS Outpatient MYRA HARRINGTON MD [facility] SLEEP OBSTRUCTIVE SLEEP APNEA [id number] 08/03/2016 14:41:00 017 16:26:00 DIS Outpatient MYRA HARRINGTON MD [facility] REHAB LBP AND HIP PAIN [id number] 06/14/2016 12:11:00 016 23:59:59 CLS Outpatient LATONYA KAT MD [facility] LAB HEADACHE [id number] 05/15/2016 13:46:00 016 16:50:00 DIS Emergency FLY VILLAFANA MD [facility] ER CHEST PAIN [id number] 12/17/2014 09:47:00 015 23:59:59 CLS Outpatient MYRA HARRINGTON MD [facility] RAD CERVICALGIA,LUMBAGO [id number] 07/09/2014 18:30:00 015 18:45:00 DIS Inpatient MYRA HARRINGTON MD [facility] CSD CHEST PAIN [id number] 06/23/2014 10:25:00 014 23:59:59 CLS Outpatient MYRA HARRINGTON MD [facility] CARD INTERMITTENT CHEST PAIN WITH HTN [id number] 03/12/2014 09:55:00 014 23:59:59 CLS Outpatient MYRA HARRINGTON MD [facility] RAD SWELLING, NO PALPABLE M ASS [id number] 02/16/2014 08:00:00 014 23:59:59 CLS Outpatient ART PETERSEN APRN [facility] RT ALTERATION OF C ONSCIENCE [id number] 12/30/2013 13:27:00 014 23:59:59 CLS Outpatient ALLIE STONE MD [facility] RAD POST CONCUSSION SYNDROME [id number] 11/25/2013 14:15:00 014 16:00:00 DIS Outpatient CHASE MARCANO, ALLIE Coates [facility] REHAB POST CONCUSSION SYNDROME [id number] 07/29/2013 17:38:00 014 23:59:59 CLS Outpatient KEVON GARCIA DO [facility] RAD HEAD INJURY [id number] 07/26/2013 20:21:00 014 21:10:00 DIS Emergency MONICA REES MD [facility] ER FACE LAC;WORK COMP [id number] 05/21/2012 07:56:00 Document Registration [id number] 04/18/2012 10:34:00 Document Registration [id number] 04/04/2012 12:56:00 Document Registration [id number] 03/24/2012 14:12:00 Document Registration [id number] 03/23/2012 19:37:00 Document Registration [id number] 01/23/2012 13:59:00 Document Registration
[2020-02-07 17:14] LABS: ALBUMIN 4.1 GM/DL (3.2-4.5); CHLORIDE 108 MMOL/L (98-107); POTASSIUM 4.3 MMOL/L (3.6-5.0); SODIUM 142 MMOL/L (135-145)
[2020-02-07 17:15] LABS: INR 0.9 (0.8-1.4); PROTHROMBIN TIME PATIENT 12.9 SEC (12.2-14.7)
[2020-02-07 17:16] LABS: CALCIUM 9.1 MG/DL (8.5-10.1)
--- NOTE | 2020-02-07 17:16 | ED Chest Pain ---
General Chief Complaint: Chest Pain Stated Complaint: L SIDED EAR,NECK,EYE PAIN Nursing Triage Note: Patient ambulatory to ER room 5 with complaint of left chest pain and neck pain, left eye pain and left ear pain. Patient also complains of feeling dizzy todya and "just feeling out of it today". Patient states he has been out of lyrica for several weeks now. He has not been taking his prescribed medications x 2 months. Patient states he is in drug rehab and did do cocaine 2 days ago. Nursing Sepsis Screen: No Definite Risk Source: patient Exam Limitations: no limitations (KUNAL ARGUETA MD) History of Present Illness Date Seen by Provider: Feb 07, 2020 Time Seen by Provider: 16:46 Initial Comments Here with onset of chest pain that radiates to the left neck and jaw as well as ear. Also has some right ear pain. States he feels weak today and just not right. Admits that he is nearly out of his Lyrica and has been decreasing or holding doses to spread them out and this may be increasing his pain syndromes and overall making him not feel well. Admits to using cocaine 2 days ago. He is working on rehabilitation. Has been seen for similar before. Has not had heart catheter but has had stress test in the past. Follows with [facility], Dr. Harrington. Timing/Duration: 4-6 hours Severity/Quality: mild, moderate Location: central Radiation: jaw, neck Activities at Onset: none Prior CP/Workup: stress test Modifying Factors: improves with rest ASA po PRECISION MACHINIST: No NTG SL PRECISION MACHINIST: No Associated Symptoms: No abdominal pain, No back pain; fatigue; No fever/chills, No nausea/vomiting, No shortness of breath; weakness (KUNAL ARGUETA MD) Allergies and Home Medications Allergies Coded Allergies: meperidine HCl (Verified Adverse Reaction, Intermediate, PSYCH , 01/23/12) Home Medications Albuterol Sulfate 8.5 Gm Aer.w.adap, 2 PUFF IH Q4H PRN for SHORTNESS OF BREATH, (Reported) Hydrochlorothiazide 25 Mg Tablet, 25 MG PO DAILY, (Reported) Simvastatin 10 Mg Tablet, 10 MG PO HS Prescribed by: MYRA HARRINGTON on 07/10/14 3340 Patient Home Medication List Home Medication List Reviewed: Yes (KUNAL ARGUETA MD) Review of Systems Review of Systems Constitutional: see HPI; No chills, No fever EENTM: No Nose Congestion, No Nose Pain, No Throat Pain Respiratory: Denies Cough, Denies SOA at Rest Cardiovascular: Chest Pain; Denies Edema Gastrointestinal: Denies Abdominal Pain, Denies Nausea, Denies Vomiting Genitourinary: No Symptoms Reported Musculoskeletal: muscle pain, muscle weakness Skin: no symptoms reported Psychiatric/Neurological: See HPI; Denies Numbness, Denies Tingling (KUNAL ARGUETA MD) All Other Systems Reviewed Negative Unless Noted: Yes (KUNAL ARGUETA MD) Past Ifxnkko-Ljclbe-Lymeny Hx Past Med/Social Hx: Reviewed Nursing Past Med/Soc Hx (KUNAL ARGUETA MD) Patient Social History Alcohol Use: Denies Use Recreational Drug Use: Yes Smoking Status: Current Everyday Smoker Type Used: Cigarettes 2nd Hand Smoke Exposure: Yes Recent Foreign Travel: No Contact w/Someone Who Travel: No Recent Infectious Disease Expo: No Recent Hopitalizations: No (KUNAL ARGUETA MD) Immunizations Up To Date Tetanus Booster (TDap): Less than 5yrs Date of Influenza Vaccine: Jul 10, 2014 (KUNAL ARGUETA MD) Seasonal Allergies Seasonal Allergies: No (KUNAL ARGUETA MD) Past Medical History Surgeries: No Respiratory: Yes Asthma Cardiac: Yes High Cholesterol, Hypertension Neurological: No Reproductive Disorders: No Sexually Transmitted Disease: No HIV/AIDS: No Genitourinary: No Gastrointestinal: Yes Gastroesophageal Reflux Musculoskeletal: No Endocrine: No HEENT: No Cancer: No Psychosocial: No Integumentary: No Blood Disorders: No (KUNAL ARGUETA MD) Family Medical History Reviewed Nursing Family Hx (KUNAL ARGUETA MD) No Pertinent Family Hx (KUNAL ARGUETA MD) Physical Exam Vital Signs Vital Signs - First Documented (TREVER FRANCIS MD) Vital Signs Capillary Refill : Less Than 3 Seconds (KUNAL ARGUETA MD) Height, Weight, BMI Height: 5'7.00" Weight: 180lbs. oz. 81.238224xj; 27.00 BMI Method:Stated General Appearance: No Apparent Distress, WD/WN HEENT: PERRL/EOMI, Pharynx Normal Neck: Non Tender, Supple Respiratory: Lungs Clear, Normal Breath Sounds Cardiovascular: Regular Rate, Rhythm, No Murmur Gastrointestinal: Non Tender, Soft Extremity: Normal Range of Motion, Non Tender Neurologic/Psychiatric: Alert, Oriented x3 Skin: Normal Color, Warm/Dry (KUNAL ARGUETA MD) Progress/Results/Core Measures Results/Orders Lab Results Laboratory Tests Test 02/07/20 16:55 02/07/20 18:50 Range/Units White Blood Count 5.5 4.3-11.0 10^3/uL Red Blood Count 5.22 4.35-5.85 10^6/uL Hemoglobin 15.6 13.3-17.7 G/DL Hematocrit 44 40-54 % Mean Corpuscular Volume 85 80-99 FL Mean Corpuscular Hemoglobin 30 25-34 PG Mean Corpuscular Hemoglobin Concent 35 32-36 G/DL Red Cell Distribution Width 13.4 10.0-14.5 % Platelet Count 223 130-400 10^3/uL Mean Platelet Volume 10.6 H 7.4-10.4 FL Neutrophils (%) (Auto) 30 L 42-75 % Lymphocytes (%) (Auto) 51 H 12-44 % Monocytes (%) (Auto) 9 0-12 % Eosinophils (%) (Auto) 9 0-10 % Basophils (%) (Auto) 0 0-10 % Neutrophils # (Auto) 1.7 L 1.8-7.8 X 10^3 Lymphocytes # (Auto) 2.8 1.0-4.0 X 10^3 Monocytes # (Auto) 0.5 0.0-1.0 X 10^3 Eosinophils # (Auto) 0.5 H 0.0-0.3 10^3/uL Basophils # (Auto) 0.0 0.0-0.1 10^3/uL Prothrombin Time 12.9 12.2-14.7 SEC INR Comment 0.9 0.8-1.4 Activated Partial Thromboplast Time 32 24-35 SEC D-Dimer 0.53 H 0.00-0.49 UG/ML Sodium Level 142 135-145 MMOL/L Potassium Level 4.3 3.6-5.0 MMOL/L Chloride Level 108 H 98-107 MMOL/L Carbon Dioxide Level 25 21-32 MMOL/L Anion Gap 9 5-14 MMOL/L Blood Urea Nitrogen 10 7-18 MG/DL Creatinine 1.24 0.60-1.30 MG/DL Estimat Glomerular Filtration Rate > 60 BUN/Creatinine Ratio 8 Glucose Level 77 70-105 MG/DL Calcium Level 9.1 8.5-10.1 MG/DL Corrected Calcium 9.0 8.5-10.1 MG/DL Magnesium Level 2.5 H 1.6-2.4 MG/DL Total Bilirubin 0.4 0.1-1.0 MG/DL Aspartate Amino Transf (AST/SGOT) 15 5-34 U/L Alanine Aminotransferase (ALT/SGPT) 24 0-55 U/L Alkaline Phosphatase 79 40-136 U/L Myoglobin 20.7 10.0-92.0 NG/ML Troponin I < 0.028 < 0.028 <0.028 NG/ML Total Protein 7.1 6.4-8.2 GM/DL Albumin 4.1 3.2-4.5 GM/DL (TREVER FRANCIS MD) My Orders Orders - TREVER FRANCIS MD Ketorolac Injection (Toradol Injection) (02/07/20 18:30) (TREVER FRANCIS MD) Medications Given in ED Current Medications Medications Dose Ordered Sig/Rema Route Start Time Stop Time Status Last Admin Dose Admin Aspirin 324 mg ONCE ONCE PO 02/07/20 17:00 02/07/20 17:01 DC 02/07/20 17:13 324 MG Hydrochlorothiazide 25 mg ONCE ONCE PO 02/07/20 18:00 02/07/20 18:01 DC 02/07/20 18:03 25 MG Ketorolac Tromethamine 15 mg ONCE ONCE IVP 02/07/20 18:30 02/07/20 18:31 DC 02/07/20 18:52 15 MG Pregabalin 225 mg ONCE ONCE PO 02/07/20 17:00 02/07/20 17:01 DC 02/07/20 17:14 225 MG (TREVER FRANCIS MD) Vital Signs/I&O 02/07/20 02/07/20 16:43 16:43 Temp 36.7 Pulse 58 Resp 16 B/P (MAP) 152/100 (117) Pulse Ox 98 O2 Delivery Room Air Room Air (TREVER FRANCIS MD) Blood Pressure Mean: 117 Progress Progress Note : Progress Note Seen and evaluated. IV, labs, EKG and chest x-ray ordered. ASA 324 mg by mouth. Lyrica 225 mg by mouth that is his normal dosing. Monitor patient.1755: Overall doing better. Hydrochlorothiazide 25 mg by mouth ordered. He does have at home. He is feeling better after Lyrica dose. We will do repeat troponin at two-hour janet and if remains negative, and then discharged home. Care transferred to Dr. Lovelace at 1800. (KUNAL ARGUETA MD) Progress Note #1: Time: 18:25 Progress Note Care of this patient was assumed from Dr. Argueta. Initial cardiopulmonary wo rkup was negative except for minimally elevated d-dimer. Risks and benefits of CT angiogram discussed with the patient. He declines the CT. Patient was examined and found to have tenderness of the left lower anterior chest. Examination of the skin shows no rash to suggest shingles. I have ordered Toradol to help treat this pain. Repeat troponin is pending. Progress Note #2: Time: 19:39 Progress Note Toradol improved chest pain. Repeat troponin was negative. Lyrica withdrawal and musculoskeletal pain probably contributed to his chest pain. I asked patient if he would like his notes sent to the primary care provider and he answered affirmatively. (TREVER FRANCIS MD) Initial ECG Impression Date: Feb 07, 2020 Initial ECG Impression Time: 16:46 Initial ECG Rate: 59 Initial ECG Rhythm: Normal Sinus Initial ECG Impression: Normal Initial ECG Comparisson: Unchanged Comment Sinus rhythm with normal axis. No evidence of ST elevation MS. Similar to previous on 08/08/17. Interpreted by me. (KUNAL ARGUETA MD) Diagnostic Imaging Diagonstic Imaging: Xray Plain Films/CT/US/NM/MRI: chest Comments [facility]. [place], [place] NAME: ISRA CM [facility] REC#: [id number] PT STATUS: REG ER : 1970 PHYSICIAN: KUNAL ARGUETA MD ADMIT DATE: 02/07/20/ER Signed Date of Exam:02/07/20 CHEST 1 VIEW, AP/PA ONLY INDICATION: Chest pain. EXAMINATION: Frontal chest was obtained at 5:27 p.m. COMPARISON: 08/08/2017. FINDINGS: Heart and mediastinal silhouette are normal in appearance. There is some minimal left basilar atelectatic change. There is no consolidation or pleural fluid. IMPRESSION: Minimal left basilar atelectasis. No consolidation or pleural fluid. Dictated by: Dictated on workstation # [id number] Dict: 02/07/20 1738 Trans: 02/07/20 1753 [facility] [id number] Interpreted by: JESU SANCHEZ MD Electronically signed by: JESU SANCHEZ MD 02/07/20 1753 Reviewed: Reviewed by Me (KUNAL ARGUETA MD) Departure Impression Primary Impression: Chest wall pain Additional Impression: History of cocaine use Disposition: HOME, SELF-CARE Condition: Improved Departure-Patient Inst. Decision time for Depature: 19:37 (TREVER FRANCIS MD) Referrals: [facility] (PCP/Family) Primary Care Physician Patient Instructions: Chest Pain Add. Discharge Instructions: Follow-up with your primary care provider as soon as possible. You may take ibuprofen up to 600 mg every 6 hours as needed and Tylenol (acetaminophen) up to 1000 mg every 6 hours as needed for pain. Using Tylenol and ibuprofen together will enhance pain management. Return to care if you have worsening symptoms despite using these medications. Refrain from cocaine use in the future as this may contribute to heart disease and chest pain. All discharge instructions reviewed with patient and/or family. Voiced understanding. Copy Copies To 1: MYRA HARRINGTON MD, TIMOTHY D MD Feb 07, 2020 17:16 TREVER FRANCIS MD Feb 07, 2020 18:28
[2020-02-07 17:17] LABS: GLUCOSE 77 MG/DL (70-105); TOTAL PROTEIN 7.1 GM/DL (6.4-8.2)
[2020-02-07 17:18] LABS: CARBON DIOXIDE 25 MMOL/L (21-32)
[2020-02-07 17:19] LABS: BILIRUBIN,TOTAL 0.4 MG/DL (0.1-1.0)
[2020-02-07 17:20] LABS: ALKALINE PHOSPHATASE 79 U/L (40-136); CREATININE SERUM 1.24 MG/DL (0.60-1.30); GFR ESTIMATED > 60
[2020-02-07 17:21] LABS: BUN/CREATININE RATIO 8
[2020-02-07 17:22] LABS: BASOPHILS % (AUTO) 0 % (0-10); EOSINOPHILS # (AUTO) 0.5 10^3/uL (0.0-0.3); EOSINOPHILS % (AUTO) 9 % (0-10); HEMATOCRIT 44 % (40-54); HEMOGLOBIN 15.6 G/DL (13.3-17.7); LYMPHOCYTES # (AUTO) 2.8 X 10^3 (1.0-4.0); LYMPHOCYTES % (AUTO) 51 % (12-44); MEAN CORPUSCULAR HEMOGLOBIN 30 PG (25-34); MEAN CORPUSCULAR HGB CONC 35 G/DL (32-36); MEAN CORPUSCULAR VOLUME 85 FL (80-99); MEAN PLATELET VOLUME 10.6 FL (7.4-10.4); MONOCYTES # (AUTO) 0.5 X 10^3 (0.0-1.0); MONOCYTES % (AUTO) 9 % (0-12); NEUTROPHILS # (AUTO) 1.7 X 10^3 (1.8-7.8); NEUTROPHILS % (AUTO) 30 % (42-75); PLATELET COUNT 223 10^3/uL (130-400); RED CELL DISTRIBUTION WIDTH 13.4 % (10.0-14.5); WHITE BLOOD COUNT 5.5 10^3/uL (4.3-11.0)
[2020-02-07 17:23] LABS: ALANINE AMINOTRANSFERASE 24 U/L (0-55); MAGNESIUM 2.5 MG/DL (1.6-2.4)
[2020-02-07] MEDS ORDERED: LACTATED RINGERS 1,000 ML IV STA (17:50)
--- NOTE | 2020-02-07 17:53 | Diagnostic Imaging Report ---
INDICATION: Chest pain. EXAMINATION: Frontal chest was obtained at 5:27 p.m. COMPARISON: 08/08/2017. FINDINGS: Heart and mediastinal silhouette are normal in appearance. There is some minimal left basilar atelectatic change. There is no consolidation or pleural fluid. IMPRESSION: Minimal left basilar atelectasis. No consolidation or pleural fluid. Dictated by: Dictated on workstation # [id number]
[2020-02-07] MEDS ORDERED: HYDROCHLOROTHIAZIDE 25 MG (HCTZ) TAB PO ONE (18:00)
[2020-02-07] MEDS ORDERED: KETOROLAC 30 MG/ML VIAL IVP ONE (18:30)
--- NOTE | 2020-02-07 19:38 | NUR ---
Patient states he is feeling better and is ready to go home and eat supper. notified.
[2020-02-07 19:46] VITALS: BP 146/95
== END 2020-02-07 19:48 | disposition home or self-care (01) ==
LOC: EDUNIT# 16:39 → ER 16:40
DX: R07.89 Other chest pain (principal); F14.10 Cocaine abuse, uncomplicated; J45.909 Unspecified asthma, uncomplicated; I10 Essential (primary) hypertension; E78.00 Pure hypercholesterolemia, unspecified; F17.210 Nicotine dependence, cigarettes, uncomplicated; Z91.14 Patient's other noncompliance with medication regimen; Z88.5 Allergy status to narcotic agent
CPT/HCPCS: 36415; 71045; 80053; 83735; 83874; 84484; 85025; 85379; 85610; 85730; 93041

== ENCOUNTER → 2020-02-17 | Emergency (ER) | payer MEDICARE, MEDICAID ==
[~2020-02-17] VITALS: Ht 170 cm; Wt 79.0 kg
[~2020-02-17] MED LIST changes: +ASPIRIN 81 MG CHEW (CHILDREN'S ASA) ONE; +ASPIRIN 81 MG CHEW (CHILDREN'S ASA) PO ONE; +DOXY100T2 PO; +KETOROLAC 30 MG/ML VIAL IVP STA; +LIDOCAINE 1% INJ 20 ML 20 ML VIAL INJ ONE; +NITROGLYCERIN 0.4 MG SL TABS BTL 25'S SL ONE; +NITROGLYCERIN 0.4 MG SL TABS BTL 25'S SL PRN; +ORPHENADRINE 60 MG/2 ML (NORFLEX) AMP (ED ONLY) IV STA; +cefTRIAXone 1,000 MG/2.86 ml vial (IM ONLY) IM ONE; +cefTRIAXone FOR IV USE 1,000 MG in WATER (STERILE) FOR INJECTION 10 ML IV ONE
--- NOTE | 2020-02-17 09:00 | ED Chest Pain ---
General Stated Complaint: CHEST PAIN;L ARM NUMBNESS/PAIN History of Present Illness Date Seen by Provider: Feb 17, 2020 Time Seen by Provider: 09:00 Initial Comments 49-year-old male presents with chest pain left arm pain and left arm numbness. Patient was seen here 10 days ago for very similar symptoms. At that time he had a negative cardiac workup. Patient symptoms were much more musculoskeletal. Patient admitted at that time did not taken his medication including his Lyrica which seemed to exacerbate his pain. Patient also had admitted to cocaine use 2 days prior to being seen in the ER at that time. Patient did have a slight elevation of d-dimer at that time was offered a CT angiogram of the chest but declined. Patient was instructed to follow-up with his primary care provider at [facility], [facility]. Patient states that he did get his Lyrica field and has an appointment with primary care provider tomorrow.. Allergies and Home Medications Allergies Coded Allergies: meperidine HCl (Verified Adverse Reaction, Intermediate, PSYCH , 01/23/12) Home Medications Albuterol Sulfate 8.5 Gm Aer.w.adap, 2 PUFF IH Q4H PRN for SHORTNESS OF BREATH, (Reported) Doxycycline Hyclate 100 Mg Tablet, 100 MG PO BID Prescribed by: FRAN NELSON on 02/17/20 1050 Hydrochlorothiazide 25 Mg Tablet, 25 MG PO DAILY, (Reported) Simvastatin 10 Mg Tablet, 10 MG PO HS Prescribed by: MYRA HARRINGTON on 07/10/14 1709 Patient Home Medication List Home Medication List Reviewed: Yes Review of Systems Review of Systems Constitutional: No chills, No fever Respiratory: Denies Cough, Denies Shortness of Air Cardiovascular: See HPI, Chest Pain Gastrointestinal: No Symptoms Reported Genitourinary: No Symptoms Reported Musculoskeletal: no symptoms reported Skin: no symptoms reported Psychiatric/Neurological: No Symptoms Reported Endocrine: No Symptoms Reported Past Fvftwnh-Agjohu-Lkxzco Hx Past Med/Social Hx: Reviewed Nursing Past Med/Soc Hx Patient Social History Drug of Choice: cocaine used two days ago Type Used: Cigarettes 2nd Hand Smoke Exposure: Yes Recent Hopitalizations: No Immunizations Up To Date Tetanus Booster (TDap): Less than 5yrs Date of Influenza Vaccine: Jul 10, 2014 Seasonal Allergies Seasonal Allergies: No Past Medical History Surgeries: No Respiratory: Yes Asthma Cardiac: Yes High Cholesterol, Hypertension Neurological: Yes Traumatic Brain Injury Reproductive Disorders: No Sexually Transmitted Disease: No HIV/AIDS: No Genitourinary: No Gastrointestinal: Yes Gastroesophageal Reflux Musculoskeletal: Yes Chronic Back Pain Endocrine: Yes Diabetes, Non-Insulin dep HEENT: No Cancer: No Psychosocial: Yes PTSD, Bipolar Integumentary: No Blood Disorders: No Family Medical History No Pertinent Family Hx Physical Exam Vital Signs Vital Signs - First Documented 02/17/20 02/17/20 08:52 11:21 Temp 36.5 Pulse 66 Resp 24 B/P (MAP) 170/106 (127) Pulse Ox 96 O2 Delivery Room Air Capillary Refill : Height, Weight, BMI Height: 5'7.00" Weight: 180lbs. oz. 81.729513kg; 27.00 BMI Method:Stated General Appearance: No Apparent Distress Neck: Non Tender, Supple Respiratory: Lungs Clear, Other (left chest wall tenderness) Cardiovascular: Regular Rate, Rhythm, No Edema, Normal Peripheral Pulses Gastrointestinal: Non Tender, Soft Extremity: Normal Capillary Refill, Normal Range of Motion, Non Tender Neurologic/Psychiatric: Alert, Oriented x3, No Motor/Sensory Deficits, Normal Mood/Affect, hearing healthcare practitioner II-XII Norm as Tested Skin: Normal Color, Warm/Dry Progress/Results/Core Measures Results/Orders Lab Results Laboratory Tests Test 02/17/20 09:00 02/17/20 10:14 Range/Units White Blood Count 6.7 4.3-11.0 10^3/uL Red Blood Count 5.12 4.35-5.85 10^6/uL Hemoglobin 15.1 13.3-17.7 G/DL Hematocrit 44 40-54 % Mean Corpuscular Volume 85 80-99 FL Mean Corpuscular Hemoglobin 30 25-34 PG Mean Corpuscular Hemoglobin Concent 35 32-36 G/DL Red Cell Distribution Width 13.3 10.0-14.5 % Platelet Count 228 130-400 10^3/uL Mean Platelet Volume 10.4 7.4-10.4 FL Neutrophils (%) (Auto) 50 42-75 % Lymphocytes (%) (Auto) 37 12-44 % Monocytes (%) (Auto) 7 0-12 % Eosinophils (%) (Auto) 6 0-10 % Basophils (%) (Auto) 0 0-10 % Neutrophils # (Auto) 3.3 1.8-7.8 X 10^3 Lymphocytes # (Auto) 2.5 1.0-4.0 X 10^3 Monocytes # (Auto) 0.5 0.0-1.0 X 10^3 Eosinophils # (Auto) 0.4 H 0.0-0.3 10^3/uL Basophils # (Auto) 0.0 0.0-0.1 10^3/uL Prothrombin Time 13.2 12.2-14.7 SEC INR Comment 1.0 0.8-1.4 Activated Partial Thromboplast Time 32 24-35 SEC D-Dimer 0.45 0.00-0.49 UG/ML Sodium Level 142 135-145 MMOL/L Potassium Level 3.2 L 3.6-5.0 MMOL/L Chloride Level 109 H 98-107 MMOL/L Carbon Dioxide Level 25 21-32 MMOL/L Anion Gap 8 5-14 MMOL/L Blood Urea Nitrogen 10 7-18 MG/DL Creatinine 1.20 0.60-1.30 MG/DL Estimat Glomerular Filtration Rate > 60 BUN/Creatinine Ratio 8 Glucose Level 127 H 70-105 MG/DL Calcium Level 8.9 8.5-10.1 MG/DL Corrected Calcium 9.0 8.5-10.1 MG/DL Magnesium Level 2.3 1.6-2.4 MG/DL Total Bilirubin 0.6 0.1-1.0 MG/DL Aspartate Amino Transf (AST/SGOT) 14 5-34 U/L Alanine Aminotransferase (ALT/SGPT) 18 0-55 U/L Alkaline Phosphatase 77 40-136 U/L Myoglobin 31.2 10.0-92.0 NG/ML Troponin I < 0.028 <0.028 NG/ML B-Type Natriuretic Peptide < 10.0 <100.0 PG/ML Total Protein 6.9 6.4-8.2 GM/DL Albumin 3.9 3.2-4.5 GM/DL Urine Color YELLOW Urine Clarity CLEAR Urine pH 6.0 5-9 Urine Specific [place] 1.020 1.016-1.022 Urine Protein NEGATIVE NEGATIVE Urine Glucose (UA) TRACE H NEGATIVE Urine Ketones NEGATIVE NEGATIVE Urine Nitrite POSITIVE H NEGATIVE Urine Bilirubin NEGATIVE NEGATIVE Urine Urobilinogen 0.2 < = 1.0 MG/DL Urine Leukocyte Esterase TRACE H NEGATIVE Urine RBC (Auto) NEGATIVE NEGATIVE Urine RBC NONE /HPF Urine WBC 10-25 H /HPF Urine Squamous Epithelial Cells 2-5 /HPF Urine Crystals NONE /LPF Urine Amorphous Sediment FEW ESTEFANI URATES H /LPF Urine Bacteria MODERATE H /HPF Urine Casts NONE /LPF Urine Mucus NEGATIVE /LPF Urine Culture Indicated YES Urine Opiates Screen NEGATIVE NEGATIVE Urine Oxycodone Screen NEGATIVE NEGATIVE Urine Methadone Screen NEGATIVE NEGATIVE Urine Propoxyphene Screen NEGATIVE NEGATIVE Urine Barbiturates Screen NEGATIVE NEGATIVE Ur Tricyclic Antidepressants Screen NEGATIVE NEGATIVE Urine Phencyclidine Screen NEGATIVE NEGATIVE Urine Amphetamines Screen NEGATIVE NEGATIVE Urine Methamphetamines Screen NEGATIVE NEGATIVE Urine Benzodiazepines Screen NEGATIVE NEGATIVE Urine Cocaine Screen POSITIVE H NEGATIVE Urine Cannabinoids Screen NEGATIVE NEGATIVE My Orders Orders - NELSON,FRAN L DO Nitroglycerin 0.4 Mg Btl 25's (Nitrostat (02/17/20 08:56) Cbc With Automated Diff (02/17/20 09:00) Magnesium (02/17/20 09:00) Chest 1 View, Ap/Pa Only (02/17/20 09:00) Ekg Tracing (02/17/20 09:00) Comprehensive Metabolic Panel (02/17/20 09:00) Myoglobin Serum (02/17/20 09:00) Protime With Inr (02/17/20 09:00) Aspirin Chewable Tablet (Baby Aspirin Ch (02/17/20 08:56) Partial Thromboplastin Time (02/17/20 09:00) Monitor-Rhythm Ecg Trace Only (02/17/20 09:00) Lipid Panel (02/18/20 06:00) Ed Iv/Invasive Line Start (02/17/20 09:00) BNP (02/17/20 09:00) Troponin I (02/17/20 09:00) Nitroglycerin 0.4 Mg Btl 25's (Nitrostat (02/17/20 09:00) Aspirin Chewable Tablet (Baby Aspirin Ch (02/17/20 09:00) Drug Screen Stat (Urine) (02/17/20 09:08) Ua Culture If Indicated (02/17/20 09:08) Fibrin Degradation Products (02/17/20 09:11) Ketorolac Injection (Toradol Injection) (02/17/20 09:11) Orphenadrine Inj (Ed Only) (Norflex Inje (02/17/20 10:20) Urine Culture (02/17/20 10:14) Neis Tigre Dna Urine Test (02/17/20 10:31) Chlamydia Trachomatis Urine (02/17/20 10:31) Ceftriaxone For Iv Use (Rocephin For I (02/17/20 11:00) Medications Given in ED Current Medications Medications Dose Ordered Sig/Rema Route Start Time Stop Time Status Last Admin Dose Admin Aspirin 324 mg ONCE ONCE PO 02/17/20 09:00 02/17/20 09:01 DC 02/17/20 09:00 324 MG Ceftriaxone Sodium 1000 mg/ Sterile Water 10 ml @ 200 mls/hr ONCE ONCE IV 02/17/20 11:00 02/17/20 11:02 DC 02/17/20 10:56 200 MLS/HR Nitroglycerin 0.4 mg UD PRN SL 02/17/20 09:00 02/17/20 09:00 0.4 MG Vital Signs/I&O 02/17/20 02/17/20 02/17/20 08:52 08:52 11:21 Temp 36.5 Pulse 66 60 Resp 24 16 B/P (MAP) 170/106 (127) 134/98 (127) Pulse Ox 96 O2 Delivery Room Air Room Air Progress Progress Note : Progress Note Patient with no acute findings on labs or EKG. Patient with likely muscle skeletal pain or chest pain due to his cocaine use. Patient has an appointment tomorrow with his primary care provider which he needs to keep. Patient also has some concerns about a urinary tract infection later in the visit. He did have what appears to be a cystitis. He was treated with Rocephin and given a prescription for doxycycline due to have an risk for STD. Patient is stable and will be discharged home. He should follow-up with his primary care provider for an outpatient cardiology consult and attenuation of care Diagnostic Imaging Diagonstic Imaging: Xray Plain Films/CT/US/NM/MRI: chest Comments [facility] [place] [place] NAME: ISRA CM [facility] REC#: [id number] PT STATUS: REG ER : 1970 PHYSICIAN: FRAN NELSON DO ADMIT DATE: 02/17/20/ER Draft Date of Exam:02/17/20 CHEST 1 VIEW, AP/PA ONLY EXAMINATION: Chest 1 view HISTORY: Chest pain. Left arm numbness. COMPARISON: Chest radiograph on 02/07/2020. FINDINGS: The lung volumes are normal. No focal consolidation is seen. No large pleural effusion or pneumothorax is seen. The cardiomediastinal silhouette is normal in size and contour. No acute osseous abnormality is seen. IMPRESSION: 1. No acute pleuroparenchymal process. Departure Impression Primary Impression: Chest wall pain Additional Impressions: Cocaine use Cystitis Disposition: HOME, SELF-CARE Condition: Stable Departure-Patient Inst. Referrals: [facility] (PCP/Family) Primary Care Physician Patient Instructions: Chest Pain That Is Not Caused by the Heart (DC), Cocaine Use Disorder, Acute Cystitis (DC), Drug Abuse Treatment Add. Discharge Instructions: Keep your appointment with your primary care provider for tomorrow for further treatment and management options Scripts Doxycycline Hyclate (Doxycycline Hyclate) 100 Mg Tablet 100 MG PO BID, #20 TAB 0 Refills Prov: FRAN NELSON DO 02/17/20 FRAN NELSON DO Feb 17, 2020 09:00
--- OUTSIDE RECORDS SUMMARY | 2020-02-17 09:07 | XMS REPORT | Clinical Summary ---
Author Author [facility] Organization [facility] Address Unknown Phone Unavailable Care Team Providers Care Consulting Hr Professional Name Role Phone Veronica Holloway MD PCP Amy Pulido MD Unavailable Unavailable Source Comments Some departments are not documenting in the electronic medical record. 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
--- OUTSIDE RECORDS SUMMARY | 2020-02-17 09:08 | XMS REPORT ---
Author Author Dilan WASHINGTON Organization [facility] Address [address] [place] [address] Care Team Providers Care Log Chain Worker Name Role Phone BENEDICT WASHINGTON Unavailable PROBLEMS Type Condition ICD9-CM Code JLV02-KM Code Onset Dates Condition S tatus SNOMED Code Problem Bilateral low back pain, with sciatica presence unspecifie d M54.5 Active 378583557 Problem Essential hypertension I10 Active 46407783 Problem Seizure disorder G40.909 Active 128 127100 Problem Generalized anxiety disorder F41.1 A ctive 479618393 Problem Cervicalgia M54.2 Active 89091636 95622 Problem Bipolar disorder, current episode depressed, mild F31.31 Active 910328787 Problem Bipolar disorder, current episode depressed, moderate F31.32 Active 559887411 Problem Post-traumatic stress disorder, unspecified F43.10 Active 87857633 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 22813955 Problem Major depressive disorder, recurrent sev ere without psychotic features F33.2 Active 25429614 Problem Intractable chronic post-traumatic headache G44.32 1 Active 938223141 Problem Chest pain, unspecified chest pain type R07.9 Active 46905047 Problem Major depressive disorder, recurrent episode, un specified severity F33.9 Active 11272807 Problem Sleep walking and eating F51.3 Activ e 87691720 Problem Drug-induced erectile dysfunction N52.2 Active 758481108 Problem Subacromial bursitis of left shoulder joint M75.52 Active 74571229 Problem Tarsal tunnel syndrome of right side G57.51 Active 54345304 Problem Urinary hesitancy R39.11 Active 59 18529 Problem Diabetic polyneuropathy associated with type 2 d iabetes mellitus E11.42 Active 93206900 Problem Bipolar disorder, current episode mixed, moderate F31.62 Active 830705232 Problem Obstructive sleep apnea syndrome G47.33 Active 03195463 Problem Type 2 diabetes mellitus wit h hyperglycemia, without long-term current use of insulin E11.65 Active 20381415 Problem Mixed hyperlipidemia E78.2 Active 763015980 Problem Post-traumatic stress disorder F43.10 Active 71998909 Problem Tarsal tunnel syndrome of both lower extremities G 57.53 Active 45962559715142961 Problem Neurocognitive deficits R29.818 Active 203892945 Problem Bipolar disorder, current ep isode depressed, severe, without psychotic features F31.4 Active 60182191 Problem Post traumatic stress disorder (PTSD) F43.10 Active 17537244 Problem Twitching R25.3 Active 823440134 Problem Cocaine use disorder, severe, dependence F14.20 Active 83604399 Problem Pure hypercholesterolemia E78.0 Acti ve 652657047 Problem Subacromial bursitis of right shoulder joint M75.5 1 Active 5172730967251739 Problem Moderate persistent asthma without complication J4 5.40 Active 211351004 Problem Chronic post-traumatic stress disorder (PTSD) F43. 12 Active 531697981 Problem Bipolar disorder F31.9 Active 137 45502 Problem Cocaine abuse F14.10 Active 306141 03 Problem Bipolar 1 disorder, depressed, severe F31.4 Active 587754749672 Problem Bursitis of left shoulder M75.52 Acti ve [id number] ALLERGIES No Information ENCOUNTERS Encounter Location Date Diagnosis [facility] [address] [facility] [id number] [address] [place] [phone] Feb, [facility] [address] [facility] [id number] [address] [place] [phone] Feb, [facility] [address] [facility] [id number] [place] [address] Jan, Cocaine use disorder, severe, dependence F14.20 [facility] [address] [facility] [id number] [address] [place] [phone] Jan, [facility] [address] [facility] [id number] [place] [address] Jan, Cocaine use disorder, severe, dependence F14.20 [facility] [address] [facility] [id number] [address] [place] [phone] Jan, [facility] [address] [facility] [id number] [place] [phone] 09 Jan, 2020 Cocaine abuse F14.10 [facility] [address] [facility] [id number] [address] [place] [id number] 05 Jan, 2020 Neuropathic pain M79.2 [facility] [address] [facility] [id number] [address] [place] [id number] 12 Dec, 2019 [facility] [address] [facility] [id number] [address] [place] [phone] Dec, [facility] [address] [facility] [id number] [address] [place] [phone] Dec, [facility] [address] [facility] [id number] [place] [address] Dec, Cocaine use disorder, severe, dependence F14.20 [facility] [address] [facility] [id number] [address] [place] [phone] Dec, Bipolar disorder F31.9 ; [facility] st pain, unspecified chest pain type R07.9 and Cocaine abuse F14.10 [facility] [address] [facility] [id number] [address] [place] [phone] Dec, Neuropathic pain M79.2 [facility] [address] [facility] [id number] [place] [address] November, Cocaine use disorder, severe, dependence F14.20 [facility] [address] [facility] [id number] [place] [address] November, Cocaine use disorder, severe, dependence F14.20 [facility] [address] [facility] [id number] [place] [address] November, Cocaine use disorder, severe, dependence F14.20 [facility] [address] [facility] [id number] [address] [place] [id number] November, [facility] [address] [facility] [id number] [place] [address] November, Cocaine use disorder, severe, dependence F14.20 [facility] [address] [facility] [id number] [place] [address] 18 Nov, 2019 Cocaine use disorder, severe, dependence F14.20 [facility] [address] [place] [id number] [address] [place] [address], [place] [address] 15 Nov, 2019 [facility] [address] [place] [id number] [place] [address] November, Cocaine use disorder, severe, dependence F14.20 [facility] [address] [place] [id number] [place] [address] November, Cocaine use disorder, severe, dependence F14.20 [facility] [address] [place] [id number] [place] [address] 11 Nov, 2019 Cocaine use disorder, severe, dependence F14.20 [facility] [address] [place] [id number] [address] [place] [address], [place] [address] 06 Nov, 2019 Cocaine use disorder, severe , dependence F14.20 and Bipolar disorder F31.9 [facility] [address] [place] [id number] [place] [address] 06 Nov, 2019 Cocaine use disorder, severe, dependence F14.20 [facility] [address] [place] [id number] [place] [address] 05 Nov, 2019 Cocaine use disorder, severe, dependence F14.20 [facility] [address] [place] [id number] [place] [address] November, Cocaine use disorder, severe, dependence F14.20 [facility] [address] [place] [id number] [place] [address] 29 Oct, 2019 Cocaine use disorder, severe, dependence F14.20 [facility] [address] [facility] [id number] [address] [place] [id number] 28 Oct, 2019 [facility] [address] [place] [id number] [address] [place] [phone] 23 Oct, 2019 [facility] [address] [place] [id number] [address] [place] [phone] 14 Oct, 2019 [facility] [address] [id number] [address] [place] [address] Sep, Neuropathic pain M79.2 [facility] [address] [id number] [address] [place] [id number] Sep, Neuropathic pain M79.2 [facility] [address] [id number] [address] [place] [address] Aug, Diabetic polyneuropathy asso ciated with type 2 diabetes mellitus E11.42 ; Subacromial bursitis of left shoulder joint M75.52 ; Subacromial bursitis of right shoulder joint M75.51 ; Type 2 diabetes mellitus with hyperglycemia, without long-term current use of insulin E11.65 and Encounter for immunization Z23 [facility] [address] [id number] [address] [place] [id number] Aug, [facility] [address] [id number] [address] [place] [phone] Aug, [facility] [address] [id number] [address] [place] [phone] Aug, Neuropathic pain M79.2 [facility] [address] [id number] [address] [place] [id number] Jul, Neuropathic pain M79.2 [facility] [address] [id number] [address] [place] [id number] Jun, Neuropathic pain M79.2 [facility] [address] [id number] [address] [place] [phone] May, [facility] [address] [id number] [address] [place] [phone] May, Neuropathic pain M79.2 [facility] [address] [id number] [address] [place] [phone] May, [facility] [address] [id number] [address] [place] [phone] Apr, [facility] [address] [id number] [address] [place] [id number] 14 Apr, 2019 Neuropathic pain M79.2 [facility] [address] [id number] [address] [place] [phone] Apr, [facility] [address] [id number] [address] [place] [id number] Apr, [facility] [address] [id number] [address] [place] [address] Mar, [facility] [address] [id number] [address] [place] [id number] Mar, [facility] [address] [id number] [address] [place] [phone] Mar, Neuropathic pain M79.2 [facility] [address] [id number] [address] [place] [id number] Mar, Bipolar 1 disorder, depresse d, severe F31.4 and Cocaine use disorder, severe, dependence F14.20 [facility] [address] [id number] [address] [place] [id number] 24 Mar, 2019 Neuropathic pain M79.2 [facility] [address] [id number] [address] [place] [id number] 18 Mar, 2019 Neuropathic pain M79.2 [facility] [address] [id number] [address] [place] [phone] 17 Mar, 2019 [facility] [address] [id number] [address] [place] [id number] 16 Mar, 2019 [facility] [address] [id number] [address] [place] [phone] Feb, Bipolar 1 disorder, depresse d, severe F31.4 [facility] [address] [id number] [address] [place] [phone] Feb, [facility] [address] [id number] [address] [place] [phone] Feb, [facility] [address] [id number] [address] [place] [phone] Feb, Type 2 diabetes mellitus wit h hyperglycemia, without long-term current use of insulin E11.65 ; Bursitis of right shoulder M75.51 and Bursitis of left shoulder M75.52 [place] [address] [facility] [id number] [address] [place] [phone] Feb, Subacromial bursitis of left shoulder joint M75.52 ; Tarsal tunnel syndrome of both lower extremities G57.53 and Subacromial bursitis of right shoulder joint M75.51 [place] [address] [id number] [address] [place] [id number] Feb, Diabetic polyneuropathy asso ciated with type 2 diabetes mellitus E11.42 ; Mixed hyperlipidemia E78.2 ; Cocaine abuse F14.10 ; Subacromial bursitis of left shoulder joint M75.52 ; Acute pain of right shoulder M25.511 ; Moderate persistent asthma without complication J45.40 and Bipolar 1 disorder, depressed, severe F31.4 [place] [address] [facility] [id number] [address] [place] [phone] Jan, [place] [address] [facility] [id number] [address] [place] [phone] Jan, Essential hypertension I10 ; Type 2 diabetes mellitus with hyperglycemia, without long-term current use of insulin E11.65 and Diabetic polyneuropathy associated with type 2 diabetes mellitus E11.42 [place] [address] [facility] [id number] [address] [place] [id number] Jan, [place] [address] [facility] [id number] [address] [place] [id number] Dec, Bipolar disorder, current ep isode mixed, moderate F31.62 ; Diabetic polyneuropathy associated with type 2 diabetes mellitus E11.42 ; Cocaine abuse F14.10 and Major depressive disorder, recurrent severe without psychotic features F33.2 [place] [address] [facility] [id number] [address] [place] [phone] Dec, Diabetic polyneuropathy asso ciated with type 2 diabetes mellitus E11.42 [facility] [address] [facility] [id number] [address] [place] [id number] Dec, [facility] [address] [place] [address] Dec, [facility] [address] [facility] [id number] [address] [place] [phone] Dec, Major depressive disorder, r ecurrent severe without psychotic features F33.2 ; Diabetic polyneuropathy associated with type 2 diabetes mellitus E11.42 and Cocaine abuse F14.10 [facility] [address] [facility] [id number] [address] [place] [phone] Dec, [facility] [address] [facility] [id number] [address] [place] [phone] November, Post-traumatic stress disord er F43.10 ; Bipolar disorder, current episode mixed, moderate F31.62 ; Cocaine abuse F14.10 ; Generalized anxiety disorder F41.1 and Neurocognitive deficits R29.818 [facility] [address] [facility] [id number] [address] [place] [id number] November, Pure hypercholesterolemia E7 8.0 [facility] [address] [facility] [id number] [address] [place] [phone] November, [facility] [address] [facility] [id number] [address] [place] [id number] November, Type 2 diabetes mellitus wit h hyperglycemia, without long-term current use of insulin E11.65 ; Seizure disorder G40.909 ; Major depressive disorder, recurrent severe without psychotic features F33.2 and Cocaine abuse F14.10 [facility] [address] [facility] [id number] [address] [place] [id number] Oct, Type 2 diabetes mellitus wit h hyperglycemia, without long-term current use of insulin E11.65 [facility] [address] [facility] [id number] [address] [place] [address] Oct, Subacromial bursitis of left shoulder joint M75.52 and Homicidal ideation R45.850 [place] [address] [facility] [id number] [address] [place] [address] Oct, Post-traumatic stress disord er F43.10 and Bipolar disorder F31.9 [facility] [place] [address] [facility] [id number] [address] Oct, [place] [address] [place] [id number] [address] [place] [phone] Oct, [place] [address] [place] [id number] [address] [place] [address] Sep, Diabetic polyneuropathy asso ciated with type 2 diabetes mellitus E11.[address] [address] Aug, Type 2 diabetes mellitus wit h hyperglycemia, without long-term current use of insulin E11.[address] [address] Aug, Twitching R25.3 ; Pain of le ft foot M79.672 and Pain in right foot M79.[address] [address] Aug, Diabetic polyneuropathy asso ciated with type 2 diabetes mellitus E11.42 and Essential hypertension I10 [address] [address] Aug, Type 2 diabetes mellitus wit h hyperglycemia, without long-term current use of insulin E11.65 ; Post-traumatic stress disorder F43.10 ; Bipolar disorder, current episode mixed, moderate F31.62 and Neurocognitive deficits R29.[address] [address] Jul, Bipolar disorder, current ep isode depressed, severe, without psychotic features F31.4 and Post traumatic stress disorder (PTSD) F43.10 [place] [address] [place] [id number] [address] [place] [phone] Jul, Bipolar disorder, current ep isode depressed, severe, without psychotic features F31.4 and Post traumatic stress disorder (PTSD) F43.10 [place] [address] [facility] [id number] [address] [place] [phone] Jul, [place] [address] [facility] [id number] [address] [place] [phone] Jun, [place] [address] [facility] [id number] [address] [place] [address] Jun, Tarsal tunnel syndrome of kalyan th lower extremities G57.53 and Diabetic polyneuropathy associated with type 2 diabetes mellitus E11.42 [place] [address] [facility] [id number] [address] [place] [phone] May, Bipolar disorder, current ep isode mixed, moderate F31.62 ; Generalized anxiety disorder F41.1 ; Post-traumatic stress disorder F43.10 and Neurocognitive deficits R29.818 [place] [address] [facility] [id number] [address] [place] [address] May, [place] [address] [facility] [id number] [address] [place] [phone] May, Bipolar disorder, current ep isode depressed, severe, without psychotic features F31.4 and Post traumatic stress disorder (PTSD) F43.10 [place] [address] [facility] [id number] [address] [place] [address] May, Subacromial bursitis of left shoulder joint M75.52 [place] [address] [facility] [id number] [address] [place] [phone] May, Diabetic polyneuropathy asso ciated with type 2 diabetes mellitus E11.42 [facility] [address] [facility] [id number] [address] [place] [phone] May, [place] [address] [place] [id number] [address] [place] [id number] May, Medicare annual wellness vis it, initial [...] diabetes mellitus E11.42 and Mixed hyperlipidemia E78.2 [facility] [address] [id number] [address] [place] [id number] May, [facility] [address] [id number] [address] [place] [id number] May, Exercise counseling Z71.82 [facility] [address] [id number] [address] [place] [address] May, Subacromial bursitis of left shoulder joint M75.52 [facility] [address] [facility] [id number] [address] [place] [phone] May, [facility] [address] [id number] [address] [place] [phone] May, [facility] [address] [id number] [address] [place] [id number] Apr, [facility] [address] [facility] [id number] [address] [place] [address] Apr, Diabetic polyneuropathy asso ciated with type 2 diabetes mellitus E11.42 [facility] [address] [id number] [address] [place] [id number] Apr, Tarsal tunnel syndrome of kalyan th lower extremities G57.53 and Diabetic polyneuropathy associated with type 2 diabetes mellitus E11.42 [facility] [address] [id number] [address] [place] [phone] Apr, [facility] [address] [facility] [id number] [address] [place] [address] Apr, Subacromial bursitis of left shoulder joint M75.52 [facility] [address] [id number] [address] [place] [id number] Mar, Type 2 diabetes mellitus wit h hyperglycemia, without long-term current use of insulin E11.65 ; Diabetic polyneuropathy associated with type 2 diabetes mellitus E11.42 ; Bilateral low back pain, with sciatica presence unspecified M54.5 ; Tarsal tunnel syndrome of both lower extremities G57.53 ; Jock itch L29.8 ; Encounter for immunization Z23 and Weight gain R63.5 [facility] [address] [id number] [address] [place] [id number] Mar, Jock itch L29.8 [facility] [address] [id number] [address] [place] [address] Mar, Plantar fasciitis, bilateral M72.2 ; Tarsal tunnel syndrome of both lower extremities G57.53 ; Posterior tibial tendinitis of right lower extremity M76.821 and Posterior tibial tendinitis of left lower extremity M76.822 [facility] [address] [id number] [address] [place] [phone] Mar, Diabetic polyneuropathy asso ciated with type 2 diabetes mellitus E11.42 [facility] [address] [id number] [address] [place] [address] Mar, Subacromial bursitis of left shoulder joint M75.52 [facility] [address] [id number] [address] [place] [id number] Jan, [facility] [address] [id number] [address] [place] [id number] Jan, [facility] [address] [id number] [address] [place] [id number] Jan, [facility] [address] [id number] [address] [place] [phone] Jan, [facility] [address] [id number] [address] [place] [phone] Jan, Drug-induced erectile dysfun ction N52.2 [facility] [address] [id number] [address] [place] [id number] Dec, Subacromial bursitis of left shoulder joint M75.52 [place] [address] [id number] [address] [place] [id number] Dec, Type 2 diabetes mellitus wit h [...] otitis externa of righ t ear H60.391 [place] [address] [facility] [id number] [address] [place] [id number] November, [place] [address] [address] [facility] [id number] [address] [place] [id number] November, Type 2 diabetes mellitus wit h hyperglycemia, without long-term current use of insulin E11.65 [place] [address] [address] [facility] [id number] [address] [place] [id number] November, Subacromial bursitis of left shoulder joint M75.52 [place] [address] [address] [facility] [id number] [address] [place] [address] November, Bilateral low back pain, wit h sciatica presence unspecified M54.5 [place] [address] [id number] [address] [place] [address] Oct, Essential hypertension I10 ; Pure hypercholesterolemia E78.0 and At risk for cardiovascular event Z91.89 [place] [address] [address] [facility] [id number] [address] [place] [id number] Oct, Bilateral low back pain, wit h sciatica presence unspecified M54.5 and Subacromial bursitis of left shoulder joint M75.52 [place] [address] [address] Sep, Subacromial bursitis of left shoulder joint M75.52 [facility] [address] [address] Aug, Subacromial bursitis of left shoulder joint M75.52 [facility] [address] [address] Aug, Essential hypertension I10 [place] [address] [address] Jul, Pure hypercholesterolemia E7 8.0 and Jock itch L29.8 [place] [address] [address] Jul, Type 2 diabetes mellitus wit h hyperglycemia, without long-term current use of insulin E11.65 [place] [address] [address] Jul, [facility] [address] [address] Jul, [place] [address] [address] Jul, [facility] [address] [address] Jun, Moderate persistent asthma w ithout complication J45.40 ; Subacromial bursitis of left shoulder joint M75.52 ; Episode of altered consciousness R40.4 and Obstructive sleep apnea syndrome G47.33 [place] [address] [address] [place] [id number] [address] [place] [address] Jun, Subacromial bursitis of left shoulder joint M75.52 [place] [address] [address] May, [place] [address] [address] May, [facility] [address] [place] [id number] [place] [address] May, Subacromial bursitis of left shoulder joint M75.52 [facility] [address] [place] [id number] [address] [place] [address] May, [facility] [address] [place] [id number] [address] [place] [address] Apr, Subacromial bursitis of left shoulder joint M75.52 [facility] [address] [place] [id number] [place] [address] Apr, Pure hypercholesterolemia E7 8.0 ; Right sided weakness R53.1 ; Episode of altered consciousness R40.4 ; Seizure disorder G40.909 ; Essential hypertension I10 and At risk for cardiovascular event Z91.89 [place] [address] [address] [place] [id number] [address] [place] [address] Apr, [place] [address] [address] 18 Apr, 2017 [place] [address] [place] [id number] [address] [place] [address] 14 Mar, 2017 [place] [address] [address] 14 Mar, 2017 [place] [address] [address] 13 Mar, 2017 Type 2 diabetes mellitus wit h hyperglycemia, without long-term current use of insulin E11.65 ; Encounter for immunization Z23 and Subacromial bursitis of left shoulder joint M75.52 [facility] [address] [place] [id number] [address] [place] [address] Feb, Subacromial bursitis of left shoulder joint M75.52 [facility] [address] [place] [id number] [address] [place] [address] Jan, Moderate persistent asthma w ithout complication J45.40 [facility] [address] [place] [id number] [address] [place] [address] Jan, Bipolar disorder, current ep isode depressed, mild F31.31 ; Chronic post-traumatic stress disorder (PTSD) F43.12 and Generalized anxiety disorder F41.1 [place] [address] [address] [facility] [id number] [address] [place] [address] Dec, Type 2 diabetes mellitus wit h hyperglycemia, without long-term current use of insulin E11.65 [place] [address] [address] [facility] [id number] [address] [place] [address] November, [place] [address] [id number] [address] [place] [address] November, Bipolar disorder, current ep isode depressed, mild F31.31 ; Chronic post-traumatic stress disorder (PTSD) F43.12 and Generalized anxiety disorder F41.1 [place] [address] [address] [facility] [id number] [address] [place] [address] November, Type 2 diabetes mellitus wit h hyperglycemia, without long-term current use of insulin E11.65 ; Subacromial bursitis of left shoulder joint M75.52 ; Urinary hesitancy R39.11 ; Tinea cruris B35.6 ; Tinea pedis of both feet B35.3 and Moderate persistent asthma without complication J45.40 [place] [address] [place] [id number] [address] [place] [address] November, [place] [address] [address] [facility] [id number] [address] [place] [address] November, [place] [address] [address] [facility] [id number] [address] [place] [address] Oct, [place] [address] [address] [facility] [id number] [address] [place] [address] Oct, [place] [address] [address] [facility] [id number] [address] [place] [address] Sep, [place] [address] [address] [facility] [id number] [address] [place] [address] Sep, [place] [address] [place] [id number] [address] [place] [address] 17 Sep, 2016 [place] [address] [address] Sep, Bipolar disorder, current ep isode mixed, moderate F31.62 ; Generalized anxiety disorder F41.1 and Chronic post-traumatic stress disorder (PTSD) F43.12 [place] [address] [address] Sep, Type 2 diabetes mellitus wit h hyperglycemia, without long-term current use of insulin E11.65 [place] [address] [place] [id number] [address] [place] [address] Sep, [place] [address] [address] Aug, Moderate persistent asthma w [facility] complication J45.40 [place] [address] [address] [place] [id number] [place] [address] Aug, [place] [address] [address] [place] [id number] [address] [place] [address] Jul, [place] [address] [place] [id number] [place] [address] Jul, Type 2 diabetes mellitus wit h hyperglycemia, without long-term current use of insulin E11.65 [place] [address] [address] [place] [id number] [place] [address] Jul, [place] [address] [place] [id number] [address] [place] [address] Jul, [place] [address] [place] [id number] [address] [place] [address] Jul, [place] [address] [place] [id number] [place] [address] Jul, Type 2 diabetes mellitus wit h hyperglycemia, without long-term current use of insulin E11.65 ; Hematuria R31.9 ; Snoring R06.83 ; Sleep walking and eating F51.3 ; Jock itch L29.8 ; Costochondritis M94.0 and Cervicalgia M54.2 [facility] [address] [id number] [address] [place] [address] Jun, Urinary hesitancy R39.11 [facility] [address] [facility] [id number] [address] [place] [address] Jun, Elevated serum glucose R73.9 and Urinary hesitancy R39.11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
[2020-02-17 09:12] LABS: BASOPHILS % (AUTO) 0 % (0-10); EOSINOPHILS # (AUTO) 0.4 10^3/uL (0.0-0.3); EOSINOPHILS % (AUTO) 6 % (0-10); HEMATOCRIT 44 % (40-54); HEMOGLOBIN 15.1 G/DL (13.3-17.7); LYMPHOCYTES # (AUTO) 2.5 X 10^3 (1.0-4.0); LYMPHOCYTES % (AUTO) 37 % (12-44); MEAN CORPUSCULAR HEMOGLOBIN 30 PG (25-34); MEAN CORPUSCULAR HGB CONC 35 G/DL (32-36); MEAN CORPUSCULAR VOLUME 85 FL (80-99); MEAN PLATELET VOLUME 10.4 FL (7.4-10.4); MONOCYTES # (AUTO) 0.5 X 10^3 (0.0-1.0); MONOCYTES % (AUTO) 7 % (0-12); NEUTROPHILS # (AUTO) 3.3 X 10^3 (1.8-7.8); NEUTROPHILS % (AUTO) 50 % (42-75); PLATELET COUNT 228 10^3/uL (130-400); RED CELL DISTRIBUTION WIDTH 13.3 % (10.0-14.5); WHITE BLOOD COUNT 6.7 10^3/uL (4.3-11.0)
--- OUTSIDE RECORDS SUMMARY | 2020-02-17 09:20 | XMS REPORT | Continuity of Care Document ---
Demographics Preferred Language Unknown Marital Status Unknown Jehovah'S Witness Affiliation Unknown Race Unknown Ethnic Group Unknown Author Organization Unknown Address Unknown Phone Unavailable Allergies Active Description Code Type Severity Reaction Onset Reported/Identified Relationship to Patient Clinical Status Yes meperidine HCl [id number] Dr joseph Allergy Moderate PSYCH 01/23/2012 Medications [...] STATUS 03/23/2012 Ot E812.0 MV COLLISION NOS- TUG BOAT ENGINEER 03/24/2012 Ot 846.0 SPRA IN LUMBOSACRAL 03/24/2012 Ot 847.1 SPRA IN THORACIC REGION 03/24/2012 Ot 959.19 OTH INJURY OF OTHER SITES OF TRUNK 03/24/2012 Ot E000.8 OTH ER EXTERNAL CAUSE STATUS 03/24/2012 Ot E812.0 MV COLLISION NOS- TUG BOAT ENGINEER 04/04/2012 Ot 401.9 HYPE RTENSION NOS 04/04/2012 Ot 846.0 SPRA IN LUMBOSACRAL 04/04/2012 Ot 847.1 SPRA IN THORACIC REGION 04/04/2012 Ot 959.19 OTH INJURY OF OTHER SITES OF TRUNK 04/04/2012 Ot E000.8 OTH ER EXTERNAL CAUSE STATUS 04/04/2012 Ot E812.0 MV COLLISION NOS- TUG BOAT ENGINEER 04/11/2012 DAVON RESENDEZ MD 401.1 ESSENTIAL HYPERTENSION [...] .8 sweating heavily at night 06/25/2012 ART PETERSEN [...] L Ot 873. 0 07/10/2014 COSENS DO, KVEON L Ot E000 .0 07/10/2014 COSENS DO, [...] ALLIE Coates Ot 310.2 01/28/2015 ART PETERSEN SUPERVISOR PIPE MANUFACTURE Ot 780.09 01/28/2015 JUANY MARCANO, MYRA N [...] ALLIE Coates Ot 310.2 01/28/2015 ART PETERSEN SUPERVISOR PIPE MANUFACTURE Ot 780.09 01/28/2015 JUANY MARCANO, MYRA N [...] N Ot 784 .2 02/09/2015 ART PETERSEN SUPERVISOR PIPE MANUFACTURE Ot 780.09 02/09/2015 JUANY MARCANO, MYRA N [...] N Ot 784 .2 02/09/2015 ART PETERSEN SUPERVISOR PIPE MANUFACTURE Ot 780.09 05/19/2015 ART PETERSEN SUPERVISOR PIPE MANUFACTURE Ot 780.09 05/19/2015 JUANY MARCANO, MYRA N [...] Ot 724 .2 06/19/2015 NICOLA ART Shazia SUPERVISOR PIPE MANUFACTURE Ot 780.09 07/15/2015 MYRA HARRINGTON MD Ot [...] STATUS 12/09/2015 Ot E812.0 MV COLLISION NOS- TUG BOAT ENGINEER 12/09/2015 KEVON GARCIA DO Ot 682. 0 [...] SWELLING IN HEAD NECK 01/06/2016 ART PETERSEN SUPERVISOR PIPE MANUFACTURE Ot 780.09 OTHER ALTERATION OF CONSCIOUSNESS 01/06/2016 [...] STATUS 05/01/2016 Ot E812.0 MV COLLISION NOS- TUG BOAT ENGINEER 05/01/2016 KEVON GARCIA DO Ot 682. 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 02 SHORTNESS OF BREATH 05/15/2016 FLY VILLAFANA MD Ot R07. 89 OTHER CHEST PAIN 05/15/2016 FLY VILLAFANA MD Ot R07. 9 CHEST PAIN, UNSPECIFIED 05/15/2016 FLY VILLAFANA MD Ot Z79.899 OTHER [facility] (CURRENT) DRUG THERAPY 05/16/2016 BRODERICK MARCANO, FLY Aminata Ot F17.210 NICOTINE DEPENDENCE, CIGARETTES, UNCOMPL 05/16/2016 FLY VILLAFANA MD Ot I10 ESSENTIAL (PRIMARY) HYPERTENSION 05/16/2016 FLY VILLAFANA MD Ot R06. 02 SHORTNESS OF BREATH 05/16/2016 FLY VILLAFANA MD Ot R07. 89 OTHER CHEST PAIN 05/16/2016 FLY VILLAFANA MD Ot R07. 9 CHEST PAIN, UNSPECIFIED 05/16/2016 BRODERICK MARCANO FLY Aminata Ot Z79.899 OTHER [facility] (CURRENT) DRUG THERAPY 05/23/2016 MYRA HARRINGTON MD [...] R07. 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 06/21/2016 MYRA HARRINGTON MD Ot M54 .5 LOW BACK PAIN 06/27/2016 MYRA HARRINGTON MD Ot M54 .5 LOW BACK PAIN 06/28/2016 LATONYA KAT MD Ot R51 HEADACHE 06/28/2016 LATONYA KAT MD Ot Z79.899 OTHER [facility] (CURRENT) DRUG THERAPY 07/04/2016 MYRA HARRINGTON MD [...] 08/23/2016 LATONYA KAT MD Ot Z79.899 OTHER [facility] (CURRENT) DRUG THERAPY 09/23/2016 ART PETERSEN APRN [...] 09/23/2016 LATONYA KAT MD Ot Z79.899 OTHER [facility] (CURRENT) DRUG THERAPY 09/24/2016 YMRA HARRINGTON MD Ot F51 .3 SLEEPWALKING [SOMNAMBULISM] [...] 05/07/2017 LATONYA KAT MD Ot Z79.899 OTHER [facility] (CURRENT) DRUG THERAPY 05/09/2017 MYRA HARRINGTON MD [...] HISTORY OF NICOTINE DEPENDENCE 05/27/2018 ART PETERSEN SUPERVISOR PIPE MANUFACTURE Ot 780.09 OTHER ALTERATION OF CONSCIOUSNESS 05/27/2018 [...] 05/27/2018 LATONYA KAT MD Ot 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 05/27/2018 MYRA HARRINGTON MD Ot R40 .4 TRANSIENT ALTERATION OF AWARENESS 05/27/2018 MYRA HARRINGTON MD Ot R53 .1 WEAKNESS 06/10/2018 ART PETERSEN SUPERVISOR PIPE MANUFACTURE Ot 780.09 OTHER ALTERATION OF CONSCIOUSNESS 06/10/2018 [...] 06/10/2018 LATONYA KAT MD Ot Z79.899 OTHER [facility] (CURRENT) DRUG THERAPY 06/10/2018 MYRA HARRINGTON MD Ot R40 .4 TRANSIENT ALTERATION OF AWARENESS 06/10/2018 MYRA HARRINGTON MD Ot R53 .1 WEAKNESS 05/06/2019 CASSIDY GAYTAN Ot E78.00 PURE HYPERCHOLESTEROLEMIA, UNSPECIFIED 05/06/2019 BERNDESTINY CASSIDY Ot F17.210 NICOTINE DEPENDENCE, CIGARETTES, UNCOMPL 05/06/2019 LUKAS CASSIDY Ot I10 ESSENTIAL (PRIMARY) HYPERTENSION 05/06/2019 RAMIN GAYTANIS Ot J45.909 UNSPECIFIED ASTHMA, UNCOMPLICATED 05/06/2019 BERNDESTINY CASSIDY Ot K21.9 GASTRO-ESOPHAGEAL REFLUX DISEASE WITHOUT 05/06/2019 BERNDESTINY CASSIDY Ot M79.644 PAIN IN RIGHT FINGER(S) 05/06/2019 LUKAS CASSIDY Ot S69.91XA UNSP INJURY OF RIGHT WRIST, HAND AND FIN 05/06/2019 LUKAS CASSIDY Ot X58.XXXA EXPOSURE TO OTHER SPECIFIED FACTORS, INI 05/06/2019 RAMIN GAYTANIS Ot Z88.5 ALLERGY STATUS TO NARCOTIC AGENT STATUS 05/06/2019 ART PETERSEN SUPERVISOR PIPE MANUFACTURE Ot 780.09 OTHER ALTERATION OF CONSCIOUSNESS 05/06/2019 MYRA HARRINGTON MD Ot 782 .2 LOCAL SUPRFICIAL SWELLNG 05/06/2019 MYRA HARRINGTON MD Ot 784 .2 SWELLING IN HEAD NECK 05/06/2019 MYRA HARRINGTON MD Ot 346.90 MIGRAINE UNSPECIFIED W/O INTRACT MGRN W/ 05/06/2019 MYRA HARRINGTON MD Ot 401 .1 BENIGN HYPERTENSION 05/06/2019 MYRA HARRINGTON MD Ot 493.90 ASTHMA, UNSPECIFIED 05/06/2019 JUANY MD, MYRA N Ot 723 .1 CERVICALGIA 05/06/2019 MYRA HARRINGTON MD Ot 724 .2 LUMBAGO 05/06/2019 LATONYA KAT MD Ot R51 HEADACHE 05/06/2019 LATONYA KAT MD Ot Z79.899 OTHER [facility] (CURRENT) DRUG THERAPY 05/06/2019 MYRA HARRINGTON MD Ot R40 .4 TRANSIENT ALTERATION OF AWARENESS 05/06/2019 MYRA HARRINGTON MD Ot R53 .1 WEAKNESS 05/22/2019 MYRA HARRINGTON MD Ot R40 .4 TRANSIENT ALTERATION OF AWARENESS 05/22/2019 MYRA HARRINGTON MD Ot R53 .1 WEAKNESS 02/07/2020 MYRA HARRINGTON MD Ot 723 .1 CERVICALGIA 02/07/2020 MYRA HARRINGTON MD Ot 724 .2 LUMBAGO 02/07/2020 LATONYA KAT MD Ot R51 HEADACHE 02/07/2020 LATONYA KAT MD Ot Z79.899 OTHER [facility] (CURRENT) DRUG THERAPY 02/07/2020 MYRA HARRINGTON MD Ot R40 .4 TRANSIENT ALTERATION OF AWARENESS 02/07/2020 MYRA HARRINGTON MD Ot R53 .1 WEAKNESS 02/07/2020 MYRA HARRINGTON MD Ot 723 .1 CERVICALGIA 02/07/2020 MYRA HARRINGTON MD Ot 724 .2 LUMBAGO 02/07/2020 LATONYA KAT MD Ot R51 HEADACHE 02/07/2020 LATONYA KAT MD Ot 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 02/07/2020 MYRA HARRINGTON MD Ot R40 .4 TRANSIENT ALTERATION OF AWARENESS 02/07/2020 MYRA HARRINGTON MD Ot R53 .1 WEAKNESS 02/09/2020 TREVER FRANCIS MD Ot E78.00 PURE HYPERCHOLESTEROLEMIA, UNSPECIFIED 02/09/2020 TREVER FRANCIS MD Ot F14.10 COCAINE ABUSE, UNCOMPLICATED 02/09/2020 TREVER FRANCIS MD Ot F17.210 NICOTINE DEPENDENCE, CIGARETTES, UNCOMPL 02/09/2020 BRUEGGEMANN MD, TREVER T Ot I10 ESSENTIAL (PRIMARY) HYPERTENSION 02/09/2020 PENNY MARCANO, TREVER Hernandez Ot J45.909 UNSPECIFIED ASTHMA, UNCOMPLICATED 02/09/2020 PENNY MARCANO, TREVER Hernandez Ot R07.89 OTHER CHEST PAIN 02/09/2020 PENNY MARCANO, TREVER Hernandez Ot Z88.5 ALLERGY STATUS TO NARCOTIC AGENT STATUS 02/09/2020 PENNY MARCANO, TREVER Hernandez Ot Z91.14 PATIENT'S OTHER NONCOMPLIANCE WITH MEDIC Procedures Code Description [place] [address] ROUT INE VENIPUNCTURE 06/25/2012 22849 TB T EST INTRADERMAL 06/25/2012 02467 CMP 06/25/2012 2133463 GF R CALC (RESULT ONLY) 06/25/2012 83223 TSH 06/26/2012 0124103 CO MPLETE BLOOD COUNT NO DIFF (CBC Result) 06/26/2012 61532 DIFF ERENTIAL WBC COUNT (CBC DIFF RESULT) 06/26/2012 68201 HEPA TITIS PROFILE 06/26/2012 95205 XRAY CHEST 3 VIEW 06/28/2012 57620 XRAY CHEST 3 VIEW 06/28/2012 65685 CBC W/MANUAL DIF (order) 07/03/2012 27690 HIV- [facility] 07/03/2012 86418 TUBE RCULOSIS - [facility] 07/23/2012 41235 ROUT INE VENIPUNCTURE 02/05/2014 95740 CBC 02/05/2014 1417413 GF R CALC (RESULT ONLY) 02/05/2014 73322 CMP 02/05/2014 05012 TSH 02/05/2014 96861 UA W /MICROSCOPY 02/05/2014 24901 XRAY CHEST 2 VIEW 02/06/2014 41693 EEG 02/10/2014 38667 US S OFT TISSUE (SPECIFY LOCATION) 03/04/2014 71393 EXER CISE STRESS TEST 06/18/2014 CARDIOLOG ANNE-MARIE MADRID 06/18/2014 05856 XRAY CERVICAL SPINE, 2 OR 3 VIEWS [...] 15 Whole blood basic metabolic panel - 7 12:21 Serum or plasma sodium measurement (moles/volume) [...] 50.0-100.0 Urinalysis, Complete - 07/11/16 16:46 Specific [place] 1.014 1.005-1.030 pH 7.0 5.0-7.5 Urine-Color Yellow [...] 7-25 CREATININE 1.08 mg/dL 0.60-1.35 eGFR NON-AFR. MARTINI[place]AIS 81 mL/min/1.73m2 > OR = 60 eGFR [...] 04/03/19 14:34 METHYLMALONIC ACID 164 nmol/L 87-318 Comprehensive metabolic panel - 02/07/20 16:55 Serum or plasma sodium measurement (moles/volume) 142 mmol/L 135-145 Serum or plasma potassium measurement (moles/volume) 4.3 mmol/L 3.6-5.0 Serum or plasma chloride measurement (moles/volume) 108 mmol/L 98-107 Carbon dioxide 25 mmol/L 21-32 Serum or plasma anion gap determination (moles/volume) 9 mmol/L 5-14 Serum or plasma urea nitrogen measurement (mass/volume ) 10 mg/dL 7-18 Serum or plasma creatinine measurement (mass/volume) 1.24 mg/dL 0.60-1.30 Serum or plasma urea nitrogen/creatinine mass ratio 8 NRG Serum or plasma creatinine measurement w ith calculation of estimated glomerular filtration rate > NRG Serum or plasma glucose measurement (mass/volume) 77 mg/dL 70-105 Serum or plasma calcium measurement (mass/volume) 9.1 mg/dL 8.5-10.1 Serum or plasma total bilirubin measurement (mass/volu me) 0.4 mg/dL 0.1-1.0 Serum or plasma alkaline phosphatase magali surement (enzymatic activity/volume) 79 U/L 40-136 Serum or plasma aspartate aminotransfera se measurement (enzymatic activity/volume) 15 U/L 5-34 Serum or plasma alanine aminotransferase measurement (enzymatic activity/volume) 24 U/L 0-55 Serum or plasma protein measurement (mass/volume) 7.1 g/dL 6.4-8.2 Serum or plasma albumin measurement (mass/volume) 4.1 g/dL 3.2-4.5 CALCIUM CORRECTED 9.0 mg/dL 8.5-10.1 Fibrin D-dimer FEU measurement in platel et poor plasma (mass/volume) - 02/07/20 16:55 Fibrin D-dimer FEU measurement in platelet poor plasma (mass/volume) 0.53 ug/mL 0.00-0.49 PT panel in platelet poor plasma by coag ulation assay - 02/07/20 16:55 Prothrombin time (PT) in platelet poor plasma by coagu lation assay 12.9 s 12.2-14.7 INR in platelet poor plasma or blood by coagulation as say 0.9 0.8-1.4 Activated partial thromboplastin time (a PTT) in platelet poor plasma bycoagulation assay - 02/07/20 16:55 Activated partial thromboplastin time (a PTT) in platelet poor plasma bycoagulation assay 32 s 24-35 Magnesium - 02/07/20 16:55 Magnesium 2.5 mg/dL 1.6-2.4 Complete blood count (CBC) with automate d white blood cell (WBC) differential - 02/07/20 16:55 Blood leukocytes automated count (number/volume) 5.5 10*3/uL 4.3-11.0 Blood erythrocytes automated count (number/volume) 5.22 10*6/uL 4.35-5.85 Venous blood hemoglobin measurement (mass/volume) 15.6 g/dL 13.3-17.7 Blood hematocrit (volume fraction) 44 % 40-54 Automated erythrocyte mean corpuscular volume 85 [ foz_us] 80-99 Automated erythrocyte mean corpuscular h emoglobin (mass per erythrocyte) 30 pg 25-34 Automated erythrocyte mean corpuscular h emoglobin concentration measurement (mass/volume) 35 g/dL 32-36 Automated erythrocyte distribution width ratio 13. 4 % 10.0- 14.5 Automated blood platelet count (count/volume) 223 10*3/uL 130-400 Automated blood platelet mean volume measurement 10.6 [foz_us] 7.4-10.4 Automated blood neutrophils/100 leukocytes 30 % 42-75 Automated blood lymphocytes/100 leukocytes 51 % 12-44 Blood monocytes/100 leukocytes 9 % 0-12 Automated blood eosinophils/100 leukocytes 9 % 0-10 Automated blood basophils/100 leukocytes 0 % 0-10 Blood neutrophils automated count (number/volume) 1.7 10*3 1.8-7.8 Blood lymphocytes automated count (number/volume) 2.8 10*3 1.0-4.0 Blood monocytes automated count (number/volume) 0. 5 10*3 0.0-1.0 Automated eosinophil count 0.5 10*3/uL 0 .0-0.3 Automated blood basophil count (count/volume) 0.0 10*3/uL 0.0-0.1 Serum or plasma troponin i.cardiac measu rement (mass/volume) - 02/07/20 16:55 Serum or plasma troponin i.cardiac measurement (mass/v olume) < ng/mL <0.028 Myoglobin, serum - 02/07/20 16:55 Myoglobin, serum 20.7 ng/mL 10.0-92.0 Serum or plasma troponin i.cardiac measu rement (mass/volume) - 02/07/20 18:50 Serum or plasma troponin i.cardiac measurement (mass/v olume) < ng/mL <0.028 Encounters ACCT No. Visit Date/Time Discharge Status Pt. Type Provider Facility Loc./Unit Complaint [id number] 07/12/2016 18:05:00 Document Registration [id number] 01/27/2020 13:00:00 01/27/2020 23:59:5 9 [facility] Outpatient MYRA HARRINGTON MD [facility] [id number] 04/03/2019 14:40:00 Document Registration [id number] 03/26/2019 13:40:00 Document Registration [id number] 11/28/2018 10:20:00 Document Registration [id number] 08/03/2017 10:40:00 Document Registration [id number] 07/24/2014 13:52:00 07/24/2014 23:59: 59 CLS Outpatient MYRA AHRRINGTON MD [id number] 06/18/2014 08:41:00 06/18/2014 23:59: 59 CLS Outpatient MYRA HARRINGTON MD [id number] 03/04/2014 16:21:00 03/04/2014 23:59: 59 CLS Outpatient MYRA HARRINGTON MD [id number] 02/10/2014 15:18:00 02/10/2014 23:59: 59 CLS Outpatient ART PETERSEN APRN [id number] 02/05/2014 13:45:00 02/05/2014 23:59: 59 CLS Outpatient MYRA HARRINGTON MD [id number] 09/04/2013 08:22:00 09/04/2013 23:59: 59 CLS Outpatient LULA MANNING MD [id number] 08/19/2013 14:53:00 08/19/2013 23:59: 59 CLS Outpatient LULA MANNING MD [id number] 09/23/2012 11:00:00 09/23/2012 23:59: 59 CLS Outpatient [id number] 08/21/2012 13:42:00 08/21/2012 23:59: 59 CLS Outpatient [id number] 07/22/2012 10:10:00 07/22/2012 23:59: 59 CLS Outpatient [id number] 07/10/2012 10:58:00 07/10/2012 23:59: 59 CLS Outpatient DAVON RESENDEZ MD [id number] 06/28/2012 11:35:00 06/28/2012 23:59: 59 CLS Outpatient DAVON RESENDEZ MD [id number] 10/09/2012 00:00:00 Document Registration [id number] 02/07/2020 16:40:00 020 19:48:00 DIS Outpatient PENNY MARCANO, TREVER Hernandez [facility] ER L SIDED EAR,NEC K,EYE PAIN [id number] 05/06/2019 18:52:00 019 19:32:00 DIS Emergency CASSIDY GAYTAN [facility] ER R THUMB INJ [id number] 06/18/2018 10:09:00 018 23:59:59 CLS Preadmit MYRA HARRINGTON MD [facility] REHAB L SHOULDER BURSITIS [id number] 08/08/2017 14:45:00 018 18:40:00 DIS Emergency KUNAL ARGUETA MD [facility] ER ON GOING CHEST PAIN KNOT ON HEAD/NECK HEADACHE [id number] 05/08/2017 13:00:00 017 23:59:59 CLS Outpatient MYRA HARRINGTON MD [facility] RAD RT SIDED WEAKNESS R53.1 [id number] 11/22/2016 20:40:00 06:25:00 DIS Outpatient MYRA HARRINGTON MD [facility] SLEEP LILLY,SNORING,HTN,MOOD DI SORDER [id number] 09/23/2016 20:57:00 017 06:35:00 DIS Outpatient MYRA HARRINGTON MD [facility] SLEEP OBSTRUCTIVE SLEEP APNEA [id number] 08/03/2016 14:41:00 16:26:00 DIS Outpatient MYRA HARRINGTON MD [facility] REHAB LBP AND HIP PAIN [id number] 06/14/2016 12:11:00 016 23:59:59 CLS Outpatient LATONYA KAT MD [facility] LAB HEADACHE [id number] 05/15/2016 13:46:00 016 16:50:00 DIS Emergency BRODERICK MARCANO, FLY Coates [facility] ER CHEST PAIN [id number] 12/17/2014 09:47:00 015 23:59:59 CLS Outpatient MYRA HARRINGTON MD [facility] RAD CERVICALGIA,LUMBAGO [id number] 07/09/2014 18:30:00 015 18:45:00 DIS Inpatient MYRA HARRINGTON MD [facility] CSD CHEST PAIN [id number] 06/23/2014 10:25:00 014 23:59:59 CLS Outpatient MYRA HARRINGTON MD [facility] CARD INTERMITTENT CHEST PAIN WITH HTN [id number] 03/12/2014 09:55:00 014 23:59:59 CLS Outpatient MYRA HARRINGTON MD [facility] RAD SWELLING, NO PALPABLE M ASS [id number] 02/16/2014 08:00:00 08/11/2 014 23:59:59 CLS Outpatient ART PETERSEN APRN [facility] RT ALTERATION OF C ONSCIENCE [id number] 12/30/2013 13:27:00 23:59:59 CLS Outpatient ALLIE STONE MD [facility] RAD POST CONCUSSION SYNDROME [id number] 11/25/2013 14:15:00 16:00:00 DIS Outpatient ALLIE STONE MD [facility] REHAB POST CONCUSSION SYNDROME [id number] 07/29/2013 17:38:00 23:59:59 CLS Outpatient KEVON GARCIA DO [facility] RAD HEAD INJURY [id number] 07/26/2013 20:21:00 21:10:00 DIS Emergency MONICA REES MD [facility] ER FACE LAC;WORK COMP [id number] 05/21/2012 07:56:00 Document Registration [id number] 04/18/2012 10:34:00 Document Registration [id number] 04/04/2012 12:56:00 Document Registration [id number] 03/24/2012 14:12:00 Document Registration [id number] 03/23/2012 19:37:00 Document Registration [id number] 01/23/2012 13:59:00 Document Registration [id number] 12/17/2014 09:47:27 ACT Document Registration
[2020-02-17 09:26] LABS: ALBUMIN 3.9 GM/DL (3.2-4.5); PROTHROMBIN TIME PATIENT 13.2 SEC (12.2-14.7)
[2020-02-17 09:27] LABS: CHLORIDE 109 MMOL/L (98-107); POTASSIUM 3.2 MMOL/L (3.6-5.0); SODIUM 142 MMOL/L (135-145)
[2020-02-17 09:28] LABS: CALCIUM 8.9 MG/DL (8.5-10.1)
[2020-02-17 09:29] LABS: GLUCOSE 127 MG/DL (70-105); TOTAL PROTEIN 6.9 GM/DL (6.4-8.2)
[2020-02-17 09:30] LABS: CARBON DIOXIDE 25 MMOL/L (21-32)
[2020-02-17 09:31] LABS: BILIRUBIN,TOTAL 0.6 MG/DL (0.1-1.0)
[2020-02-17 09:32] LABS: ALKALINE PHOSPHATASE 77 U/L (40-136)
[2020-02-17 09:33] LABS: GFR ESTIMATED > 60
[2020-02-17 09:34] LABS: BUN/CREATININE RATIO 8
[2020-02-17 09:35] LABS: ALANINE AMINOTRANSFERASE 18 U/L (0-55)
[2020-02-17 09:36] LABS: MAGNESIUM 2.3 MG/DL (1.6-2.4)
--- NOTE | 2020-02-17 09:46 | Diagnostic Imaging Report ---
EXAMINATION: Chest 1 view HISTORY: Chest pain. Left arm numbness. COMPARISON: Chest radiograph on 02/07/2020. FINDINGS: The lung volumes are normal. No focal consolidation is seen. No large pleural effusion or pneumothorax is seen. The cardiomediastinal silhouette is normal in size and contour. No acute osseous abnormality is seen. IMPRESSION: 1. No acute pleuroparenchymal process. Dictated by: Dictated on workstation # [id number]
[2020-02-17 10:19] LABS: BILIRUBIN,URINE NEGATIVE (NEGATIVE); CLARITY,URINE CLEAR; COLOR,URINE YELLOW; GLUCOSE, URINE (UA) TRACE (NEGATIVE); KETONES,URINE NEGATIVE (NEGATIVE); LEUKOCYTE ESTERASE ,URINE TRACE (NEGATIVE); NITRITE,URINE POSITIVE (NEGATIVE); PROTEIN,URINE NEGATIVE (NEGATIVE)
[2020-02-17 10:28] LABS: AMORPHOUS SEDIMENT,UR FEW AMOR URATES /LPF; BACTERIA,URINE MODERATE /HPF
[2020-02-17 10:37] LABS: AMPHETAMINE SCREEN, URINE NEGATIVE (NEGATIVE); BARBITURATE SCREEN URINE NEGATIVE (NEGATIVE); BENZODIAZEPINES SCREEN URINE NEGATIVE (NEGATIVE); CANNABINOID SCREEN, URINE NEGATIVE (NEGATIVE); COCAINE SCREEN URINE POSITIVE (NEGATIVE); METHADONE STAT NEGATIVE (NEGATIVE); METHAMPHETAMINE SCREEN URINE S NEGATIVE (NEGATIVE); OPIATE SCREEN URINE NEGATIVE (NEGATIVE); OXYCODONE STAT NEGATIVE (NEGATIVE); PROPOXYPHENE STAT NEGATIVE (NEGATIVE); TRICYCLIC ANTIDEPRESSANTS SCRE NEGATIVE (NEGATIVE)
[2020-02-17 11:21] VITALS: BP 134/98
== END | disposition home or self-care (01) ==
LOC: EDUNIT# 08:52 → ER 08:54
DX: R07.89 Other chest pain (principal); F14.90 Cocaine use, unspecified, uncomplicated; N30.90 Cystitis, unspecified without hematuria; R20.0 Anesthesia of skin; J45.909 Unspecified asthma, uncomplicated; I10 Essential (primary) hypertension; E78.00 Pure hypercholesterolemia, unspecified; E11.9 Type 2 diabetes mellitus without complications; Z88.5 Allergy status to narcotic agent; Z77.22 Contact with and (suspected) exposure to environmental tobacco smoke (acute) (chronic); Z87.820 Personal history of traumatic brain injury
CPT/HCPCS: 36415; 71045; 80053; 80306; 81000; 83735; 83874; 83880; 84484; 85025; 85379; 85610; 85730; 87088; 87491; 87591; 93005; 93041